=== PATIENT | male | born 1950 | race Caucasian/White ===

== ENCOUNTER → 2016-02-28 | Outpatient (CLI) | payer MEDICARE, MEDICAID ==
[~2016-02-28] MED LIST: /GLIM4TA PO; /PRAV20TA PO; ALBU17IN INH; AMBI10TA PO; AMOX500T2 PO; ANTI25TA PO; ASPI81TA85 PO; ATEN25TA PO; BACT800T5 PO; CLAR10CA3 PO; CLIN300C PO; CLOB0.0548 EX; CLOP75TA2 PO; CYCL10TA3 PO; DOXY-197 PO; ECOT81TA5 PO; EUCECRE3 TOP; FENT50PA TD; FLEXERIL PO; FLOM5CAP PO; FOLI1TAB2 PO; FOLI1TAB86 PO; FURO40TA2 PO; GABA300C3 PO; GABA800T PO; GLIM4TAB PO; HYDR12.55 PO; HYDR25TAB PO; HYDR50TA2 PO; KLOR20TA PO; LANS30CA PO; LANTINJ4 SC; LASI40TA PO; LISI-542 PO; LORA10TA2 PO; MAGN400T5 PO; MECL-68 PO; MECL25CH PO; MICR10CA PO; MUPI2OI TOP; NEUR300C PO; NIFE15CA PO; NORT25CA2 PO; OXYC-208 PO; OXYC10TA12 PO; OXYC1SOL PO; OXYC1TAB23 PO; OXYC20TA2 PO; PAME50CA PO; PANT40TA2 PO; PENT40TASA PO; PERC5TAB6 PO; POTA20TA PO; PRAV1TAB39 PO; PRAV40TA2 PO; PROT1TAB2 PO; SPIRIVA HANDIHALER INH; SUCR1TA PO; TEMA30CA PO; TIOT18INH INH; VENTAER IN; VIBR100C PO; VITA100072 PO; VITA500047 PO; [UNRECOGNIZED DRUG - CODE] TOP; serax PO
[2016-02-28 10:01] LABS: BASO % 0.5 % (0.0-1.0); EOS # 0.4 K/mm3 (0.0-0.50); EOS % 4.1 % (0.0-3.0); LARGE UNSTAINED CELL # 0.4 K/mm3 (0.0-0.4); LARGE UNSTAINED CELL % 4.1 % (0.0-4.0); LYMPH # 1.9 K/mm3 (1.5-4.5); LYMPH % 19.5 % (24.0-44.0); MEAN CORPUSCULAR HEMOGLOBIN 30.6 pg (27.0-33.0); MEAN CORPUSCULAR HGB CONC 32.8 g/dl (32.0-36.5); MEAN CORPUSCULAR VOLUME 93.2 fl (80.0-96.0); MONO # 0.7 K/mm3 (0.0-0.8); MONO % 7.7 % (0.0-5.0); NEUTROPHILS # 6.1 K/mm3 (1.8-7.7); NEUTROPHILS % 64.1 % (36.0-66.0); PLATELET COUNT, AUTOMATED 143 k/mm3 (150-450); RED CELL DISTRIBUTION WIDTH 16.7 % (11.5-14.5); WHITE BLOOD COUNT 9.5 K/mm3 (4.0-10.0)
[2016-02-28 10:22] LABS: ANION GAP 9 MEQ/L (8-16); BLOOD UREA NITROGEN 16 MG/DL (7-18); CALCIUM LEVEL 9.8 MG/DL (8.8-10.2); CARBON DIOXIDE LEVEL 29 MEQ/L (21-32); CHLORIDE LEVEL 104 MEQ/L (98-107); CREATININE FOR GFR 1.22 MG/DL (0.70-1.30); GLOMERULAR FILTRATION RATE > 60.0 (>49); GLUCOSE, FASTING 113 MG/DL (80-110); POTASSIUM SERUM 3.5 MEQ/L (3.5-5.1); SODIUM LEVEL 142 MEQ/L (136-145)
[2016-02-28 10:27] LABS: INR 0.97
== END ==
LOC: M LAB 09:24
PROVIDERS: ATTEND Surgery Vascular Surgery
DX: D69.8 Other specified hemorrhagic conditions (principal)
CPT/HCPCS: 36415; 80048; 85025; 85610; 85730; G0463

== ENCOUNTER → 2016-04-10 | Outpatient (REF) | payer MEDICARE, MEDICAID ==
[2016-04-10 12:51] LABS: BASO % 0.5 % (0.0-1.0); EOS # 0.3 K/mm3 (0.0-0.50); EOS % 3.2 % (0.0-3.0); LARGE UNSTAINED CELL # 0.3 K/mm3 (0.0-0.4); LARGE UNSTAINED CELL % 3.2 % (0.0-4.0); LYMPH # 2.1 K/mm3 (1.5-4.5); MEAN CORPUSCULAR HEMOGLOBIN 31.3 pg (27.0-33.0); MEAN CORPUSCULAR HGB CONC 33.3 g/dl (32.0-36.5); MONO # 0.7 K/mm3 (0.0-0.8); MONO % 6.7 % (0.0-5.0); NEUTROPHILS % 66.3 % (36.0-66.0); PLATELET COUNT, AUTOMATED 174 k/mm3 (150-450); RED CELL DISTRIBUTION WIDTH 14.2 % (11.5-14.5); WHITE BLOOD COUNT 10.6 K/mm3 (4.0-10.0)
[2016-04-10 13:13] LABS: ERYTHROCYTE SEDIMENTATION RATE 7 mm/hr (0-20)
== END ==
LOC: M SFHCPLAZ 12:06
PROVIDERS: ATTEND Physician Assistant Medical
DX: L03.116 Cellulitis of left lower limb (principal)

== ENCOUNTER → 2016-04-10 | Outpatient (CLI) | payer MEDICARE, MEDICAID ==
--- NOTE | 2016-04-10 12:21 | REP ---
UNILATERAL LEFT LOWER EXTREMITY DUPLEX VEINS: HISTORY: Thrombosis. There are no filling defects in the deep venous system. The deep venous system is patent. The greater saphenous vein is not seen. Edema is present in the calf. There are multiple lymph nodes in the left groin. IMPRESSION: There is deep venous thrombosis. Signed by Rodríguez Gupta MD 04/10/2016 12:24 P
== END ==
LOC: M RAD 10:32
PROVIDERS: ATTEND Physician Assistant Medical
DX: R60.0 Localized edema (principal); L03.116 Cellulitis of left lower limb

== ENCOUNTER → 2016-04-14 | Outpatient (CLI) | payer MEDICARE, MEDICAID | LOC: M PT 13:57 | PROVIDERS: ATTEND Physician Assistant Medical | DX: I73.9 Peripheral vascular disease, unspecified (principal) | CPT/HCPCS: 97162; G0463; G8978; G8979; G8980 ==

== ENCOUNTER → 2016-04-16 | Outpatient (REF) | payer MEDICARE, MEDICAID ==
[2016-04-16 10:30] LABS: BASO % 0.4 % (0.0-1.0); EOS # 0.4 K/mm3 (0.0-0.50); EOS % 3.4 % (0.0-3.0); LARGE UNSTAINED CELL # 0.3 K/mm3 (0.0-0.4); LARGE UNSTAINED CELL % 2.3 % (0.0-4.0); LYMPH # 2.1 K/mm3 (1.5-4.5); LYMPH % 16.2 % (24.0-44.0); MEAN CORPUSCULAR HEMOGLOBIN 31.3 pg (27.0-33.0); MEAN CORPUSCULAR HGB CONC 32.5 g/dl (32.0-36.5); MEAN CORPUSCULAR VOLUME 96.2 fl (80.0-96.0); MONO # 0.7 K/mm3 (0.0-0.8); MONO % 6.1 % (0.0-5.0); NEUTROPHILS # 8.1 K/mm3 (1.8-7.7); NEUTROPHILS % 71.7 % (36.0-66.0); PLATELET COUNT, AUTOMATED 158 k/mm3 (150-450); RED CELL DISTRIBUTION WIDTH 14.5 % (11.5-14.5); WHITE BLOOD COUNT 11.3 K/mm3 (4.0-10.0)
[2016-04-16 10:59] LABS: ERYTHROCYTE SEDIMENTATION RATE 28 mm/hr (0-20)
== END ==
LOC: M SFHCPLAZ 08:02
PROVIDERS: ATTEND Physician Assistant Medical
DX: L03.116 Cellulitis of left lower limb (principal)
CPT/HCPCS: 36415; 85025; 85652; 86140; G0463

== ENCOUNTER → 2016-04-23 | Outpatient (REF) | payer MEDICARE, MEDICAID ==
[2016-04-23 11:01] LABS: BASO # 0.1 K/mm3 (0.0-0.2); BASO % 0.6 % (0.0-1.0); EOS # 0.3 K/mm3 (0.0-0.50); LARGE UNSTAINED CELL # 0.3 K/mm3 (0.0-0.4); LARGE UNSTAINED CELL % 2.4 % (0.0-4.0); LYMPH # 1.9 K/mm3 (1.5-4.5); LYMPH % 16.5 % (24.0-44.0); MEAN CORPUSCULAR HEMOGLOBIN 31.6 pg (27.0-33.0); MEAN CORPUSCULAR HGB CONC 33.4 g/dl (32.0-36.5); MEAN CORPUSCULAR VOLUME 94.7 fl (80.0-96.0); MONO # 0.7 K/mm3 (0.0-0.8); MONO % 7.1 % (0.0-5.0); NEUTROPHILS # 7.2 K/mm3 (1.8-7.7); NEUTROPHILS % 70.4 % (36.0-66.0); PLATELET COUNT, AUTOMATED 159 k/mm3 (150-450); RED CELL DISTRIBUTION WIDTH 14.4 % (11.5-14.5); WHITE BLOOD COUNT 10.2 K/mm3 (4.0-10.0)
[2016-04-23 11:25] LABS: ERYTHROCYTE SEDIMENTATION RATE 24 mm/hr (0-20)
== END ==
LOC: M SFHCPLAZ 08:01
PROVIDERS: ATTEND Physician Assistant Medical
DX: L03.116 Cellulitis of left lower limb (principal)
CPT/HCPCS: 36415; 85025; 85652; 86140; G0463

== ENCOUNTER → 2016-05-02 | Outpatient (REF) | payer MEDICARE, MEDICAID ==
[2016-05-02 12:22] LABS: BASO % 0.3 % (0.0-1.0); EOS # 0.4 K/mm3 (0.0-0.50); EOS % 4.2 % (0.0-3.0); LARGE UNSTAINED CELL # 0.4 K/mm3 (0.0-0.4); LARGE UNSTAINED CELL % 3.3 % (0.0-4.0); LYMPH # 1.8 K/mm3 (1.5-4.5); MEAN CORPUSCULAR HGB CONC 32.8 g/dl (32.0-36.5); MEAN CORPUSCULAR VOLUME 94.5 fl (80.0-96.0); MONO # 0.5 K/mm3 (0.0-0.8); MONO % 4.4 % (0.0-5.0); NEUTROPHILS # 7.6 K/mm3 (1.8-7.7); NEUTROPHILS % 70.8 % (36.0-66.0); PLATELET COUNT, AUTOMATED 145 k/mm3 (150-450); WHITE BLOOD COUNT 10.8 K/mm3 (4.0-10.0)
== END ==
LOC: M SFHCPLAZ 08:46
PROVIDERS: ATTEND Physician Assistant Medical
DX: L03.116 Cellulitis of left lower limb (principal)
CPT/HCPCS: 36415; 85025; G0463

== ENCOUNTER → 2016-05-08 | Outpatient (CLI) | payer MEDICARE, MEDICAID ==
[~2016-05-08] MED LIST changes: +GABA-282 PO; -GABA300C3 PO; +TEMO0.0520 TOP; -[UNRECOGNIZED DRUG - CODE] TOP
--- NOTE | 2016-05-09 02:19 | REP ---
Clinical: Pain. Technique: Internal rotation, external rotation, and Y view of the right shoulder. Findings: Age-related changes include cortical irregularity and subtle spurring at the acromioclavicular joint as well as subtle heterogeneity at the level of the humeral neck. A small forming spur along the inferior margin of the humeral head/neck along with adjacent subtle heterogeneity and lipping of the inferior glenoid rim is also appreciated. No periarticular calcifications. Subacromial space is within normal limits. No acute fracture dislocation. Impression: Mild to moderate arthritic degenerative changes. Signed by Michele Bourgeois MD 05/09/2016 02:11 A
== END ==
LOC: M RAD 11:20
PROVIDERS: ATTEND Physician Assistant Medical
DX: M19.011 Primary osteoarthritis, right shoulder (principal)
CPT/HCPCS: 73030; G0463

== ENCOUNTER 2016-06-22 21:09 | Emergency (ER) | payer MEDICARE, MEDICAID ==
[2016-06-22] MEDS ORDERED: NORT75CA2 PO (21:32)
--- NOTE | 2016-06-22 22:30 | REPUSA ---
CT of the head Clinical history: Fall. Comparison: 11/13/2015. Protocol: Multiple axial CT images obtained with 5 mm slice thickness were obtained through the head without administration of contrast. Findings: The ventricles and sulci are symmetric but prominent in size bilaterally. There are periven tricular areas of low attenuation throughout the deep white matter. There is no evidence of acute hem orrhage or infarct. There is no midline shift, mass effect, or extra-axial fluid collection. The osse ous structures are unremarkable. The visualized paranasal sinuses and mastoid air cells are clear. Impression: No acute hemorrhage or infarct. 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
[2016-06-22 22:32] LABS: BASO % 0.2 % (0.0-1.0); EOS # 0.3 K/mm3 (0.0-0.50); EOS % 2.6 % (0.0-3.0); LARGE UNSTAINED CELL # 0.3 K/mm3 (0.0-0.4); LARGE UNSTAINED CELL % 2.5 % (0.0-4.0); LYMPH # 1.4 K/mm3 (1.5-4.5); LYMPH % 13.9 % (24.0-44.0); MEAN CORPUSCULAR HEMOGLOBIN 33.5 pg (27.0-33.0); MEAN CORPUSCULAR HGB CONC 34.9 g/dl (32.0-36.5); MONO # 0.6 K/mm3 (0.0-0.8); MONO % 6.3 % (0.0-5.0); NEUTROPHILS # 7.5 K/mm3 (1.8-7.7); NEUTROPHILS % 74.6 % (36.0-66.0); PLATELET COUNT, AUTOMATED 158 k/mm3 (150-450); RED CELL DISTRIBUTION WIDTH 14.4 % (11.5-14.5); WHITE BLOOD COUNT 10.1 K/mm3 (4.0-10.0)
[2016-06-22 23:04] LABS: CALCIUM LEVEL 8.9 MG/DL (8.8-10.2); CREATININE FOR GFR 1.32 MG/DL (0.70-1.30); GLOMERULAR FILTRATION RATE 57.6 (>49); POTASSIUM SERUM 3.6 MEQ/L (3.5-5.1)
[2016-06-23] MEDS ORDERED: fentaNYL 100 MCG/2 ML INJECTION (J3010) IV ONE (01:00)
[2016-06-23] MEDS ORDERED: PERC5TAB6 PO (02:34)
[2016-06-23] MEDS ORDERED: [UNRECOGNIZED DRUG - CODE] XX (02:45)
--- NOTE | 2016-06-23 03:22 | REP ---
Clinical: Pain. Fall. Comparison: Most recent chest x-ray dated 11/13/2015. Technique: Internal rotation, external rotation, and Y view. Findings: There appears to be a nondisplaced fracture involving the distal aspect of the clavicle with associated periosteal reaction and callus formation suggesting subacute fracture. Superimposed acute fracture cannot be excluded and correlation with history of trauma is recommended. Cortical irregularity and age-related degenerative changes involving the acromion process and glenohumeral joint noted. Impression: Fracture of the distal clavicle with periosteal reaction and callus formation suggests subacute fracture. Correlation with history of trauma is recommended. Signed by Michele Bourgeois MD 06/23/2016 03:13 A
[2016-06-23 03:38] VITALS: BP 134/84
== END 2016-06-23 03:44 | disposition home or self-care (01) ==
LOC: EDSEX 21:09 → EDBD 21:09 → M ED 22:45
DX: S42.002A Fracture of unspecified part of left clavicle, initial encounter for closed fracture (principal); X58.XXXA Exposure to other specified factors, initial encounter; Y92.89 Other specified places as the place of occurrence of the external cause; Y93.89 Activity, other specified; Y99.8 Other external cause status; M25.511 Pain in right shoulder; Z89.511 Acquired absence of right leg below knee; E11.9 Type 2 diabetes mellitus without complications; I10 Essential (primary) hypertension; J44.9 Chronic obstructive pulmonary disease, unspecified; K74.60 Unspecified cirrhosis of liver; N28.9 Disorder of kidney and ureter, unspecified; F17.210 Nicotine dependence, cigarettes, uncomplicated; F12.20 Cannabis dependence, uncomplicated

== ENCOUNTER 2016-07-02 13:42 | Inpatient (IN) | payer MEDICARE, MEDICAID ==
[~2016-07-02] VITALS: Ht 185.4 cm; Wt 93.2 kg
[~2016-07-02 13:42] MED LIST changes: +NORT75CA2 PO; +[UNRECOGNIZED DRUG - CODE] XX
[2016-07-02] MEDS ORDERED: TETANUS/DIPHTHERIA TOX ADSORB ADULT 0.5ML SYR/VIAL (90714) IM ONE (14:15)
[2016-07-02 14:30] LABS: BASO # 0.1 K/mm3 (0.0-0.2); BASO % 0.5 % (0.0-1.0); EOS # 0.2 K/mm3 (0.0-0.50); EOS % 1.4 % (0.0-3.0); LARGE UNSTAINED CELL # 0.3 K/mm3 (0.0-0.4); LARGE UNSTAINED CELL % 1.9 % (0.0-4.0); LYMPH # 2.4 K/mm3 (1.5-4.5); LYMPH % 14.2 % (24.0-44.0); MEAN CORPUSCULAR HGB CONC 33.5 g/dl (32.0-36.5); MEAN CORPUSCULAR VOLUME 95.5 fl (80.0-96.0); MONO # 0.6 K/mm3 (0.0-0.8); NEUTROPHILS # 11.5 K/mm3 (1.8-7.7); NEUTROPHILS % 77.9 % (36.0-66.0); PLATELET COUNT, AUTOMATED 182 k/mm3 (150-450); RED CELL DISTRIBUTION WIDTH 14.8 % (11.5-14.5); WHITE BLOOD COUNT 14.7 K/mm3 (4.0-10.0)
[2016-07-02 14:40] LABS: INR 1.05
[2016-07-02] MEDS: NS 1,000 ML IV SCH ×3 (14:40→14:50)
[2016-07-02 14:56] LABS: ALBUMIN 3.6 GM/DL (3.2-5.2); ALBUMIN/GLOBULIN RATIO 0.88 (1.00-1.93); BILIRUBIN,DIRECT 0.1 MG/DL (0.0-0.2); BILIRUBIN,TOTAL 0.4 MG/DL (0.2-1.0); CALCIUM LEVEL 9.7 MG/DL (8.8-10.2); CREATININE FOR GFR 1.45 MG/DL (0.70-1.30); GLOMERULAR FILTRATION RATE 51.7 (>49); POTASSIUM SERUM 3.6 MEQ/L (3.5-5.1); TOTAL PROTEIN 7.7 GM/DL (6.4-8.2)
[2016-07-02] MEDS ORDERED: ISOVUE-370 76% 100ML VIAL (Q9967) As Ordered ONE (14:58)
[2016-07-02] MEDS ORDERED: levETIRAcetam INJection 1,000 MG in D5W 100 ML IV ONE (16:15)
--- NOTE | 2016-07-02 16:42 | REP ---
CT BRAIN WITHOUT CONTRAST: 07/02/2016: Clinical history: Head trauma. Patient fell. Comparison: 06/22/2016. Findings: Noncontrast images of the brain were performed with soft tissue and bone windows reviewed for each slice level. Ventricles are midline, symmetric and mildly dilated in proportion to mild atrophy. There is a right frontal temporal scalp hematoma, new from the previous study. There is also a parenchymal contusion. The right parotid temporal region near the Sylvian fissure and lateral to the basal ganglia. There is no extra-axial hemorrhage. I see no contrecoup injury on the left. There is an old lacunar infarction in the anterior limb of the internal capsule of the left basal ganglia. Heterogeneous low attenuation white matter changes bilaterally suggesting small vessel white matter disease. No midline shift or mass effect. No extra-axial fluid collection, bleed or mass. Brainstem was intact. Cerebellum shows mild atrophy without hemorrhage or mass. Basal cisterns intact. Visualized sinuses are unremarkable. Some minor mucosal disease in the bilateral ethmoids and portion of right maxillary sinus seen. The right mastoids are less well aerated on the left. This appearance is stable. No fracture of the skull base or calvarium with no fracture subjacent to the scalp hematoma noted on the anterior right frontal temporal region. Impression: 1. There is parenchymal contusion in the right parietal temporal region near the Sylvian fissure and lateral to the basal ganglia. There is no extra-axial hemorrhage or other mass. 2. Mild atrophy and chronic small vessel white matter ischemic change of aging. 3. No fracture or focal lesion of the skull base or calvarium. The visualized ethmoids and portion right maxillary sinus mucosal thickening. Otherwise negative. 4. A phone call pending to the attending physician at the time of this dictation. Addendum at the time of signature: I spoke to the attending ED physician medially after dictation. Signed by Haroon Cook MD 07/02/2016 05:20 P
--- NOTE | 2016-07-02 16:46 | REP ---
CT study of the cervical spine without contrast: History: Trauma. Comparison study is from 11/14/2015. Technique: Helical scanning is acquired and overlapping 2 mm high resolution axial images were generated and reviewed at bone and soft tissue window settings. Coronal and sagittal multiplanar re-formations images are generated. CT findings: There is no evidence of cervical spine element fracture. No skull base fracture is seen. Cervical vertebral body heights are preserved. Alignment is normal. Facet joints are normally aligned bilaterally at each cervical level on multiplanar re-formations images. There are advanced degenerative spondylosis changes at multiple levels in the cervical spine. These are most pronounced at C4-5 and C6-7 and are unchanged from the comparison study. Advanced osteoarthritic facet changes are again noted as well particularly on the left side at C2-3, C4-5, and C5-6. This C3-4 facet is fused on the left. This is unchanged. There is reversal of the normal cervical lordosis. There is a dextroconvex curvature in the cervical spine unchanged. There is no evidence of intraspinal or paraspinal hematoma. No extra vertebral abnormality is seen. Impression: Advanced degenerative spondylosis changes, stable from 11/14/2015 prior study. Otherwise negative CT study of the cervical spine without contrast. No fracture seen. Signed by Ras Azul MD 07/03/2016 12:52 P
--- NOTE | 2016-07-02 16:53 | REP ---
CT CHEST WITH CONTRAST: 07/02/2016. Clinical history: Trauma. Comparison: Chest x-ray 11/13/2015. CONTRAST: A bolus of 100 mL Isovue 370 given scanning through the chest with coronal and sagittal reconstructions. Findings: The lung bases show dependent atelectatic change throughout without dense consolidation, pleural effusion, calcified pleural plaque or pleural-based mass. No pneumothorax, pneumomediastinum, infiltrate or nodule. There is some hazy opacities suggesting some patchy areas of atelectatic change. No dense consolidation or parenchymal contusion. No laceration. The heart is not enlarged and no pericardial thickening or effusion. The aorta is without aneurysm or dissection and has atherosclerotic calcifications and plaque at the arch and descending aorta. No pathologic sized mediastinal or hilar adenopathy. The main right and left pulmonary arteries and the mediastinum are without filling defects. Visualized lobar arteries intact. No axillary or supraclavicular mass. Bone windows show the sternum, manubrium, medial heads of the clavicles, the right AC joint, glenohumeral joints, humeral heads and scapula all without fracture, destructive lesion or minor degenerative changes. Visualized ribs show no displaced fracture, focal rib lesion. The spine shows no acute compression deformity or destructive lesion. Posterior elements intact. The upper abdomen that portion of liver and spleen included were unremarkable. Pancreas was intact. Impression: 1. No CT evidence of parenchymal lung laceration or contusion, effusion, pneumothorax or other acute finding. 2. No mediastinal or hilar mass, hematoma, aortic aneurysm or dissection or filling defects in the pulmonary arteries. 3. Spine, ribs and other bony structures in the chest are without acute finding. Negative examination. Signed by Haroon Cook MD 07/02/2016 05:20 P
--- NOTE | 2016-07-02 17:04 | REP ---
CT ABDOMEN PELVIS WITHOUT IV CONTRAST: 07/02/2016. Clinical history: Trauma. Findings: Helical scanning through the abdomen pelvis after bolus of 100 mL Isovue 370 with coronal and sagittal reconstructions. Comparison: 01/15/2015. Findings: CT abdomen: There is no hiatal hernia. Liver shows slightly lobulated contours are mildly prominent left hepatic lobe. No hepatomegaly. Spleen not grossly enlarged and neither the liver, spleen, shows subcapsular hematoma or laceration. No parenchymal masses. No biliary dilatation. The gallbladder shows one tiny calcified stone in its dependent portion. Pancreas shows a common duct in the head without dilatation. There is a small calcification in the pancreas adjacent to the common duct and pancreatic duct likely between them or in the diverticulum off one of these ducts. It is unchanged. The remainder of the pancreas grossly intact. Peripancreatic inflammatory change. Adrenal glands are normal on the right. The left shows a small nodule unchanged. Kidneys show some lobation and stranding in the perinephric fat. No solid mass noted. A few small cysts. There is some scarring upper pole on the left, unchanged. Peripheral scar in the interpolar region on the right. No hydronephrosis seen. Calcification in the renal artery branches noted on both sides. There is atherosclerotic calcification without aneurysm. No periaortic or other retroperitoneal pathologic sized lymphadenopathy. There is stool and gas in the abdominal portion of the colon without colitis or diverticulitis. Small bowel loops intact. No free air in the abdomen or pelvis on lung window review of all CT slice levels. Bone windows show the lumbar spine with vacuum phenomena at L4-5 and minor degenerative changes throughout less in the lower thoracic spine. The posterior elements show no spondylolysis or spondylolisthesis. Visualized ribs intact. CT pelvis: The iliac wings, SI joints, sacral ala, acetabuli and hips show no fracture, or destructive lesion. Minor degenerative changes right greater than left hip. Hypertrophic facet changes lower lumbar spine and SI joint. No ventral or inguinal hernia nor pathologic sized inguinal adenopathy. Surgical clips in the right inguinal as before. Bladder shows no wall thickening, mass or stone. Appearance of the wall is normal for a degree of distension. No debris sludge or extrinsic mass effect on the bladder. Impression: 1. No mass, hematoma or laceration of the solid organs, intra-abdominal or pelvic ascites, adenopathy or mass. No free air. Kidneys and collecting systems normal. No aortic aneurysm or dissection. 2. No spine or posterior element fracture. Posterior ribs intact from the lower thoracic region and the visualized sacrum, SI joints, spine and sacrum were all unremarkable. Signed by Haroon Cook MD 07/02/2016 05:20 P
--- NOTE | 2016-07-02 17:05 | REP ---
LEFT HAND SERIES: Four views of the left hand were performed. There is no acute fracture or dislocation. Moderate degenerative changes are seen at the joint between the trapezium and base of 1st metacarpal with spurring, subchondral sclerosis. IMPRESSION: No acute fracture or dislocation. Signed by Michael Dumont MD 07/03/2016 04:17 P
[2016-07-02] MEDS ORDERED: GABA-283 PO (17:29)
[2016-07-02] MEDS ORDERED: OXYC1TAB23 PO (17:34)
[2016-07-02] MEDS ORDERED: HYDR25TAB PO (17:34)
[2016-07-02] MEDS ORDERED: FERR325T16 PO (17:34)
[2016-07-02] MEDS ORDERED: OXYC-517 PO (17:34)
--- NOTE | 2016-07-02 20:24 | ECGEPIP ---
Stationary ECG Study [facility] - ED Test Date: 2016-07-02 Pat Name: PAGE BADILLO Department: Room: - Gender: M Pediatric Dental Hygienist: JMoncho : 1950 Requested By: SAMMIE Floyd Order Number: [id number] Reading MD: Stan Valdovinos Measurements Intervals [place] Rate: 82 P: 78 NE: 198 QRS: 1 QRSD: 162 T: 57 QT: 402 QTc: 471 Interpretive Statements SINUS RHYTHM RIGHT BUNDLE BRANCH BLOCK NONSPECIFIC ST T WAVE CHANGES 11/21/[address] T WAVE CHANGES Electronically Signed On 07-02-2016 20:23:39 EDT by Stan Valdovinos
[2016-07-02 21:00] VITALS: BP 131/76
[2016-07-02] MEDS ORDERED: LORazepam 2 MG/ML VIAL (J2060) IV PRN (21:30)
[2016-07-02] MEDS: levETIRAcetam 250MG TABLET (KEPPRA) PO SCH (22:42)
[2016-07-02] MEDS: KCL 20MEQ IN D5/NS 1000ML 1,000 ML IV SCH (22:42)
[2016-07-03] VITALS: BP 129/82
[2016-07-03] MEDS ORDERED: OXAZEPAM 15 MG CAP PO SCH
[2016-07-03] MEDS ORDERED: PERCOCET 5MG/325MG TAB PO PRN (02:00)
[2016-07-03] MEDS ORDERED: DEXTROSE 50% 50 ML SYRINGE IV PRN (02:00)
[2016-07-03] MEDS ORDERED: GLUCOSE 4 GM CHEW TABLET PO PRN (02:00)
[2016-07-03] MEDS ORDERED: ALBUTEROL 90 MCG/ACT 8GM HFA INHALER INH PRN (02:00)
[2016-07-03] MEDS ORDERED: GLUCAGON FOR INJ 1 MG VIAL (J1610) SC PRN (02:00)
[2016-07-03] MEDS: SUCRALFATE 1 GM TAB PO SCH ×3 (02:16→21:04)
[2016-07-03] MEDS: FERROUS GLUCONATE 324 MG TAB PO SCH ×3 (02:17→21:04)
[2016-07-03] MEDS: GABAPENTIN 400 MG CAP PO SCH ×4 (02:17→09:46)
[2016-07-03] MEDS: PRAVASTATIN 20 MG TAB PO SCH ×2 (02:18→21:03)
[2016-07-03] MEDS: PANTOPRAZOLE 40MG TAB (PROTONIX) PO SCH ×3 (02:18→21:03)
[2016-07-03] MEDS: NORTRIPTYLINE 25 MG CAP PO SCH ×2 (02:18→09:46)
[2016-07-03] MEDS: oxyCODONE 5MG TAB PO SCH ×2 (02:18→21:04)
--- NOTE | 2016-07-03 02:43 | CR.PDOC ---
[facility] Consultation Consultation HOSPITALIST CONSULT NOTE Date of consult: 07/03/2016 Referring Provider: Dr. Estrella PCP: Unknown Reason for Consult: Management of chronic medical issues HPI: 66-year-old male with COPD, history of TIA, diabetes mellitus type 2, hyperlipidemia, hypertension, PVD, CKD stage 2 to 3 who evidently presented to [facility] after falling out of his wheelchair. The patient has recently received Serax prior to my interview, and while he is arousable to sternal rub, he is not able to precipitate in the interview. The entirety of this history comes from prior records, as well as my conversation with his nurse and with Dr. Estrella. Evidently, the patient was drunk today, which is not unusual for him, and while he was rolling his wheelchair over a bump in the road, he fell out. He evidently hit his head, and suffered a closed head injury. Past medical history: COPD, history of TIA, diabetes mellitus type 2, hyperlipidemia, hypertension, PVD, alcoholism, CKD stage 2 to 3 Past surgical history: Stent in the right lower extremity, right renal stent, hernia repair, right BKA, tonsillectomy Family history: Unknown Social history: The patient evidently is a regular drinker. Prior documentation approximately 8 months ago also mentioned that he uses marijuana regularly, and had recently stopped smoking. Allergies: Godwin inhibitors, Bee venom, hydrocodone, varenicline Review of systems: Unable to obtain as the patient was sedated secondary to the recent administration of Serax Home meds: See below Physical exam: Vital signs: Vital Signs Date Time Temp Pulse Resp B/P (MAP) Pulse Ox O2 Delivery O2 Flow Rate FiO2 07/03/16 00:00 98.3 80 20 129/82 (98) 93 Room Air Gen.: Sleeping soundly, snoring, arouses to sternal rub, no acute distress Eyes: No drainage ENT: Moist mucous membranes Cardiovascular: RRR Lungs: clear to auscultation bilaterally, no rales, rhonchi, or wheeze Abdomen: Soft, NT/ND, normal BS Extremities: No peripheral edema, right BKA Neuro: Arouses to sternal rub, but is not able to answer any questions; the nurse reports that he just received a dose of Serax but was previously conversant Psych: Unable to assess Labs and radiology: See below Creatinine 1.45 Blood alcohol level is elevated Alkaline phosphatase [address] of the chest, CT of the abdomen and pelvis, plain films of the left hand are all unremarkable CT of the head shows concern for contusion Assessment and plan: 66-year-old male with COPD, history of TIA, diabetes mellitus type 2, hyperlipidemia, hypertension, PVD, CKD stage 2 to 3, and alcoholism who evidently presented to [facility] after falling out of his wheelchair. He has been admitted by neurosurgery for a closed head injury. We have been consulted for management of his chronic medical conditions. 1. Closed head injury: Management as per neurosurgery. 2. Alcoholism: I agree with scheduled Serax and as needed Ativan that was ordered by neurosurgery. May consider decreasing his Serax, as he seems to be quite sedated at the current dose. Daily thiamine, folate, multivitamin. 3. Diabetes mellitus type 2: Patient can continue his home Lantus, and we will use sliding scale insulin while in house. Holding home glimepiride. 4. COPD: The patient's lungs currently sound clear. We will continue home loratadine and as needed albuterol. 5. History of TIA: Continue blood pressure control and statin. We will currently hold his home aspirin and Plavix given the concern for brain contusion. He has a repeat CT scheduled for tomorrow morning, if this is unremarkable for any bleed, we may consider resuming these medications. 6. Hyperlipidemia: Continue home statin 7. Hypertension: Blood pressure is currently controlled. We'll continue home beta avery and HCTZ. We will hold home Lasix as his creatinine appears slightly above baseline at this time. 8. PVD: We will continue the patient's home statin. Given the concern for brain contusion, we will hold his home aspirin, Plavix, and Trental, until repeat CT of his head is completed in the morning. If there is no concern for bleed on those images, we could consider restarting these. 9. CKD stage 2 to 3: Baseline creatinine appears to be in the low ones. Creatinine upon admission is 1.45 which appears to be slightly above baseline. We will hold his home Lasix and repeat a creatinine in the morning. 10. Leukocytosis: White count is 14.7, but the patient has been afebrile. He has no obvious source of infection, and chest imaging is unremarkable. We will check a UA, but I suspect that this elevation may be a reactive process to his head injury. DVT prophylaxis: As per his primary team Thank you for this consult. We will continue to follow along with you, and Dr. Ortega will assume coverage at 7am. Vital Signs/I&O Vital Signs Date Time Temp Pulse Resp B/P (MAP) Pulse Ox O2 Delivery O2 Flow Rate FiO2 07/03/16 00:00 98.3 80 20 129/82 (98) 93 Room Air I&O- Last 24 Hours up to 6 AM 07/03/16 05:59 Intake Total 0 ml Output Total 750 ml Balance -750 ml Laboratory Data Labs 24H Laboratory Tests 2 07/02/16 14:22: White Blood Count 14.7H, Red Blood Count 4.83, Hemoglobin 15.5, Hematocrit 46.2 , Mean Corpuscular Volume 95.5, Mean Corpuscular Hemoglobin 32.0, Mean Corpuscular Hemoglobin Concent 33.5, Red Cell Distribution Width 14.8H, Platelet Count 182, Neutrophils (%) (Auto) 77.9H, Lymphocytes (%) (Auto) 14.2L, Monocytes (%) (Auto) 4.0, Eosinophils (%) (Auto) 1.4, Basophils (%) (Auto) 0.5, Neutrophils # (Auto) 11.5H, Lymphocytes # (Auto) 2.4, Monocytes # (Auto) 0.6, Eosinophils # (Auto) 0.2, Basophils # (Auto) 0.1, Large Unclassified Cells % 1.9 , Large Unclassified Cells # 0.3, Prothrombin Time 13.8, Prothromb Time International Ratio 1.05, Activated Partial Thromboplast Time 44.9H, Anion Gap 9 , Glomerular Filtration Rate 51.7, Calcium Level 9.7, Aspartate Amino Transf ( AST/SGOT) 37, Alanine Aminotransferase (ALT/SGPT) 45, Alkaline Phosphatase 157H , Total Bilirubin 0.4, Direct Bilirubin 0.1, Total Protein 7.7, Albumin 3.6, Albumin/Globulin Ratio 0.88L, Lipase 113, Ethyl Alcohol Level 0.049H CBC/BMP Laboratory Tests 07/02/16 14:22 Red Blood Count 4.83, Mean Corpuscular Volume 95.5, Mean Corpuscular Hemoglobin 32.0, Mean Corpuscular Hemoglobin Concent 33.5, Red Cell Distribution Width 14.8 H, Neutrophils (%) (Auto) 77.9 H, Lymphocytes (%) (Auto) 14.2 L, Monocytes (%) (Auto) 4.0, Eosinophils (%) (Auto) 1.4, Basophils (%) (Auto) 0.5, Neutrophils # (Auto) 11.5 H, Lymphocytes # (Auto) 2.4, Monocytes # (Auto) 0.6, Eosinophils # (Auto) 0.2, Basophils # (Auto) 0.1 Allergies Coded Allergies: GODWIN Inhibitors (Verified Allergy, Unknown, 06/22/16) Bee Venom (Verified Allergy, Unknown, 06/22/16) Hydrocodone (Verified Adverse Reaction, Mild, INTOLERANCE, 06/22/16) Varenicline (Verified Adverse Reaction, Mild, NIGHTMARES, 06/22/16) Home Medications Scheduled Aspirin (Ecotrin Low Strength) 81 Mg Tab, 81 MG PO DAILY, (Reported) Atenolol (Atenolol) 25 Mg Tab, 25 MG PO DAILY, (Reported) Clopidogrel Bisulfate (Clopidogrel) 75 Mg Tab, 75 MG PO DAILY, (Reported) TAKES AT NOON Ferrous Gluconate (Ferrous Gluconate) 324 Mg Tab, 324 MG PO BID, (Reported) Folic Acid (Folic Acid) 1 Mg Tab, 1 MG PO DAILY, (Reported) Furosemide (Lasix) 40 Mg Tab, 40 MG PO DAILY, (Reported) Gabapentin (Gabapentin) 800 Mg Tab, 800 MG PO TID, (Reported) 1200MG TOTAL TID Gabapentin (Gabapentin) 400 Mg Cap, 400 MG PO TID, (Reported) 1200MG TOTAL TID Glimepiride (Glimepiride) 4 Mg Tab, 4 MG PO BID, (Reported) Hydrochlorothiazide (Hydrochlorothiazide) 25 Mg Tab, 25 MG PO DAILY, (Reported) Insulin Glargine (Lantus Solostar) 100 Unit/Ml Inj, 55 UNITS SC DAILY, (Reported ) TAKES AT NOON Loratadine (Loratadine) 10 Mg Tab, 10 MG PO DAILY, (Reported) Nortriptyline HCl (Nortriptyline HCl) 75 Mg Cap, 75 MG PO TID, (Reported) Oxycodone HCl (Oxycodone HCl) 5 Mg Tab, 5 MG PO QHS, (Reported) Pantoprazole Sodium Sesquihydr (Protonix) 40 Mg Tab, 40 MG PO BID, (Reported) Pentoxifylline (Pentoxifylline ER) 400 Mg Tab, 400 MG PO TID, (Reported) Potassium Chloride (Klor-Con M20) 20 Meq Tabcr, 50 MEQ PO TID, (Reported) Pravastatin Sodium (Pravachol) 20 Mg Tab, 40 MG PO QHS, (Reported) Sucralfate (Carafate) 1 Gm Tab, 1 GM PO BID, (Reported) Scheduled PRN Albuterol Sulfate (Ventolin Hfa) 200 Puff/8 Gm Aers, 2 PUFF INH Q4H PRN for SHORTNESS OF BREATH, (Reported) Meclizine HCl (Meclizine HCl) 25 Mg Tab, 25 MG PO TIDP PRN for DIZZINESS, ( Reported) Oxycodone/Acetaminophen (Oxycodone/Acetaminophen 5-325 mg) 1 Tab Tab, 1 TAB PO Q8H PRN for PAIN, (Reported) [address] July 03, 2016 02:43
[2016-07-03] MEDS: NYSTATIN 100,000 UNITS/GM TOPICAL PWD 15 GM TOP SCH ×3 (03:36→21:04)
[2016-07-03 04:00] VITALS: BP 138/81
[2016-07-03 05:25] LABS: BASO % 0.2 % (0.0-1.0); EOS # 0.2 K/mm3 (0.0-0.50); EOS % 1.5 % (0.0-3.0); LARGE UNSTAINED CELL # 0.3 K/mm3 (0.0-0.4); LARGE UNSTAINED CELL % 1.5 % (0.0-4.0); LYMPH # 1.3 K/mm3 (1.5-4.5); LYMPH % 7.9 % (24.0-44.0); MEAN CORPUSCULAR HEMOGLOBIN 32.4 pg (27.0-33.0); MEAN CORPUSCULAR HGB CONC 32.7 g/dl (32.0-36.5); MEAN CORPUSCULAR VOLUME 99.2 fl (80.0-96.0); MONO # 0.8 K/mm3 (0.0-0.8); MONO % 4.6 % (0.0-5.0); NEUTROPHILS # 14.2 K/mm3 (1.8-7.7); NEUTROPHILS % 84.3 % (36.0-66.0); PLATELET COUNT, AUTOMATED 163 k/mm3 (150-450); RED CELL DISTRIBUTION WIDTH 14.6 % (11.5-14.5); WHITE BLOOD COUNT 16.8 K/mm3 (4.0-10.0)
[2016-07-03 05:45] LABS: ALBUMIN 3.1 GM/DL (3.2-5.2); ALBUMIN/GLOBULIN RATIO 0.82 (1.00-1.93); BILIRUBIN,TOTAL 0.5 MG/DL (0.2-1.0); CALCIUM LEVEL 8.8 MG/DL (8.8-10.2); CREATININE FOR GFR 1.29 MG/DL (0.70-1.30); GLOMERULAR FILTRATION RATE 59.1 (>49); MAGNESIUM LEVEL 1.8 MG/DL (1.8-2.4); POTASSIUM SERUM 3.7 MEQ/L (3.5-5.1); TOTAL PROTEIN 6.9 GM/DL (6.4-8.2)
[2016-07-03] MEDS: OXAZEPAM 10 MG CAP PO SCH ×3 (06:13→21:03)
[2016-07-03] MEDS: HumaLOG INSULIN (NovoLOG) PER UNIT SC SCH ×3 (07:30→16:40)
[2016-07-03 08:00] VITALS: BP 145/84
[2016-07-03] MEDS ORDERED: levETIRAcetam **XR** 500 MG TABLET PO SCH (09:00)
[2016-07-03] MEDS: MULTIVITAMINS/MINERALS THERAP 1 TAB PO SCH (09:00)
--- NOTE | 2016-07-03 09:33 | IPNPDOC ---
Date Seen The patient was seen on 07/03/16. Progress Note SUBJECTIVE: Patient is a 66 yo M with multiple co-morbidities frequent flyer to [facility] admitted day 1 for trauma from falling from his wheelchair under ETOH influence. On admission, small R-sided insular ICH <3cm Pt admitted for 24-hr obs seizure prophylaxis, ETOH W/D prophylaxis, CT control to R/O increase of ICH. OBJECTIVE PHYSICAL EXAMINATION: VITAL SIGNS: Please see below. AVSS, GENERAL: AxO x3. Normal speech. No seizure activity. No signs of ETOH W/D. Moving all limbs on commands. NO ESTEVES. IMAGING: Repeat CT brain shows no signs of increased ICH. ASSESSMENT AND PLAN: 1. ICH stable, no need for NSx involvement. Pt to be discharged with 7 days antiseizure meds for seizure prophylaxis. \ 2. Pt should be assessed by hospitalist for any impending non-NSx issues. If pt requires further stay in hospital d/t non-NSx issue, they should be transferred to hospitalist care. Dr Delores Wang, RPA-C VS, I&O, 24H, [facility] Vital Signs/I&O Vital Signs Date Time Temp Pulse Resp B/P (MAP) Pulse Ox O2 Delivery O2 Flow Rate FiO2 07/03/16 08:00 98.4 90 19 145/84 (104) 91 Room Air I&O- Last 24 Hours up to 6 AM 07/03/16 05:59 Intake Total 300 ml Output Total 850 ml Balance -550 ml Laboratory Data 24H LABS Laboratory Tests 2 07/02/16 14:22: White Blood Count 14.7H, Red Blood Count 4.83, Hemoglobin 15.5, Hematocrit 46.2 , Mean Corpuscular Volume 95.5, Mean Corpuscular Hemoglobin 32.0, Mean Corpuscular Hemoglobin Concent 33.5, Red Cell Distribution Width 14.8H, Platelet Count 182, Neutrophils (%) (Auto) 77.9H, Lymphocytes (%) (Auto) 14.2L, Monocytes (%) (Auto) 4.0, Eosinophils (%) (Auto) 1.4, Basophils (%) (Auto) 0.5, Neutrophils # (Auto) 11.5H, Lymphocytes # (Auto) 2.4, Monocytes # (Auto) 0.6, Eosinophils # (Auto) 0.2, Basophils # (Auto) 0.1, Large Unclassified Cells % 1.9 , Large Unclassified Cells # 0.3, Prothrombin Time 13.8, Prothromb Time International Ratio 1.05, Activated Partial Thromboplast Time 44.9H, Anion Gap 9 , Glomerular Filtration Rate 51.7, Calcium Level 9.7, Aspartate Amino Transf ( AST/SGOT) 37, Alanine Aminotransferase (ALT/SGPT) 45, Alkaline Phosphatase 157H , Total Bilirubin 0.4, Direct Bilirubin 0.1, Total Protein 7.7, Albumin 3.6, Albumin/Globulin Ratio 0.88L, Lipase 113, Ethyl Alcohol Level 0.049H 07/03/16 05:12: White Blood Count 16.8H, Red Blood Count 4.79, Hemoglobin 15.5, Hematocrit 47.5 , Mean Corpuscular Volume 99.2H, Mean Corpuscular Hemoglobin 32.4, Mean Corpuscular Hemoglobin Concent 32.7, Red Cell Distribution Width 14.6H, Platelet Count 163, Neutrophils (%) (Auto) 84.3H, Lymphocytes (%) (Auto) 7.9L, Monocytes (%) (Auto) 4.6, Eosinophils (%) (Auto) 1.5, Basophils (%) (Auto) 0.2, Neutrophils # (Auto) 14.2H, Lymphocytes # (Auto) 1.3L, Monocytes # (Auto) 0.8, Eosinophils # (Auto) 0.2, Basophils # (Auto) 0.0, Large Unclassified Cells % 1.5 , Large Unclassified Cells # 0.3, Anion Gap 6L, Glomerular Filtration Rate 59.1 , Calcium Level 8.8, Aspartate Amino Transf (AST/SGOT) 25, Alanine Aminotransferase (ALT/SGPT) 33, Alkaline Phosphatase 139H, Total Bilirubin 0.5, Total Protein 6.9, Albumin 3.1L, Albumin/Globulin Ratio 0.82L, Blood Urea Nitrogen 22H, Creatinine 1.29, Sodium Level 137, Potassium Level 3.7, Chloride Level 101, Carbon Dioxide Level 30, Magnesium Level 1.8 CBC/BMP Laboratory Tests 07/02/16 14:22 Red Blood Count 4.83, Mean Corpuscular Volume 95.5, Mean Corpuscular Hemoglobin 32.0, Mean Corpuscular Hemoglobin Concent 33.5, Red Cell Distribution Width 14.8 H, Neutrophils (%) (Auto) 77.9 H, Lymphocytes (%) (Auto) 14.2 L, Monocytes (%) (Auto) 4.0, Eosinophils (%) (Auto) 1.4, Basophils (%) (Auto) 0.5, Neutrophils # (Auto) 11.5 H, Lymphocytes # (Auto) 2.4, Monocytes # (Auto) 0.6, Eosinophils # (Auto) 0.2, Basophils # (Auto) 0.1 07/03/16 05:12 Red Blood Count 4.79, Mean Corpuscular Volume 99.2 H, Mean Corpuscular Hemoglobin 32.4, Mean Corpuscular Hemoglobin Concent 32.7, Red Cell Distribution Width 14.6 H, Neutrophils (%) (Auto) 84.3 H, Lymphocytes (%) (Auto ) 7.9 L, Monocytes (%) (Auto) 4.6, Eosinophils (%) (Auto) 1.5, Basophils (%) ( Auto) 0.2, Neutrophils # (Auto) 14.2 H, Lymphocytes # (Auto) 1.3 L, Monocytes # (Auto) 0.8, Eosinophils # (Auto) 0.2, Basophils # (Auto) 0.0, Calcium Level 8.8 , Aspartate Amino Transf (AST/SGOT) 25, Alanine Aminotransferase (ALT/SGPT) 33, Alkaline Phosphatase 139 H, Total Bilirubin 0.5, Total Protein 6.9, Albumin 3.1 L MARIEL WANG PA-C July 03, 2016 09:33
[2016-07-03] MEDS ORDERED: KEPP500T6 PO (09:36)
[2016-07-03] MEDS: LORATADINE 10 MG TAB PO SCH (09:45)
[2016-07-03] MEDS: FOLIC ACID 1 MG TAB PO SCH (09:45)
[2016-07-03] MEDS: hydroCHLOROthiazide 25 MG TAB PO SCH (09:45)
[2016-07-03] MEDS: KCL 20MEQ IN D5/NS 1000ML 1,000 ML IV SCH (09:45)
[2016-07-03] MEDS: levETIRAcetam 250MG TABLET (KEPPRA) PO SCH ×2 (09:46→21:03)
[2016-07-03] MEDS: ATENOLOL 25 MG TAB PO SCH (09:47)
[2016-07-03] MEDS: THIAMINE 100 MG TAB PO SCH (09:47)
[2016-07-03] MEDS ORDERED: ISOVUE-370 76% 100ML VIAL (Q9967) As Ordered ONE (11:19)
[2016-07-03 12:00] VITALS: BP 143/83
[2016-07-03] MEDS ORDERED: LEVEMIR (INSULIN DETEMIR) 1 UNITS/0.01ML SC SCH (12:00)
--- NOTE | 2016-07-03 12:25 | REP ---
CT STUDY OF THE BRAIN WITHOUT CONTRAST: HISTORY: Traumatic brain injury. Comparison study July 02, 2016. FINDINGS: Right frontotemporal scalp swelling persists although this is somewhat decreased. No skull fracture is seen. Vascular calcification is again noted. Hemorrhagic contusion again noted in the right parietotemporal kim-white matter junction region. This has not increased since the previous day's study. There is however a low density subdural collection developing bilaterally in this patient over the frontal lobes which is a change from yesterday's brain CT. These low density hygromas have a subacute appearance. There are old lacunar infarcts in the left basal ganglia as before. Diffuse atrophy is seen. IMPRESSION: 1. No change in the hemorrhagic contusion in the right temporal parietal region. 2. Developing bilateral frontal subacute subdural hygromas measuring up to 6 mm on each side. No midline shift. No other change. Signed by Ras Azul MD 07/03/2016 01:00 P
[2016-07-03] MEDS ORDERED: NYST10PW TOP (13:44)
[2016-07-03] MEDS ORDERED: ATEN25TA PO (13:56)
[2016-07-03] MEDS ORDERED: FOLI1TAB2 PO (13:56)
[2016-07-03] MEDS ORDERED: NORT25CA2 PO (13:56)
[2016-07-03] MEDS ORDERED: GABA-283 PO (13:56)
[2016-07-03] MEDS ORDERED: ALBU17IN INH (13:56)
[2016-07-03] MEDS ORDERED: INSUDET SC (13:56)
[2016-07-03] MEDS ORDERED: PRAV1TAB39 PO (13:56)
[2016-07-03] MEDS ORDERED: HYDR25TAB PO (13:56)
--- NOTE | 2016-07-03 14:01 | REP ---
CT ABDOMEN AND PELVIS WITH IV CONTRAST: WITHOUT ORAL CONTRAST. HISTORY: Abdominal pain after a fall. Bruising left abdomen. COMPARISON STUDY: January 15, 2015. There is also a CT study of the abdomen/pelvis done July 02, 2016. CT CONTRAST DOSE: 100 mL of Isovue-[address] FINDINGS: There is coarse linear bilateral lower lobe platelike atelectatic change. There is no evidence of pneumothorax or hydrothorax at the bases. The liver and the spleen are homogeneous in texture, normal in size, and intact. There is opaque material in the dependent portion of the gallbladder, consistent with vicarious excretion of contrast from the previous day's CT study. There is a lipoma of the right lateral flank again noted. This measures 5.4 x 2.5 x 6.1 cm in diameter. This is unchanged from December 2014 prior study. Today's study again demonstrates a calcification in the pancreatic head at the level of the distal common bile duct, consistent with choledocholithiasis. The distal common bile duct measures 12 mm in greatest diameter. No pancreatic mass lesion is seen. Vascular calcification is seen in the renal arteries, and there is a right renal artery stent. A left colonic anastomoses is seen. Small and large intestinal bowel loops are otherwise unremarkable. No new adrenal lesion is seen. There is a small stable nodule in the inferior and lateral limb of the left adrenal gland, unchanged from 2015. No renal mass or cyst is seen. Dystrophic calcifications are noted in the prostate. No bony destructive lesion is seen. There are nondisplaced acute fractures involving the anterolateral right 7th and 8th ribs, however. These are visible on yesterday's abdomen CT images and are unchanged. No acute left rib fracture is appreciated. No abdominal wall defect is observed. IMPRESSION: No traumatic intra-abdominal abnormality. Findings suggestive of choledocholithiasis. Discoid atelectasis in both lung bases. Recent fractures of the right anterolateral 7th and 8th ribs, unchanged from the previous day's CT study. Signed by Ras Azul MD 07/03/2016 02:25 P
--- NOTE | 2016-07-03 14:29 | IPNPDOC ---
Subjective Date Seen The patient was seen on 07/03/16. Subjective Chief Complaint/HPI The patient is a 66-year-old male admitted with a reason for visit of Rightsmall Brain Contusion D/T Closed Tbi. General: Reports: ROS Unobtainable Constitutional: Denies: Chills, Night Sweats ENT: Denies: Head Aches Pulmonary: Denies: Dyspnea, Cough Cardiovascular: Denies: Chest Pain Gastrointestinal: Reports: Abdominal Pain (abdominal wall pain) Genitourinary: Denies: Dysuria, Frequency Objective Physical Examination General Exam: Positive: Other (earlier alert, now sedated, slow to arouse unable to converse.) Eye Exam: Positive: PERRLA Chest Exam: Positive: Clear to auscultation, Normal air movement Heart Exam: Positive: Rate Normal, Regular Rhythm Telemetry: Positive: No significant arrhythmia Abdomen Exam: Positive: Normal bowel sounds, Other (abdominal wall tenderness, bruising right trunk) Extremity Exam: Negative: Cyanosis, Edema Skin Exam: Positive: Nl turgor and temperature Psych Exam: Positive: Other (sedated, slow to arouse, GCS: 12 (E 3, V4, M5). Earlier today he was alert, asking questions, mobile.) Assessment /Plan Problems (1) Contusion of brain Status: Acute Response to Treatment: Worse Problem Specific Plan: Consult Specialist (2) Chronic alcohol abuse Status: Chronic Response to Treatment: Uncontrolled (3) DM2 (diabetes mellitus, type 2) Status: Chronic Response to Treatment: Controlled Plan/VTE VTE Prophylaxis Ordered?: Yes VTE Exclusion Pharmacological: Hemorrhage Plan IVF: Continue Therapy: Home Safety Eval Medications: Other Med: (change current meds to remove sedating agents except for prn ativan. consider restart of routine oxazepam for DVT prophylaxis if he becomes more alert.) Disposition Can't go home due to somnolence. VS, I&O, 24H, Fishbone Vital Signs/I&O Vital Signs Date Time Temp Pulse Resp B/P (MAP) Pulse Ox O2 Delivery O2 Flow Rate FiO2 07/03/16 12:00 98.1 84 20 143/83 (103) 92 Room Air I&O- Last 24 Hours up to 6 AM 07/03/16 06:00 Intake Total 900 ml Output Total 850 ml Balance 50 ml Laboratory Data 24H LABS Laboratory Tests 2 07/02/16 14:22: White Blood Count 14.7H, Red Blood Count 4.83, Hemoglobin 15.5, Hematocrit 46.2 , Mean Corpuscular Volume 95.5, Mean Corpuscular Hemoglobin 32.0, Mean Corpuscular Hemoglobin Concent 33.5, Red Cell Distribution Width 14.8H, Platelet Count 182, Neutrophils (%) (Auto) 77.9H, Lymphocytes (%) (Auto) 14.2L, Monocytes (%) (Auto) 4.0, Eosinophils (%) (Auto) 1.4, Basophils (%) (Auto) 0.5, Neutrophils # (Auto) 11.5H, Lymphocytes # (Auto) 2.4, Monocytes # (Auto) 0.6, Eosinophils # (Auto) 0.2, Basophils # (Auto) 0.1, Large Unclassified Cells % 1.9 , Large Unclassified Cells # 0.3, Prothrombin Time 13.8, Prothromb Time International Ratio 1.05, Activated Partial Thromboplast Time 44.9H, Anion Gap 9 , Glomerular Filtration Rate 51.7, Calcium Level 9.7, Aspartate Amino Transf ( AST/SGOT) 37, Alanine Aminotransferase (ALT/SGPT) 45, Alkaline Phosphatase 157H , Total Bilirubin 0.4, Direct Bilirubin 0.1, Total Protein 7.7, Albumin 3.6, Albumin/Globulin Ratio 0.88L, Lipase 113, Ethyl Alcohol Level 0.049H 07/03/16 05:12: White Blood Count 16.8H, Red Blood Count 4.79, Hemoglobin 15.5, Hematocrit 47.5 , Mean Corpuscular Volume 99.2H, Mean Corpuscular Hemoglobin 32.4, Mean Corpuscular Hemoglobin Concent 32.7, Red Cell Distribution Width 14.6H, Platelet Count 163, Neutrophils (%) (Auto) 84.3H, Lymphocytes (%) (Auto) 7.9L, Monocytes (%) (Auto) 4.6, Eosinophils (%) (Auto) 1.5, Basophils (%) (Auto) 0.2, Neutrophils # (Auto) 14.2H, Lymphocytes # (Auto) 1.3L, Monocytes # (Auto) 0.8, Eosinophils # (Auto) 0.2, Basophils # (Auto) 0.0, Large Unclassified Cells % 1.5 , Large Unclassified Cells # 0.3, Anion Gap 6L, Glomerular Filtration Rate 59.1 , Calcium Level 8.8, Aspartate Amino Transf (AST/SGOT) 25, Alanine Aminotransferase (ALT/SGPT) 33, Alkaline Phosphatase 139H, Total Bilirubin 0.5, Total Protein 6.9, Albumin 3.1L, Albumin/Globulin Ratio 0.82L, Blood Urea Nitrogen 22H, Creatinine 1.29, Sodium Level 137, Potassium Level 3.7, Chloride Level 101, Carbon Dioxide Level 30, Magnesium Level 1.8 07/03/16 11:35: Bedside Glucose (Misc Panel) 131H 07/03/16 12:46: Lipase 82 CBC/BMP Laboratory Tests 07/02/16 14:22 Red Blood Count 4.83, Mean Corpuscular Volume 95.5, Mean Corpuscular Hemoglobin 32.0, Mean Corpuscular Hemoglobin Concent 33.5, Red Cell Distribution Width 14.8 H, Neutrophils (%) (Auto) 77.9 H, Lymphocytes (%) (Auto) 14.2 L, Monocytes (%) (Auto) 4.0, Eosinophils (%) (Auto) 1.4, Basophils (%) (Auto) 0.5, Neutrophils # (Auto) 11.5 H, Lymphocytes # (Auto) 2.4, Monocytes # (Auto) 0.6, Eosinophils # (Auto) 0.2, Basophils # (Auto) 0.1 07/03/16 05:12 Red Blood Count 4.79, Mean Corpuscular Volume 99.2 H, Mean Corpuscular Hemoglobin 32.4, Mean Corpuscular Hemoglobin Concent 32.7, Red Cell Distribution Width 14.6 H, Neutrophils (%) (Auto) 84.3 H, Lymphocytes (%) (Auto ) 7.9 L, Monocytes (%) (Auto) 4.6, Eosinophils (%) (Auto) 1.5, Basophils (%) ( Auto) 0.2, Neutrophils # (Auto) 14.2 H, Lymphocytes # (Auto) 1.3 L, Monocytes # (Auto) 0.8, Eosinophils # (Auto) 0.2, Basophils # (Auto) 0.0, Calcium Level 8.8 , Aspartate Amino Transf (AST/SGOT) 25, Alanine Aminotransferase (ALT/SGPT) 33, Alkaline Phosphatase 139 H, Total Bilirubin 0.5, Total Protein 6.9, Albumin 3.1 L John Beyer MD July 03, 2016 14:29
[2016-07-03 16:00] VITALS: BP 142/82
[2016-07-03 20:00] VITALS: BP 157/72
[2016-07-03] MEDS ORDERED: HumaLOG INSULIN (NovoLOG) PER UNIT SC SCH (21:00)
[2016-07-04] VITALS: BP 139/86
[2016-07-04] MEDS: OXAZEPAM 10 MG CAP PO SCH ×2 (00:27→05:37)
[2016-07-04 04:00] VITALS: BP 151/93
[2016-07-04 05:16] LABS: BASO % 0.1 % (0.0-1.0); EOS # 0.1 K/mm3 (0.0-0.50); EOS % 0.7 % (0.0-3.0); LARGE UNSTAINED CELL # 0.2 K/mm3 (0.0-0.4); LARGE UNSTAINED CELL % 1.6 % (0.0-4.0); LYMPH # 1.2 K/mm3 (1.5-4.5); MEAN CORPUSCULAR HGB CONC 33.1 g/dl (32.0-36.5); MEAN CORPUSCULAR VOLUME 96.6 fl (80.0-96.0); MONO # 0.8 K/mm3 (0.0-0.8); MONO % 5.2 % (0.0-5.0); NEUTROPHILS # 12.3 K/mm3 (1.8-7.7); NEUTROPHILS % 85.4 % (36.0-66.0); PLATELET COUNT, AUTOMATED 138 k/mm3 (150-450); RED CELL DISTRIBUTION WIDTH 14.7 % (11.5-14.5); WHITE BLOOD COUNT 14.4 K/mm3 (4.0-10.0)
[2016-07-04 05:31] LABS: ALBUMIN 3.1 GM/DL (3.2-5.2); ALBUMIN/GLOBULIN RATIO 0.84 (1.00-1.93); ALKALINE PHOSPHATASE 143 U/L (45-117); ALT/SGPT 31 U/L (12-78); ANION GAP 7 MEQ/L (8-16); AST/SGOT 16 U/L (15-37); BILIRUBIN,TOTAL 0.4 MG/DL (0.2-1.0); BLOOD UREA NITROGEN 18 MG/DL (7-18); CALCIUM LEVEL 8.6 MG/DL (8.8-10.2); CARBON DIOXIDE LEVEL 27 MEQ/L (21-32); CHLORIDE LEVEL 103 MEQ/L (98-107); CREATININE FOR GFR 1.19 MG/DL (0.70-1.30); GLOMERULAR FILTRATION RATE > 60.0 (>49); GLUCOSE, FASTING 138 MG/DL (80-110); MAGNESIUM LEVEL 1.9 MG/DL (1.8-2.4); POTASSIUM SERUM 3.9 MEQ/L (3.5-5.1); SODIUM LEVEL 137 MEQ/L (136-145); TOTAL PROTEIN 6.8 GM/DL (6.4-8.2)
[2016-07-04] MEDS: HumaLOG INSULIN (NovoLOG) PER UNIT SC SCH (07:51)
[2016-07-04 08:00] VITALS: BP_SYST 114; BP_SYST 146; BP_DIAS 77; BP_DIAS 82
[2016-07-04 09:41] VITALS: BP 146/82
[2016-07-04] MEDS: levETIRAcetam 250MG TABLET (KEPPRA) PO SCH (09:41)
[2016-07-04] MEDS: hydroCHLOROthiazide 25 MG TAB PO SCH (09:41)
[2016-07-04] MEDS: ATENOLOL 25 MG TAB PO SCH (09:41)
[2016-07-04] MEDS: LORATADINE 10 MG TAB PO SCH (09:41)
[2016-07-04] MEDS: FERROUS GLUCONATE 324 MG TAB PO SCH (09:42)
[2016-07-04] MEDS: PANTOPRAZOLE 40MG TAB (PROTONIX) PO SCH (09:42)
[2016-07-04] MEDS: MULTIVITAMINS/MINERALS THERAP 1 TAB PO SCH (09:42)
[2016-07-04] MEDS: FOLIC ACID 1 MG TAB PO SCH (09:42)
[2016-07-04] MEDS: THIAMINE 100 MG TAB PO SCH (09:42)
[2016-07-04] MEDS: SUCRALFATE 1 GM TAB PO SCH (09:42)
[2016-07-04] MEDS: NYSTATIN 100,000 UNITS/GM TOPICAL PWD 15 GM TOP SCH (09:43)
--- NOTE | 2016-07-05 10:30 | DSES ---
DATE OF ADMISSION: 07/02/2016 DATE OF DISCHARGE: 07/04/2016 REASON FOR ADMISSION: Mr. Shaw was admitted after suffering a head injury falling while intoxicated with alcohol. Of particular note is that this patient has been using gabapentin at max dose of 3600 mg a day and takes a tricyclic antidepressant nortriptyline at 75 mg three times daily. He fortunately was drinking and fell sustaining bruising to the left side of his body and injury to his head. He was seen in consultation with neurosurgery where it was found that indeed the head injury was a combination of a subdural and insular right-sided intercerebral hemorrhage less 3 cm. He had no seizure activities. He had no increasing intracranial pressure and therefore, neurosurgery advised discharge with 7 days of antiseizure med prophylaxis. Because of complaints of abdominal pain, a repeat CT was done which did not show any evidence of hepatic injury and splenic injury or a other intra-abdominal process. He was prepped for discharge but then was somnolent late afternoon possibly as a side effect of ongoing medication regimen and discharge was suspended. 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 Diabetes mellitus type 2. Hypertension. Chronic obstructive pulmonary disease (COPD). Status post right [id number] amputation. Problem alcohol use. DISCHARGE MEDICATIONS: - albuterol 2 puffs every 4 hours as needed - aspirin 81 mg daily is stopped - atenolol 25 mg daily - clopidogrel 75 mg is stopped - the antiplatelet agents may be restarted at followup visit with his primary care physician or neurosurgery - ferrous gluconate 324 mg by mouth twice daily - folic acid 1 mg by mouth daily - furosemide 40 mg by mouth daily - gabapentin 400 mg and one 800 mg tablet to constitute as 1200 mg total dose, that was what was being done in hospital, at home he would be more efficiently dosed with two 600 mg tablets twice daily to constitute the max daily dose of 3600 mg which was apparently his outpatient dose - glimepiride 4 mg by mouth twice daily - hydrochlorothiazide 25 mg daily - insulin Levemir 55 units subcutaneous daily - for 7 days he is to be on Keppra 500 mg by mouth twice daily - loratadine 10 mg by mouth daily as needed for allergic symptoms - meclizine 25 mg three times daily as needed dizziness - nortriptyline 75 mg three times daily - in hospital he had received oxycodone, this will not be continued at discharge - pantoprazole 40 mg by mouth twice daily - pentoxifylline 400 mg by mouth three times daily - potassium chloride 20 mEq tablets supposedly taking 50 mEq three times daily, I am not sure how reconstituted this dose perhaps taking 2-1/2 tablets - pravastatin 40 mg at bedtime - sucralfate 1 gram by mouth twice daily The patient's activity will be as tolerated. He is status post right below-knee amputation. He has been having trouble with this prosthesis lately because of high pressure zone in the subcutaneous tissue at the end of his tibia creating a pressure problem and he has found his prosthesis to be unwearable. His prosthesis marker is Mr. Gaspar in [place] and patient is encouraged to follow up with Mr. Gaspar to see if the prosthesis can be made to be workable. Otherwise he may require stump revision. He is cautioned most strongly to not drink alcohol at all, otherwise he will have to stop taking gabapentin and nortriptyline. He is reminded that the use of alcohol with these drugs is absolutely contraindicated and if there is any evidence of ongoing alcohol use at followup visits, then these agents need to be discontinued for the patient's safety. He will follow up with his primary care provider in 1-2 weeks and with neurosurgery per their specific recommendation.
== END 2016-07-04 12:45 | disposition home or self-care (01) | DRG 87 ==
LOC: EDBD 13:42 → M ED 14:17 → M ED INP 17:45 → M PCU 20:46
PROVIDERS: ADMIT Neurological Surgery; ATTEND Family Medicine
DX: S06.340A Traumatic hemorrhage of right cerebrum without loss of consciousness, initial encounter (principal); E11.9 Type 2 diabetes mellitus without complications; I12.9 Hypertensive chronic kidney disease with stage 1 through stage 4 chronic kidney disease, or unspecified chronic kidney disease; J44.9 Chronic obstructive pulmonary disease, unspecified; F10.10 Alcohol abuse, uncomplicated; E78.5 Hyperlipidemia, unspecified; N18.3 Chronic kidney disease, stage 3 (moderate); I73.9 Peripheral vascular disease, unspecified; Z96.0 Presence of urogenital implants; Z95.9 Presence of cardiac and vascular implant and graft, unspecified; Z87.891 Personal history of nicotine dependence; Z88.8 Allergy status to other drugs, medicaments and biological substances; Z88.5 Allergy status to narcotic agent; Z91.030 Bee allergy status; Z79.82 Long term (current) use of aspirin; Z79.899 Other long term (current) drug therapy; Z89.511 Acquired absence of right leg below knee; Z79.4 Long term (current) use of insulin; Z99.3 Dependence on wheelchair; Z86.73 Personal history of transient ischemic attack (TIA), and cerebral infarction without residual deficits; W05.0XXA Fall from non-moving wheelchair, initial encounter; Y92.019 Unspecified place in single-family (private) house as the place of occurrence of the external cause; Y93.89 Activity, other specified; Y99.9 Unspecified external cause status

== ENCOUNTER → 2016-07-17 | Outpatient (CLI) | payer MEDICARE, MEDICAID ==
[~2016-07-17] MED LIST changes: +FERR325T16 PO; +GABA-283 PO; +INSUDET SC; +KEPP500T6 PO; +NYST10PW TOP; +OXYC-517 PO
--- NOTE | 2016-07-17 14:47 | REP ---
Duplex extremity venous ultrasound: Left lower extremity: History: Edema of the left leg. Findings: The deep veins are anechoic and fully compressible from the groin to the popliteal fossa in the left lower extremity. Color flow imaging is homogeneous. Spectral Doppler interrogation demonstrates intact respiratory variation in flow and normal manual augmentation of flow. There is no evidence of deep vein thrombosis. The patient gives a history of having left lower extremity vascular surgery and little or no flow is observed in the common femoral artery. Arterial flow is seen in the region of the greater saphenous vein suggesting that the patient is status post bypass graft. Impression: Negative left lower extremity duplex venous ultrasound. No evidence of deep vein thrombosis. Evidence of an arterial bypass graft in the left lower extremity. Signed by Ras Azul MD 07/17/2016 02:38 P
== END ==
LOC: M RAD 13:40
PROVIDERS: ATTEND Family Medicine
DX: R60.9 Edema, unspecified (principal); Z95.5 Presence of coronary angioplasty implant and graft; I62.9 Nontraumatic intracranial hemorrhage, unspecified; Z79.899 Other long term (current) drug therapy; Z89.511 Acquired absence of right leg below knee; M47.816 Spondylosis without myelopathy or radiculopathy, lumbar region; E11.9 Type 2 diabetes mellitus without complications
CPT/HCPCS: 36415; 80053; 80061; 82728; 83036; 83550; 83735; 85025; 93971; G0463

== ENCOUNTER → 2016-07-17 | Outpatient (REF) | payer MEDICARE, MEDICAID ==
[2016-07-17 17:05] LABS: BASO % 0.4 % (0.0-1.0); EOS # 0.3 K/mm3 (0.0-0.50); EOS % 3.6 % (0.0-3.0); LARGE UNSTAINED CELL # 0.2 K/mm3 (0.0-0.4); LARGE UNSTAINED CELL % 1.8 % (0.0-4.0); LYMPH # 1.6 K/mm3 (1.5-4.5); LYMPH % 17.7 % (24.0-44.0); MEAN CORPUSCULAR HEMOGLOBIN 31.5 pg (27.0-33.0); MEAN CORPUSCULAR HGB CONC 32.9 g/dl (32.0-36.5); MEAN CORPUSCULAR VOLUME 95.5 fl (80.0-96.0); MONO # 0.6 K/mm3 (0.0-0.8); MONO % 6.8 % (0.0-5.0); NEUTROPHILS # 6.4 K/mm3 (1.8-7.7); NEUTROPHILS % 69.8 % (36.0-66.0); PLATELET COUNT, AUTOMATED 188 k/mm3 (150-450); RED CELL DISTRIBUTION WIDTH 14.2 % (11.5-14.5); WHITE BLOOD COUNT 9.2 K/mm3 (4.0-10.0)
[2016-07-17 17:13] LABS: ALBUMIN 3.2 GM/DL (3.2-5.2); ALBUMIN/GLOBULIN RATIO 0.86 (1.00-1.93); ALKALINE PHOSPHATASE 219 U/L (45-117); ALT/SGPT 33 U/L (12-78); ANION GAP 4 MEQ/L (8-16); AST/SGOT 19 U/L (15-37); BILIRUBIN,TOTAL 0.4 MG/DL (0.2-1.0); BLOOD UREA NITROGEN 18 MG/DL (7-18); CALCIUM LEVEL 9.1 MG/DL (8.8-10.2); CARBON DIOXIDE LEVEL 31 MEQ/L (21-32); CHLORIDE LEVEL 104 MEQ/L (98-107); CHOLESTEROL LEVEL 114 MG/DL (<200); CREATININE FOR GFR 1.13 MG/DL (0.70-1.30); FERRITIN 63 NG/ML (26-388); GLOMERULAR FILTRATION RATE > 60.0 (>49); GLUCOSE, FASTING 53 MG/DL (80-110); PERCENT SATURATION 14.9 % (19.7-37.4); POTASSIUM SERUM 4.4 MEQ/L (3.5-5.1); SODIUM LEVEL 139 MEQ/L (136-145); TOTAL IRON BINDING CAPACITY 348 UG/DL (250-450); TOTAL PROTEIN 6.9 GM/DL (6.4-8.2); TRIGLYCERIDES LEVEL 91 MG/DL (<150)
== END ==
LOC: M SFHCPLAZ 12:32
PROVIDERS: ATTEND Family Medicine
DX: I62.9 Nontraumatic intracranial hemorrhage, unspecified (principal); Z79.899 Other long term (current) drug therapy; Z89.511 Acquired absence of right leg below knee; M47.816 Spondylosis without myelopathy or radiculopathy, lumbar region; E11.9 Type 2 diabetes mellitus without complications

== ENCOUNTER 2016-08-22 11:15 | Inpatient (IN) | payer MEDICARE, MEDICAID ==
[~2016-08-22] VITALS: Ht 188 cm; Wt 90.8 kg
[2016-08-22] VITALS (7 sets, daily range): BP systolic 116–160; BP diastolic 67–93
[~2016-08-22 11:15] MED LIST changes: -FOLI1TAB2 PO; +FOLI1TAB4 PO; +KEPP1TAB PO; -KEPP500T6 PO; +MECL1CHW2 PO; -MECL25CH PO; -OXYC1SOL PO; +OXYC1SOL3 PO; +PERC5TAB12 PO; -PERC5TAB6 PO
[2016-08-22] MEDS ORDERED: INSULADS SQ (11:31)
[2016-08-22] MEDS ORDERED: CLOB0.0548 TOP (11:31)
[2016-08-22] MEDS: IPRATROPIUM 0.02% SOLN 0.5MG/2.5 ML NEB NEB SCH ×3 (12:00→19:50)
[2016-08-22] MEDS: ALBUTEROL SULFATE 2.5 MG/0.5 ML INH NEB SOLN NEB SCH ×3 (12:00→19:50)
[2016-08-22] MEDS: NS 1,000 ML IV SCH ×2 (12:08→23:15)
--- NOTE | 2016-08-22 12:13 | REP ---
CT of the brain without IV contrast: Comparisons are 07/03 16 and 07/02/2016. There is rebleeding in the right subdural hematoma. The subdural hematoma has increased in size and maximally measures 2.3 cm in depth. There is an 8 mm midline [id number] shift. The previous left subdural hygroma is no longer identified. The previous right temporal lobe hemorrhagic contusion identified on 07/02/2016 i is no longer present on the current study. Impressions: Recurrent bleeding into the right subdural hygroma resulting in an increase in size. There is an 8 mm right to left midline shift. The previous right temporal lobe hemorrhagic contusion is no longer identified. The previous right scalp contusion is no longer identified. Signed by Michael Zimmer MD 08/22/2016 12:05 P
[2016-08-22 12:25] LABS: BASO % 0.2 % (0.0-1.0); EOS # 0.2 K/mm3 (0.0-0.50); EOS % 1.8 % (0.0-3.0); LARGE UNSTAINED CELL # 0.3 K/mm3 (0.0-0.4); LARGE UNSTAINED CELL % 2.7 % (0.0-4.0); LYMPH # 1.6 K/mm3 (1.5-4.5); LYMPH % 13.9 % (24.0-44.0); MEAN CORPUSCULAR HEMOGLOBIN 31.3 pg (27.0-33.0); MEAN CORPUSCULAR HGB CONC 33.5 g/dl (32.0-36.5); MEAN CORPUSCULAR VOLUME 93.6 fl (80.0-96.0); MONO # 0.7 K/mm3 (0.0-0.8); MONO % 7.3 % (0.0-5.0); NEUTROPHILS # 6.9 K/mm3 (1.8-7.7); NEUTROPHILS % 74.1 % (36.0-66.0); PLATELET COUNT, AUTOMATED 146 k/mm3 (150-450); RED CELL DISTRIBUTION WIDTH 14.1 % (11.5-14.5); WHITE BLOOD COUNT 9.4 K/mm3 (4.0-10.0)
[2016-08-22 12:36] LABS: ALBUMIN 3.5 GM/DL (3.2-5.2); ALBUMIN/GLOBULIN RATIO 0.95 (1.00-1.93); ALKALINE PHOSPHATASE 152 U/L (45-117); ALT/SGPT 21 U/L (12-78); ANION GAP 8 MEQ/L (8-16); AST/SGOT 17 U/L (15-37); BILIRUBIN,DIRECT 0.2 MG/DL (0.0-0.2); BILIRUBIN,TOTAL 0.6 MG/DL (0.2-1.0); BLOOD UREA NITROGEN 19 MG/DL (7-18); CALCIUM LEVEL 9.4 MG/DL (8.8-10.2); CARBON DIOXIDE LEVEL 27 MEQ/L (21-32); CHLORIDE LEVEL 103 MEQ/L (98-107); CREATININE FOR GFR 1.26 MG/DL (0.70-1.30); GLOMERULAR FILTRATION RATE > 60.0 (>49); GLUCOSE, FASTING 85 MG/DL (80-110); POTASSIUM SERUM 4.1 MEQ/L (3.5-5.1); SODIUM LEVEL 138 MEQ/L (136-145); TOTAL PROTEIN 7.2 GM/DL (6.4-8.2)
[2016-08-22] MEDS ORDERED: LABETALOL HCL 100 MG/20 ML VIAL IV STA (12:50)
[2016-08-22 12:57] LABS: INR 1.14
[2016-08-22] MEDS ORDERED: LABETALOL HCL 200 MG in D5W 160 ML IV SCH ×2 (13:00→13:30)
[2016-08-22] MEDS ORDERED: LABETALOL HCL 200 MG in D5W 160 ML IV ONE (13:00)
[2016-08-22] MEDS ORDERED: NS IV ONE (13:00)
[2016-08-22] MEDS ORDERED: DESMOPRESSIN ACETATE IV ONE (13:00)
[2016-08-22] MEDS ORDERED: HYDR25TAB PO (13:45)
[2016-08-22] MEDS ORDERED: NYST10OI TOP (13:45)
[2016-08-22] MEDS ORDERED: GABA800T PO (13:45)
[2016-08-22] MEDS ORDERED: GABA-283 PO (13:45)
[2016-08-22] MEDS ORDERED: NYST10PW TOP (13:45)
[2016-08-22] MEDS ORDERED: PRAV40TA PO (13:45)
[2016-08-22] MEDS ORDERED: PAME75CA PO (13:45)
[2016-08-22] MEDS ORDERED: FOLI1TAB4 PO (13:45)
[2016-08-22] MEDS ORDERED: ATEN25TA PO (13:45)
[2016-08-22] MEDS ORDERED: MECL-86 PO (13:53)
[2016-08-22] MEDS ORDERED: ASPI1TAB PO (13:53)
[2016-08-22] MEDS ORDERED: CLAR10CA3 PO (13:53)
[2016-08-22] MEDS ORDERED: POTA1TAB14 PO (13:53)
[2016-08-22] MEDS ORDERED: FURO40TA2 PO (13:53)
[2016-08-22] MEDS ORDERED: CALC0.009 TOP (13:53)
[2016-08-22] MEDS ORDERED: GLUCOSE 4 GM CHEW TABLET PO PRN (14:00)
[2016-08-22] MEDS ORDERED: GLUCAGON FOR INJ 1 MG VIAL (J1610) SC PRN (14:00)
[2016-08-22] MEDS ORDERED: DEXTROSE 50% 50 ML SYRINGE IV PRN (14:00)
[2016-08-22] MEDS ORDERED: SUCR1TA PO (14:01)
[2016-08-22] MEDS ORDERED: CLOP75TA2 PO (14:01)
[2016-08-22] MEDS ORDERED: FERR325T16 PO (14:01)
[2016-08-22] MEDS ORDERED: PENT40TASA PO (14:01)
[2016-08-22] MEDS ORDERED: GLIM4TAB PO (14:01)
[2016-08-22] MEDS ORDERED: ALBU17IN INH (14:02)
[2016-08-22] MEDS: LABETALOL HCL 200 MG in D5W 160 ML IV SCH ×7 (14:08→23:30)
--- NOTE | 2016-08-22 14:15 | REP ---
Clinical: Cough . Comparison: 11/13/2015 . Findings: The mediastinum and cardiac silhouette are stable and within normal limits for portable technique. The lung carballo are clear without acute consolidation, effusion, or pneumothorax. Skeletal structures are intact. Impression: No acute cardiopulmonary process appreciated. Signed by Michele Bourgeois MD 08/22/2016 02:06 P
--- NOTE | 2016-08-22 14:40 | HPE ---
DATE OF ADMISSION: 08/22/2016 I was called to the emergency department to evaluate this 66-year-old male who presented with headache. He was found in the emergency department to have an acute intracranial hemorrhage with midline shift. The patient has multiple past medical problems and has been on aspirin, Plavix, and had been held but were then restarted. He was recently admitted with a traumatic subdural hematoma. His past medical history includes alcohol abuse, diabetes mellitus type 2, hypertension, chronic obstructive pulmonary disease, atherosclerotic vascular disease status post below-knee amputation (BKA) of the right lower extremity complicated by phantom pain. On review of systems, he is complaining of blurry vision and headaches. Cardiovascular: He denies anginal-type chest pain, orthopnea, or paroxysmal nocturnal dyspnea. Pulmonary: Prior smoker. He has exertional dyspnea. His activity is limited more by his leg and neuropathy. Gastrointestinal (GI): There is a history of constipation. Genitourinary (): No frequency, dysuria, or kidney stone history. Endocrine: He is a diabetic. No history of thyroid disease. Dermatologic: He has psoriasis. Hematologic: No easy bruising or bleeding is noted. Neurologic: No history of prior stroke that he is reporting. He has never had a seizure. Musculoskeletal: He has arthritis, severe phantom pain from below-knee (BK) amputation of his right leg. At bedside, his temperature is 97.7, pulse rate 105, respirations 20, blood pressure 164/87. He is awake, alert, and oriented, complaining of right temporal headache and some blurry vision. HEENT: His pupils are 3-4 mm and reactive bilaterally. Extraocular motion is intact. Funduscopic exam was limited. The neck is supple. No stridor over the trachea. No adenopathy in the neck. Heart sounds are regular without appreciable murmur. Breath sounds are diminished and coarse, clear. Abdomen is soft with intact bowel sounds. Extremities: He has psoriatic changes of the skin, is post BK amputation of the right lower extremity. DIAGNOSTIC STUDIES: CT scan of the head shows a recurrent bleeding into a right subdural hygroma with 8 mm midline shift that is new. His sodium is 138, potassium 4.1, chloride 103, CO2 27, BUN is 19, creatinine 1.2, glucose 85, magnesium is 2, bilirubin 0.6, AST 17, ALT 21, alkaline phosphatase 152. His CPK is 197, albumin 3.5. White cell count is 9.4, hemoglobin 15.6, hematocrit 46.6, platelet count 146,000. PT 14.8, INR 1.14. His toxicology was negative for salicylates, acetaminophen, and alcohol. The primary problem requiring critical attention is acute intracranial hemorrhage with midline shift. We will admit the patient to the intensive care unit. Plavix will be reversed with desmopressin and blood pressure lowered to a target of 140. Will repeat a CT scan of the head in 6 hours, and neurosurgery has been consulted. The patient's diabetes will be addressed with insulin and coverage. Will continue his current other home medications for the exception of diuretics and any anticoagulations. I will also consult his family physician for general medical followup. Deep venous thrombosis (DVT) prophylaxis will be addressed with sequential hose, ulcer prophylaxis with Protonix. The patient's condition is critical. Prognosis is guarded. 1 hour and 15 minutes was spent in the provision of bedside critical care and coordination. ALOK
[2016-08-22] MEDS ORDERED: ALBUTEROL SULFATE 2.5 MG/0.5 ML INH NEB SOLN NEB SCH (16:00)
[2016-08-22] MEDS: HumaLOG INSULIN (NovoLOG) PER UNIT SC SCH ×2 (17:02→21:00)
[2016-08-22] MEDS: NORTRIPTYLINE 25 MG CAP PO SCH ×2 (17:09→21:28)
[2016-08-22] MEDS ORDERED: EUCERIN 120GM CREAM TOP PRN (17:15)
[2016-08-22] MEDS ORDERED: GLIMEPIRIDE 2 MG TAB PO SCH (17:30)
[2016-08-22] MEDS: PANTOPRAZOLE 40MG INJ (PROTONIX) (C9113) IV SCH (17:54)
[2016-08-22] MEDS: LIDOCAINE 5% (LIDODERM) PATCH TD SCH (17:55)
[2016-08-22] MEDS: **NOTE PATIENT COMMENT** MISC XX SCH (21:00)
[2016-08-22] MEDS: GABAPENTIN 400 MG CAP PO SCH (21:28)
[2016-08-22] MEDS: PRAVASTATIN 20 MG TAB PO SCH (21:28)
[2016-08-23] VITALS (18 sets, daily range): BP systolic 113–158; BP diastolic 60–87
[2016-08-23] MEDS: LABETALOL HCL 200 MG in D5W 160 ML IV SCH ×6 (01:10→09:30)
[2016-08-23 04:24] LABS: BASO % 0.4 % (0.0-1.0); EOS # 0.2 K/mm3 (0.0-0.50); EOS % 2.9 % (0.0-3.0); LARGE UNSTAINED CELL # 0.3 K/mm3 (0.0-0.4); LARGE UNSTAINED CELL % 3.5 % (0.0-4.0); LYMPH # 1.4 K/mm3 (1.5-4.5); LYMPH % 17.2 % (24.0-44.0); MEAN CORPUSCULAR HEMOGLOBIN 30.9 pg (27.0-33.0); MEAN CORPUSCULAR VOLUME 93.8 fl (80.0-96.0); MONO # 0.7 K/mm3 (0.0-0.8); MONO % 7.7 % (0.0-5.0); NEUTROPHILS # 5.8 K/mm3 (1.8-7.7); NEUTROPHILS % 68.4 % (36.0-66.0); PLATELET COUNT, AUTOMATED 127 k/mm3 (150-450); RED CELL DISTRIBUTION WIDTH 13.8 % (11.5-14.5); WHITE BLOOD COUNT 8.4 K/mm3 (4.0-10.0)
[2016-08-23 04:47] LABS: ALBUMIN/GLOBULIN RATIO 0.91 (1.00-1.93); ALKALINE PHOSPHATASE 128 U/L (45-117); ALT/SGPT 16 U/L (12-78); ANION GAP 9 MEQ/L (8-16); AST/SGOT 15 U/L (15-37); BILIRUBIN,TOTAL 0.5 MG/DL (0.2-1.0); BLOOD UREA NITROGEN 18 MG/DL (7-18); CALCIUM LEVEL 8.3 MG/DL (8.8-10.2); CARBON DIOXIDE LEVEL 24 MEQ/L (21-32); CHLORIDE LEVEL 106 MEQ/L (98-107); CHOLESTEROL LEVEL 93 MG/DL (< 200); CREATININE FOR GFR 1.08 MG/DL (0.70-1.30); GLOMERULAR FILTRATION RATE > 60.0 (>49); GLUCOSE, FASTING 95 MG/DL (80-110); PHOSPHORUS LEVEL 2.5 MG/DL (2.5-4.9); POTASSIUM SERUM 3.5 MEQ/L (3.5-5.1); SODIUM LEVEL 139 MEQ/L (136-145); TOTAL PROTEIN 6.3 GM/DL (6.4-8.2); TRIGLYCERIDES LEVEL 108 MG/DL (<150)
--- NOTE | 2016-08-23 07:20 | ECGEPIP ---
Stationary ECG Study [facility] - ED Test Date: 2016-08-22 Pat Name: PAGE BADILLO Department: Room: [place] [address] Gender: M [employer]: rn : 1950 Requested By: Alexandra Canchola Order Number: [id number] Reading MD: Alexandra Canchola Measurements Intervals [place] Rate: 95 P: 58 AR: 177 QRS: -14 QRSD: 157 T: 48 QT: 388 QTc: 490 Interpretive Statements SINUS RHYTHM RIGHT BUNDLE BRANCH BLOCK INCREASED RATE 07/02/16 Electronically Signed On 08-23-2016 7:20:30 EDT by Alexandra Canchola
--- NOTE | 2016-08-23 07:20 | REP ---
Clinical: Follow up subdural and intracranial hemorrhage. Comparison: 08/22/2016 at 11:48 a.m. Findings: [id number] right subdural hematoma is again appreciated overlying the frontoparietal region with subtle extension to the right temporal lobe and currently measures approximately 24 mm in maximal width approaching the vertex. A small chronic left subdural hygroma is less pronounced than prior examinations due to the associated 8 mm of [id number]-[id number] midline shift which is essentially unchanged from earlier examination. The ventricles are relatively normal and without evidence for increasing hydrocephalous and the basilar cisterns demonstrate appropriate CSF space without evidence for herniation. The calvarium appears intact. The sinuses demonstrate mild mucoperiosteal changes related to sinusitis. No new extra-axial or intracranial hemorrhage or mass/mass effect is otherwise appreciated. Impression: Stable appearance to the right sided subdural hematoma and associated contralateral midline shift when compared to earlier examination. No significant change and no new acute intracranial or extra-axial findings are appreciated. Signed by Michele Bourgeois MD 08/23/2016 07:12 A
[2016-08-23] MEDS: HumaLOG INSULIN (NovoLOG) PER UNIT SC SCH ×4 (07:30→21:00)
[2016-08-23] MEDS: IPRATROPIUM 0.02% SOLN 0.5MG/2.5 ML NEB NEB SCH ×4 (07:55→20:28)
[2016-08-23] MEDS: ALBUTEROL SULFATE 2.5 MG/0.5 ML INH NEB SOLN NEB SCH ×4 (07:55→20:28)
[2016-08-23] MEDS ORDERED: LEVEMIR (INSULIN DETEMIR) 1 UNITS/0.01ML SC SCH (09:00)
[2016-08-23] MEDS: NS 1,000 ML IV SCH (09:35)
[2016-08-23] MEDS: PANTOPRAZOLE 40MG INJ (PROTONIX) (C9113) IV SCH (09:36)
[2016-08-23] MEDS: ATENOLOL 25 MG TAB PO SCH (09:36)
[2016-08-23] MEDS: GABAPENTIN 400 MG CAP PO SCH ×2 (09:36→21:05)
[2016-08-23] MEDS: NORTRIPTYLINE 25 MG CAP PO SCH ×3 (09:36→21:05)
[2016-08-23] MEDS: LIDOCAINE 5% (LIDODERM) PATCH TD SCH (09:37)
--- NOTE | 2016-08-23 10:26 | CCN ---
DATE: 08/23/2016 CRITICAL CARE NOTE The patient is seen in the intensive care unit, this is hospital day #2, ICU day #2. He had a relatively uneventful night with IV labetalol. His blood pressure has been controlled with parameters. He continues to complain of a headache, albeit less severe than yesterday and has no visual complaints today. Temperature is 97, T-max for the past 24 hours 99.4, pulse rate 84, respirations 18, blood pressure 135/73, I and O for the past 24 hours 980 in, 275 out since midnight 600 in, 0 out. At bedside he remains ill appearing but in no immediate distress. Oral mucosa is pink. Neck is supple. There is no meningismus. His pupils are 3-4 mm and reactive bilaterally. Extraocular motion is intact. Heart: Sounds are regular without appreciable murmur. Breath sounds diminished. Expiratory phase prolonged. There are no focal sounds. Chest is symmetric. Abdomen is soft. There are bowel sounds in the right lower quadrant. Extremities psoriatic changes are the same. Peripheral pulses are diminished but palpable. DIAGNOSTIC STUDIES: CT of the head was repeated and continues to show subdural hemorrhage with new bleeding into the area of hemorrhage and shift, there was no change on the subsequent image to suggest progression. Sodium is 139, potassium 3.5, chloride 106, CO2 24, BUN 18, creatinine 1.08, glucose 95, range was 77-158 white cell count is down to 8.4, hemoglobin 13.7, hematocrit 41.4, platelet count 127,000. On medications review he is receiving atenolol 25 mg a day, some IV fluid replacement, labetalol drip for a systolic blood pressure of 130 +/- 10. He is receiving DuoNebs and Protonix. The primary problem requiring critical attention is acute intracranial hemorrhage. The patient has been evaluated by neurosurgery and plans are progressing for surgical intervention to address the clot on his brain, thankfully there has been no progression on repeat CT imaging. Acute bleeding appears to have stopped. The anticoagulation was reversed (Plavix). Phantom limb pain. The patient reports that this is better controlled with topical Lidoderm. Glycemic control is within reasonably normal range at this point. We will continue close monitoring fingerstick blood sugars and coverage. Hypertension. The patient's blood pressure is controlled with beta blockade. We will continue to follow the parameter set pending additional comment from neurosurgery. Deep venous thrombosis (DVT) prophylaxis being addressed with sequential hose, anticoagulation is contraindicated in this circumstance. Ulcer prophylaxis is being accomplished with Protonix. I have updated the patient and family and we will await repeat evaluation by neurosurgery. 57 minutes was spent in provision of bedside critical care coordination exclusive of any procedure time.
[2016-08-23] MEDS ORDERED: ROCURONIUM BROMIDE 50 MG/5 ML VIAL/SYRINGE As Ordered ONE (10:53)
[2016-08-23] MEDS ORDERED: PROPOFOL 200 MG/20 ML VIAL As Ordered ONE (10:53)
[2016-08-23] MEDS ORDERED: LIDOCAINE 2% INJ 100 MG/5 ML SDV (FOR ANES.) As Ordered ONE (10:54)
[2016-08-23] MEDS ORDERED: ONDANSETRON 4MG/2ML VIAL (J2405) As Ordered ONE (10:54)
[2016-08-23] MEDS ORDERED: MIDAZOLAM INJ 2 MG/2 ML VIAL (J2250) As Ordered ONE (10:54)
[2016-08-23] MEDS ORDERED: fentaNYL 100 MCG/2 ML INJECTION (J3010) As Ordered ONE (10:54)
[2016-08-23] MEDS ORDERED: PROPOFOL 500 MG/50 ML VIAL As Ordered ONE (11:03)
--- NOTE | 2016-08-23 11:25 | IPNPDOC ---
Subjective Date Seen The patient was seen on 08/23/16. Subjective Chief Complaint/HPI The patient is a 66-year-old male admitted with a reason for visit of Subdural Bleeding. Events since last encounter Hematoma stabilized on CT. intracranial drain placed by neurosurgery today. Patient's mentation remained stable. Blood pressures relatively controlled, and critical care planning to titrate labetalol. Constitutional: Denies: Chills, Fever ENT: Reports: Head Aches Pulmonary: Denies: Dyspnea Cardiovascular: Denies: Chest Pain Gastrointestinal: Denies: Nausea, Vomiting Neurological: Denies: Weakness, Numbness, Change in speech, Confusion, Seizures Other systems 10 point review systems otherwise negative Objective Physical Examination General Exam: Positive: Alert, Cooperative, No Acute Distress Eye Exam: Positive: Conjunctiva & lids normal, EOMI ENT Exam: Positive: Mucous membr. moist/pink, Other ENT (intracranial drain in place) Chest Exam: Positive: Clear to auscultation, Diminished, Negative: Rales, Rhonchi, Wheezing Heart Exam: Positive: Rate Normal, Normal S1, Normal S2, Murmurs Abdomen Exam: Positive: Normal bowel sounds Extremity Exam: Positive: Cyanosis, Negative: Clubbing, Edema Skin Exam: Positive: Nl turgor and temperature Psych Exam: Positive: Mental status NL Assessment /Plan Problems (1) Subdural bleeding Status: Acute Response to Treatment: Stable Problem Text: [place] hole done by Dr. Estrella today. Patient's mentation remained stable. No focal deficits, no changes in speech, no changes in sensation. Bleeding stable on CT. GCS 15. - Management per neurosurgery - Critical care titrating labetalol to maintain blood pressures less than 140- 150 systolic (2) DM2 (diabetes mellitus, type 2) Status: Chronic Problem Text: Blood glucose stable on sliding scale insulin (3) Chronic alcohol abuse Status: Chronic Problem Text: No signs or symptoms of alcohol withdrawal. - Begin CIWA scoring if patient develops symptoms of withdrawal (4) CKD (chronic kidney disease), stage III Status: Chronic Problem Text: Creatinine stable. Avoid nephrotoxic agents. (5) Hypertension Status: Chronic Problem Text: Critical care titrating labetalol (6) GERD (gastroesophageal reflux disease) Status: Chronic (7) PVD (peripheral vascular disease) Status: Chronic Response to Treatment: Stable Problem Text: Status post BKA (8) Anemia Status: Chronic Response to Treatment: Stable Problem Text: Secondary to end-stage renal disease Plan/VTE VTE Prophylaxis Ordered?: No (patient on compression stockings only) VTE Exclusion Pharmacological: Hemorrhage Disposition Continued need for intensive care due to renard hole and intracranial catheter. VS, I&O, 24H, Fishbone Vital Signs/I&O Vital Signs Date Time Temp Pulse Resp B/P (MAP) Pulse Ox O2 Delivery O2 Flow Rate FiO2 08/23/16 09:36 86 143/105 08/23/16 04:02 97.9 18 94 Room Air 08/22/16 15:30 88.0 I&O- Last 24 Hours up to 6 AM 08/23/16 06:00 Intake Total 1580 ml Output Total 275 ml Balance 1305 ml Laboratory Data 24H LABS Laboratory Tests 2 08/22/16 11:59: White Blood Count 9.4, Red Blood Count 4.98, Hemoglobin 15.6, Hematocrit 46.6, Mean Corpuscular Volume 93.6, Mean Corpuscular Hemoglobin 31.3, Mean Corpuscular Hemoglobin Concent 33.5, Red Cell Distribution Width 14.1, Platelet Count 146L, Neutrophils (%) (Auto) 74.1H, Lymphocytes (%) (Auto) 13.9L, Monocytes (%) (Auto) 7.3H, Eosinophils (%) (Auto) 1.8, Basophils (%) (Auto) 0.2 , Neutrophils # (Auto) 6.9, Lymphocytes # (Auto) 1.6, Monocytes # (Auto) 0.7, Eosinophils # (Auto) 0.2, Basophils # (Auto) 0.0, Large Unclassified Cells % 2.7 , Large Unclassified Cells # 0.3, Prothrombin Time 14.8H, Prothromb Time International Ratio 1.14, Anion Gap 8, Glomerular Filtration Rate > 60.0, Calcium Level 9.4, Magnesium Level 2.0, Aspartate Amino Transf (AST/SGOT) 17, Alanine Aminotransferase (ALT/SGPT) 21, Alkaline Phosphatase 152H, Total Bilirubin 0.6, Direct Bilirubin 0.2, Ammonia 23, Total Creatine Kinase 197, Creatine Kinase MB 5.6H, Creatine Kinase MB Relative Index 2.84, Troponin I < 0.02, Total Protein 7.2, Albumin 3.5, Albumin/Globulin Ratio 0.95L, Thyroid Stimulating Hormone (TSH) 0.715, Salicylates Level 2.9L, Acetaminophen Level < 2.0L, Ethyl Alcohol Level < 0.003 08/22/16 12:31: Bedside Glucose (Misc Panel) 87 08/22/16 16:55: Bedside Glucose (Misc Panel) 158H 08/22/16 21:21: Bedside Glucose (Misc Panel) 77L 08/23/16 04:10: White Blood Count 8.4, Red Blood Count 4.42, Hemoglobin 13.7L, Hematocrit 41.4L , Mean Corpuscular Volume 93.8, Mean Corpuscular Hemoglobin 30.9, Mean Corpuscular Hemoglobin Concent 33.0, Red Cell Distribution Width 13.8, Platelet Count 127L, Neutrophils (%) (Auto) 68.4H, Lymphocytes (%) (Auto) 17.2L, Monocytes (%) (Auto) 7.7H, Eosinophils (%) (Auto) 2.9, Basophils (%) (Auto) 0.4 , Neutrophils # (Auto) 5.8, Lymphocytes # (Auto) 1.4L, Monocytes # (Auto) 0.7, Eosinophils # (Auto) 0.2, Basophils # (Auto) 0.0, Large Unclassified Cells % 3.5 , Large Unclassified Cells # 0.3, Anion Gap 9, Glomerular Filtration Rate > 60.0 , Blood Urea Nitrogen 18, Creatinine 1.08, Sodium Level 139, Potassium Level 3.5 , Chloride Level 106, Carbon Dioxide Level 24, Calcium Level 8.3L, Phosphorus Level 2.5, Aspartate Amino Transf (AST/SGOT) 15, Alanine Aminotransferase (ALT/ SGPT) 16, Lactate Dehydrogenase 92, Total Creatine Kinase 115, Alkaline Phosphatase 128H, Total Bilirubin 0.5, Triglycerides Level 108, Cholesterol Level 93, Total Protein 6.3L, Albumin 3.0L, Albumin/Globulin Ratio 0.91L CBC/BMP Laboratory Tests 08/22/16 11:59 Red Blood Count 4.98, Mean Corpuscular Volume 93.6, Mean Corpuscular Hemoglobin 31.3, Mean Corpuscular Hemoglobin Concent 33.5, Red Cell Distribution Width 14.1 , Neutrophils (%) (Auto) 74.1 H, Lymphocytes (%) (Auto) 13.9 L, Monocytes (%) ( Auto) 7.3 H, Eosinophils (%) (Auto) 1.8, Basophils (%) (Auto) 0.2, Neutrophils # (Auto) 6.9, Lymphocytes # (Auto) 1.6, Monocytes # (Auto) 0.7, Eosinophils # ( Auto) 0.2, Basophils # (Auto) 0.0 08/23/16 04:10 Red Blood Count 4.42, Mean Corpuscular Volume 93.8, Mean Corpuscular Hemoglobin 30.9, Mean Corpuscular Hemoglobin Concent 33.0, Red Cell Distribution Width 13.8 , Neutrophils (%) (Auto) 68.4 H, Lymphocytes (%) (Auto) 17.2 L, Monocytes (%) ( Auto) 7.7 H, Eosinophils (%) (Auto) 2.9, Basophils (%) (Auto) 0.4, Neutrophils # (Auto) 5.8, Lymphocytes # (Auto) 1.4 L, Monocytes # (Auto) 0.7, Eosinophils # (Auto) 0.2, Basophils # (Auto) 0.0, Calcium Level 8.3 L, Phosphorus Level 2.5, Aspartate Amino Transf (AST/SGOT) 15, Alanine Aminotransferase (ALT/SGPT) 16, Lactate Dehydrogenase 92, Total Creatine Kinase 115, Alkaline Phosphatase 128 H , Total Bilirubin 0.5, Triglycerides Level 108, Cholesterol Level 93, Total Protein 6.3 L, Albumin 3.0 L NALLELY WORRELL MD Aug 23, 2016 11:25
[2016-08-23] MEDS ORDERED: ceFAZolin 1GM INJ (J0690) As Ordered ONE (11:52)
[2016-08-23] MEDS ORDERED: BACITRACIN OINT 30GM As Ordered ONE (11:54)
[2016-08-23] MEDS ORDERED: PHENYLephrine HCL 500 MCG/5 ML (100MCG/ML) SYRINGE (J2370) As Ordered ONE (12:04)
[2016-08-23] MEDS ORDERED: ePHEDrine SULFATE 25 MG/5 ML(5MG/ML) SYRINGE As Ordered ONE (12:04)
[2016-08-23] MEDS ORDERED: fentaNYL 100 MCG/2 ML INJECTION (J3010) IV PRN (13:15)
[2016-08-23] MEDS ORDERED: ONDANSETRON 4MG/2ML VIAL (J2405) IV PRN (13:15)
[2016-08-23] MEDS ORDERED: LR 1,000 ML IV SCH (13:15)
--- NOTE | 2016-08-23 16:45 | ROOPDOC ---
[facility] Report Of Operation Report of Operation DATE OF SURGERY: 08/23/2016 SURGEON: Dr. Rafael Estrella VENEER CUTTER: PREOPERATIVE DIAGNOSIS: Right chronic subdural hematoma (cSDH) POSTOPERATIVE DIAGNOSIS: Same PROCEDURE PERFORMED: 1. Ney holes placement 2. Insertion of port for drainage of right chronic SDH. ANESTHESIA: GETA. ESTIMATED BLOOD LOSS: 5 cc. FINDINGS : Right chronic subdural hematoma. DRAINS: GP drains x 1 COMPLICATIONS: None. DISPOSITION: Stable to the PACU. INDICATIONS FOR THE PROCEDURE HISTORY: Mr. Shaw is a 66 y/o M who presents to the hospital after fall from wheelchair. Examination reveals the signs, symptoms and radiographic evidence of chronic subdural hematoma ( decreasing mental status, weakness, tendency to fall). DIAGNOSTIC STUDY: Head CT scan showed right fronto-parietal chronic subdural hematoma with septie. SURGICAL RISKS: The patient is disoriented, unable to provide consent. His was well apprised of all objectives, benefits, risks and potential complications of the procedure, including but not limited to: worsening of current status, the possible need for further procedures, the risk of infection, headaches, CSF leak , possible spinal nerve injury resulting in paralysis, infection, injury to major vessels causing hemorrhage, stroke, loss of language function, coma and even . No assurance was given whether symptoms would improve following the procedure. The surgery is technically difficult procedure and despite the significant discomfort for the patient and the best effort of the physician, the surgery may be unsuccessful or may need to be aborted. Informed consent was obtained and secured in the chart after the patient and family voiced understanding of these risks and decided to proceed with the operation. DESCRIPTION OF THE PROCEDURE The patient was transferred to the operating room. He was given preoperative prophylactic IV antibiotics. ANESTHESIA: The patient was sedated and intubated without difficulty by the anesthesia service. Eyes were taped shut after ointment was applied to prevent corneal abrasion. A Shayna Hugger was placed over the upper body to maintain control of core body temperature. POSITIONING: The patient was supine on OR table with his head on gelly donat. All pressure points were carefully padded. OPERATIVE TECHNIQUE: The patient was prepped and draped in the standard sterile fashion. Local anesthetic was infiltrated along the line of the planned skin incisions on both sides of head, which was opened sharply with a # 10 scalpel blade. Hemostasis was achieved utilizing monopolar and bipolar electrocautery. The scalp was reflected and held in place with self-retaining retractors. Utilizing the hand-held mechanical handyman drill and a 5 mm twist drill, a small hole craniotomy was performed and dura matter has been open. Old blood came out under high pressure. [employer] subdural drainage port has been screwed into the twist hole. The drain has been attached to the port and secured with silk sutures. Scalp has been closed by metal mario. Bacitracin ointment has been applied to the wound and sterile dressing has been placed over closed wound. Above procedure has been repeated on opposite side of the head. All sponge counts, needle counts and instrument counts were correct at the end of the case times two. The patient tolerated the procedure well, without any complications and was transferred in stable condition to the recovery room. RAFAEL ESTRELLA MD Aug 23, 2016 16:45
[2016-08-23] MEDS: ACETAMINOPHEN TAB 650MG DOSE (2X325MG) PO PRN (17:20)
[2016-08-23] MEDS: ceFAZolin SOD 1 GM in D5W MINI-BAG PLUS 50 ML IV SCH (20:15)
[2016-08-23] MEDS: **NOTE PATIENT COMMENT** MISC XX SCH (21:00)
[2016-08-23] MEDS: PRAVASTATIN 20 MG TAB PO SCH (21:05)
[2016-08-24] VITALS (13 sets, daily range): BP systolic 88–184; BP diastolic 74–89
[2016-08-24] MEDS: ceFAZolin SOD 1 GM in D5W MINI-BAG PLUS 50 ML IV SCH ×2 (04:10→11:57)
[2016-08-24 04:45] LABS: BASO % 0.3 % (0.0-1.0); EOS # 0.2 K/mm3 (0.0-0.50); EOS % 2.3 % (0.0-3.0); LARGE UNSTAINED CELL # 0.2 K/mm3 (0.0-0.4); LYMPH # 1.1 K/mm3 (1.5-4.5); MEAN CORPUSCULAR HEMOGLOBIN 31.5 pg (27.0-33.0); MEAN CORPUSCULAR HGB CONC 33.4 g/dl (32.0-36.5); MEAN CORPUSCULAR VOLUME 94.3 fl (80.0-96.0); MONO # 0.6 K/mm3 (0.0-0.8); MONO % 7.4 % (0.0-5.0); NEUTROPHILS # 6.4 K/mm3 (1.8-7.7); NEUTROPHILS % 77.1 % (36.0-66.0); PLATELET COUNT, AUTOMATED 142 k/mm3 (150-450); RED CELL DISTRIBUTION WIDTH 14.1 % (11.5-14.5); WHITE BLOOD COUNT 8.2 K/mm3 (4.0-10.0)
[2016-08-24 05:02] LABS: ALBUMIN 2.9 GM/DL (3.2-5.2); ALBUMIN/GLOBULIN RATIO 0.76 (1.00-1.93); ALKALINE PHOSPHATASE 149 U/L (45-117); ALT/SGPT 16 U/L (12-78); ANION GAP 6 MEQ/L (8-16); AST/SGOT 13 U/L (15-37); BILIRUBIN,TOTAL 0.4 MG/DL (0.2-1.0); BLOOD UREA NITROGEN 12 MG/DL (7-18); CALCIUM LEVEL 8.6 MG/DL (8.8-10.2); CARBON DIOXIDE LEVEL 25 MEQ/L (21-32); CHLORIDE LEVEL 106 MEQ/L (98-107); CHOLESTEROL LEVEL 91 MG/DL (< 200); GLOMERULAR FILTRATION RATE > 60.0 (>49); GLUCOSE, FASTING 95 MG/DL (80-110); PHOSPHORUS LEVEL 2.4 MG/DL (2.5-4.9); POTASSIUM SERUM 3.8 MEQ/L (3.5-5.1); SODIUM LEVEL 137 MEQ/L (136-145); TOTAL PROTEIN 6.7 GM/DL (6.4-8.2); TRIGLYCERIDES LEVEL 91 MG/DL (<150)
--- NOTE | 2016-08-24 06:20 | REPUSA ---
CLINICAL HISTORY: Post op. TECHNIQUE: Multiple axial CT images were obtained through the brain without IV contrast material. COMMENTS: Compared to 08/22/16 study. Right frontal renard craniotomy is noted. Otherwise no change. Note again is made of a large right subdural collection with hyperdense blood components measuring 2. 4 cm in thickness with 7.5 mm midline shift to the left. Mild compression of right lateral ventricle is noted. There is normal configuration of sella turcica. There are no intra-axial collections. No hydrocephalu s is present. No abnormal calcifications are present. There is diffuse age-appropriate cerebellar and cerebral atrophy. There are bilateral periventricular and subcortical white matter hypolucencies compatible with mild c hronic microvascular disease. IMPRESSION: Right frontal renard craniotomy is noted. Otherwise no change. Note again is made of a large right subdural collection with hyperdense blood components measuring 2. 4 cm in thickness with 7.5 mm midline shift to the left. Age-appropriate cerebellar and cerebral atrophy. Mild chronic microvascular disease. Thank you for your kind referral of this patient.
[2016-08-24] MEDS: HumaLOG INSULIN (NovoLOG) PER UNIT SC SCH ×4 (07:19→21:00)
[2016-08-24] MEDS: ALBUTEROL SULFATE 2.5 MG/0.5 ML INH NEB SOLN NEB SCH ×4 (07:42→20:18)
[2016-08-24] MEDS: IPRATROPIUM 0.02% SOLN 0.5MG/2.5 ML NEB NEB SCH ×4 (07:42→20:18)
[2016-08-24] MEDS ORDERED: MORPHINE 10 MG/ML 1ML VIAL As Ordered ONE (07:48)
[2016-08-24] MEDS ORDERED: MORPHINE 10 MG/ML 1ML VIAL IV ONE (08:00)
[2016-08-24] MEDS: GABAPENTIN 400 MG CAP PO SCH ×2 (08:32→21:09)
[2016-08-24] MEDS: ATENOLOL 25 MG TAB PO SCH (08:33)
[2016-08-24] MEDS: PANTOPRAZOLE 40MG INJ (PROTONIX) (C9113) IV SCH (08:34)
[2016-08-24] MEDS: NORTRIPTYLINE 25 MG CAP PO SCH ×3 (08:34→21:09)
[2016-08-24] MEDS: LIDOCAINE 5% (LIDODERM) PATCH TD SCH (08:34)
[2016-08-24] MEDS ORDERED: amLODIPine 10 MG TAB PO SCH (09:00)
[2016-08-24] MEDS ORDERED: HYDROCORTISONE 1% CREAM 30 GM TOP ONE (10:30)
--- NOTE | 2016-08-24 11:16 | CCN ---
DATE: 08/24/2016 CRITICAL CARE PROGRESS NOTE The patient is sitting awake in bed status post right frontal bur hole. He is verbal, joking appropriately. He does not complain of headache, shortness of breath, chest discomfort. He did have hypertension this morning with a systolic blood pressure into the 170s. The nurse advised me he was having quite a bit of pain at that point in time. His blood pressure is now 137 systolic on atenolol. He had a CT this morning, which showed that the large right subdural collection is still present, measuring about 2.4 cm with a 7.5 mm midline shift. No significant improvement with the bur hole, and there has been no significant drainage; therefore, the drain was removed. There are a tentative plans for surgery tomorrow for evacuation. The patient has had no seizure activity. There has been no fluctuation in his mental status. He denies unilateral weakness. He has good toll mechanic strength bilaterally. He does have a history of alcohol abuse. There are no signs of alcohol withdrawal at this point in time. PHYSICAL EXAMINATION: Temperature is 97.0, pulse is 85, respiratory rate is 20, blood pressure is 137/83. Oxygen saturation is 95% on room air. Intake and output: 2260 in, 580 out, net positive 1752. General: Patient awake, conversant, in no respiratory distress. HEENT: Sclerae clear. Pupils are 4 mm but reactive to light. Mucous membranes are slightly dry. Tongue is midline. No fasciculations. There is no unilateral facial weakness. Neck is supple. No tracheal deviation or mass. No elevated jugular venous pressure (JVP). Pulmonary: Clear to auscultation without rales, rhonchi or wheezes. No accessory muscle use. Abdomen: Soft, nontender, nondistended. No hepatosplenomegaly. No masses or hernia. Extremities: He has a right below-knee amputation (BKA), psoriatic changes of his left lower extremity with some increased vascular changes in the left foot. DIAGNOSTIC STUDIES: CT scan was mentioned above, was reviewed. White blood cell count is 8.2, hemoglobin is 14.0, platelet count is 142, sodium is 137, potassium is 3.8, chloride 106, bicarbonate of 25, BUN of 12, creatinine 1.0. His last INR is 1.14. IMPRESSION: 1. Hypertension, better controlled with pain control. Will continue to monitor for extremes in blood pressure. 2. Subdural bleed, status post right frontal bur craniotomy, thought to have membranous adhesions preventing adequate drainage. Tentative plan is for operating room (OR) tomorrow. 3. Psoriatic rash. I have added hydrocortisone to his regimen. 4. Diabetes. Blood sugar has been adequately controlled on sliding scale insulin. 5. Gastrointestinal (GI) prophylaxis, on Protonix. The patient remains critically ill due to the large subdural hematoma collection with midline shift. Will require close neurologic evaluation until this is decompressed. Will remain in the intensive care unit (ICU).
--- NOTE | 2016-08-24 14:50 | IPNPDOC ---
Subjective Date Seen The patient was seen on 08/24/16. Subjective Chief Complaint/HPI The patient is a 66-year-old male admitted with a reason for visit of Subdural Bleeding. Events since last encounter Patient had renard hole placed yesterday. Mentation remains stable, although neurosurgery planning craniotomy on Thursday. Patient reports mild left arm numbness and tingling. He also reports some numbness around his lips. He denies any leg weakness or headache, although endorses some right sided "head pressure. " Constitutional: Denies: Chills, Fever, Malaise Eyes: Denies: Pain, Vision change ENT: Reports: Other Symptoms (pressure on the right side of the head), Denies: Head Aches, Dysphagia Skin: Denies: Rash Pulmonary: Denies: Dyspnea, Cough Cardiovascular: Denies: Chest Pain, Palpitations Gastrointestinal: Denies: Nausea, Vomiting, Abdominal Pain, Diarrhea, Constipation Genitourinary: Denies: Dysuria Neurological: Reports: Weakness (mild left arm weakness), Other Symptoms ( tingling in the left hand; numb sensation of the lips) Psych: Reports: Mood Normal Objective Physical Examination General Exam: Positive: Alert, Cooperative, No Acute Distress Eye Exam: Positive: Conjunctiva & lids normal, EOMI ENT Exam: Positive: Mucous membr. moist/pink, Other ENT (intracranial drain in place) Chest Exam: Positive: Clear to auscultation, Diminished, Negative: Rales, Rhonchi, Wheezing Heart Exam: Positive: Rate Normal, Normal S1, Normal S2, Murmurs Abdomen Exam: Positive: Normal bowel sounds Extremity Exam: Positive: Cyanosis, Negative: Clubbing, Edema Skin Exam: Positive: Nl turgor and temperature Neuro Exam: Positive: Cranial Nerves 3-12 NL, Negative: Strength at 5/5 X4 ext (5 out of 5 water resources engineer strength in abduction of right arm; 4 out of 5 water resources engineer strength in abduction of left arm), Sensation Intact (altered sensation of the left arm) Psych Exam: Positive: Mental status NL Assessment /Plan Problems (1) Subdural bleeding Status: Acute Response to Treatment: Stable Problem Text: [place] hole done by Dr. Estrella 08/23/2016. Patient's mentation remained stable. No focal deficits, no changes in speech, no changes in sensation. Bleeding stable on CT. GCS 15. Neurosurgery planning craniotomy on Thursday. - Management per neurosurgery - Critical care titrating labetalol to maintain blood pressures less than 140- 150 systolic (2) DM2 (diabetes mellitus, type 2) Status: Chronic Problem Text: Blood glucose stable on sliding scale insulin (3) Chronic alcohol abuse Status: Chronic Problem Text: No signs or symptoms of alcohol withdrawal. - Begin CIWA scoring if patient develops symptoms of withdrawal (4) CKD (chronic kidney disease), stage III Status: Chronic Problem Text: Creatinine stable. Avoid nephrotoxic agents. (5) Hypertension Status: Chronic Problem Text: Critical care titrating labetalol (6) GERD (gastroesophageal reflux disease) Status: Chronic (7) PVD (peripheral vascular disease) Status: Chronic Response to Treatment: Stable Problem Text: Status post BKA (8) Anemia Status: Chronic Response to Treatment: Stable Problem Text: Secondary to end-stage renal disease Plan/VTE VTE Prophylaxis Ordered?: No (patient on compression stockings only) VTE Exclusion Pharmacological: Hemorrhage Disposition Patient remains in critical condition with stable neurologic status and pending craniotomy VS, I&O, 24H, [facility] Vital Signs/I&O Vital Signs Date Time Temp Pulse Resp B/P (MAP) Pulse Ox O2 Delivery O2 Flow Rate FiO2 08/24/16 12:00 97.6 70 18 97 Room Air 08/24/16 11:52 142/76 (98) 08/23/16 15:00 2.0 I&O- Last 24 Hours up to 6 AM 08/24/16 06:00 Intake Total 1710 ml Output Total 959 ml Balance 751 ml Laboratory Data 24H LABS Laboratory Tests 2 08/23/16 16:31: Bedside Glucose (Misc Panel) 85 08/23/16 21:03: Bedside Glucose (Misc Panel) 148H 08/24/16 04:14: White Blood Count 8.2, Red Blood Count 4.45, Hemoglobin 14.0, Hematocrit 42.0, Mean Corpuscular Volume 94.3, Mean Corpuscular Hemoglobin 31.5, Mean Corpuscular Hemoglobin Concent 33.4, Red Cell Distribution Width 14.1, Platelet Count 142L, Neutrophils (%) (Auto) 77.1H, Lymphocytes (%) (Auto) 11.0L, Monocytes (%) (Auto) 7.4H, Eosinophils (%) (Auto) 2.3, Basophils (%) (Auto) 0.3 , Neutrophils # (Auto) 6.4, Lymphocytes # (Auto) 1.1L, Monocytes # (Auto) 0.6, Eosinophils # (Auto) 0.2, Basophils # (Auto) 0.0, Large Unclassified Cells % 2.0 , Large Unclassified Cells # 0.2, Anion Gap 6L, Glomerular Filtration Rate > 60.0, Blood Urea Nitrogen 12, Creatinine 1.00, Sodium Level 137, Potassium Level 3.8, Chloride Level 106, Carbon Dioxide Level 25, Calcium Level 8.6L, Phosphorus Level 2.4L, Aspartate Amino Transf (AST/SGOT) 13L, Alanine Aminotransferase (ALT/SGPT) 16, Lactate Dehydrogenase 106, Total Creatine Kinase 78, Alkaline Phosphatase 149H, Total Bilirubin 0.4, Triglycerides Level 91, Cholesterol Level 91, Total Protein 6.7, Albumin 2.9L, Albumin/Globulin Ratio 0.76L 08/24/16 12:00: Bedside Glucose (Misc Panel) 147H CBC/BMP Laboratory Tests 08/24/16 04:14 Red Blood Count 4.45, Mean Corpuscular Volume 94.3, Mean Corpuscular Hemoglobin 31.5, Mean Corpuscular Hemoglobin Concent 33.4, Red Cell Distribution Width 14.1 , Neutrophils (%) (Auto) 77.1 H, Lymphocytes (%) (Auto) 11.0 L, Monocytes (%) ( Auto) 7.4 H, Eosinophils (%) (Auto) 2.3, Basophils (%) (Auto) 0.3, Neutrophils # (Auto) 6.4, Lymphocytes # (Auto) 1.1 L, Monocytes # (Auto) 0.6, Eosinophils # (Auto) 0.2, Basophils # (Auto) 0.0, Calcium Level 8.6 L, Phosphorus Level 2.4 L , Aspartate Amino Transf (AST/SGOT) 13 L, Alanine Aminotransferase (ALT/SGPT) 16 , Lactate Dehydrogenase 106, Total Creatine Kinase 78, Alkaline Phosphatase 149 H, Total Bilirubin 0.4, Triglycerides Level 91, Cholesterol Level 91, Total Protein 6.7, Albumin 2.9 L NALLELY WORRELL MD Aug 24, 2016 14:50
[2016-08-24] MEDS: ACETAMINOPHEN TAB 650MG DOSE (2X325MG) PO PRN (18:47)
[2016-08-24] MEDS: MORPHINE 2 MG/ML 1ML SYRINGE IV PRN (18:48)
[2016-08-24] MEDS: **NOTE PATIENT COMMENT** MISC XX SCH (21:00)
[2016-08-24] MEDS: PRAVASTATIN 20 MG TAB PO SCH (21:09)
[2016-08-25 06:00] VITALS: BP 135/86
[2016-08-25 07:14] LABS: BASO # 0.1 K/mm3 (0.0-0.2); BASO % 0.8 % (0.0-1.0); EOS # 0.3 K/mm3 (0.0-0.50); LARGE UNSTAINED CELL # 0.2 K/mm3 (0.0-0.4); LARGE UNSTAINED CELL % 2.3 % (0.0-4.0); LYMPH # 1.1 K/mm3 (1.5-4.5); LYMPH % 12.8 % (24.0-44.0); MEAN CORPUSCULAR HEMOGLOBIN 31.2 pg (27.0-33.0); MEAN CORPUSCULAR HGB CONC 33.5 g/dl (32.0-36.5); MONO # 0.8 K/mm3 (0.0-0.8); MONO % 8.8 % (0.0-5.0); NEUTROPHILS # 6.3 K/mm3 (1.8-7.7); NEUTROPHILS % 72.3 % (36.0-66.0); PLATELET COUNT, AUTOMATED 147 k/mm3 (150-450); RED CELL DISTRIBUTION WIDTH 13.5 % (11.5-14.5); WHITE BLOOD COUNT 8.7 K/mm3 (4.0-10.0)
[2016-08-25] MEDS: ALBUTEROL SULFATE 2.5 MG/0.5 ML INH NEB SOLN NEB SCH ×4 (07:19→20:55)
[2016-08-25] MEDS: IPRATROPIUM 0.02% SOLN 0.5MG/2.5 ML NEB NEB SCH ×4 (07:19→20:55)
[2016-08-25 07:33] LABS: ALBUMIN/GLOBULIN RATIO 0.71 (1.00-1.93); ALKALINE PHOSPHATASE 154 U/L (45-117); ALT/SGPT 18 U/L (12-78); ANION GAP 6 MEQ/L (8-16); AST/SGOT 13 U/L (15-37); BILIRUBIN,TOTAL 0.4 MG/DL (0.2-1.0); BLOOD UREA NITROGEN 12 MG/DL (7-18); CALCIUM LEVEL 9.3 MG/DL (8.8-10.2); CARBON DIOXIDE LEVEL 27 MEQ/L (21-32); CHLORIDE LEVEL 105 MEQ/L (98-107); CHOLESTEROL LEVEL 100 MG/DL (< 200); GLOMERULAR FILTRATION RATE > 60.0 (>49); GLUCOSE, FASTING 107 MG/DL (80-110); PHOSPHORUS LEVEL 2.3 MG/DL (2.5-4.9); POTASSIUM SERUM 3.9 MEQ/L (3.5-5.1); SODIUM LEVEL 138 MEQ/L (136-145); TOTAL PROTEIN 7.2 GM/DL (6.4-8.2); TRIGLYCERIDES LEVEL 122 MG/DL (<150)
[2016-08-25] MEDS: HumaLOG INSULIN (NovoLOG) PER UNIT SC SCH ×4 (08:13→20:45)
[2016-08-25] MEDS: LIDOCAINE 5% (LIDODERM) PATCH TD SCH (08:13)
[2016-08-25] MEDS: NORTRIPTYLINE 25 MG CAP PO SCH ×3 (08:14→20:45)
[2016-08-25] MEDS: GABAPENTIN 400 MG CAP PO SCH ×2 (08:14→20:45)
[2016-08-25] MEDS: PANTOPRAZOLE 40MG INJ (PROTONIX) (C9113) IV SCH (08:14)
[2016-08-25] MEDS: ACETAMINOPHEN TAB 650MG DOSE (2X325MG) PO PRN (08:14)
[2016-08-25] MEDS: ATENOLOL 25 MG TAB PO SCH (08:14)
--- NOTE | 2016-08-25 10:35 | IPNPDOC ---
Subjective Date Seen The patient was seen on 08/25/16. Subjective Chief Complaint/HPI The patient is a 66-year-old male admitted with a reason for visit of Subdural Bleeding. Events since last encounter Pt denies any new issues. Denies CP, SOB, Abd pain. Constitutional: Denies: Chills, Fever Pulmonary: Denies: Dyspnea Cardiovascular: Denies: Chest Pain Gastrointestinal: Denies: Abdominal Pain Objective Physical Examination General Exam: Positive: Alert, Cooperative, No Acute Distress Eye Exam: Positive: Conjunctiva & lids normal, EOMI ENT Exam: Positive: Mucous membr. moist/pink, Other ENT (intracranial drain in place) Chest Exam: Positive: Clear to auscultation, Diminished, Negative: Rales, Rhonchi, Wheezing Heart Exam: Positive: Rate Normal, Normal S1, Normal S2, Murmurs Abdomen Exam: Positive: Normal bowel sounds Extremity Exam: Positive: Cyanosis, Other (right BKA), Negative: Clubbing, Edema Skin Exam: Positive: Nl turgor and temperature Neuro Exam: Positive: Cranial Nerves 3-12 NL, Negative: Strength at 5/5 X4 ext (5 out of 5 scrap burner strength in abduction of right arm; 4 out of 5 scrap burner strength in abduction of left arm), Sensation Intact (altered sensation of the left arm) Psych Exam: Positive: Mental status NL Assessment /Plan Assessment Family Medicine Attending Note: I saw and examined Mr. Shaw, discussed with QIANA Llanes. Agree with their note as documented. Mr. Shaw is symptomatically stable. He and his were concerned about when he is having his next surgery. They anticipate it will be tomorrow, but I was given today to August 27 for his craniotomy. I will try to clarify this with nursing and the surgical staff. His right leg/stump is causing him some discomfort. I tried to address this with nursing as noted below. (neurosurgery physician) Problems (1) Brain compression Status: Acute Response to Treatment: Stable Problem Specific Plan: Consult Specialist, Monitor Clinically Problem Text: This is the danger with his recent bleeding and why he had the renard hole and will be returning for further craniotomy. We must avoid significant brain compression with the resultant ischemia or herniation of tissue this could cause. (2) Subdural bleeding Status: Acute Response to Treatment: Stable Problem Text: [place] hole done by Dr. Estrella 08/23/2016. Patient's mentation remained stable. No focal deficits, no changes in speech, no changes in sensation. Bleeding stable on CT. GCS 15. Neurosurgery planning craniotomy on Thursday. - Management per neurosurgery - Critical care following (3) Phantom limb syndrome with pain Status: Chronic Response to Treatment: Uncontrolled Discussed With: Nurse, Patient, Family with Pt Consent Problem Specific Plan: Monitor Clinically Problem Text: He has 2 Lidoderm patches over the areas where the pain seems to be coming from on his right lower leg stump just below the BKA. However he keeps moving this stump an effort to get more comfortable and believe the pain. Unfortunately this continually rubs the Lidoderm patches off. I've asked nursing to try to find a way to keep them on better for him ([place] or wrapping of some sort). (4) DM2 (diabetes mellitus, type 2) Status: Chronic Problem Text: Blood glucose stable on sliding scale insulin (5) Chronic alcohol abuse Status: Chronic Problem Text: No signs or symptoms of alcohol withdrawal. - Begin CIWA scoring if patient develops symptoms of withdrawal (6) CKD (chronic kidney disease), stage III Status: Chronic Problem Text: Creatinine stable. Avoid nephrotoxic agents. (7) Hypertension Status: Chronic Problem Text: 08/25 - On Atenolol. Critical care following. (8) GERD (gastroesophageal reflux disease) Status: Chronic (9) PVD (peripheral vascular disease) Status: Chronic Response to Treatment: Stable Problem Text: Status post right BKA (10) Anemia Status: Chronic Response to Treatment: Stable Problem Text: Secondary to end-stage renal disease Plan/VTE VTE Prophylaxis Ordered?: No (patient on compression stockings only) VTE Exclusion Pharmacological: Hemorrhage VS, I&O, 24H, [facility] Vital Signs/I&O Vital Signs Date Time Temp Pulse Resp B/P (MAP) Pulse Ox O2 Delivery O2 Flow Rate FiO2 08/25/16 08:14 79 135/86 08/25/16 06:00 97.4 18 94 Room Air 08/23/16 15:00 2.0 I&O- Last 24 Hours up to 6 AM 08/25/16 06:00 Intake Total 900 ml Output Total 975 ml Balance -75 ml Laboratory Data 24H LABS Laboratory Tests 2 08/24/16 12:00: Bedside Glucose (Misc Panel) 147H 08/25/16 06:58: White Blood Count 8.7, Red Blood Count 4.79, Hemoglobin 14.9, Hematocrit 44.6, Mean Corpuscular Volume 93.0, Mean Corpuscular Hemoglobin 31.2, Mean Corpuscular Hemoglobin Concent 33.5, Red Cell Distribution Width 13.5, Platelet Count 147L, Neutrophils (%) (Auto) 72.3H, Lymphocytes (%) (Auto) 12.8L, Monocytes (%) (Auto) 8.8H, Eosinophils (%) (Auto) 3.0, Basophils (%) (Auto) 0.8 , Neutrophils # (Auto) 6.3, Lymphocytes # (Auto) 1.1L, Monocytes # (Auto) 0.8, Eosinophils # (Auto) 0.3, Basophils # (Auto) 0.1, Large Unclassified Cells % 2.3 , Large Unclassified Cells # 0.2, Anion Gap 6L, Glomerular Filtration Rate > 60.0, Blood Urea Nitrogen 12, Creatinine 1.00, Sodium Level 138, Potassium Level 3.9, Chloride Level 105, Carbon Dioxide Level 27, Calcium Level 9.3, Phosphorus Level 2.3L, Aspartate Amino Transf (AST/SGOT) 13L, Alanine Aminotransferase (ALT/SGPT) 18, Lactate Dehydrogenase 103, Total Creatine Kinase 62, Alkaline Phosphatase 154H, Total Bilirubin 0.4, Triglycerides Level 122, Cholesterol Level 100, Total Protein 7.2, Albumin 3.0L, Albumin/Globulin Ratio 0.71L CBC/BMP Laboratory Tests 08/25/16 06:58 Red Blood Count 4.79, Mean Corpuscular Volume 93.0, Mean Corpuscular Hemoglobin 31.2, Mean Corpuscular Hemoglobin Concent 33.5, Red Cell Distribution Width 13.5 , Neutrophils (%) (Auto) 72.3 H, Lymphocytes (%) (Auto) 12.8 L, Monocytes (%) ( Auto) 8.8 H, Eosinophils (%) (Auto) 3.0, Basophils (%) (Auto) 0.8, Neutrophils # (Auto) 6.3, Lymphocytes # (Auto) 1.1 L, Monocytes # (Auto) 0.8, Eosinophils # (Auto) 0.3, Basophils # (Auto) 0.1, Calcium Level 9.3, Phosphorus Level 2.3 L, Aspartate Amino Transf (AST/SGOT) 13 L, Alanine Aminotransferase (ALT/SGPT) 18, Lactate Dehydrogenase 103, Total Creatine Kinase 62, Alkaline Phosphatase 154 H , Total Bilirubin 0.4, Triglycerides Level 122, Cholesterol Level 100, Total Protein 7.2, Albumin 3.0 L Robert William Aug 25, 2016 10:35 Willie Goldman MD Aug 25, 2016 20:33
[2016-08-25] MEDS: MORPHINE 2 MG/ML 1ML SYRINGE IV PRN (13:42)
[2016-08-25] MEDS: PRAVASTATIN 20 MG TAB PO SCH (20:44)
[2016-08-25] MEDS: **NOTE PATIENT COMMENT** MISC XX SCH (20:45)
[2016-08-25 22:00] VITALS: BP 140/65
[2016-08-26 06:00] VITALS: BP 135/63
[2016-08-26 06:51] LABS: BASO # 0.1 K/mm3 (0.0-0.2); BASO % 0.6 % (0.0-1.0); EOS # 0.2 K/mm3 (0.0-0.50); LARGE UNSTAINED CELL # 0.3 K/mm3 (0.0-0.4); LARGE UNSTAINED CELL % 1.8 % (0.0-4.0); LYMPH # 1.5 K/mm3 (1.5-4.5); LYMPH % 9.9 % (24.0-44.0); MEAN CORPUSCULAR HEMOGLOBIN 31.6 pg (27.0-33.0); MEAN CORPUSCULAR HGB CONC 33.1 g/dl (32.0-36.5); MEAN CORPUSCULAR VOLUME 95.6 fl (80.0-96.0); MONO # 0.8 K/mm3 (0.0-0.8); MONO % 5.4 % (0.0-5.0); NEUTROPHILS # 12.3 K/mm3 (1.8-7.7); NEUTROPHILS % 81.2 % (36.0-66.0); PLATELET COUNT, AUTOMATED 183 k/mm3 (150-450); RED CELL DISTRIBUTION WIDTH 13.6 % (11.5-14.5); WHITE BLOOD COUNT 15.1 K/mm3 (4.0-10.0)
[2016-08-26 07:16] LABS: ALBUMIN 3.3 GM/DL (3.2-5.2); ALBUMIN/GLOBULIN RATIO 0.72 (1.00-1.93); ALKALINE PHOSPHATASE 200 U/L (45-117); ALT/SGPT 21 U/L (12-78); ANION GAP 8 MEQ/L (8-16); AST/SGOT 15 U/L (15-37); BILIRUBIN,TOTAL 0.4 MG/DL (0.2-1.0); BLOOD UREA NITROGEN 17 MG/DL (7-18); CALCIUM LEVEL 9.5 MG/DL (8.8-10.2); CARBON DIOXIDE LEVEL 23 MEQ/L (21-32); CHLORIDE LEVEL 105 MEQ/L (98-107); CHOLESTEROL LEVEL 107 MG/DL (< 200); CREATININE FOR GFR 1.19 MG/DL (0.70-1.30); GLOMERULAR FILTRATION RATE > 60.0 (>49); GLUCOSE, FASTING 131 MG/DL (80-110); PHOSPHORUS LEVEL 2.9 MG/DL (2.5-4.9); POTASSIUM SERUM 4.3 MEQ/L (3.5-5.1); SODIUM LEVEL 136 MEQ/L (136-145); TOTAL PROTEIN 7.9 GM/DL (6.4-8.2); TRIGLYCERIDES LEVEL 124 MG/DL (<150)
[2016-08-26] MEDS: IPRATROPIUM 0.02% SOLN 0.5MG/2.5 ML NEB NEB SCH ×4 (07:19→19:46)
[2016-08-26] MEDS: ALBUTEROL SULFATE 2.5 MG/0.5 ML INH NEB SOLN NEB SCH ×4 (07:19→19:46)
[2016-08-26] MEDS: HumaLOG INSULIN (NovoLOG) PER UNIT SC SCH ×4 (07:30→21:00)
--- NOTE | 2016-08-26 08:29 | IPNPDOC ---
Subjective Date Seen The patient was seen on 08/26/16. Subjective Chief Complaint/HPI The patient is a 66-year-old male admitted with a reason for visit of Subdural Bleeding. Events since last encounter Pt this morning c/o pain in his stump. Attending note: Nursing indicates that patient has been having increased abdominal distention, abdominal pain, nausea, and vomited "brown chunks" last night. He has not been taking intake this morning due to nausea. General: Denies: Fatigue Eyes: Denies: Vision change ENT: Denies: Head Aches Pulmonary: Denies: Dyspnea, Cough Cardiovascular: Denies: Chest Pain, Palpitations Gastrointestinal: Denies: Nausea, Vomiting, Diarrhea Neurological: Reports: Weakness Objective Physical Examination General Exam: Positive: Alert, Cooperative, No Acute Distress ENT Exam: Positive: Mucous membr. moist/pink Chest Exam: Positive: Clear to auscultation, Diminished, Negative: Rales, Rhonchi, Wheezing Heart Exam: Positive: Rate Normal, Normal S1, Normal S2, Murmurs Abdomen Exam: Positive: Normal bowel sounds, Soft, Negative: Tenderness Extremity Exam: Positive: Cyanosis, Other (right BKA), Negative: Clubbing, Edema Skin Exam: Positive: Nl turgor and temperature Neuro Exam: Positive: Cranial Nerves 3-12 NL, Negative: Strength at 5/5 X4 ext (5 out of 5 automotive light mechanic strength in abduction of right arm; 4 out of 5 automotive light mechanic strength in abduction of left arm), Sensation Intact (altered sensation of the left arm) Psych Exam: Negative: Mental status NL (oriented to person, not to place or time. ) Assessment /Plan Problems (1) Subdural bleeding Status: Acute Response to Treatment: Stable Problem Text: 08/26 - Plan for craniotomy 08/27 with NS. Appears as tho pts MS has declined. He also had had a bump in his WBC from 8.7 to 15.1, will obtain UA, UC & S, Blood cultures, CXR today. Address with attending, given MS should also repeat CT head. 08/25 [place] hole done by Dr. Estrella 08/23/2016. Patient's mentation remained stable. No focal deficits, no changes in speech, no changes in sensation. Bleeding stable on CT. GCS 15. Neurosurgery planning craniotomy on Thursday. - Management per neurosurgery - Critical care following (2) DM2 (diabetes mellitus, type 2) Status: Chronic Problem Text: Blood glucose stable on sliding scale insulin (3) Chronic alcohol abuse Status: Chronic Problem Text: No signs or symptoms of alcohol withdrawal. - Begin CIWA scoring if patient develops symptoms of withdrawal (4) CKD (chronic kidney disease), stage III Status: Chronic Problem Text: Creatinine stable. Avoid nephrotoxic agents. (5) Hypertension Status: Chronic Problem Text: 08/26 - Pressures stable last 24 h, consistently 135 - 140 08/25 - On Atenolol. Critical care following. (6) GERD (gastroesophageal reflux disease) Status: Chronic (7) PVD (peripheral vascular disease) Status: Chronic Response to Treatment: Stable Problem Text: Status post right BKA (8) Anemia Status: Chronic Response to Treatment: Stable Problem Text: Secondary to end-stage renal disease Plan/VTE VTE Prophylaxis Ordered?: No (patient on compression stockings only) VTE Exclusion Pharmacological: Hemorrhage Plan Attending note: Evaluated the patient, and agree with plan of care as discussed and documented above, with the following exceptions: Concern for new volvulus or small bowel obstruction. Stat KUB ordered to evaluate for obstructive pattern. May follow with CT abdomen and pelvis. Repeat CT head ordered for change in mentation, which showed no bleeding or appreciable changes. Patient does not have any notable focal weakness, facial asymmetry, or change in sensation, however mentation continues to be abnormal, could consider MRI. Rey Griffin MD VS, I&O, 24H, [facility] Vital Signs/I&O Vital Signs Date Time Temp Pulse Resp B/P (MAP) Pulse Ox O2 Delivery O2 Flow Rate FiO2 08/26/16 07:19 70 08/26/16 06:00 98.1 15 135/63 (87) 96 Room Air 08/23/16 15:00 2.0 I&O- Last 24 Hours up to 6 AM 08/26/16 06:00 Intake Total 120 ml Output Total 400 ml Balance -280 ml Laboratory Data 24H LABS Laboratory Tests 2 08/25/16 20:45: Bedside Glucose (Misc Panel) 98 08/26/16 06:31: White Blood Count 15.1H, Red Blood Count 5.45, Hemoglobin 17.2#, Hematocrit 52.1H, Mean Corpuscular Volume 95.6, Mean Corpuscular Hemoglobin 31.6, Mean Corpuscular Hemoglobin Concent 33.1, Red Cell Distribution Width 13.6, Platelet Count 183, Neutrophils (%) (Auto) 81.2H, Lymphocytes (%) (Auto) 9.9L, Monocytes (%) (Auto) 5.4H, Eosinophils (%) (Auto) 1.0, Basophils (%) (Auto) 0.6, Neutrophils # (Auto) 12.3H, Lymphocytes # (Auto) 1.5, Monocytes # (Auto) 0.8, Eosinophils # (Auto) 0.2, Basophils # (Auto) 0.1, Large Unclassified Cells % 1.8 , Large Unclassified Cells # 0.3, Anion Gap 8, Glomerular Filtration Rate > 60.0 , Blood Urea Nitrogen 17, Creatinine 1.19, Sodium Level 136, Potassium Level 4.3 , Chloride Level 105, Carbon Dioxide Level 23, Calcium Level 9.5, Phosphorus Level 2.9#, Aspartate Amino Transf (AST/SGOT) 15, Alanine Aminotransferase (ALT/ SGPT) 21, Lactate Dehydrogenase 168, Total Creatine Kinase 57, Alkaline Phosphatase 200H, Total Bilirubin 0.4, Triglycerides Level 124, Cholesterol Level 107, Total Protein 7.9, Albumin 3.3, Albumin/Globulin Ratio 0.72L CBC/BMP Laboratory Tests 08/26/16 06:31 Red Blood Count 5.45, Mean Corpuscular Volume 95.6, Mean Corpuscular Hemoglobin 31.6, Mean Corpuscular Hemoglobin Concent 33.1, Red Cell Distribution Width 13.6 , Neutrophils (%) (Auto) 81.2 H, Lymphocytes (%) (Auto) 9.9 L, Monocytes (%) ( Auto) 5.4 H, Eosinophils (%) (Auto) 1.0, Basophils (%) (Auto) 0.6, Neutrophils # (Auto) 12.3 H, Lymphocytes # (Auto) 1.5, Monocytes # (Auto) 0.8, Eosinophils # (Auto) 0.2, Basophils # (Auto) 0.1, Calcium Level 9.5, Phosphorus Level 2.9 # , Aspartate Amino Transf (AST/SGOT) 15, Alanine Aminotransferase (ALT/SGPT) 21, Lactate Dehydrogenase 168, Total Creatine Kinase 57, Alkaline Phosphatase 200 H , Total Bilirubin 0.4, Triglycerides Level 124, Cholesterol Level 107, Total Protein 7.9, Albumin 3.3 MARY JANE YOUNG PA-C Aug 26, 2016 08:29 REY GRIFFIN MD Aug 26, 2016 13:15
--- NOTE | 2016-08-26 09:27 | REP ---
Clinical: Follow up subdural hemorrhage. Comparison: 70 17. Findings: The patient is again noted to be status post right frontal renard hole. The mixed density subdural hemorrhage overlying the right hemisphere is unchanged in appearance and size. Mild contralateral midline shift of approximately 7 mm is appreciated. Stable age related atrophy and microvascular ischemic changes are again identified. Dumont-white differentiation is relatively well maintained and stable. No new acute intracranial or extra-axial hemorrhage, collection, or mass/mass effect appreciated. Impression: No significant change from prior examination. Signed by Michele Bourgeois MD 08/26/2016 09:18 A
--- NOTE | 2016-08-26 09:44 | REP ---
Clinical: Leukocytosis. Technique: AP and lateral views. Comparison: 08/22/2016. Findings: Visualized mediastinum and cardiac silhouette are relatively stable within normal limits for portable technique. No obvious consolidation, effusion, or pneumothorax. However subtle right basilar atelectasis cannot be excluded. Skeletal structures intact. Impression: Limited examination due to technique. Cannot exclude trace right basilar atelectasis. Signed by Michele Bourgeois MD 08/26/2016 09:36 A
[2016-08-26] MEDS: PANTOPRAZOLE 40MG INJ (PROTONIX) (C9113) IV SCH (10:01)
[2016-08-26] MEDS: NORTRIPTYLINE 25 MG CAP PO SCH ×3 (10:01→21:54)
[2016-08-26] MEDS: ATENOLOL 25 MG TAB PO SCH (10:01)
[2016-08-26] MEDS: GABAPENTIN 400 MG CAP PO SCH ×2 (10:01→21:54)
[2016-08-26] MEDS: LIDOCAINE 5% (LIDODERM) PATCH TD SCH (10:02)
[2016-08-26] MEDS: MORPHINE 2 MG/ML 1ML SYRINGE IV PRN (10:10)
[2016-08-26 14:00] VITALS: BP 125/70
--- NOTE | 2016-08-26 14:09 | REP ---
Clinical: Vomiting and abdominal distension. Technique: Multiple supine views of the abdomen and pelvis. Findings: Distended air-filled loops of small and large bowel noted throughout the abdomen and pelvis suggesting ileus. Correlation is recommended. Skeletal structures demonstrate age-related degenerative changes. Evidence for atherosclerotic disease and right external iliac graft. Surgical clips in the bilateral groin compatible with further vascular surgical repair. Impression: Bowel gas pattern suggests ileus. Signed by Michele Bourgeois MD 08/26/2016 02:00 P
[2016-08-26] MEDS ORDERED: SENOKOT S TAB PO PRN (14:45)
[2016-08-26] MEDS: BISACODYL 10 MG SUPP PR SCH (15:14)
[2016-08-26 17:59] VITALS: BP 125/71
--- NOTE | 2016-08-26 21:50 | REPUSA ---
MRI of the brain Clinical history: subdural hematoma. Technique: Multiecho multiplanar MRI images of the brain were obtained without administration of cont rast. Diffusion weighted images with ADC mapping was also obtained. Comparison: CT, 08/24/2016. Findings: The ventricles are symmetric bilaterally. There is a large right lateral subdural fluid collection co rresponding to a subdural hematoma which was seen on the prior CT examination. This measures approxim ate 2.3 cm in diameter. This is unchanged since the prior study. There is mild leftward midline shift measuring 6 mm. The brain parenchyma demonstrates several small T2 hyperintense foci in the basal ga nglia bilaterally consistent with chronic lacunar infarcts. The midline intracranial structures do no t demonstrate any gross abnormalities. The cervical cranial junction is intact. The orbits are unrema rkable. The visualized paranasal sinuses and mastoid air cells are clear. The osseous structures and superficial soft tissues are unremarkable. The vascular structures demonstrate appropriate flow voids . Impression: 1. No clinically significant change in the size or appearance of the right lateral subdural subacute hematoma. Mass effect and leftward midline shift is grossly unchanged since the prior CT examination. 2. No evidence of acute infarct. 3. Mild chronic small vessel ischemic disease and age-related atrophy.
[2016-08-26] MEDS: PRAVASTATIN 20 MG TAB PO SCH (21:54)
[2016-08-26] MEDS: LIDOCAINE 5% OINT 30 GM TOP SCH (21:54)
[2016-08-26] MEDS: DOCUSATE SODIUM 100 MG CAP PO SCH (21:55)
[2016-08-26 22:00] VITALS: BP 123/75
[2016-08-27 06:00] VITALS: BP 127/74
--- NOTE | 2016-08-27 06:14 | ECGEPIP ---
Stationary ECG Study [facility] Test Date: 2016-08-26 Pat Name: PAGE BADILLO Department: Room: [place] [address] Gender: M [employer]: : 1950 Requested By: NALLELY Sexton Order Number: [id number] Reading MD: Nora Contreras Measurements Intervals [place] Rate: 83 P: 62 FL: 186 QRS: -14 QRSD: 161 T: 52 QT: 407 QTc: 480 Interpretive Statements SINUS RHYTHM RIGHT BUNDLE BRANCH BLOCK 2nd T ABN OR OTHER NOW APPARENT OUT TO V4 LOSS OF VOLT V3 NEW QUESTION LEAD PLACEMENT EKG C/W 08/22/16 Electronically Signed On 08-27-2016 6:14:21 EDT by Nora Contreras
[2016-08-27] MEDS: ALBUTEROL SULFATE 2.5 MG/0.5 ML INH NEB SOLN NEB SCH ×4 (07:10→19:50)
[2016-08-27] MEDS: IPRATROPIUM 0.02% SOLN 0.5MG/2.5 ML NEB NEB SCH ×4 (07:10→19:50)
[2016-08-27 07:53] LABS: BASO % 0.1 % (0.0-1.0); EOS # 0.1 K/mm3 (0.0-0.50); EOS % 0.9 % (0.0-3.0); LARGE UNSTAINED CELL # 0.2 K/mm3 (0.0-0.4); LARGE UNSTAINED CELL % 1.6 % (0.0-4.0); LYMPH # 1.1 K/mm3 (1.5-4.5); LYMPH % 6.9 % (24.0-44.0); MEAN CORPUSCULAR HEMOGLOBIN 30.8 pg (27.0-33.0); MEAN CORPUSCULAR HGB CONC 32.5 g/dl (32.0-36.5); MEAN CORPUSCULAR VOLUME 94.8 fl (80.0-96.0); MONO # 0.7 K/mm3 (0.0-0.8); MONO % 5.3 % (0.0-5.0); NEUTROPHILS # 11.4 K/mm3 (1.8-7.7); NEUTROPHILS % 85.2 % (36.0-66.0); PLATELET COUNT, AUTOMATED 159 k/mm3 (150-450); RED CELL DISTRIBUTION WIDTH 13.9 % (11.5-14.5); WHITE BLOOD COUNT 13.4 K/mm3 (4.0-10.0)
--- NOTE | 2016-08-27 08:14 | IPNPDOC ---
Subjective Date Seen The patient was seen on 08/27/16. Subjective Chief Complaint/HPI The patient is a 66-year-old male admitted with a reason for visit of Subdural Bleeding. Events since last encounter Pt denies any current pain. Denies CP, Abd pain, SOB. Nursing has noted some confusion. Pt states he knows he is in "[place]". Stated year was "71". Constitutional: Denies: Chills, Fever Pulmonary: Denies: Dyspnea Cardiovascular: Denies: Chest Pain Gastrointestinal: Denies: Abdominal Pain Objective Physical Examination General Exam: Positive: Alert, Cooperative, No Acute Distress Eye Exam: Positive: Conjunctiva & lids normal, EOMI ENT Exam: Positive: Mucous membr. moist/pink Chest Exam: Positive: Clear to auscultation, Diminished, Negative: Rales, Rhonchi, Wheezing Heart Exam: Positive: Rate Normal, Normal S1, Normal S2, Murmurs Abdomen Exam: Positive: Normal bowel sounds, Soft, Negative: Tenderness Extremity Exam: Positive: Cyanosis, Other (right BKA), Negative: Clubbing, Edema Skin Exam: Positive: Nl turgor and temperature Neuro Exam: Positive: Cranial Nerves 3-12 NL, Negative: Strength at 5/5 X4 ext (5 out of 5 office communication professor strength in abduction of right arm; 4 out of 5 office communication professor strength in abduction of left arm), Sensation Intact (altered sensation of the left arm) Psych Exam: Negative: Mental status NL (oriented to person. Pt states he knows he is in "[place]". Stated year was "71".) Assessment /Plan Problems (1) Subdural bleeding Status: Acute Response to Treatment: Stable Problem Text: 08/27 - MRI brain: "No clinically significant change in the size or appearance of the right lateral subdural subacute hematoma. Mass effect and leftward midline shift is grossly unchanged since the prior CT examination. No evidence of acute infarct. Mild chronic small vessel ischemic disease and age- related atrophy." Nursing notes that plan is for craniotomy possibly on Thursday. Pt with some mental status changes noted. Urine cx and blood cx pending. Today's labs including WBC pending currently. 08/25 - [place] hole done by Dr. Estrella 08/23/2016. Patient's mentation remained stable. No focal deficits, no changes in speech, no changes in sensation. Bleeding stable on CT. GCS 15. Neurosurgery planning craniotomy on Thursday. - Management per neurosurgery - Critical care following (2) Brain compression Status: Acute Response to Treatment: Stable Problem Specific Plan: Consult Specialist, Monitor Clinically Problem Text: 08/27 - MRI brain: "No clinically significant change in the size or appearance of the right lateral subdural subacute hematoma. Mass effect and leftward midline shift is grossly unchanged since the prior CT examination. No evidence of acute infarct. Mild chronic small vessel ischemic disease and age- related atrophy." This is the danger with his recent bleeding and why he had the renard hole and will be returning for further craniotomy. We must avoid significant brain compression with the resultant ischemia or herniation of tissue this could cause. (3) Ileus Status: Acute Problem Text: 08/27 - Abd xray from 08/26: "Bowel gas pattern suggests ileus." (4) Phantom limb syndrome with pain Status: Chronic Response to Treatment: Uncontrolled Discussed With: Nurse, Patient, Family with Pt Consent Problem Specific Plan: Monitor Clinically Problem Text: He has 2 Lidoderm patches over the areas where the pain seems to be coming from on his right lower leg stump just below the BKA. However he keeps moving this stump an effort to get more comfortable and believe the pain. Unfortunately this continually rubs the Lidoderm patches off. I've asked nursing to try to find a way to keep them on better for him ([place] or wrapping of some sort). (5) DM2 (diabetes mellitus, type 2) Status: Chronic Problem Text: Blood glucose stable on sliding scale insulin (6) Chronic alcohol abuse Status: Chronic Problem Text: No signs or symptoms of alcohol withdrawal. - Begin CIWA scoring if patient develops symptoms of withdrawal (7) CKD (chronic kidney disease), stage III Status: Chronic Problem Text: Creatinine stable. Avoid nephrotoxic agents. (8) Hypertension Status: Chronic Problem Text: 08/25 - On Atenolol. Critical care following. (9) GERD (gastroesophageal reflux disease) Status: Chronic (10) PVD (peripheral vascular disease) Status: Chronic Response to Treatment: Stable Problem Text: Status post right BKA (11) Anemia Status: Chronic Response to Treatment: Stable Problem Text: Secondary to end-stage renal disease Plan/VTE VTE Prophylaxis Ordered?: No (patient on compression stockings only) VTE Exclusion Pharmacological: Hemorrhage Plan Family Medicine Attending Note: I saw and examined Mr. Shaw, discussed with QIANA Llanes. Agree with their note as documented. His surgery was delayed today for concerns regarding abdominal distention and diarrhea. We are evaluating and will monitor these symptoms to see if they were further treatment prior to his undergoing his craniotomy. 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) VS, I&O, 24H, Fishbone Vital Signs/I&O Vital Signs Date Time Temp Pulse Resp B/P (MAP) Pulse Ox O2 Delivery O2 Flow Rate FiO2 08/27/16 06:00 97.1 80 20 127/74 (91) 93 Room Air 08/23/16 15:00 2.0 I&O- Last 24 Hours up to 6 AM 08/27/16 06:00 Intake Total 360 ml Balance 360 ml Laboratory Data 24H LABS Laboratory Tests 2 08/26/16 11:13: Bedside Glucose (Misc Panel) 152H 08/26/16 16:41: Bedside Glucose (Misc Panel) 119H 08/26/16 19:15: Urine Appearance HAZY, Urine Color YELLOW, Urine pH 5.0, Urine Specific [place] 1.023, Urine Protein 1+H, Urine Glucose (UA) NEGATIVE, Urine Ketones TRACEH, Urine Urobilinogen 0.2, Urine Bilirubin NEGATIVE, Urine Leukocyte Esterase TRACEH, Urine Blood NEGATIVE, Urine Nitrite NEGATIVE, Urine WBC (Auto) 11H, Urine RBC (Auto) 3, Urine Hyaline Casts (Auto) 0, Urine Bacteria (Auto) 1+H, Urine Squamous Epithelial Cells 4, Urine Mucus (Auto) SMALL, Urine Sperm (Auto) 08/26/16 19:39: Troponin I < 0.02 08/26/16 21:42: Bedside Glucose (Misc Panel) 118H 08/27/16 01:10: Troponin I < 0.02 08/27/16 07:28: White Blood Count 13.4H, Red Blood Count 5.00, Hemoglobin 15.4, Hematocrit 47.4 , Mean Corpuscular Volume 94.8, Mean Corpuscular Hemoglobin 30.8, Mean Corpuscular Hemoglobin Concent 32.5, Red Cell Distribution Width 13.9, Platelet Count 159, Neutrophils (%) (Auto) 85.2H, Lymphocytes (%) (Auto) 6.9L, Monocytes (%) (Auto) 5.3H, Eosinophils (%) (Auto) 0.9, Basophils (%) (Auto) 0.1, Neutrophils # (Auto) 11.4H, Lymphocytes # (Auto) 1.1L, Monocytes # (Auto) 0.7, Eosinophils # (Auto) 0.1, Basophils # (Auto) 0.0, Large Unclassified Cells % 1.6 , Large Unclassified Cells # 0.2 CBC/BMP Laboratory Tests 08/27/16 07:28 Red Blood Count 5.00, Mean Corpuscular Volume 94.8, Mean Corpuscular Hemoglobin 30.8, Mean Corpuscular Hemoglobin Concent 32.5, Red Cell Distribution Width 13.9 , Neutrophils (%) (Auto) 85.2 H, Lymphocytes (%) (Auto) 6.9 L, Monocytes (%) ( Auto) 5.3 H, Eosinophils (%) (Auto) 0.9, Basophils (%) (Auto) 0.1, Neutrophils # (Auto) 11.4 H, Lymphocytes # (Auto) 1.1 L, Monocytes # (Auto) 0.7, Eosinophils # (Auto) 0.1, Basophils # (Auto) 0.0 Microbiology Microbiology 08/26/16 Blood Culture, Received Pending 08/26/16 Blood Culture, Received Pending 08/26/16 Clostridium difficile (PCR) - Final, Complete 08/26/16 Urine Culture, Received Pending oRbert William Aug 27, 2016 08:14 Willie Goldman MD Aug 28, 2016 22:17
[2016-08-27 08:20] LABS: ALBUMIN/GLOBULIN RATIO 0.83 (1.00-1.93); ALKALINE PHOSPHATASE 185 U/L (45-117); ALT/SGPT 19 U/L (12-78); ANION GAP 9 MEQ/L (8-16); AST/SGOT 15 U/L (15-37); BILIRUBIN,TOTAL 0.6 MG/DL (0.2-1.0); BLOOD UREA NITROGEN 23 MG/DL (7-18); CALCIUM LEVEL 9.1 MG/DL (8.8-10.2); CARBON DIOXIDE LEVEL 24 MEQ/L (21-32); CHLORIDE LEVEL 106 MEQ/L (98-107); CHOLESTEROL LEVEL 93 MG/DL (< 200); GLOMERULAR FILTRATION RATE > 60.0 (>49); GLUCOSE, FASTING 113 MG/DL (80-110); PHOSPHORUS LEVEL 2.8 MG/DL (2.5-4.9); POTASSIUM SERUM 4.4 MEQ/L (3.5-5.1); SODIUM LEVEL 139 MEQ/L (136-145); TOTAL PROTEIN 6.6 GM/DL (6.4-8.2); TRIGLYCERIDES LEVEL 116 MG/DL (<150)
[2016-08-27] MEDS: PANTOPRAZOLE 40MG INJ (PROTONIX) (C9113) IV SCH (08:34)
[2016-08-27] MEDS: GABAPENTIN 400 MG CAP PO SCH ×2 (08:35→21:23)
[2016-08-27] MEDS: HumaLOG INSULIN (NovoLOG) PER UNIT SC SCH ×4 (08:35→21:37)
[2016-08-27] MEDS: NORTRIPTYLINE 25 MG CAP PO SCH ×3 (08:35→21:22)
[2016-08-27] MEDS: DOCUSATE SODIUM 100 MG CAP PO SCH ×2 (08:36→21:23)
[2016-08-27] MEDS: BISACODYL 10 MG SUPP PR SCH (08:36)
[2016-08-27] MEDS: ATENOLOL 25 MG TAB PO SCH (08:36)
[2016-08-27] MEDS: LIDOCAINE 5% OINT 30 GM TOP SCH ×2 (08:37→21:24)
--- NOTE | 2016-08-27 12:23 | IPN ---
DATE: 08/27/2016 SUBJECTIVE Mr. Shaw was admitted on 08/22 for a subdural hematoma. He was seen today with Dr. Estrella. Unfortunately, I am unable to find any other neurosurgical notes in the EMR. However, the patient has no new complaints. The patient is with his daughter. The tentative plan is for surgery on Thursday if medically cleared by medical service. The patient apparently had some diarrhea yesterday. Cultures were sent and was negative for Clostridium (C.) difficile. The patient denies any complaints at this time. PHYSICAL EXAMINATION: On examination, the patient is conscious, alert, oriented times three. He does have at times some difficulty with speech and some slurred speech, some mild expressive aphasia. Smile symmetrical. Tongue is midline. He has difficulty elevating his left shoulder and arm secondary to a shoulder injury from a fall prior to his admission. Hearing is grossly intact to finger rub bilaterally. Patient is moving all extremities without problems or complications, he has right lower leg amputation at knee. 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 Nursing has no concerns. NEUROSURGICAL ASSESSMENT: Subdural hematoma. PLAN: The patient is going to undergo craniotomy on Thursday. The patient will need to be cleared by medical service. ALOK
[2016-08-27 14:00] VITALS: BP 150/85
[2016-08-27] MEDS: ACETAMINOPHEN TAB 650MG DOSE (2X325MG) PO PRN (18:46)
[2016-08-27] MEDS: PRAVASTATIN 20 MG TAB PO SCH (21:22)
[2016-08-27 22:00] VITALS: BP 130/74
[2016-08-28 06:00] VITALS: BP 135/75
[2016-08-28] MEDS: ALBUTEROL SULFATE 2.5 MG/0.5 ML INH NEB SOLN NEB SCH ×4 (07:22→19:23)
[2016-08-28] MEDS: IPRATROPIUM 0.02% SOLN 0.5MG/2.5 ML NEB NEB SCH ×4 (07:22→19:25)
[2016-08-28 07:48] LABS: BASO % 0.2 % (0.0-1.0); EOS # 0.1 K/mm3 (0.0-0.50); EOS % 1.4 % (0.0-3.0); LARGE UNSTAINED CELL # 0.2 K/mm3 (0.0-0.4); LARGE UNSTAINED CELL % 1.6 % (0.0-4.0); LYMPH # 1.1 K/mm3 (1.5-4.5); LYMPH % 9.1 % (24.0-44.0); MEAN CORPUSCULAR HEMOGLOBIN 30.9 pg (27.0-33.0); MEAN CORPUSCULAR HGB CONC 33.1 g/dl (32.0-36.5); MEAN CORPUSCULAR VOLUME 93.1 fl (80.0-96.0); MONO # 0.5 K/mm3 (0.0-0.8); MONO % 4.6 % (0.0-5.0); NEUTROPHILS # 8.5 K/mm3 (1.8-7.7); PLATELET COUNT, AUTOMATED 147 k/mm3 (150-450); RED CELL DISTRIBUTION WIDTH 13.7 % (11.5-14.5); WHITE BLOOD COUNT 10.3 K/mm3 (4.0-10.0)
--- NOTE | 2016-08-28 07:58 | IPNPDOC ---
Subjective Date Seen The patient was seen on 08/28/16. Subjective Chief Complaint/HPI The patient is a 66-year-old male admitted with a reason for visit of Subdural Bleeding. Events since last encounter Pt denies any new issues. Denies CP, Abd pain, SOB. Nursing notes mental status is better today. Pt knows he is in the hospital after some thinking about it. Correct year "" but thought the month was September. Constitutional: Denies: Chills, Fever Pulmonary: Denies: Dyspnea Cardiovascular: Denies: Chest Pain Gastrointestinal: Denies: Nausea, Vomiting, Abdominal Pain Objective Physical Examination General Exam: Positive: Alert, Cooperative, No Acute Distress Eye Exam: Positive: Conjunctiva & lids normal, EOMI ENT Exam: Positive: Mucous membr. moist/pink Chest Exam: Positive: Clear to auscultation, Diminished, Negative: Rales, Rhonchi, Wheezing Heart Exam: Positive: Rate Normal, Normal S1, Normal S2, Murmurs Abdomen Exam: Positive: Normal bowel sounds, Soft, Negative: Tenderness Extremity Exam: Positive: Cyanosis, Other (right BKA), Negative: Clubbing, Edema Skin Exam: Positive: Nl turgor and temperature Neuro Exam: Positive: Cranial Nerves 3-12 NL, Negative: Strength at 5/5 X4 ext (5 out of 5 pipe fitter maintenance strength in abduction of right arm; 4 out of 5 pipe fitter maintenance strength in abduction of left arm), Sensation Intact (altered sensation of the left arm) Psych Exam: Positive: Mental status NL (oriented to person. Pt states he knows he is in the hospital. Stated year was "", but the month was "September".) Assessment /Plan Problems (1) Subdural bleeding Status: Acute Response to Treatment: Stable Problem Text: 08/28 - Plan is for craniotomy tomorrow. Nursing feels that mental status is better today. Urine cx neg, blood cx no growth after 24 hrs. 08/27 - MRI brain: "No clinically significant change in the size or appearance of the right lateral subdural subacute hematoma. Mass effect and leftward midline shift is grossly unchanged since the prior CT examination. No evidence of acute infarct. Mild chronic small vessel ischemic disease and age-related atrophy." Nursing notes that plan is for craniotomy possibly on Thursday. Pt with some mental status changes noted. Urine cx and blood cx pending. Today's labs including WBC pending currently. 08/25 - [place] hole done by Dr. Estrella 08/23/2016. Patient's mentation remained stable. No focal deficits, no changes in speech, no changes in sensation. Bleeding stable on CT. GCS 15. Neurosurgery planning craniotomy on Thursday. - Management per neurosurgery - Critical care following (2) Brain compression Status: Acute Response to Treatment: Stable Problem Specific Plan: Consult Specialist, Monitor Clinically Problem Text: 08/28 - Plan is for craniotomy tomorrow. Nursing feels that mental status is better today. Urine cx neg, blood cx no growth after 24 hrs. 08/27 - MRI brain: "No clinically significant change in the size or appearance of the right lateral subdural subacute hematoma. Mass effect and leftward midline shift is grossly unchanged since the prior CT examination. No evidence of acute infarct. Mild chronic small vessel ischemic disease and age-related atrophy." This is the danger with his recent bleeding and why he had the renard hole and will be returning for further craniotomy. We must avoid significant brain compression with the resultant ischemia or herniation of tissue this could cause. (3) Ileus Status: Acute Problem Text: 08/28 - Will repeat abd xray today. 08/27 - Abd xray from 08/26: "Bowel gas pattern suggests ileus. (4) Phantom limb syndrome with pain Status: Chronic Response to Treatment: Uncontrolled Discussed With: Nurse, Patient, Family with Pt Consent Problem Specific Plan: Monitor Clinically Problem Text: He continues to move his leg almost constantly, but seems to be either distracted from or and less pain. We will continue to monitor. (5) DM2 (diabetes mellitus, type 2) Status: Chronic Problem Text: Blood glucose stable on sliding scale insulin (6) Chronic alcohol abuse Status: Chronic Problem Text: No signs or symptoms of alcohol withdrawal. - Begin CIWA scoring if patient develops symptoms of withdrawal (7) CKD (chronic kidney disease), stage III Status: Chronic Problem Text: 08/28 - Today's labs pending Creatinine stable. Avoid nephrotoxic agents. (8) Hypertension Status: Chronic Problem Text: 08/28 - On Atenolol. 08/25 - On Atenolol. Critical care following. (9) GERD (gastroesophageal reflux disease) Status: Chronic (10) PVD (peripheral vascular disease) Status: Chronic Response to Treatment: Stable Problem Text: Status post right BKA (11) Anemia Status: Chronic Response to Treatment: Stable Problem Text: Secondary to end-stage renal disease Plan/VTE VTE Prophylaxis Ordered?: No (patient on compression stockings only) VTE Exclusion Pharmacological: Hemorrhage Plan Family Medicine Attending Note: I saw and examined Mr. Shaw, discussed with QIANA Llanes. Agree with their note as documented. As noted above Mr. Shaw seems generally improved today. He reports to me and nursing confirms that he's had a large bowel movement. He does still have some abdominal distention noted but I do not believe that this is an issue that should keep her from surgery. I evaluated the patient for preoperative optimization today. I believe that this is a necessary procedure and therefore my goals are to assess any acute changes that can be undertaken and make those improvements today. I discussed the risks versus benefits of the surgery in generic terms with the patient. I do believe that he is at moderately increased risk of complication during surgery because of his underlying comorbidities. However I don't think this is going to improve in the short-term, and I believe that his chronic medical conditions are reasonably controlled. I started gentle IV hydration as there is some evidence of prerenal azotemia on his labs for the last couple days. I also confirmed that he had moved his bowels, so he will not be going in to surgery with a complete ileus or potential small bowel obstruction. In my opinion he will be medically optimized for surgery by tomorrow morning. 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 All specim... 08/26/16 Blood Culture - Preliminary, Resulted No growth after 24 hours . All specim... 08/26/16 Clostridium difficile (PCR) - Final, Complete 08/26/16 Urine Culture - Final, Complete Robert William Aug 28, 2016 07:58 Willie Goldman MD Aug 28, 2016 22:25
[2016-08-28 08:23] LABS: ALBUMIN 2.8 GM/DL (3.2-5.2); ALBUMIN/GLOBULIN RATIO 0.62 (1.00-1.93); ALKALINE PHOSPHATASE 216 U/L (45-117); ALT/SGPT 39 U/L (12-78); ANION GAP 7 MEQ/L (8-16); AST/SGOT 30 U/L (15-37); BILIRUBIN,TOTAL 0.4 MG/DL (0.2-1.0); BLOOD UREA NITROGEN 21 MG/DL (7-18); CALCIUM LEVEL 9.5 MG/DL (8.8-10.2); CARBON DIOXIDE LEVEL 27 MEQ/L (21-32); CHLORIDE LEVEL 105 MEQ/L (98-107); CREATININE FOR GFR 1.09 MG/DL (0.70-1.30); GLOMERULAR FILTRATION RATE > 60.0 (>49); GLUCOSE, FASTING 116 MG/DL (80-110); SODIUM LEVEL 139 MEQ/L (136-145); TOTAL PROTEIN 7.3 GM/DL (6.4-8.2)
[2016-08-28] MEDS: HumaLOG INSULIN (NovoLOG) PER UNIT SC SCH ×4 (08:57→20:28)
[2016-08-28] MEDS: NORTRIPTYLINE 25 MG CAP PO SCH ×3 (09:07→20:28)
[2016-08-28] MEDS: GABAPENTIN 400 MG CAP PO SCH ×2 (09:07→20:28)
[2016-08-28] MEDS: PANTOPRAZOLE 40MG INJ (PROTONIX) (C9113) IV SCH (09:07)
[2016-08-28] MEDS: LIDOCAINE 5% OINT 30 GM TOP SCH ×2 (09:10→20:30)
[2016-08-28] MEDS: ATENOLOL 25 MG TAB PO SCH (09:10)
--- NOTE | 2016-08-28 09:54 | REP ---
Clinical: Ileus. Technique: Two supine views of the abdomen and pelvis. Findings: Bowel gas pattern is nonspecific and ileus cannot be excluded. No organomegaly. Skeletal structures demonstrate age-related changes. Right iliac graft noted along with abdominopelvic surgery. Impression: Nonspecific bowel gas pattern. Signed by Michele Bourgeois MD 08/28/2016 09:45 A
[2016-08-28] MEDS: BISACODYL 10 MG SUPP PR SCH (10:34)
[2016-08-28] MEDS: DOCUSATE SODIUM 100 MG CAP PO SCH ×2 (10:34→20:28)
--- NOTE | 2016-08-28 13:30 | IPN ---
DATE: 08/28/2016 SUBJECTIVE: Mr. Shaw was seen with Dr. Estrella today. The patient has no new complaints. Apparently, the patient fell out of bed while getting to the side. He denies any injuries from that fall. We are awaiting medical clearance for him to undergo a craniotomy, possibly tomorrow. SIDDHARTHA Llanes from medicine was discussing with Dr. Estrella possibly the patient being cleared for surgery tomorrow. We are awaiting that clearance. Nursing has no new concerns or issues. PHYSICAL EXAMINATION: No acute distress. Well-developed, well-nourished. Blood pressure 135/75, heart rate of 84, respiratory rate of 18. He tends to lean to the left while sitting in bed. He is moving all extremities without problems. He has a right lower leg amputee at the knee and he has multiple psoriatic rashes on both legs. He has pain in his left shoulder from a previous fall and has difficulty with range of motion. His speech is clear and fluent. His smile is symmetrical, although he, at times, has some mild dysarthria with his speech. He is alert and oriented times three. Judgment, insight are good. Mood and affect are appropriate to setting. NEUROSURGICAL ASSESSMENT: Subdural hematoma. PLAN: If this patient is cleared from medicine, the plan is to undergo craniotomy tomorrow. Awaiting medical clearance.
[2016-08-28 16:00] VITALS: BP 137/90
[2016-08-28] MEDS: NS 1,000 ML IV SCH (16:36)
[2016-08-28] MEDS: ACETAMINOPHEN TAB 650MG DOSE (2X325MG) PO PRN (18:32)
[2016-08-28] MEDS: PRAVASTATIN 20 MG TAB PO SCH (20:28)
[2016-08-28 22:00] VITALS: BP 148/60
[2016-08-29] VITALS (7 sets, daily range): BP systolic 105–198; BP diastolic 67–88
[2016-08-29] MEDS: NS 1,000 ML IV SCH (06:17)
[2016-08-29] MEDS: ALBUTEROL SULFATE 2.5 MG/0.5 ML INH NEB SOLN NEB SCH ×2 (07:05→12:00)
[2016-08-29] MEDS: IPRATROPIUM 0.02% SOLN 0.5MG/2.5 ML NEB NEB SCH ×2 (07:06→12:00)
[2016-08-29 08:26] LABS: BASO % 0.1 % (0.0-1.0); EOS # 0.2 K/mm3 (0.0-0.50); EOS % 1.9 % (0.0-3.0); LARGE UNSTAINED CELL # 0.2 K/mm3 (0.0-0.4); LARGE UNSTAINED CELL % 2.1 % (0.0-4.0); LYMPH # 1.1 K/mm3 (1.5-4.5); LYMPH % 11.1 % (24.0-44.0); MEAN CORPUSCULAR HEMOGLOBIN 31.3 pg (27.0-33.0); MEAN CORPUSCULAR HGB CONC 33.5 g/dl (32.0-36.5); MEAN CORPUSCULAR VOLUME 93.3 fl (80.0-96.0); MONO # 0.5 K/mm3 (0.0-0.8); MONO % 5.5 % (0.0-5.0); NEUTROPHILS # 6.8 K/mm3 (1.8-7.7); NEUTROPHILS % 79.2 % (36.0-66.0); PLATELET COUNT, AUTOMATED 157 k/mm3 (150-450); RED CELL DISTRIBUTION WIDTH 13.6 % (11.5-14.5); WHITE BLOOD COUNT 8.5 K/mm3 (4.0-10.0)
[2016-08-29 08:41] LABS: ALBUMIN 2.8 GM/DL (3.2-5.2); ALBUMIN/GLOBULIN RATIO 0.72 (1.00-1.93); ALKALINE PHOSPHATASE 231 U/L (45-117); ALT/SGPT 56 U/L (12-78); ANION GAP 7 MEQ/L (8-16); AST/SGOT 44 U/L (15-37); BILIRUBIN,TOTAL 0.5 MG/DL (0.2-1.0); BLOOD UREA NITROGEN 18 MG/DL (7-18); CARBON DIOXIDE LEVEL 27 MEQ/L (21-32); CHLORIDE LEVEL 104 MEQ/L (98-107); CREATININE FOR GFR 0.97 MG/DL (0.70-1.30); GLOMERULAR FILTRATION RATE > 60.0 (>49); GLUCOSE, FASTING 118 MG/DL (80-110); SODIUM LEVEL 138 MEQ/L (136-145); TOTAL PROTEIN 6.7 GM/DL (6.4-8.2)
[2016-08-29] MEDS: DOCUSATE SODIUM 100 MG CAP PO SCH (09:04)
[2016-08-29] MEDS: BISACODYL 10 MG SUPP PR SCH (09:04)
[2016-08-29] MEDS: HumaLOG INSULIN (NovoLOG) PER UNIT SC SCH (09:04)
[2016-08-29] MEDS: PANTOPRAZOLE 40MG INJ (PROTONIX) (C9113) IV SCH (09:21)
[2016-08-29] MEDS: ATENOLOL 25 MG TAB PO SCH (09:24)
[2016-08-29] MEDS: GABAPENTIN 400 MG CAP PO SCH (09:52)
[2016-08-29] MEDS: NORTRIPTYLINE 25 MG CAP PO SCH (09:52)
[2016-08-29] MEDS: LIDOCAINE 5% OINT 30 GM TOP SCH (09:53)
[2016-08-29] MEDS ORDERED: ROCURONIUM BROMIDE 50 MG/5 ML VIAL/SYRINGE As Ordered ONE ×2 (09:59→11:42)
[2016-08-29] MEDS ORDERED: MIDAZOLAM INJ 2 MG/2 ML VIAL (J2250) As Ordered ONE (09:59)
[2016-08-29] MEDS ORDERED: PROPOFOL 200 MG/20 ML VIAL As Ordered ONE (09:59)
[2016-08-29] MEDS ORDERED: fentaNYL 250 MCG/5 ML INJECTION (J3010) As Ordered ONE (09:59)
[2016-08-29] MEDS ORDERED: LIDOCAINE 2% INJ 100 MG/5 ML SDV (FOR ANES.) As Ordered ONE (10:03)
[2016-08-29] MEDS ORDERED: LIDOCAINE 2% MDV 20 ML VIAL As Ordered ONE (10:28)
[2016-08-29] MEDS ORDERED: THROMBIN SOLN 20,000 UNITS KIT As Ordered ONE (10:28)
[2016-08-29] MEDS ORDERED: BACITRACIN PWD 50,000 UNITS VIAL As Ordered ONE (10:28)
[2016-08-29] MEDS ORDERED: ceFAZolin 1GM INJ (J0690) As Ordered ONE (11:30)
[2016-08-29] MEDS ORDERED: ePHEDrine SULFATE 25 MG/5 ML(5MG/ML) SYRINGE As Ordered ONE (11:42)
[2016-08-29] MEDS ORDERED: PHENYLephrine HCL 500 MCG/5 ML (100MCG/ML) SYRINGE (J2370) As Ordered ONE (11:42)
[2016-08-29] MEDS ORDERED: PHENYLEPHRINE INJ 10MG/ML VIAL (J2370) As Ordered ONE (12:33)
[2016-08-29] MEDS ORDERED: ONDANSETRON 4MG/2ML VIAL (J2405) As Ordered ONE (12:34)
[2016-08-29] MEDS ORDERED: GLYCOPYRROLATE INJ 0.2 MG/ML 2 ML VIAL As Ordered ONE (12:34)
[2016-08-29] MEDS ORDERED: NEOSTIGMINE 1MG/ML 5 ML SYRINGE (J2710) As Ordered ONE (12:34)
[2016-08-29] MEDS ORDERED: BACITRACIN OINT 30GM As Ordered ONE (12:45)
[2016-08-29] MEDS ORDERED: ONDANSETRON 4MG/2ML VIAL (J2405) IV PRN ×2 (13:45)
[2016-08-29] MEDS ORDERED: fentaNYL 100 MCG/2 ML INJECTION (J3010) IV PRN (13:45)
[2016-08-29] MEDS ORDERED: METOCLOPRAMIDE INJ 10MG/2ML VIAL (J2765) IV PRN (13:45)
[2016-08-29] MEDS ORDERED: LR 1,000 ML IV SCH (13:45)
[2016-08-29] MEDS ORDERED: PERCOCET 5MG/325MG TAB PO PRN (13:45)
[2016-08-29] MEDS ORDERED: MEPERIDINE INJ 25 MG/ML VIAL (J2175) IV PRN (13:45)
[2016-08-29] MEDS: KCL 20MEQ in NS 1000ML 1,000 ML IV SCH ×2 (15:00→23:18)
[2016-08-29] MEDS: ACETAMINOPHEN TAB 650MG DOSE (2X325MG) PO SCH ×2 (16:30→23:19)
--- NOTE | 2016-08-29 17:42 | IPNPDOC ---
Subjective Date Seen The patient was seen on 08/29/16. Subjective Chief Complaint/HPI The patient is a 66-year-old male admitted with a reason for visit of Subdural Bleeding. Events since last encounter I saw Mr. Shaw today after he returned from his procedure. At the time I saw him he was a little bit groggy and frankly quite grumpy. I suspect this is anesthesia effect. Medically he seemed to be stable and well. Pulmonary: Denies: Cough Cardiovascular: Denies: Chest Pain Gastrointestinal: Denies: Nausea, Vomiting Neurological: Reports: Other Symptoms (headache) Psych: Reports: Anger Objective Physical Examination General Exam: Positive: Alert, No Acute Distress Eye Exam: Positive: Conjunctiva & lids normal, EOMI, Other Eye Symptoms (it looks like he may be developing some raccoon eyes) ENT Exam: Positive: Mucous membr. moist/pink Chest Exam: Positive: Clear to auscultation, Diminished, Negative: Rales, Wheezing Heart Exam: Positive: Rate Normal, Normal S1, Normal S2, Murmurs Telemetry: Positive: No significant arrhythmia (observed at bedside) Abdomen Exam: Positive: Normal bowel sounds, Soft, Negative: Tenderness Extremity Exam: Positive: Other (right BKA), Negative: Edema Skin Exam: Positive: Nl turgor and temperature Psych Exam: Positive: Other (he seemed a little disoriented and in a sour mood , however I believe this is anesthesia effect) Assessment /Plan Problems (1) Subdural bleeding Status: Acute Response to Treatment: Stable Problem Text: 08/29 - Craniotomy was done today. He is now back in the ICU. Neurosurgical team is primarily responsible for management of this condition. 08/28 - Plan is for craniotomy tomorrow. Nursing feels that mental status is better today. Urine cx neg, blood cx no growth after 24 hrs. 08/27 - MRI brain: "No clinically significant change in the size or appearance of the right lateral subdural subacute hematoma. Mass effect and leftward midline shift is grossly unchanged since the prior CT examination. No evidence of acute infarct. Mild chronic small vessel ischemic disease and age-related atrophy." Nursing notes that plan is for craniotomy possibly on Thursday. Pt with some mental status changes noted. Urine cx and blood cx pending. Today's labs including WBC pending currently. 08/25 - [place] hole done by Dr. Estrella 08/23/2016. Patient's mentation remained stable. No focal deficits, no changes in speech, no changes in sensation. Bleeding stable on CT. GCS 15. Neurosurgery planning craniotomy on Thursday. - Management per neurosurgery - Critical care following (2) Brain compression Status: Acute Response to Treatment: Stable Problem Specific Plan: Consult Specialist, Monitor Clinically Problem Text: 08/29 - Craniotomy was done today. He is now back in the ICU. Neurosurgical team is primarily responsible for management of this condition. 08/28 - Plan is for craniotomy tomorrow. Nursing feels that mental status is better today. Urine cx neg, blood cx no growth after 24 hrs. 08/27 - MRI brain: "No clinically significant change in the size or appearance of the right lateral subdural subacute hematoma. Mass effect and leftward midline shift is grossly unchanged since the prior CT examination. No evidence of acute infarct. Mild chronic small vessel ischemic disease and age-related atrophy." This is the danger with his recent bleeding and why he had the renard hole and will be returning for further craniotomy. We must avoid significant brain compression with the resultant ischemia or herniation of tissue this could cause. (3) Ileus Status: Acute Problem Text: 08/29 - seems a little worse today, but he just got done with surgery again. Monitor carefully. 08/28 - Will repeat abd xray today. 08/27 - Abd xray from 08/26: "Bowel gas pattern suggests ileus. (4) Phantom limb syndrome with pain Status: Chronic Response to Treatment: Improving, Uncontrolled Discussed With: Nurse, Patient, Family with Pt Consent Problem Specific Plan: Monitor Clinically Problem Text: He is not constantly moving his stump for the first time this week. I wonder whether this is more of an anxious tick for him. (5) DM2 (diabetes mellitus, type 2) Status: Chronic Problem Text: Blood glucose stable on sliding scale insulin (6) Chronic alcohol abuse Status: Chronic Problem Text: No signs or symptoms of alcohol withdrawal. - Begin CIWA scoring if patient develops symptoms of withdrawal (7) CKD (chronic kidney disease), stage III Status: Chronic Problem Text: 08/29 - labs improved as anticipated with gentle hydration today. 08/28 - Today's labs pending Creatinine stable. Avoid nephrotoxic agents. (8) Hypertension Status: Chronic Problem Text: On Atenolol. Continue current regimen, monitor. (9) GERD (gastroesophageal reflux disease) Status: Chronic (10) PVD (peripheral vascular disease) Status: Chronic Response to Treatment: Stable Problem Text: Status post right BKA (11) Anemia Status: Chronic Response to Treatment: Stable Problem Text: Secondary to end-stage renal disease Plan/VTE VTE Prophylaxis Ordered?: No (patient on compression stockings only) VTE Exclusion Pharmacological: Hemorrhage VS, I&O, 24H, Fishbone Vital Signs/I&O Vital Signs Date Time Temp Pulse Resp B/P (MAP) Pulse Ox O2 Delivery O2 Flow Rate FiO2 08/29/16 15:00 98.3 76 20 147/69 (95) 95 Room Air 169/78 (108) 08/29/16 14:10 10 I&O- Last 24 Hours up to 6 AM 08/29/16 06:00 Intake Total 2565 ml Output Total 325 ml Balance 2240 ml Laboratory Data 24H LABS Laboratory Tests 2 08/28/16 20:11: Bedside Glucose (Misc Panel) 137H 08/29/16 07:48: White Blood Count 8.5, Red Blood Count 4.60, Hemoglobin 14.4, Hematocrit 42.9, Mean Corpuscular Volume 93.3, Mean Corpuscular Hemoglobin 31.3, Mean Corpuscular Hemoglobin Concent 33.5, Red Cell Distribution Width 13.6, Platelet Count 157, Neutrophils (%) (Auto) 79.2H, Lymphocytes (%) (Auto) 11.1L, Monocytes (%) (Auto) 5.5H, Eosinophils (%) (Auto) 1.9, Basophils (%) (Auto) 0.1 , Neutrophils # (Auto) 6.8, Lymphocytes # (Auto) 1.1L, Monocytes # (Auto) 0.5, Eosinophils # (Auto) 0.2, Basophils # (Auto) 0.0, Large Unclassified Cells % 2.1 , Large Unclassified Cells # 0.2, Anion Gap 7L, Glomerular Filtration Rate > 60.0, Blood Urea Nitrogen 18, Creatinine 0.97, Sodium Level 138, Potassium Level 4.0, Chloride Level 104, Carbon Dioxide Level 27, Calcium Level 9.0, Aspartate Amino Transf (AST/SGOT) 44H, Alanine Aminotransferase (ALT/SGPT) 56, Alkaline Phosphatase 231H, Total Bilirubin 0.5, Total Protein 6.7, Albumin 2.8L , Albumin/Globulin Ratio 0.72L 08/29/16 08:30: Bedside Glucose (Misc Panel) 106 08/29/16 13:15: Bedside Glucose (Misc Panel) 99 CBC/BMP Laboratory Tests 08/29/16 07:48 Red Blood Count 4.60, Mean Corpuscular Volume 93.3, Mean Corpuscular Hemoglobin 31.3, Mean Corpuscular Hemoglobin Concent 33.5, Red Cell Distribution Width 13.6 , Neutrophils (%) (Auto) 79.2 H, Lymphocytes (%) (Auto) 11.1 L, Monocytes (%) ( Auto) 5.5 H, Eosinophils (%) (Auto) 1.9, Basophils (%) (Auto) 0.1, Neutrophils # (Auto) 6.8, Lymphocytes # (Auto) 1.1 L, Monocytes # (Auto) 0.5, Eosinophils # (Auto) 0.2, Basophils # (Auto) 0.0, Calcium Level 9.0, Aspartate Amino Transf ( AST/SGOT) 44 H, Alanine Aminotransferase (ALT/SGPT) 56, Alkaline Phosphatase 231 H, Total Bilirubin 0.5, Total Protein 6.7, Albumin 2.8 L Microbiology Microbiology 08/26/16 Blood Culture - Preliminary, Resulted No Growth after 72 hours. All specime... 08/26/16 Blood Culture - Preliminary, Resulted No Growth after 72 hours. All specime... 08/26/16 Clostridium difficile (PCR) - Final, Complete 08/26/16 Urine Culture - Final, Complete Willie Goldman MD Aug 29, 2016 17:42
[2016-08-29] MEDS: ceFAZolin SOD 1 GM in D5W MINI-BAG PLUS 50 ML IV SCH (20:12)
[2016-08-29] MEDS: MORPHINE 2 MG/ML 1ML SYRINGE IV PRN ×2 (21:21→23:19)
[2016-08-30] VITALS: BP_SYST 179; BP_SYST 206; BP_DIAS 78; BP_DIAS 83
[2016-08-30] MEDS: MORPHINE 2 MG/ML 1ML SYRINGE IV PRN ×4 (01:27→14:54)
[2016-08-30 04:00] VITALS: BP_SYST 153; BP_SYST 172; BP_DIAS 76; BP_DIAS 91
[2016-08-30] MEDS: ceFAZolin SOD 1 GM in D5W MINI-BAG PLUS 50 ML IV SCH ×2 (04:30→11:41)
[2016-08-30] MEDS: ACETAMINOPHEN TAB 650MG DOSE (2X325MG) PO SCH ×3 (05:25→17:34)
[2016-08-30 06:22] LABS: MEAN CORPUSCULAR HEMOGLOBIN 30.9 pg (27.0-33.0); MEAN CORPUSCULAR HGB CONC 33.5 g/dl (32.0-36.5); MEAN CORPUSCULAR VOLUME 92.4 fl (80.0-96.0); RED CELL DISTRIBUTION WIDTH 13.6 % (11.5-14.5); WHITE BLOOD COUNT 8.6 K/mm3 (4.0-10.0)
[2016-08-30 07:09] LABS: ANION GAP 6 MEQ/L (8-16); BLOOD UREA NITROGEN 11 MG/DL (7-18); CARBON DIOXIDE LEVEL 26 MEQ/L (21-32); CHLORIDE LEVEL 101 MEQ/L (98-107); CREATININE FOR GFR 0.87 MG/DL (0.70-1.30); GLOMERULAR FILTRATION RATE > 60.0 (>49); GLUCOSE, FASTING 112 MG/DL (80-110); POTASSIUM SERUM 4.3 MEQ/L (3.5-5.1); SODIUM LEVEL 133 MEQ/L (136-145)
[2016-08-30] MEDS ORDERED: DEXTROSE 50% 50 ML SYRINGE IV PRN (07:30)
[2016-08-30] MEDS ORDERED: GLUCOSE 4 GM CHEW TABLET PO PRN (07:30)
[2016-08-30] MEDS ORDERED: SENOKOT S TAB PO PRN (07:30)
[2016-08-30] MEDS ORDERED: GLUCAGON FOR INJ 1 MG VIAL (J1610) SC PRN (07:30)
--- NOTE | 2016-08-30 07:54 | IPNPDOC ---
Subjective Date Seen The patient was seen on 08/30/16. Subjective Chief Complaint/HPI The patient is a 66-year-old male admitted with a reason for visit of Subdural Bleeding. General: Denies: ROS Unobtainable, Chills, Night Sweats, Fatigue, Malaise, Normal Appetite, Other Symptoms Constitutional: Denies: Chills, Fever, Night Sweats Eyes: Denies: Vision change ENT: Denies: Ear Pain Pulmonary: Reports: Dyspnea, Cough (minimal cough, no dyspnea), Pleuritic Chest Pain, Other Symptoms Cardiovascular: Denies: Chest Pain, Palpitations, Paroxysmal Noc. Dyspnea Gastrointestinal: Reports: Abdominal Pain (slightl LLQ twinge (had 3 bm's yesterday)), Diarrhea, Constipation, Melena, Hematochezia, Other Symptoms, Denies: Nausea, Vomiting Hematologic: Denies: Bruising Objective Physical Examination General Exam: Positive: Alert, No Acute Distress Eye Exam: Positive: Conjunctiva & lids normal, EOMI, Other Eye Symptoms (it looks like he may be developing some raccoon eyes) ENT Exam: Positive: Mucous membr. moist/pink Neck Exam: Negative: thyromegaly, Lymphadenopathy Chest Exam: Positive: Clear to auscultation, Diminished, Negative: Rales, Wheezing Heart Exam: Positive: Rate Normal, Normal S1, Normal S2, Murmurs Telemetry: Positive: No significant arrhythmia (observed at bedside) Abdomen Exam: Positive: Normal bowel sounds, Soft, Tenderness (minimal LLQ discomfort with palpation, no guarding or rebound, no mass) Extremity Exam: Positive: Other (right BKA), Negative: Edema Skin Exam: Positive: Nl turgor and temperature, Rash (widespread plaques of psoriasis.) Neuro Exam: Positive: Other (speech slightly slurred but easily understood) Psych Exam: Positive: Mental status NL, Other (he seemed a little disoriented and in a sour mood, however I believe this is anesthesia effect) Assessment /Plan Problems (1) Subdural bleeding Status: Acute Response to Treatment: Stable Problem Text: 08/30/16 post op day 1, management per neurosurgery. seems to be doing well. 08/29 - Craniotomy was done today. He is now back in the ICU. Neurosurgical team is primarily responsible for management of this condition. 08/28 - Plan is for craniotomy tomorrow. Nursing feels that mental status is better today. Urine cx neg, blood cx no growth after 24 hrs. 08/27 - MRI brain: "No clinically significant change in the size or appearance of the right lateral subdural subacute hematoma. Mass effect and leftward midline shift is grossly unchanged since the prior CT examination. No evidence of acute infarct. Mild chronic small vessel ischemic disease and age-related atrophy." Nursing notes that plan is for craniotomy possibly on Thursday. Pt with some mental status changes noted. Urine cx and blood cx pending. Today's labs including WBC pending currently. 08/25 - Renard hole done by Dr. Estrella 08/23/2016. Patient's mentation remained stable. No focal deficits, no changes in speech, no changes in sensation. Bleeding stable on CT. GCS 15. Neurosurgery planning craniotomy on Thursday. - Management per neurosurgery - Critical care following (2) Brain compression Status: Acute Response to Treatment: Stable Problem Specific Plan: Consult Specialist, Monitor Clinically Problem Text: 08/30/16 Alert, denies ESTEVES. CT done this am. Await report 08/29 - Craniotomy was done today. He is now back in the ICU. Neurosurgical team is primarily responsible for management of this condition. 08/28 - Plan is for craniotomy tomorrow. Nursing feels that mental status is better today. Urine cx neg, blood cx no growth after 24 hrs. 08/27 - MRI brain: "No clinically significant change in the size or appearance of the right lateral subdural subacute hematoma. Mass effect and leftward midline shift is grossly unchanged since the prior CT examination. No evidence of acute infarct. Mild chronic small vessel ischemic disease and age-related atrophy." This is the danger with his recent bleeding and why he had the renard hole and will be returning for further craniotomy. We must avoid significant brain compression with the resultant ischemia or herniation of tissue this could cause. (3) Ileus Status: Acute Problem Text: 08/30/16 3 BM's yesterday, minimal LLQ discomfort today. 08/29 - seems a little worse today, but he just got done with surgery again. Monitor carefully. 08/28 - Will repeat abd xray today. 08/27 - Abd xray from 08/26: "Bowel gas pattern suggests ileus. (4) Phantom limb syndrome with pain Status: Chronic Response to Treatment: Improving, Uncontrolled Discussed With: Nurse, Patient, Family with Pt Consent Problem Specific Plan: Monitor Clinically Problem Text: 08/30/16 now that he is post-op, will resume lidocaine and oral meds for pain control 08/29/16: He is not constantly moving his stump for the first time this week. I wonder whether this is more of an anxious tick for him. (5) DM2 (diabetes mellitus, type 2) Status: Chronic Problem Text: 08/30/16 Resume sliding scale insulin now that he is post op and starting clear liquids. Blood glucose stable on sliding scale insulin (6) Chronic alcohol abuse Status: Chronic Problem Text: No signs or symptoms of alcohol withdrawal. - Begin CIWA scoring if patient develops symptoms of withdrawal (7) CKD (chronic kidney disease), stage III Status: Chronic Problem Text: 08/30/16: normal Creatinine but sodium is down to 133, will follow , may need fluid restriction. 08/29 - labs improved as anticipated with gentle hydration today. 08/28 - Today's labs pending Creatinine stable. Avoid nephrotoxic agents. (8) Hypertension Status: Chronic Discussed With: Pt and Family Services Problem Text: 08/30/16: no parameters from Neurosurg. He is on atenolol but pressures remain elevated. Before admission he was on furosemide and HCTZ along with atenolol. Diuretics may not be appropriate due to low sodium noted today and post op state. Mostly pressures in 170's systolic with normal diastolics. If still high (>160) by later in day start amlodipine 2.5 On Atenolol. Continue current regimen, monitor. (9) GERD (gastroesophageal reflux disease) Status: Chronic (10) PVD (peripheral vascular disease) Status: Chronic Response to Treatment: Stable Problem Text: Status post right BKA (11) Anemia Status: Chronic Response to Treatment: Stable Problem Text: Secondary to end-stage renal disease Plan/VTE VTE Prophylaxis Ordered?: No (patient on compression stockings only) VTE Exclusion Pharmacological: Hemorrhage Plan Diet: Advance Diagnostics: Check Labs, Repeat Labs in AM VS, I&O, 24H, Fishbone Vital Signs/I&O Vital Signs Date Time Temp Pulse Resp B/P (MAP) Pulse Ox O2 Delivery O2 Flow Rate FiO2 08/30/16 06:16 91 20 171/85 Room Air 08/30/16 04:00 97.5 94 08/29/16 14:10 10 I&O- Last 24 Hours up to 6 AM 08/30/16 06:00 Intake Total 4035 ml Output Total 2575 ml Balance 1460 ml Laboratory Data 24H LABS Laboratory Tests 2 08/29/16 07:48: White Blood Count 8.5, Red Blood Count 4.60, Hemoglobin 14.4, Hematocrit 42.9, Mean Corpuscular Volume 93.3, Mean Corpuscular Hemoglobin 31.3, Mean Corpuscular Hemoglobin Concent 33.5, Red Cell Distribution Width 13.6, Platelet Count 157, Neutrophils (%) (Auto) 79.2H, Lymphocytes (%) (Auto) 11.1L, Monocytes (%) (Auto) 5.5H, Eosinophils (%) (Auto) 1.9, Basophils (%) (Auto) 0.1 , Neutrophils # (Auto) 6.8, Lymphocytes # (Auto) 1.1L, Monocytes # (Auto) 0.5, Eosinophils # (Auto) 0.2, Basophils # (Auto) 0.0, Large Unclassified Cells % 2.1 , Large Unclassified Cells # 0.2, Anion Gap 7L, Glomerular Filtration Rate > 60.0, Blood Urea Nitrogen 18, Creatinine 0.97, Sodium Level 138, Potassium Level 4.0, Chloride Level 104, Carbon Dioxide Level 27, Calcium Level 9.0, Aspartate Amino Transf (AST/SGOT) 44H, Alanine Aminotransferase (ALT/SGPT) 56, Alkaline Phosphatase 231H, Total Bilirubin 0.5, Total Protein 6.7, Albumin 2.8L , Albumin/Globulin Ratio 0.72L 08/29/16 08:30: Bedside Glucose (Misc Panel) 106 08/29/16 13:15: Bedside Glucose (Misc Panel) 99 08/29/16 21:14: Bedside Glucose (Misc Panel) 135H 08/30/16 06:47: Anion Gap 6L, Glomerular Filtration Rate > 60.0, Blood Urea Nitrogen 11, Creatinine 0.87, Sodium Level 133L, Potassium Level 4.3, Chloride Level 101, Carbon Dioxide Level 26, Calcium Level 9.0 CBC/BMP Laboratory Tests 08/29/16 07:48 Red Blood Count 4.60, Mean Corpuscular Volume 93.3, Mean Corpuscular Hemoglobin 31.3, Mean Corpuscular Hemoglobin Concent 33.5, Red Cell Distribution Width 13.6 , Neutrophils (%) (Auto) 79.2 H, Lymphocytes (%) (Auto) 11.1 L, Monocytes (%) ( Auto) 5.5 H, Eosinophils (%) (Auto) 1.9, Basophils (%) (Auto) 0.1, Neutrophils # (Auto) 6.8, Lymphocytes # (Auto) 1.1 L, Monocytes # (Auto) 0.5, Eosinophils # (Auto) 0.2, Basophils # (Auto) 0.0, Calcium Level 9.0, Aspartate Amino Transf ( AST/SGOT) 44 H, Alanine Aminotransferase (ALT/SGPT) 56, Alkaline Phosphatase 231 H, Total Bilirubin 0.5, Total Protein 6.7, Albumin 2.8 L 08/30/16 05:59 Red Blood Count 4.32, Mean Corpuscular Volume 92.4, Mean Corpuscular Hemoglobin 30.9, Mean Corpuscular Hemoglobin Concent 33.5, Red Cell Distribution Width 13.6 08/30/16 06:47 Calcium Level 9.0 Microbiology Microbiology 08/26/16 Blood Culture - Preliminary, Resulted No Growth after 72 hours. All specime... 08/26/16 Blood Culture - Preliminary, Resulted No Growth after 72 hours. All specime... 08/26/16 Clostridium difficile (PCR) - Final, Complete 08/26/16 Urine Culture - Final, Complete John Beyer MD Aug 30, 2016 07:54
[2016-08-30 08:00] VITALS: BP 159/83
[2016-08-30] MEDS: KCL 20MEQ in NS 1000ML 1,000 ML IV SCH ×3 (08:00→22:33)
[2016-08-30] MEDS: HumaLOG INSULIN (NovoLOG) PER UNIT SC SCH ×4 (08:00→21:00)
[2016-08-30] MEDS: PANTOPRAZOLE 40MG TAB (PROTONIX) PO SCH (08:01)
[2016-08-30] MEDS: ATENOLOL 25 MG TAB PO SCH (08:01)
--- NOTE | 2016-08-30 08:08 | REP ---
Clinical: Postoperative assessment subdural hemorrhage. Comparison: 08/26/2016. Findings: The patient appears to be status post subsequent right frontal craniotomy. The moderate to large right subdural hemorrhage is subjectively minimally decreased in volume but contains increased amounts of acute hemorrhage and pneumocephalus likely related to most recent procedure. Current examination demonstrates approximately 6 mm of contralateral midline shift. There is no evidence for hydrocephalus and basilar cisterns appear normal and without suggestion for herniation. No new cerebral or cerebellar parenchymal hemorrhage, low density changes or mass appreciated. Impression: 1. Status post subsequent right frontal craniotomy with subjectively decreased volume to the right subdural collection now containing increased amount of acute hemorrhage and pneumocephalus consistent with postoperative change. 2. No new acute intracranial. Signed by Michele Bourgeois MD 08/30/2016 08:00 A
[2016-08-30] MEDS: IPRATROPIUM 0.5MG/ALBUTEROL 2.5MG INH SOL UD 3ML (DUONEB)(J7620) NEB SCH ×4 (08:13→20:00)
--- NOTE | 2016-08-30 09:57 | ROOPDOC ---
[facility] Report Of Operation Report of Operation DATE OF SURGERY: 08/29/2016 SURGEON: Dr. Rafael Estrella BUTTONHOLE MAKER: None PREOPERATIVE DIAGNOSIS: R chronic subdural hematoma (cSDH) POSTOPERATIVE DIAGNOSIS: Same PROCEDURE PERFORMED: 1. Craniotomy for evacuation of Right chronic SDH. ANESTHESIA: GETA. ESTIMATED BLOOD LOSS: 200cc. FINDINGS : R acute subdural hematomas. DRAINS: None COMPLICATIONS: None. DISPOSITION: Stable to the PACU. INDICATIONS FOR THE PROCEDURE HISTORY: Mr. Shaw is a 66 y/o M who presents to the hospital after fall from wheelchair. Examination reveals the signs, symptoms and radiographic evidence of chronic subdural hematoma ( decreasing mental status, weakness, tendency to fall). After initial attempt to drain cSDH with Port [employer] system via twist drill, neuroimaging showed to change in volume and appearance of cSDH. The decision was made to proceed with craniotomy for evacuation of cSDH. DIAGNOSTIC STUDY: Head CT scan showed right fronto-parietal chronic subdural hematoma with septie. SURGICAL RISKS: The patient is disoriented, unable to provide consent. Her and family was well apprised of all objectives, benefits, risks and potential complications of the procedure, including but not limited to: worsening of current status, the possible need for further procedures, the risk of infection , headaches, CSF leak, possible spinal nerve injury resulting in paralysis, infection, injury to major vessels causing hemorrhage, stroke, loss of language function, coma and even . No assurance was given whether symptoms would improve following the procedure. The surgery is technically difficult procedure and despite the significant discomfort for the patient and the best effort of the physician, the surgery may be unsuccessful or may need to be aborted. Informed consent was obtained and secured in the chart after the family voiced understanding of these risks and decided to proceed with the operation. DESCRIPTION OF THE PROCEDURE The patient was transferred to the operating room. He was given preoperative prophylactic IV antibiotics. ANESTHESIA: The patient was sedated and intubated without difficulty by the anesthesia service. Eyes were taped shut after ointment was applied to prevent corneal abrasion. A Shayna Hugger was placed over the upper body to maintain control of core body temperature. A Jules catheter was inserted. POSITIONING: The patient was placed in the supine position, rotated to the Left with help of jelly bolster along R side of body and all pressure points were well padded. The hair was clipped in the area where the incision was planned and marked. Pre-prepping was done with alcohol. OPERATIVE TECHNIQUE: The patient was prepped and draped in the standard sterile fashion. Local anesthesic was infiltrated along the line of the planned skin incision A Right curved incision was performed with a # 15 scalpel blade to the level of the periosteum. The scalp flap and the periosteum were elevated, reflected sidewise and held in place with cerebellar retractor. Using a high speed pneumatic drill, renard holes were placed with a marble mason bit in the frontal regions. With the B1 bit and footplate a small craniotomy carried out. Hemostasis was achieved utilizing a combination of bipolar electrocautery, monopolar electrocautery and absorbable gelatin compressed sponge Gelfoam and Surgicel. The wound was irrigated until clear. The dura was tense and protruding with a dark blue discoloration. It was coagulated with the bipolar electrocautery and opened in a C-shaped fashion, revealing solid hematoma covered with membrane strongly attached to the surface of cortex. It was removed with pituitary forceps and [place] dissector #1 in piecemeal fashion. Specimen was sent to pathology. The exposed brain was depressed but still pulsating. Circumferential revision of the field was carried out. No residual oozing blood was visualized and it was copiously irrigated until clear. Hemostasis was obtained utilizing a combination of bipolar electrocautery and absorbable gelatin compressed sponge Gelfoam. The dura was reapproximated utilizing interrupted 2-0 non-absorbable braided polyamide suture Nurolon and the cavity irrigated full. The bone flap was replaced and secured utilizing plates and screws. The wound was again irrigated with antibiotic solution until clear. The galea was closed with inverted interrupted stitches utilizing 0O polyglactin synthetic absorbable suture Vicryl. Scalp has been closed by metal mario. Bacitracin ointment has been applied to the wound and sterile dressing has been placed over closed wound. All sponge counts, needle counts and instrument counts were correct at the end of the case times two. The patient tolerated the procedure well, without any complications and was transferred in stable condition to the recovery room. RAFAEL ESTRELLA MD Aug 30, 2016 09:56
[2016-08-30] MEDS: LIDOCAINE 5% (LIDODERM) PATCH TD SCH (10:22)
[2016-08-30] MEDS: GABAPENTIN 400 MG CAP PO SCH ×2 (10:30→21:00)
[2016-08-30] MEDS: SODIUM CHLORIDE 1 GM TAB PO SCH ×2 (10:30→21:00)
[2016-08-30] MEDS: NORTRIPTYLINE 25 MG CAP PO SCH ×3 (10:31→21:00)
[2016-08-30 12:00] VITALS: BP 176/96
[2016-08-30 14:02] LABS: ANION GAP 7 MEQ/L (8-16); BLOOD UREA NITROGEN 11 MG/DL (7-18); CALCIUM LEVEL 8.7 MG/DL (8.8-10.2); CARBON DIOXIDE LEVEL 25 MEQ/L (21-32); CHLORIDE LEVEL 103 MEQ/L (98-107); CREATININE FOR GFR 0.93 MG/DL (0.70-1.30); GLOMERULAR FILTRATION RATE > 60.0 (>49); GLUCOSE, FASTING 133 MG/DL (80-110); MAGNESIUM LEVEL 1.7 MG/DL (1.8-2.4); POTASSIUM SERUM 4.3 MEQ/L (3.5-5.1); SODIUM LEVEL 135 MEQ/L (136-145)
[2016-08-30] MEDS ORDERED: MAG SULF 1GM/100ML (MAG RUN) 1 GM in APPROPRIATE DILUENT 1 EA IV ONE (14:45)
[2016-08-30 15:30] VITALS: BP 140/70
[2016-08-30] MEDS ORDERED: **NOTE PATIENT COMMENT** MISC XX SCH (21:00)
[2016-08-30] MEDS: PRAVASTATIN 20 MG TAB PO SCH (21:00)
[2016-08-30 22:00] VITALS: BP 146/76
[2016-08-31] MEDS: SODIUM CHLORIDE 1 GM TAB PO SCH ×3 (01:16→21:21)
[2016-08-31] MEDS: ACETAMINOPHEN TAB 650MG DOSE (2X325MG) PO SCH ×3 (01:16→12:21)
[2016-08-31] MEDS: KCL 20MEQ in NS 1000ML 1,000 ML IV SCH ×3 (05:25→15:45)
[2016-08-31 06:00] VITALS: BP 165/83
[2016-08-31 06:50] LABS: MEAN CORPUSCULAR HEMOGLOBIN 30.9 pg (27.0-33.0); MEAN CORPUSCULAR HGB CONC 33.4 g/dl (32.0-36.5); MEAN CORPUSCULAR VOLUME 92.5 fl (80.0-96.0); RED CELL DISTRIBUTION WIDTH 13.6 % (11.5-14.5); WHITE BLOOD COUNT 8.6 K/mm3 (4.0-10.0)
[2016-08-31 07:02] LABS: ANION GAP 6 MEQ/L (8-16); BLOOD UREA NITROGEN 9 MG/DL (7-18); CALCIUM LEVEL 8.6 MG/DL (8.8-10.2); CARBON DIOXIDE LEVEL 25 MEQ/L (21-32); CHLORIDE LEVEL 103 MEQ/L (98-107); GLOMERULAR FILTRATION RATE > 60.0 (>49); GLUCOSE, FASTING 107 MG/DL (80-110); POTASSIUM SERUM 4.2 MEQ/L (3.5-5.1); SODIUM LEVEL 134 MEQ/L (136-145)
[2016-08-31] MEDS: IPRATROPIUM 0.5MG/ALBUTEROL 2.5MG INH SOL UD 3ML (DUONEB)(J7620) NEB SCH ×4 (07:55→20:40)
[2016-08-31] MEDS: NORTRIPTYLINE 25 MG CAP PO SCH ×3 (08:12→21:21)
[2016-08-31] MEDS: HumaLOG INSULIN (NovoLOG) PER UNIT SC SCH ×4 (08:12→21:00)
[2016-08-31] MEDS: ATENOLOL 25 MG TAB PO SCH (08:13)
[2016-08-31] MEDS: PANTOPRAZOLE 40MG TAB (PROTONIX) PO SCH (08:13)
[2016-08-31] MEDS: GABAPENTIN 400 MG CAP PO SCH ×2 (08:13→21:21)
[2016-08-31] MEDS: LIDOCAINE 5% (LIDODERM) PATCH TD SCH (08:14)
--- NOTE | 2016-08-31 15:07 | IPNPDOC ---
Subjective Date Seen The patient was seen on 08/31/16. Subjective Chief Complaint/HPI The patient is a 66-year-old male admitted with a reason for visit of Subdural Bleeding. Constitutional: Denies: Chills, Night Sweats Pulmonary: Denies: Dyspnea, Cough Cardiovascular: Denies: Chest Pain, Palpitations Gastrointestinal: Denies: Nausea, Vomiting, Abdominal Pain Genitourinary: Denies: Dysuria Psych: Reports: Mood Normal Objective Physical Examination General Exam: Positive: Alert, No Acute Distress Eye Exam: Positive: Conjunctiva & lids normal, EOMI, Other Eye Symptoms (it looks like he may be developing some raccoon eyes) ENT Exam: Positive: Mucous membr. moist/pink Neck Exam: Negative: thyromegaly, Lymphadenopathy Chest Exam: Positive: Clear to auscultation, Diminished, Negative: Rales, Wheezing Heart Exam: Positive: Rate Normal, Normal S1, Normal S2, Murmurs Telemetry: Positive: No significant arrhythmia (observed at bedside) Abdomen Exam: Positive: Normal bowel sounds, Soft, Tenderness (minimal LLQ discomfort with palpation, no guarding or rebound, no mass) Extremity Exam: Positive: Other (right BKA), Negative: Edema Skin Exam: Positive: Nl turgor and temperature, Rash (widespread plaques of psoriasis.) Neuro Exam: Positive: Other (mildly dysarthric. some left sided neglect observed but appointment specialist, extension of fingers, arm flex/ext strength all seem to be WNL.) Psych Exam: Positive: Mental status NL, Other (he seemed a little disoriented and in a sour mood, however I believe this is anesthesia effect) Assessment /Plan Problems (1) Subdural bleeding Status: Acute Response to Treatment: Stable Problem Text: 08/30/16 post op day 1, management per neurosurgery. seems to be doing well. 08/29 - Craniotomy was done today. He is now back in the ICU. Neurosurgical team is primarily responsible for management of this condition. 08/28 - Plan is for craniotomy tomorrow. Nursing feels that mental status is better today. Urine cx neg, blood cx no growth after 24 hrs. 08/27 - MRI brain: "No clinically significant change in the size or appearance of the right lateral subdural subacute hematoma. Mass effect and leftward midline shift is grossly unchanged since the prior CT examination. No evidence of acute infarct. Mild chronic small vessel ischemic disease and age-related atrophy." Nursing notes that plan is for craniotomy possibly on Thursday. Pt with some mental status changes noted. Urine cx and blood cx pending. Today's labs including WBC pending currently. 08/25 - [place] hole done by Dr. Estrella 08/23/2016. Patient's mentation remained stable. No focal deficits, no changes in speech, no changes in sensation. Bleeding stable on CT. GCS 15. Neurosurgery planning craniotomy on Thursday. - Management per neurosurgery - Critical care following (2) Brain compression Status: Acute Response to Treatment: Stable Problem Specific Plan: Consult Specialist, Monitor Clinically Problem Text: 08/30/16 Alert, denies ESTEVES. CT done this am. Await report 08/29 - Craniotomy was done today. He is now back in the ICU. Neurosurgical team is primarily responsible for management of this condition. 08/28 - Plan is for craniotomy tomorrow. Nursing feels that mental status is better today. Urine cx neg, blood cx no growth after 24 hrs. 08/27 - MRI brain: "No clinically significant change in the size or appearance of the right lateral subdural subacute hematoma. Mass effect and leftward midline shift is grossly unchanged since the prior CT examination. No evidence of acute infarct. Mild chronic small vessel ischemic disease and age-related atrophy." This is the danger with his recent bleeding and why he had the renard hole and will be returning for further craniotomy. We must avoid significant brain compression with the resultant ischemia or herniation of tissue this could cause. (3) Ileus Status: Acute Response to Treatment: Improving Problem Text: 08/31/16 reports that he ate well today with lunch 08/30/16 3 BM's yesterday, minimal LLQ discomfort today. 08/29 - seems a little worse today, but he just got done with surgery again. Monitor carefully. 08/28 - Will repeat abd xray today. 08/27 - Abd xray from 08/26: "Bowel gas pattern suggests ileus. (4) Phantom limb syndrome with pain Status: Chronic Response to Treatment: Improving, Uncontrolled Discussed With: Nurse, Patient, Family with Pt Consent Problem Specific Plan: Monitor Clinically Problem Text: 08/30/16 now that he is post-op, will resume lidocaine and oral meds for pain control 08/29/16: He is not constantly moving his stump for the first time this week. I wonder whether this is more of an anxious tick for him. (5) DM2 (diabetes mellitus, type 2) Status: Chronic Problem Text: 08/30/16 Resume sliding scale insulin now that he is post op and starting clear liquids. Blood glucose stable on sliding scale insulin (6) Chronic alcohol abuse Status: Chronic Problem Text: No signs or symptoms of alcohol withdrawal. - Begin CIWA scoring if patient develops symptoms of withdrawal (7) CKD (chronic kidney disease), stage III Status: Chronic Problem Text: 08/30/16: normal Creatinine but sodium is down to 133, will follow , may need fluid restriction. 08/29 - labs improved as anticipated with gentle hydration today. 08/28 - Today's labs pending Creatinine stable. Avoid nephrotoxic agents. (8) Hypertension Status: Chronic Discussed With: Pt and Family Services Problem Text: 08/31/16 received parameters from neurosurgery, recommending to try to keep SBP 160 or less. improved with amlodipine added yesterday but will increase atenolol to 50, consider adding furosemide 08/30/16: no parameters from Neurosurg. He is on atenolol but pressures remain elevated. Before admission he was on furosemide and HCTZ along with atenolol. Diuretics may not be appropriate due to low sodium noted today and post op state. Mostly pressures in 170's systolic with normal diastolics. If still high (>160) by later in day start amlodipine 2.5 On Atenolol. Continue current regimen, monitor. (9) GERD (gastroesophageal reflux disease) Status: Chronic (10) PVD (peripheral vascular disease) Status: Chronic Response to Treatment: Stable Problem Text: Status post right BKA (11) Anemia Status: Chronic Response to Treatment: Stable Problem Text: Secondary to end-stage renal disease (12) Hyponatremia Status: Acute Response to Treatment: Stable Problem Text: seems to be associated with hint of excess fluid. salt tablets given at rec of neurosurgeon, po fluids restricted. will also restrict IV fluids some. consider use of loop diuretic at low dose. since admission based on I/O balance, he is +4656 ml Plan/VTE VTE Prophylaxis Ordered?: No (patient on compression stockings only) VTE Exclusion Pharmacological: Hemorrhage Plan Diet: Advance Diagnostics: Check Labs, Repeat Labs in AM VS, I&O, 24H, Fishbone Vital Signs/I&O Vital Signs Date Time Temp Pulse Resp B/P (MAP) Pulse Ox O2 Delivery O2 Flow Rate FiO2 08/31/16 08:13 79 165/83 08/31/16 06:00 97.6 20 95 Room Air 08/29/16 14:10 10 I&O- Last 24 Hours up to 6 AM 08/31/16 06:00 Intake Total 1700 ml Output Total 3035 ml Balance -1335 ml Laboratory Data 24H LABS Laboratory Tests 2 08/30/16 16:54: Bedside Glucose (Misc Panel) 141H 08/30/16 21:16: Bedside Glucose (Misc Panel) 97 08/31/16 06:27: Anion Gap 6L, Glomerular Filtration Rate > 60.0, Blood Urea Nitrogen 9, Creatinine 0.80, Sodium Level 134L, Potassium Level 4.2, Chloride Level 103, Carbon Dioxide Level 25, Calcium Level 8.6L CBC/BMP Laboratory Tests 08/31/16 06:27 Red Blood Count 4.12 L, Mean Corpuscular Volume 92.5, Mean Corpuscular Hemoglobin 30.9, Mean Corpuscular Hemoglobin Concent 33.4, Red Cell Distribution Width 13.6, Calcium Level 8.6 L Microbiology Microbiology 08/26/16 Blood Culture - Final, Complete NO GROWTH AFTER 5 DAYS 08/26/16 Blood Culture - Final, Complete NO GROWTH AFTER 5 DAYS 08/26/16 Clostridium difficile (PCR) - Final, Complete 08/26/16 Urine Culture - Final, Complete John Beyer MD Aug 31, 2016 15:07
[2016-08-31] MEDS ORDERED: FUROSEMIDE 20 MG TAB PO ONE (16:00)
[2016-08-31] MEDS: MORPHINE 2 MG/ML 1ML SYRINGE IV PRN (16:42)
[2016-08-31] MEDS: LIDOCAINE 5% OINT 30 GM TOP SCH (21:21)
[2016-08-31] MEDS: CLOBETASOL PROPIONATE EMOLLIENT 0.05% CR 60 GM TOP SCH (21:21)
[2016-08-31] MEDS: PRAVASTATIN 20 MG TAB PO SCH (21:22)
[2016-08-31 22:00] VITALS: BP 160/78
[2016-09-01] MEDS: MORPHINE 2 MG/ML 1ML SYRINGE IV PRN ×2 (02:24→11:54)
[2016-09-01] MEDS: KCL 20MEQ in NS 1000ML 1,000 ML IV SCH ×2 (03:15→11:54)
[2016-09-01 06:00] VITALS: BP 142/81
[2016-09-01 06:29] LABS: MEAN CORPUSCULAR HEMOGLOBIN 30.5 pg (27.0-33.0); MEAN CORPUSCULAR HGB CONC 32.7 g/dl (32.0-36.5); MEAN CORPUSCULAR VOLUME 93.4 fl (80.0-96.0); RED CELL DISTRIBUTION WIDTH 13.8 % (11.5-14.5); WHITE BLOOD COUNT 9.4 K/mm3 (4.0-10.0)
[2016-09-01 06:41] LABS: ANION GAP 9 MEQ/L (8-16); BLOOD UREA NITROGEN 11 MG/DL (7-18); CALCIUM LEVEL 9.1 MG/DL (8.8-10.2); CARBON DIOXIDE LEVEL 26 MEQ/L (21-32); CHLORIDE LEVEL 101 MEQ/L (98-107); CREATININE FOR GFR 0.85 MG/DL (0.70-1.30); GLOMERULAR FILTRATION RATE > 60.0 (>49); GLUCOSE, FASTING 122 MG/DL (80-110); MAGNESIUM LEVEL 1.6 MG/DL (1.8-2.4); POTASSIUM SERUM 3.9 MEQ/L (3.5-5.1); SODIUM LEVEL 136 MEQ/L (136-145)
[2016-09-01] MEDS: IPRATROPIUM 0.5MG/ALBUTEROL 2.5MG INH SOL UD 3ML (DUONEB)(J7620) NEB SCH ×4 (07:05→20:00)
[2016-09-01] MEDS: HumaLOG INSULIN (NovoLOG) PER UNIT SC SCH ×5 (07:30→20:40)
--- NOTE | 2016-09-01 08:43 | IPNPDOC ---
Subjective Date Seen The patient was seen on 09/01/16. Subjective Chief Complaint/HPI The patient is a 66-year-old male admitted with a reason for visit of Subdural Bleeding. Events since last encounter Pt with sitter at bedside who reports pt had been sleeping since her arrival this morning. He was awoken easily. C/o L sided headache. General: Denies: Fatigue Constitutional: Denies: Chills, Fever Eyes: Denies: Vision change ENT: Reports: Head Aches (L sided) Pulmonary: Denies: Dyspnea, Cough Cardiovascular: Denies: Chest Pain, Palpitations Gastrointestinal: Denies: Nausea, Vomiting, Diarrhea Neurological: Reports: Weakness Psych: Reports: Mood Normal, Memory Issues Objective Physical Examination General Exam: Positive: Cooperative, No Acute Distress ENT Exam: Positive: Mucous membr. moist/pink Neck Exam: Negative: thyromegaly, Lymphadenopathy Chest Exam: Positive: Clear to auscultation, Diminished, Negative: Rales, Wheezing Heart Exam: Positive: Rate Normal, Normal S1, Normal S2, Murmurs Abdomen Exam: Positive: Normal bowel sounds, Soft, Negative: Tenderness Extremity Exam: Positive: Other (right BKA), Negative: Edema Skin Exam: Positive: Nl turgor and temperature, Rash (widespread plaques of psoriasis.) Neuro Exam: Positive: Other (mildly dysarthric. some left sided neglect observed but stage settings painter, extension of fingers, arm flex/ext strength all seem to be WNL.) Psych Exam: Negative: Memory Intact Assessment /Plan Problems (1) Subdural bleeding Status: Acute Response to Treatment: Stable Problem Text: 09/01 - POD3 s/p craniotomy on 08/29/2016, mgmt per NS. Appears stable. 08/30/16 CT brain consistent with post op changes 08/27 - MRI brain: "No clinically significant change in the size or appearance of the right lateral subdural subacute hematoma. Mass effect and leftward midline shift is grossly unchanged since the prior CT examination. No evidence of acute infarct. Mild chronic small vessel ischemic disease and age-related atrophy." [place] hole done by Dr. Estrella 08/23/2016. (2) Brain compression Status: Acute Response to Treatment: Stable Problem Specific Plan: Consult Specialist, Monitor Clinically Problem Text: 09/01 - C/o L sided headache, mostly soreness from surgery per pt (3) Ileus Status: Resolved Response to Treatment: Improving Problem Text: 09/01 - Resolved, eating well, 3 BMs on 08/29, will review bowel care. Abd xray from 08/26: "Bowel gas pattern suggests ileus. (4) Phantom limb syndrome with pain Status: Chronic Response to Treatment: Improving, Uncontrolled Discussed With: Nurse, Patient, Family with Pt Consent Problem Specific Plan: Monitor Clinically Problem Text: Lidocaine and oral meds for pain control resumed post- operatively on 08/30/16 (5) DM2 (diabetes mellitus, type 2) Status: Chronic Problem Text: Continue carb consistent diet and ISS. (6) Chronic alcohol abuse Status: Chronic Problem Text: No signs or symptoms of alcohol withdrawal. - Begin CIWA scoring if patient develops symptoms of withdrawal (7) CKD (chronic kidney disease), stage III Status: Chronic Problem Text: Creatinine stable. Avoid nephrotoxic agents. (8) Hypertension Status: Chronic Discussed With: Pt and Family Services Problem Text: Attending d/w Neurosurgery on 08/31/16; Neurosurg recommends goal SBP </= 160. He has been at goal since atenolol was increased and amlodipine was added. He was previously on furosemide and HCTZ, but these are being held due to hyponatremia. (9) GERD (gastroesophageal reflux disease) Status: Chronic (10) PVD (peripheral vascular disease) Status: Chronic Response to Treatment: Stable Problem Text: Status post right BKA (11) Anemia Status: Chronic Response to Treatment: Stable Problem Text: Secondary to end-stage renal disease (12) Hyponatremia Status: Acute Response to Treatment: Stable Problem Text: 09/01 - NA 136 this morning, cont to monitor. 08/31 seems to be associated with hint of excess fluid. salt tablets given at rec of neurosurgeon, po fluids restricted. will also restrict IV fluids some. consider use of loop diuretic at low dose. since admission based on I/O balance , he is +4656 ml (13) Hypomagnesemia Status: Acute Response to Treatment: Stable Problem Specific Plan: Monitor Clinically, Repeat Labs Problem Text: 09/01 Started on Mag oxide 400 mg BID today, monitor. Repeat lab ordered fro 09/03. Plan/VTE VTE Prophylaxis Ordered?: No (patient on compression stockings only) VTE Exclusion Pharmacological: Hemorrhage Plan Diet: Advance Diagnostics: Check Labs, Repeat Labs in AM Family Medicine Attending Note: I saw and examined Mr. Shaw this afternoon ; he was sleeping comfortably. I discussed with QIANA Gudino and I agree with her note above. Magnesium repleted today; otherwise Na is now WNL and management is primarily per Neurosurgery. VS, I&O, 24H, Fishbone Vital Signs/I&O Vital Signs Date Time Temp Pulse Resp B/P (MAP) Pulse Ox O2 Delivery O2 Flow Rate FiO2 09/01/16 06:00 97.5 85 20 142/81 (101) 95 Room Air 08/29/16 14:10 10 I&O- Last 24 Hours up to 6 AM 09/01/16 06:00 Intake Total 1780 ml Output Total 4600 ml Balance -2820 ml Laboratory Data 24H LABS Laboratory Tests 2 08/31/16 12:10: Bedside Glucose (Misc Panel) 123H 08/31/16 17:33: Bedside Glucose (Misc Panel) 165H 08/31/16 21:24: Bedside Glucose (Misc Panel) 101 09/01/16 06:09: Anion Gap 9, Glomerular Filtration Rate > 60.0, Blood Urea Nitrogen 11, Creatinine 0.85, Sodium Level 136, Potassium Level 3.9, Chloride Level 101, Carbon Dioxide Level 26, Calcium Level 9.1, Magnesium Level 1.6L CBC/BMP Laboratory Tests 09/01/16 06:09 Red Blood Count 4.35, Mean Corpuscular Volume 93.4, Mean Corpuscular Hemoglobin 30.5, Mean Corpuscular Hemoglobin Concent 32.7, Red Cell Distribution Width 13.8 , Calcium Level 9.1 Microbiology Microbiology 08/26/16 Blood Culture - Final, Complete NO GROWTH AFTER 5 DAYS 08/26/16 Blood Culture - Final, Complete NO GROWTH AFTER 5 DAYS 08/26/16 Clostridium difficile (PCR) - Final, Complete 08/26/16 Urine Culture - Final, Complete MARY JANE YOUNG PA-C Sep 01, 2016 08:43 ALLIE ROMERO MD Sep 01, 2016 16:01
[2016-09-01] MEDS ORDERED: MOM 30ML SUSPENSION UDC PO PRN (09:00)
[2016-09-01] MEDS: GABAPENTIN 400 MG CAP PO SCH ×2 (09:13→20:39)
[2016-09-01] MEDS: DOCUSATE SODIUM 100 MG CAP PO SCH ×2 (09:13→20:38)
[2016-09-01] MEDS: NORTRIPTYLINE 25 MG CAP PO SCH ×3 (09:13→20:39)
[2016-09-01] MEDS: MAGNESIUM OXIDE 400 MG TAB (MAG-OX) PO SCH ×2 (09:14→20:39)
[2016-09-01] MEDS: PANTOPRAZOLE 40MG TAB (PROTONIX) PO SCH (09:14)
[2016-09-01] MEDS: ATENOLOL 50 MG TAB PO SCH (09:14)
[2016-09-01] MEDS: CLOBETASOL PROPIONATE EMOLLIENT 0.05% CR 60 GM TOP SCH ×2 (09:23→20:41)
[2016-09-01] MEDS: LIDOCAINE 5% OINT 30 GM TOP SCH ×2 (09:23→20:41)
[2016-09-01] MEDS: SODIUM CHLORIDE 1 GM TAB PO SCH ×2 (12:08→20:39)
[2016-09-01 14:00] VITALS: BP 124/70
--- NOTE | 2016-09-01 18:45 | REP ---
CT HEAD WITHOUT CONTRAST: HISTORY: Subdural hematoma. COMPARISON: 08/30/2016 The patient is status post right frontal craniotomy. A mixed density subdural hematoma is present overlying the right cerebral hemisphere. The subdural hematoma measures 2.8 cm in width and is increased in size compared to the previous study. A small amount of pneumocephalus is present that is decreased compared to the previous study. There is mass effect with partial effacement of the body of the right lateral and third ventricles with midline shift to the left that is unchanged compared to the previous study. Areas of decreased attenuation are present in the thalami , right basal ganglia and left internal capsule. These represent old lacunar infarctions. There is no hydrocephalus. The cortical sulci are dilated consistent with mild volume loss. The visualized sinuses are clear. IMPRESSION: There has been an increase in size of the subdural hematoma present overlying the right cerebral hemisphere. There is midline shift to the left that is unchanged compared to the previous study. 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 Mild volume loss. Signed by Rodríguez Gupta MD 09/01/2016 06:53 P
[2016-09-01 20:00] VITALS: BP 134/74
[2016-09-01] MEDS ORDERED: REMIFENTANIL 1MG 3ML VIAL As Ordered ONE (20:18)
[2016-09-01 20:19] LABS: INR 1.07
[2016-09-01] MEDS ORDERED: PHENYLEPHRINE INJ 10MG/ML VIAL (J2370) As Ordered ONE (20:20)
[2016-09-01] MEDS ORDERED: ROCURONIUM BROMIDE 50 MG/5 ML VIAL/SYRINGE As Ordered ONE (20:20)
[2016-09-01] MEDS ORDERED: PROPOFOL 200 MG/20 ML VIAL As Ordered ONE (20:20)
[2016-09-01] MEDS ORDERED: fentaNYL 100 MCG/2 ML INJECTION (J3010) As Ordered ONE (20:20)
[2016-09-01] MEDS ORDERED: LIDOCAINE 2% INJ 100 MG/5 ML SDV (FOR ANES.) As Ordered ONE (20:20)
[2016-09-01] MEDS ORDERED: ONDANSETRON 4MG/2ML VIAL (J2405) As Ordered ONE (20:20)
[2016-09-01] MEDS ORDERED: MIDAZOLAM INJ 2 MG/2 ML VIAL (J2250) As Ordered ONE (20:21)
[2016-09-01] MEDS: PRAVASTATIN 20 MG TAB PO SCH (20:39)
[2016-09-01] MEDS ORDERED: LIDOCAINE 1% SDV INJ 30 ML VIAL As Ordered ONE (21:01)
[2016-09-01] MEDS ORDERED: THROMBIN SOLN 20,000 UNITS KIT As Ordered ONE (21:20)
[2016-09-01] MEDS ORDERED: LIDOCAINE W/EPINEPHRINE 1% 20ML VIAL As Ordered ONE (21:21)
[2016-09-01] MEDS ORDERED: ONDANSETRON 4MG/2ML VIAL (J2405) IV PRN (23:45)
[2016-09-01] MEDS ORDERED: PERCOCET 5MG/325MG TAB PO PRN (23:45)
[2016-09-01] MEDS ORDERED: METOCLOPRAMIDE INJ 10MG/2ML VIAL (J2765) IV PRN (23:45)
[2016-09-01] MEDS ORDERED: LR 1,000 ML IV SCH (23:45)
[2016-09-01] MEDS ORDERED: fentaNYL 100 MCG/2 ML INJECTION (J3010) IV PRN (23:45)
[2016-09-02] VITALS (13 sets, daily range): BP systolic 129–150; BP diastolic 63–99; O2SAT 93
[2016-09-02] MEDS: KCL 20MEQ in NS 1000ML 1,000 ML IV SCH (01:12)
[2016-09-02 05:09] LABS: MEAN CORPUSCULAR HEMOGLOBIN 31.2 pg (27.0-33.0); MEAN CORPUSCULAR VOLUME 94.6 fl (80.0-96.0); RED CELL DISTRIBUTION WIDTH 13.8 % (11.5-14.5); WHITE BLOOD COUNT 10.9 K/mm3 (4.0-10.0)
[2016-09-02 05:33] LABS: ANION GAP 7 MEQ/L (8-16); BLOOD UREA NITROGEN 14 MG/DL (7-18); CALCIUM LEVEL 9.3 MG/DL (8.8-10.2); CARBON DIOXIDE LEVEL 27 MEQ/L (21-32); CHLORIDE LEVEL 102 MEQ/L (98-107); CREATININE FOR GFR 1.03 MG/DL (0.70-1.30); GLOMERULAR FILTRATION RATE > 60.0 (>49); GLUCOSE, FASTING 113 MG/DL (80-110); POTASSIUM SERUM 4.2 MEQ/L (3.5-5.1); SODIUM LEVEL 136 MEQ/L (136-145)
[2016-09-02] MEDS: HumaLOG INSULIN (NovoLOG) PER UNIT SC SCH ×4 (08:24→21:00)
[2016-09-02] MEDS: CLOBETASOL PROPIONATE EMOLLIENT 0.05% CR 60 GM TOP SCH ×2 (08:24→21:00)
[2016-09-02] MEDS: GABAPENTIN 400 MG CAP PO SCH ×2 (08:25→20:04)
[2016-09-02] MEDS: ATENOLOL 50 MG TAB PO SCH (08:25)
[2016-09-02] MEDS: LIDOCAINE 5% OINT 30 GM TOP SCH ×2 (08:25→19:05)
[2016-09-02] MEDS: DOCUSATE SODIUM 100 MG CAP PO SCH ×2 (08:26→20:04)
[2016-09-02] MEDS: MAGNESIUM OXIDE 400 MG TAB (MAG-OX) PO SCH ×2 (08:26→20:04)
[2016-09-02] MEDS: PANTOPRAZOLE 40MG TAB (PROTONIX) PO SCH (08:26)
[2016-09-02] MEDS: SODIUM CHLORIDE 1 GM TAB PO SCH ×2 (08:26→20:06)
[2016-09-02] MEDS: NORTRIPTYLINE 25 MG CAP PO SCH ×3 (08:26→20:04)
[2016-09-02] MEDS: IPRATROPIUM 0.5MG/ALBUTEROL 2.5MG INH SOL UD 3ML (DUONEB)(J7620) NEB SCH ×4 (09:23→20:26)
--- NOTE | 2016-09-02 09:50 | IPN ---
DATE: 09/01/2016 I am seeing Mr. Shaw for Dr. Estrella as I am biofuels production technician for the neurosurgery service. The floor nurse on [place] called me earlier today stating that Mr. Shaw has been now unresponsive with increasing weakness of his left upper extremity, though gradually he started opening his eyes by the time I saw him in the preoperative area. The patient apparently had two previous cranial surgeries recently for drainage of subdural hematoma by Dr. Estrella. Postoperative CT scan done today showed slight enlargement of the subdural fluid collection, though no obvious molly fresh bleeding was seen. There continues to be a shift of midline structures which could be somewhat worse when compared to the last scan. The patient was seen in the perioperative area. History was obtained from the electronic medical record, discussions with Dr. Estrella and from the family. 66-year-old gentleman with a past medical history for diabetes, high blood pressure, peripheral vascular disease, ischemic heart disease, sleep apnea, chronic obstructive pulmonary disease (COPD), amongst others. On examination, he is drowsy, arouses to verbal stimuli, cannot follow one step command with any accuracy. It appears he has both upper and lower motor neuron weakness of the left upper extremity. There is hyperreflexia in the left upper extremity. The right pupil is slightly larger, both react. Extraocular motors appear to be full, though the lateral ductions seem to be at 4/5. The patient is report diplopia in all ductions. He has periods where he is more awake and conversant, where he also demonstrates bilateral hemisensory inattention. He has a right below knee amputation and has had several procedures done for revascularization of his lower extremities. The temperature is adequate in the left foot, though the pedal pulses are very palpable. He has diffuse psoriatic rash and occasional nonhealing ulcers. Also demonstrates Josh-Dinero respirations and has shallow breathing with audible wheezing. PLAN/RECOMMENDATIONS: Various options of management were discussed with the patient's family including continued close observation or surgery. They understand surgery would not be curative and he would have, at best, a 25% chance of getting any benefit and there is no guarantee that he will not continue to reaccumulate subdural fluid/blood collection. This will be his third procedure in the last several days. They understand if they elect for surgery, I would recommend it to be done under local anesthesia with sedation as I am concerned about his respiratory status and according to the anesthesiologist he also feels comfortable if the surgery is done under local anesthesia with conscious sedation. He feels it would be difficult to extubate him if he has general anesthesia at this point. The patient's family understands the risk of surgery. They understand the scope, expected outcome, sequelae and all complications. They understand the risk of surgery includes but is not limited to , quadriplegia, persistence or worsening of his symptoms and/or deficits, seizure disorder or status epilepticus, loss of any or all vital bodily functions, pulmonary embolus (PE), myocardial infarction ([place]), deep vein thrombosis (DVT), infection, bleeding poor healing of the wound and/or any catastrophic sequelae. They understand the surgery comes with no guarantee and the risk of surgery also includes failure of surgery to relieve the subdural hematoma and he may continue to require multiple surgery and that are also without any guarantees. The patient and his family members have decided to proceed with surgery. The patient's last labs were reviewed. PLAN: To operating room for right frontal craniotomy for evacuation of subdural hematoma.
--- NOTE | 2016-09-02 10:59 | IPNPDOC ---
Subjective Date Seen The patient was seen on 09/02/16. Subjective Chief Complaint/HPI The patient is a 66-year-old male admitted with a reason for visit of Subdural Bleeding. Events since last encounter Pt this morning with his gf at bedside. He is feeling great. He states that he can move his arms, and hands with good strength and control. He has some head tenderness at the site of surgery but he denies ESTEVES. General: Denies: Fatigue Constitutional: Denies: Chills, Fever ENT: Denies: Head Aches Pulmonary: Denies: Dyspnea, Cough Cardiovascular: Denies: Chest Pain, Palpitations Gastrointestinal: Denies: Nausea, Vomiting, Diarrhea Musculoskeletal: Denies: Neck Pain, Back Pain Neurological: Reports: Weakness (generalized) Psych: Reports: Mood Normal Objective Physical Examination General Exam: Positive: Alert, Cooperative, No Acute Distress ENT Exam: Positive: Mucous membr. moist/pink Neck Exam: Negative: thyromegaly, Lymphadenopathy Chest Exam: Positive: Clear to auscultation, Diminished, Negative: Rales, Wheezing Heart Exam: Positive: Rate Normal, Normal S1, Normal S2, Murmurs Abdomen Exam: Positive: Normal bowel sounds, Soft, Negative: Tenderness Extremity Exam: Positive: Other (right BKA), Negative: Edema Skin Exam: Positive: Nl turgor and temperature, Rash (widespread plaques of psoriasis.) Neuro Exam: Positive: Other (mildly dysarthric. 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 09/01 - POD3 s/p craniotomy on 08/29/2016, mgmt per NS. Appears stable. 08/30/16 CT brain consistent with post op changes 08/27 - MRI brain: "No clinically significant change in the size or appearance of the right lateral subdural subacute hematoma. Mass effect and leftward midline shift is grossly unchanged since the prior CT examination. No evidence of acute infarct. Mild chronic small vessel ischemic disease and age-related atrophy." [place] hole done by Dr. Estrella 08/23/2016. (2) Brain compression Status: Acute Response to Treatment: Stable Problem Specific Plan: Consult Specialist, Monitor Clinically Problem Text: 09/01 - C/o L sided headache, mostly soreness from surgery per pt (3) Ileus Status: Resolved Response to Treatment: Improving Problem Text: 09/01 - Resolved, eating well, 3 BMs on 08/29, will review bowel care. Abd xray from 08/26: "Bowel gas pattern suggests ileus. (4) Phantom limb syndrome with pain Status: Chronic Response to Treatment: Improving, Uncontrolled Discussed With: Nurse, Patient, Family with Pt Consent Problem Specific Plan: Monitor Clinically Problem Text: Lidocaine and oral meds for pain control resumed post- operatively on 08/30/16 (5) DM2 (diabetes mellitus, type 2) Status: Chronic Problem Text: Continue carb consistent diet and ISS. (6) Chronic alcohol abuse Status: Chronic Problem Text: No signs or symptoms of alcohol withdrawal. - Begin CIWA scoring if patient develops symptoms of withdrawal (7) CKD (chronic kidney disease), stage III Status: Chronic Problem Text: Creatinine stable. Avoid nephrotoxic agents. (8) Hypertension Status: Chronic Discussed With: Pt and Family Services Problem Text: Attending d/w Neurosurgery on 08/31/16; Neurosurg recommends goal SBP </= 160. He has been at goal since atenolol was increased and amlodipine was added. He was previously on furosemide and HCTZ, but these are being held due to hyponatremia. (9) GERD (gastroesophageal reflux disease) Status: Chronic (10) PVD (peripheral vascular disease) Status: Chronic Response to Treatment: Stable Problem Text: Status post right BKA (11) Anemia Status: Chronic Response to Treatment: Stable Problem Text: Secondary to end-stage renal disease (12) Hyponatremia Status: Acute Response to Treatment: Stable Problem Text: 09/01 - NA 136 this morning, cont to monitor. 08/31 seems to be associated with hint of excess fluid. salt tablets given at rec of neurosurgeon, po fluids restricted. will also restrict IV fluids some. consider use of loop diuretic at low dose. since admission based on I/O balance , he is +4656 ml (13) Hypomagnesemia Status: Acute Response to Treatment: Stable Problem Specific Plan: Monitor Clinically, Repeat Labs Problem Text: 09/01 Started on Mag oxide 400 mg BID today, monitor. Repeat lab ordered fro 09/03. Plan/VTE VTE Prophylaxis Ordered?: No (patient on compression stockings only) VTE Exclusion Pharmacological: Hemorrhage Plan Diet: Advance Diagnostics: Check Labs, Repeat Labs in AM VS, I&O, 24H, Fishbone Vital Signs/I&O Vital Signs Date Time Temp Pulse Resp B/P (MAP) Pulse Ox O2 Delivery O2 Flow Rate FiO2 09/02/16 09:24 93 Nasal Cannula 3.0 09/02/16 08:25 79 138/70 09/02/16 08:00 98.5 16 09/02/16 04:00 92 I&O- Last 24 Hours up to 6 AM 09/02/16 06:00 Intake Total 1835 ml Output Total 1750 ml Balance 85 ml Laboratory Data 24H LABS Laboratory Tests 2 09/01/16 11:46: Bedside Glucose (Misc Panel) 203H 09/01/16 16:47: Bedside Glucose (Misc Panel) 95 09/01/16 20:01: Bedside Glucose (Misc Panel) 85 09/01/16 20:02: Prothrombin Time 14.0, Prothromb Time International Ratio 1.07, Activated Partial Thromboplast Time 45.6H 09/02/16 04:58: Anion Gap 7L, Glomerular Filtration Rate > 60.0, Blood Urea Nitrogen 14, Creatinine 1.03, Sodium Level 136, Potassium Level 4.2, Chloride Level 102, Carbon Dioxide Level 27, Calcium Level 9.3 09/02/16 05:07: Bedside Glucose (Misc Panel) 141H CBC/BMP Laboratory Tests 09/01/16 20:02 09/02/16 04:58 Red Blood Count 4.51, Mean Corpuscular Volume 94.6, Mean Corpuscular Hemoglobin 31.2, Mean Corpuscular Hemoglobin Concent 33.0, Red Cell Distribution Width 13.8 , Calcium Level 9.3 Microbiology Microbiology 08/26/16 Blood Culture - Final, Complete NO GROWTH AFTER 5 DAYS 08/26/16 Blood Culture - Final, Complete NO GROWTH AFTER 5 DAYS 08/26/16 Clostridium difficile (PCR) - Final, Complete 08/26/16 Urine Culture - Final, Complete 09/01/16 Gram Stain - Final, Resulted 09/01/16 Wound Culture, Resulted Pending 09/01/16 Anaerobic Culture, Resulted Pending MARY JANE YOUNG PA-C Sep 02, 2016 10:59
[2016-09-02] MEDS ORDERED: levETIRAcetam INJection 500 MG in D5W MINI-BAG PLUS 100 ML IV ONE (16:00)
--- NOTE | 2016-09-02 16:51 | REP ---
CT HEAD WITHOUT CONTRAST: HISTORY: Altered mental status. COMPARISON: 09/01/2016 The patient is status-post right frontal craniotomy. A new subdural drain is present over the right cerebral hemisphere. A mixed density subdural hematoma is present over the right cerebral hemisphere. The subdural hematoma measures 2.2 cm in width and is decreased in size compared to the previous study. There is mass effect with partial effacement of the body of the right lateral and third ventricles with midline shift to the left that is slightly decreased compared to the previous study. A small amount of pneumocephalus is present that is decreased compared to the previous study. Areas of decreased attentuation are present in the thalami , right basal ganglia and left internal capsule. These represent old lacunar infarctions. There is no hydrocephalus. The cortical sulci are dilated consistent with mild volume loss. The visualized sinuses are clear. IMPRESSION: 1. There has been a decrease in size of the subdural hematoma present over the right cerebral hemisphere. There is midline shift to the left that is decreased compared to previous study. 2. 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 3. Mild volume loss. Signed by Rodríguez Gupta MD 09/02/2016 04:58 P
[2016-09-02] MEDS: PRAVASTATIN 20 MG TAB PO SCH (20:04)
[2016-09-02] MEDS ORDERED: PERCOCET 5MG/325MG TAB PO PRN (21:45)
[2016-09-03] VITALS (7 sets, daily range): BP systolic 127–179; BP diastolic 60–113
[2016-09-03] MEDS: IPRATROPIUM 0.5MG/ALBUTEROL 2.5MG INH SOL UD 3ML (DUONEB)(J7620) NEB SCH ×4 (08:00→20:05)
[2016-09-03] MEDS: HumaLOG INSULIN (NovoLOG) PER UNIT SC SCH ×4 (08:21→20:13)
[2016-09-03] MEDS: PANTOPRAZOLE 40MG TAB (PROTONIX) PO SCH (08:54)
[2016-09-03] MEDS: SODIUM CHLORIDE 1 GM TAB PO SCH ×2 (08:54→20:35)
[2016-09-03] MEDS: MAGNESIUM OXIDE 400 MG TAB (MAG-OX) PO SCH ×2 (08:54→20:36)
[2016-09-03] MEDS: DOCUSATE SODIUM 100 MG CAP PO SCH ×2 (08:54→20:35)
[2016-09-03] MEDS: NORTRIPTYLINE 25 MG CAP PO SCH ×3 (08:54→20:35)
[2016-09-03] MEDS: ATENOLOL 50 MG TAB PO SCH (08:55)
[2016-09-03] MEDS: LIDOCAINE 5% OINT 30 GM TOP SCH ×2 (08:57→20:36)
[2016-09-03] MEDS: CLOBETASOL PROPIONATE EMOLLIENT 0.05% CR 60 GM TOP SCH ×2 (08:59→20:36)
[2016-09-03 09:33] LABS: MEAN CORPUSCULAR HEMOGLOBIN 30.7 pg (27.0-33.0); MEAN CORPUSCULAR HGB CONC 32.7 g/dl (32.0-36.5); MEAN CORPUSCULAR VOLUME 93.9 fl (80.0-96.0); RED CELL DISTRIBUTION WIDTH 13.5 % (11.5-14.5); WHITE BLOOD COUNT 9.2 K/mm3 (4.0-10.0)
[2016-09-03 09:41] LABS: ANION GAP 10 MEQ/L (8-16); BLOOD UREA NITROGEN 15 MG/DL (7-18); CALCIUM LEVEL 9.7 MG/DL (8.8-10.2); CARBON DIOXIDE LEVEL 23 MEQ/L (21-32); CHLORIDE LEVEL 102 MEQ/L (98-107); CREATININE FOR GFR 0.93 MG/DL (0.70-1.30); GLOMERULAR FILTRATION RATE > 60.0 (>49); GLUCOSE, FASTING 127 MG/DL (80-110); POTASSIUM SERUM 4.1 MEQ/L (3.5-5.1); SODIUM LEVEL 135 MEQ/L (136-145)
[2016-09-03] MEDS: GABAPENTIN 400 MG CAP PO SCH ×2 (10:28→20:35)
--- NOTE | 2016-09-03 10:59 | IPNPDOC ---
Date Seen The patient was seen on 09/03/16. Progress Note NEUROSURGERY Admission day #: 12 (08/22/16) Post-op Day #: 11, 5 Pain control: Satisfactory at incision. Tylenol 1,000 mg PO q6hrs PRN for pain/ fever. Percocet 5 mg/ 325 mg 1 tab PO q6 hrs PRN for moderate pain. Percocet 5 mg/ 325 mg 2 tab PO q6 hrs PRN for severe pain. Surgical procedure: --08/23/16. [place] hole placement. Craniotomy for evacuation of Right chronic SDH. By Dr. Estrella. --08/29/16. Right fontal craniotomy, drainage of recurrent acute and sub acute recurrent subdural hematoma, cranioplasty. Over 24 hrs: Per nursing- he had been doing well and then yesterday afternoon he developed a left-sided facial droop. He was given Keppra and his CT of the head was ordered. The CT of the head was noted to be unremarkable. His lethargy was progressively worsening throughout the night. He was difficult to arouse but once alert he did not appear to be lethargic. This morning he is noted to be doing significantly better and eating without difficulty. He has been complaining of pain at BKA site. Evaluated by speech therapy- swallowing eval was appropriate. He has been cleared to eat. Evaluated by PT- SUBJECTIVE Accompanied by: practical nursing instructor Mr. Shaw is a pleasant 66-year-old male with a history of alcoholism, CKD3 , DM 2, PVD with BKA, hypertension, and anemia who was admitted for subdural hematoma. He states he is feeling well today and offers no new concerns. OBJECTIVE Clinical status: AVSS Neurological status: Alert and orientated x2; unable to recall year. He is able to correctly state month and day. EVD= drained 5 mL overnight. Has drained 20 mL total since placed. Wound/incision: Dressing covering incision. Incision appears to be healing well. No increased drainage, erythema, or increased pain at the site. Motor: Able to move his upper extremities well. Gait= not assessed. LABS: WBC= 9.2 HGB= 14.6 Na+= 135 K+= 4.1 IMAGIN09/02/16, CT head. 1.) There has been a decrease in size of the subdural hematoma present over the right cerebral hemisphere. There is midline shift to the left that is decreased compared to previous study. 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 3. ) Mild volume loss. ASSESSMENT Stable PLAN per Dr. Estrella 1. Subdural hematoma with brain compression. Condition is stable. Plan to remove the drain tomorrow, 09/04/16. 2. Wound care: Afebrile, WBC is WNL. No signs of infection. Antibiotic is finished. 3. Pain control: Satisfactory at incision. See above. Consult for pain management to assess pain at BKA site. Dr. Estrella will speak with pain management. 4. DVT prophylaxis: TEDs and SCD. 5. Seizure prophylaxis: Was given 1 dose of Keppra yesterday, 09/02/16. 6. Constipation prophylaxis: Colace 100 mg PO BID, MOM 30 mL PO daily PRN. Senna 1 tab PO BID PRN. 7. Nausea prophylaxis: Zofran 4 mg IV q8hrs PRN for N/V. 7. Diet: Cleared by speech therapy to eat. As tolerated. 8. Activity: per PT. 9. D/C plan: Plan to send to subacute rehabilitation. Dhara has been D/C. Thank you for all consulting providers for your much appreciated help regarding care of Mr. Shaw. Dr. Delores Wang, RPA-C VS, I&O, 24H, [place] Vital Signs/I&O Vital Signs Date Time Temp Pulse Resp B/P (MAP) Pulse Ox O2 Delivery O2 Flow Rate FiO2 09/03/16 08:55 84 179/113 09/03/16 04:00 98.0 18 94 Room Air 09/02/16 12:00 2.0 09/02/16 04:00 92 I&O- Last 24 Hours up to 6 AM 09/03/16 05:59 Intake Total 2600 ml Output Total 2260 ml Balance 340 ml Laboratory Data 24H LABS Laboratory Tests 2 09/02/16 11:49: Bedside Glucose (Misc Panel) 132H 09/02/16 16:29: Bedside Glucose (Misc Panel) 165H 09/02/16 20:22: Bedside Glucose (Misc Panel) 110 09/03/16 04:27: Bedside Glucose (Misc Panel) 157H 09/03/16 04:36: Anion Gap 10, Glomerular Filtration Rate > 60.0, Blood Urea Nitrogen 15, Creatinine 0.93, Sodium Level 135L, Potassium Level 4.1, Chloride Level 102, Carbon Dioxide Level 23, Calcium Level 9.7, Magnesium Level 2.0 09/03/16 08:14: Bedside Glucose (Misc Panel) 136H CBC/BMP Laboratory Tests 09/03/16 04:36 Calcium Level 9.7 09/03/16 09:20 Red Blood Count 4.74, Mean Corpuscular Volume 93.9, Mean Corpuscular Hemoglobin 30.7, Mean Corpuscular Hemoglobin Concent 32.7, Red Cell Distribution Width 13.5 Microbiology Microbiology 08/26/16 Blood Culture - Final, Complete NO GROWTH AFTER 5 DAYS 08/26/16 Blood Culture - Final, Complete NO GROWTH AFTER 5 DAYS 08/26/16 Clostridium difficile (PCR) - Final, Complete 08/26/16 Urine Culture - Final, Complete 09/01/16 Gram Stain - Final, Resulted 09/01/16 Wound Culture, Resulted Pending 09/01/16 Anaerobic Culture, Resulted Pending MARIEL WANG PA-C Sep 03, 2016 10:59
--- NOTE | 2016-09-03 15:09 | IPNPDOC ---
Subjective Date Seen The patient was seen on 09/03/16. Subjective Chief Complaint/HPI The patient is a 66-year-old male admitted with a reason for visit of Subdural Bleeding. Events since last encounter Denies complaints today. Constitutional: Denies: Chills, Fever Skin: Reports: Rash (psoriasis - chronic) Pulmonary: Denies: Dyspnea, Cough Cardiovascular: Denies: Chest Pain, Palpitations Gastrointestinal: Denies: Nausea, Vomiting, Abdominal Pain Neurological: Denies: Weakness, Change in speech Objective Physical Examination General Exam: Positive: Alert, Cooperative, No Acute Distress ENT Exam: Positive: Mucous membr. moist/pink Neck Exam: Negative: thyromegaly, Lymphadenopathy Chest Exam: Positive: Clear to auscultation, Diminished, Negative: Rales, Wheezing Heart Exam: Positive: Rate Normal, Normal S1, Normal S2, Murmurs Abdomen Exam: Positive: Normal bowel sounds, Soft, Negative: Tenderness Extremity Exam: Positive: Other (right BKA), Negative: Edema Skin Exam: Positive: Nl turgor and temperature, Rash (widespread plaques of psoriasis.) Neuro Exam: Positive: Other (Speech normal; raises arms above head) Assessment /Plan Problems (1) Subdural bleeding Status: Acute Response to Treatment: Stable Problem Text: 09/03 - Neuro exam stable; will likely be stable for PMR in the next 1-2 days. 09/02 - repeat craniotomy done 09/01 due to recurrence of hematoma, NS following, anticipates clearance tomorrow to PMR. 09/01 - POD3 s/p craniotomy on 08/29/2016, mgmt per NS. Appears stable. 08/30/16 CT brain consistent with post op changes 08/27 - MRI brain: "No clinically significant change in the size or appearance of the right lateral subdural subacute hematoma. Mass effect and leftward midline shift is grossly unchanged since the prior CT examination. No evidence of acute infarct. Mild chronic small vessel ischemic disease and age-related atrophy." [place] hole done by Dr. Estrella 08/23/2016. (2) Ileus Status: Resolved Response to Treatment: Improving Problem Text: 09/01 - Resolved, eating well, 3 BMs on 08/29, will review bowel care. Abd xray from 08/26: "Bowel gas pattern suggests ileus. (3) Phantom limb syndrome with pain Status: Chronic Response to Treatment: Improving, Uncontrolled Discussed With: Nurse, Patient, Family with Pt Consent Problem Specific Plan: Monitor Clinically Problem Text: Lidocaine and oral meds for pain control resumed post- operatively on 08/30/16 (4) DM2 (diabetes mellitus, type 2) Status: Chronic Problem Text: Continue carb consistent diet and ISS. (5) Chronic alcohol abuse Status: Chronic Problem Text: No signs or symptoms of alcohol withdrawal. - Begin CIWA scoring if patient develops symptoms of withdrawal (6) CKD (chronic kidney disease), stage III Status: Chronic Problem Text: Creatinine stable. Avoid nephrotoxic agents. (7) Hypertension Status: Chronic Discussed With: Pt and Family Services Problem Text: 09/03 - BP was a bit elevated this morning but has been at goal this afternoon. Attending d/w Neurosurgery on 08/31/16; Neurosurg recommends goal SBP </= 160. He has been at goal since atenolol was increased and amlodipine was added. He was previously on furosemide and HCTZ, but these are being held due to hyponatremia. (8) GERD (gastroesophageal reflux disease) Status: Chronic (9) PVD (peripheral vascular disease) Status: Chronic Response to Treatment: Stable Problem Text: Status post right BKA (10) Anemia Status: Chronic Response to Treatment: Stable Problem Text: Secondary to end-stage renal disease (11) Hyponatremia Status: Acute Response to Treatment: Stable Problem Text: 09/03 - Na a bit low this morning at 135 - will recheck tomorrow. 09/01 - NA 136 this morning, cont to monitor. 08/31 seems to be associated with hint of excess fluid. salt tablets given at rec of neurosurgeon, po fluids restricted. will also restrict IV fluids some. consider use of loop diuretic at low dose. since admission based on I/O balance , he is +4656 ml (12) Hypomagnesemia Status: Acute Response to Treatment: Stable Problem Specific Plan: Monitor Clinically, Repeat Labs Problem Text: 09/03 - Mag level now normal; continue oral supplement 09/01 Started on Mag oxide 400 mg BID today, monitor. Repeat lab ordered fro . Plan/VTE VTE Prophylaxis Ordered?: No (patient on compression stockings only) VTE Exclusion Pharmacological: Hemorrhage Plan Diet: Advance Diagnostics: Check Labs, Repeat Labs in AM VS, I&O, 24H, Fishbone Vital Signs/I&O Vital Signs Date Time Temp Pulse Resp B/P (MAP) Pulse Ox O2 Delivery O2 Flow Rate FiO2 09/03/16 12:00 99.1 61 18 127/60 (82) 98 Room Air 09/02/16 12:00 2.0 09/02/16 04:00 92 I&O- Last 24 Hours up to 6 AM 09/03/16 06:00 Intake Total 2435 ml Output Total 2305 ml Balance 130 ml Laboratory Data 24H LABS Laboratory Tests 2 09/02/16 16:29: Bedside Glucose (Misc Panel) 165H 09/02/16 20:22: Bedside Glucose (Misc Panel) 110 09/03/16 04:27: Bedside Glucose (Misc Panel) 157H 09/03/16 04:36: Anion Gap 10, Glomerular Filtration Rate > 60.0, Blood Urea Nitrogen 15, Creatinine 0.93, Sodium Level 135L, Potassium Level 4.1, Chloride Level 102, Carbon Dioxide Level 23, Calcium Level 9.7, Magnesium Level 2.0 09/03/16 08:14: Bedside Glucose (Misc Panel) 136H 09/03/16 11:19: Bedside Glucose (Misc Panel) 154H CBC/BMP Laboratory Tests 09/03/16 04:36 Calcium Level 9.7 09/03/16 09:20 Red Blood Count 4.74, Mean Corpuscular Volume 93.9, Mean Corpuscular Hemoglobin 30.7, Mean Corpuscular Hemoglobin Concent 32.7, Red Cell Distribution Width 13.5 Microbiology Microbiology 08/26/16 Blood Culture - Final, Complete NO GROWTH AFTER 5 DAYS 08/26/16 Blood Culture - Final, Complete NO GROWTH AFTER 5 DAYS 08/26/16 Clostridium difficile (PCR) - Final, Complete 08/26/16 Urine Culture - Final, Complete 09/01/16 Gram Stain - Final, Resulted 09/01/16 Wound Culture, Resulted Pending 09/01/16 Anaerobic Culture, Resulted Pending ALLIE ROMERO MD Sep 03, 2016 15:09
[2016-09-03] MEDS: ACETAMINOPHEN 500 MG TAB PO PRN (16:01)
[2016-09-03] MEDS: PRAVASTATIN 20 MG TAB PO SCH (20:35)
--- NOTE | 2016-09-03 21:08 | CR ---
DATE OF CONSULTATION: 09/03/2016 REFERRING PHYSICIAN: Amy Wang PA-C HISTORY OF PRESENT ILLNESS: Jamar is a 66-year-old gentleman who was admitted on August 22 for traumatic intracranial hemorrhage with midline shift. History of multiple comorbidities. states he was taken off of his pain medications, I assume narcotic pain medications, 3 months ago from primary care with the reason being poor liver function. He was placed on gabapentin 1200 mg three times a day. The patient is complaining of severe stump pain, not only here but at home. Rating his pain level as a 10 over 10. Currently, they are using lidocaine jelly, which the patient states helps for about 10 minutes and then wears off. Due to his multiple comorbidities and frequent and recent evacuation of recurring subdural hematoma, he and his are aware that opioid pain medications would be of extremely high risk. There was mention of a dorsal column stimulation trial by neurosurgery. Unfortunately, patient's insurance, which is [facility] plan/Medicaid, would not cover a dorsal column stimulator trial or dorsal column stimulator placement for his pain. PAST MEDICAL HISTORY: 1. Diabetes mellitus type 2. 2. Hypertension. 3. Chronic obstructive pulmonary disease (COPD). 4. Alcohol abuse. 5. Atherosclerotic vascular disease status post below-knee amputation of the right lower extremity. 6. Phantom pain. PHYSICAL EXAMINATION: Awake, alert, pleasant. and family at bedside. Rating pain level as a 10+, rubbing his right stump. CARDIAC: S1, S2. Normal rate and rhythm. RESPIRATORY: Lung sounds clear. Respirations nonlabored. ASSESSMENT: Chronic right stump phantom pain. PLAN: May consider trial of Cymbalta. Unfortunately, suggestions are limited due to his chronic medical condition and insurance constraints. Also, a primary care could entertain trial of Lyrica, of course a prior authorization would have to be done stating treatment failure on gabapentin.
[2016-09-04] VITALS: BP 138/74
[2016-09-04] MEDS: ACETAMINOPHEN 500 MG TAB PO PRN ×2 (02:19→11:59)
[2016-09-04 04:00] VITALS: BP 142/82
[2016-09-04 07:14] LABS: OSMOLALITY SERUM 290 MOSM/KG (280-301)
[2016-09-04 07:19] LABS: ANION GAP 7 MEQ/L (8-16); BLOOD UREA NITROGEN 16 MG/DL (7-18); CALCIUM LEVEL 9.5 MG/DL (8.8-10.2); CARBON DIOXIDE LEVEL 27 MEQ/L (21-32); CHLORIDE LEVEL 104 MEQ/L (98-107); CREATININE FOR GFR 0.99 MG/DL (0.70-1.30); GLOMERULAR FILTRATION RATE > 60.0 (>49); GLUCOSE, FASTING 131 MG/DL (80-110); POTASSIUM SERUM 4.2 MEQ/L (3.5-5.1); SODIUM LEVEL 138 MEQ/L (136-145)
[2016-09-04] MEDS: HumaLOG INSULIN (NovoLOG) PER UNIT SC SCH ×4 (07:48→21:19)
[2016-09-04 08:00] VITALS: BP 157/88
[2016-09-04] MEDS: PANTOPRAZOLE 40MG TAB (PROTONIX) PO SCH (08:45)
[2016-09-04] MEDS: MAGNESIUM OXIDE 400 MG TAB (MAG-OX) PO SCH ×2 (08:45→20:39)
[2016-09-04] MEDS: SODIUM CHLORIDE 1 GM TAB PO SCH ×2 (08:45→20:39)
[2016-09-04] MEDS: DOCUSATE SODIUM 100 MG CAP PO SCH ×2 (08:45→20:39)
[2016-09-04] MEDS: GABAPENTIN 400 MG CAP PO SCH ×2 (08:46→20:38)
[2016-09-04] MEDS: NORTRIPTYLINE 25 MG CAP PO SCH ×3 (08:47→20:39)
[2016-09-04] MEDS: LIDOCAINE 5% OINT 30 GM TOP SCH ×2 (08:48→20:40)
[2016-09-04] MEDS: CLOBETASOL PROPIONATE EMOLLIENT 0.05% CR 60 GM TOP SCH ×2 (08:48→20:41)
[2016-09-04] MEDS: ATENOLOL 50 MG TAB PO SCH (08:51)
--- NOTE | 2016-09-04 09:18 | IPNPDOC ---
Subjective Date Seen The patient was seen on 09/04/16. Subjective Chief Complaint/HPI The patient is a 66-year-old male admitted with a reason for visit of Subdural Bleeding. Events since last encounter Pt upset this morning bc the nurse woke him last night using a sternal rub as he wasn't waking with other stimuli. He is upset bc it hurt. He is feeling well. His is at bedside and she is quite pleased with his progress. General: Denies: Fatigue Constitutional: Denies: Chills, Fever ENT: Denies: Head Aches Pulmonary: Denies: Dyspnea, Cough Cardiovascular: Denies: Chest Pain, Palpitations Gastrointestinal: Denies: Nausea, Vomiting, Diarrhea Neurological: Denies: Weakness Psych: Reports: Mood Normal Objective Physical Examination General Exam: Positive: Alert, Cooperative, No Acute Distress ENT Exam: Positive: Mucous membr. moist/pink Neck Exam: Negative: thyromegaly, Lymphadenopathy Chest Exam: Positive: Clear to auscultation, Diminished, Negative: Rales, Wheezing Heart Exam: Positive: Rate Normal, Normal S1, Normal S2, Murmurs Abdomen Exam: Positive: Normal bowel sounds, Soft, Negative: Tenderness Extremity Exam: Positive: Other (right BKA), Negative: Edema Skin Exam: Positive: Nl turgor and temperature, Rash (widespread plaques of psoriasis.) Neuro Exam: Positive: Other (Speech normal; raises arms above head) Assessment /Plan Problems (1) Subdural bleeding Status: Acute Response to Treatment: Stable Problem Text: 09/04 - exam remains stable, anticipate d/c for rehab soon, per NS. 09/03 - Neuro exam stable; will likely be stable for PMR in the next 1-2 days. 09/02 - repeat craniotomy done 09/01 due to recurrence of hematoma, NS following, anticipates clearance tomorrow to PMR. 09/01 - POD3 s/p craniotomy on 08/29/2016, mgmt per NS. Appears stable. 08/30/16 CT brain consistent with post op changes 08/27 - MRI brain: "No clinically significant change in the size or appearance of the right lateral subdural subacute hematoma. Mass effect and leftward midline shift is grossly unchanged since the prior CT examination. No evidence of acute infarct. Mild chronic small vessel ischemic disease and age-related atrophy." [place] hole done by Dr. Estrella 08/23/2016. (2) Ileus Status: Resolved Response to Treatment: Improving Problem Text: 09/01 - Resolved, eating well, 3 BMs on 08/29, will review bowel care. Abd xray from 08/26: "Bowel gas pattern suggests ileus. (3) Phantom limb syndrome with pain Status: Chronic Response to Treatment: Improving, Uncontrolled Discussed With: Nurse, Patient, Family with Pt Consent Problem Specific Plan: Monitor Clinically Problem Text: Lidocaine and oral meds for pain control resumed post- operatively on 08/30/16 (4) DM2 (diabetes mellitus, type 2) Status: Chronic Problem Text: Continue carb consistent diet and ISS. (5) Chronic alcohol abuse Status: Chronic Problem Text: No signs or symptoms of alcohol withdrawal. - Begin CIWA scoring if patient develops symptoms of withdrawal (6) CKD (chronic kidney disease), stage III Status: Chronic Problem Text: Creatinine stable. Avoid nephrotoxic agents. (7) Hypertension Status: Chronic Discussed With: Pt and Family Services Problem Text: 09/03 - BP was a bit elevated this morning but has been at goal this afternoon. Attending d/w Neurosurgery on 08/31/16; Neurosurg recommends goal SBP </= 160. He has been at goal since atenolol was increased and amlodipine was added. He was previously on furosemide and HCTZ, but these are being held due to hyponatremia. (8) GERD (gastroesophageal reflux disease) Status: Chronic (9) PVD (peripheral vascular disease) Status: Chronic Response to Treatment: Stable Problem Text: Status post right BKA (10) Anemia Status: Chronic Response to Treatment: Stable Problem Text: Secondary to end-stage renal disease (11) Hyponatremia Status: Acute Response to Treatment: Stable Problem Text: 09/03 - Na a bit low this morning at 135 - will recheck tomorrow. 09/01 - NA 136 this morning, cont to monitor. 08/31 seems to be associated with hint of excess fluid. salt tablets given at rec of neurosurgeon, po fluids restricted. will also restrict IV fluids some. consider use of loop diuretic at low dose. since admission based on I/O balance , he is +4656 ml (12) Hypomagnesemia Status: Acute Response to Treatment: Stable Problem Specific Plan: Monitor Clinically, Repeat Labs Problem Text: 09/03 - Mag level now normal; continue oral supplement 09/01 Started on Mag oxide 400 mg BID today, monitor. Repeat lab ordered fro . Plan/VTE VTE Prophylaxis Ordered?: No (patient on compression stockings only) VTE Exclusion Pharmacological: Hemorrhage Plan/Urinary Catheter Reason for insertion/continuin: Acute obstruct/retention Plan Diet: Advance Diagnostics: Check Labs, Repeat Labs in AM Family Medicine Attending Note: I saw and examined Mr. Shaw this afternoon ; I d/w QIANA Theodore and I agree with her note above. Mr. Shaw is doing well and will likely transfer to PMR soon. He had no complaints - he was alert and interactive this afternoon and sitting in a chair. (KES) VS, I&O, 24H, Fishbone Vital Signs/I&O Vital Signs Date Time Temp Pulse Resp B/P (MAP) Pulse Ox O2 Delivery O2 Flow Rate FiO2 09/04/16 08:51 69 157/78 09/04/16 08:00 Room Air 09/04/16 08:00 97.8 21 92 09/02/16 12:00 2.0 09/02/16 04:00 92 I&O- Last 24 Hours up to 6 AM 09/04/16 05:59 Intake Total 1340 ml Output Total 2058 ml Balance -718 ml Laboratory Data 24H LABS Laboratory Tests 2 09/03/16 11:19: Bedside Glucose (Misc Panel) 154H 09/03/16 17:04: Bedside Glucose (Misc Panel) 130H 09/03/16 20:11: Bedside Glucose (Misc Panel) 179H 09/04/16 06:28: Urine Random Osmolality 562 09/04/16 06:46: Anion Gap 7L, Glomerular Filtration Rate > 60.0, Osmolality 290, Blood Urea Nitrogen 16, Creatinine 0.99, Sodium Level 138, Potassium Level 4.2, Chloride Level 104, Carbon Dioxide Level 27, Calcium Level 9.5 CBC/BMP Laboratory Tests 09/03/16 09:20 Red Blood Count 4.74, Mean Corpuscular Volume 93.9, Mean Corpuscular Hemoglobin 30.7, Mean Corpuscular Hemoglobin Concent 32.7, Red Cell Distribution Width 13.5 09/04/16 06:46 Calcium Level 9.5 Microbiology Microbiology 08/26/16 Blood Culture - Final, Complete NO GROWTH AFTER 5 DAYS 08/26/16 Blood Culture - Final, Complete NO GROWTH AFTER 5 DAYS 08/26/16 Clostridium difficile (PCR) - Final, Complete 08/26/16 Urine Culture - Final, Complete 09/01/16 Gram Stain - Final, Resulted 09/01/16 Wound Culture, Resulted Pending 09/01/16 Anaerobic Culture - Final, Resulted MARY JANE YOUNG PA-C Sep 04, 2016 09:17 ALLIE ROMERO MD Sep 04, 2016 14:31
--- NOTE | 2016-09-04 09:49 | EEG ---
DATE OF STUDY: 09/03/2016 REFERRING PHYSICIAN: Dr. Harlan Estrella DIAGNOSIS: Subdural hemorrhage, status post craniotomy. ELECTROENCEPHALOGRAM (EEG) #[id number]. HISTORY: The patient is a 66-year-old man with history of alcoholism. who was admitted at [facility] due to traumatic subdural hematoma. He had right-sided temporal craniotomy. This EEG was done to rule out epileptic potential. His current list of medicine was not provided. TECHNICAL DESCRIPTION: This digital EEG was recorded by 21 scalp, ear, and two electrocardiogram (EKG) electrodes and was reviewed in bipolar and referential montages following reformatting in 10-20 international electrode placement system. INTERPRETATION: The patient was noted to be in awake and drowsy states during this EEG. Resting awake background rhythm consisted of 5-6 Hz theta activity measuring 15-40 microvolts in amplitude. No sleep was achieved. Right central parietal and temporal 3-4 Hz delta slowing was noted intermittently. Bilateral temporal infrequent spikes and sharp waves were noted. Hyperventilation could not be performed. Photic stimulation remained unremarkable. EKG revealed normal sinus rhythm. No clinical or electrographic seizures were recorded. CONCLUSION: This EEG in awake and drowsy state is abnormal due to presence of right parietal and posterior temporal slowing with epileptiform discharges. Less frequent epileptiform discharges were also noted in left posterior temporal head region. This is consistent with focal cortical structural or functional abnormality with epileptic potential. Mild generalized slowing is consistent with mild diffuse cerebral dysfunction such as seen in encephalopathy. Clinical correlation is recommended.
[2016-09-04] MEDS: IPRATROPIUM 0.5MG/ALBUTEROL 2.5MG INH SOL UD 3ML (DUONEB)(J7620) NEB SCH ×4 (11:21→19:50)
[2016-09-04 12:00] VITALS: BP 134/83
--- NOTE | 2016-09-04 16:29 | RO ---
DATE OF PROCEDURE: 09/01/2016 and 09/02/2016 PREOPERATIVE DIAGNOSES: Stupor with recurrent acute and subacute right subdural hematomas with mass effect and midline shift. POSTOPERATIVE DIAGNOSES: PROCEDURE: Right frontal craniotomy with evacuation of acute and subacute subdural hematomas and placement of subdural drain and cranioplasty. SURGEON: Dr. Trey Goddard CROP DUSTER HELPER: None. ANESTHESIA: Local with monitored anesthesia care (MAC). DESCRIPTION OF PROCEDURE: Patient's nurse called earlier today reporting fluctuating level and content of his consciousness, ranging from being awake and sleepy to unarousable. Patient was seen in the preoperative area. A detailed family conference was held. Recent events and available medical data in the electronic health record (EHR) were reviewed, and pertinent radiographic studies were also reviewed. Images and patient's history were also reviewed by Dr. Estrella. Patient's family understood I am covering for Dr. Estrella and, thus, I am involved in his care. On initial evaluation in the room, he was found to be drowsy, though arousable to verbal stimuli, and continued fluctuating content of consciousness from being oriented times two, rarely three with some help. The right pupil was larger, both pupils reacting. Extraocular motor was full, though when he was awake enough reported diplopia He also had bilateral hemisensory inattention and left hemiparesis, more pronounced in the upper extremity. The weakness appeared to be both upper and motor neuron type. He was having shallow respirations as well as had Josh-Dinero breathing pattern with significant prolonged apnea periods The CT scan done after the reported change in his neurological status showed increase in the size of the subdural hematoma and also had a midline shift of around [address] or more[address] The [address] scan also showed microvascular , lacunar changes and atrophy. Grave outlook was discussed with the patient's family. They understood no guarantees of any kind could be given. After all options of management were discussed, patient's family wished to proceed with salvage surgery. They understood the scope, expected outcome, sequelae, and all possible complications of the proposed salvage surgery. They understood the risk of surgery includes , paralysis, worsening of paralysis, seizures, status epilepticus, subdural empyema, bleeding, infection, loss of any or all vital bodily functions, persistent vegetative state, dependency on life support measures, and/or any catastrophic sequelae. The case was discussed with the anesthesiologist, who felt that he was unstable for endotracheal general anesthesia and, thus, an option of doing the surgery under local anesthesia with conscious sedation was discussed and it was mutually agreed with the patient's family and the anesthesiologist. He was taken to the operating room after informed consent and after discussing all matters pertaining to the surgery, anesthesia, natural course of illness, and postoperative course. Once in the operating room, the area of surgery was prepped and draped in the usual sterile fashion. The scalp was quite red, and any slight pressure on his scalp, he would scream in pain. There was early wound dehiscence. After adequate prep and drape, the staple was removed. The incision was infiltrated with 1:100,000 epinephrine and lidocaine solution, and the scalp was opened and it was held apart with the help of self-retaining retractors. The skull defect was identified. The cranioplasty plates were disconnected from the skull vault, and the bone flap was removed. There was a considerable amount of brain swelling. The hematoma as well as brain expressed out of the cranial defect. Brain was quite edematous and swollen. Using Silastic brain retractor, the subdural space was gently reached and 100 mL of mostly acute and subacute blood clot was removed. There was also 50 mL or more of subacute to chronic blood. At this time, a 7 mm Fahad-Capone (YULIA) drain was placed in the subdural space and expressed out through a separate stab incision. The bone flap was replaced and anchored to the skull vault posteriorly and inferiorly. It was held secure with a small cranioplasty plate and was not tightened to leave enough room for the drain to come out. The wound was closed in anatomic layers. The blood loss was negligible from surgery. About 150 mL of blood clot was removed from subdural space. After the removal of the blood clot, the brain was relaxed with good brain pulsation. At the time of dictation in the record room, patient was getting awake, following commands, and weakness of the left upper extremity was nearly dense before the surgery but appears to have improved with good container filler. Operative findings were discussed with the patient's family in the waiting room. ALOK
--- NOTE | 2016-09-04 19:47 | IPNPDOC ---
Date Seen The patient was seen on 09/04/16. Progress Note NEUROSURGERY Admission day #: 13 (08/22/16) Post-op Day #: 12, 6 Pain control: Satisfactory at incision. Tylenol 1,000 mg PO q6hrs PRN for pain/ fever. Percocet 5 mg/ 325 mg 1 tab PO q6 hrs PRN for moderate pain. Percocet 5 mg/ 325 mg 2 tab PO q6 hrs PRN for severe pain. Surgical procedure: --08/23/16. [place] hole placement. Craniotomy for evacuation of Right chronic SDH. By Dr. Estrella. --08/29/16. Right fontal craniotomy, drainage of recurrent acute and sub acute recurrent subdural hematoma, cranioplasty. Over 24 hrs: Per nursing- He did not sleep well last night. He is difficult to wake. He has been eating and drinking without difficulty. Jules has been placed. About 600cc was collected from straight cath. Evaluated by PM- Options are limited d/t co-morbidities. May consider trial of Cymbalta, or PCP may consider trial of Lyrica (will likely need PA). SUBJECTIVE Accompanied by: clinical nursing professor Mr. Shaw is a pleasant 66-year-old male with a history of alcoholism, CKD3 , DM 2, PVD with BKA, hypertension, and anemia who was admitted for subdural hematoma. He states he is feeling well today and offers no new concerns. OBJECTIVE Clinical status: AVSS Skin: There are 3 small nontender black macules over his posterior neck. Multiple AK's over posterior back. Neurological status: Alert and orientated x2; unable to recall day. Able to recall year, which was incorrectly stated yesterday. EVD= drain was removed today. Wound/incision: Bacitracin ointment applied over incisions. Incision appears to be healing well. No increased drainage, erythema, or increased pain at the site. Motor: Able to move his upper extremities well. Gait= not assessed. LABS: WBC= HGB= Na+= 138 K+= 4.2 IMAGIN09/02/16, CT head. 1.) There has been a decrease in size of the subdural hematoma present over the right cerebral hemisphere. There is midline shift to the left that is decreased compared to previous study. 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 3. ) Mild volume loss. ASSESSMENT Stable PLAN per Dr. Estrella 1. Subdural hematoma with brain compression. Condition is stable. 2. Skin lesion: Recommend referral to derm for eval and possible bx. 3. Wound care: Afebrile, WBC is WNL. No signs of infection. Drain removed today per Dr Estrella. He tolerated it well. Small amount of bloody drainage immediately after the drain was removed but this has stopped. 4. Pain control: Satisfactory at incision. See above. PM had seen him yesterday. Stated options for phantom pain are limited d/t co-morbidities. May consider trial of Cymbalta, or PCP may consider trial of Lyrica (will likely need PA). 5. DVT prophylaxis: TEDs and SCD. 6. Seizure prophylaxis: No seizure activity. 7. Constipation prophylaxis: Colace 100 mg PO BID, MOM 30 mL PO daily PRN. Senna 1 tab PO BID PRN. 8. Nausea prophylaxis: Zofran 4 mg IV q8hrs PRN for N/V. 9. Diet: Cleared by speech therapy to eat. As tolerated. 10. Activity: per PT. 11. D/C plan: Plan to send to subacute rehabilitation. Thank you for all consulting providers for your much appreciated help regarding care of Mr. Shaw. Dr. Delores Wang, RPA-C VS, I&O, 24H, [facility] Vital Signs/I&O Vital Signs Date Time Temp Pulse Resp B/P (MAP) Pulse Ox O2 Delivery O2 Flow Rate FiO2 09/04/16 12:00 97.6 63 20 134/83 (100) 95 Room Air 09/02/16 12:00 2.0 09/02/16 04:00 92 I&O- Last 24 Hours up to 6 AM 09/04/16 06:00 Intake Total 1320 ml Output Total 1754 ml Balance -434 ml Laboratory Data 24H LABS Laboratory Tests 2 09/03/16 20:11: Bedside Glucose (Misc Panel) 179H 09/04/16 06:28: Urine Random Osmolality 562 09/04/16 06:46: Anion Gap 7L, Glomerular Filtration Rate > 60.0, Osmolality 290, Blood Urea Nitrogen 16, Creatinine 0.99, Sodium Level 138, Potassium Level 4.2, Chloride Level 104, Carbon Dioxide Level 27, Calcium Level 9.5 09/04/16 11:34: Bedside Glucose (Misc Panel) 189H 09/04/16 17:13: Bedside Glucose (Misc Panel) 152H CBC/BMP Laboratory Tests 09/04/16 06:46 Calcium Level 9.5 Microbiology Microbiology 08/26/16 Blood Culture - Final, Complete NO GROWTH AFTER 5 DAYS 08/26/16 Blood Culture - Final, Complete NO GROWTH AFTER 5 DAYS 08/26/16 Clostridium difficile (PCR) - Final, Complete 08/26/16 Urine Culture - Final, Complete 09/01/16 Gram Stain - Final, Resulted 09/01/16 Wound Culture, Resulted Pending 09/01/16 Anaerobic Culture - Final, Resulted MARIEL WANG PA-C Sep 04, 2016 18:52
[2016-09-04 20:00] VITALS: BP 132/66
[2016-09-04] MEDS: PRAVASTATIN 20 MG TAB PO SCH (20:39)
[2016-09-04] MEDS: LIDOCAINE 2% JELLY 30 ML TOP PRN (21:20)
[2016-09-05] VITALS: BP 155/88
[2016-09-05 04:00] VITALS: BP 157/81
[2016-09-05 05:22] LABS: MEAN CORPUSCULAR HEMOGLOBIN 30.2 pg (27.0-33.0); MEAN CORPUSCULAR HGB CONC 32.3 g/dl (32.0-36.5); MEAN CORPUSCULAR VOLUME 93.3 fl (80.0-96.0); RED CELL DISTRIBUTION WIDTH 13.6 % (11.5-14.5); WHITE BLOOD COUNT 8.1 K/mm3 (4.0-10.0)
[2016-09-05 05:35] LABS: INR 1.1
[2016-09-05 05:38] LABS: ANION GAP 6 MEQ/L (8-16); BLOOD UREA NITROGEN 17 MG/DL (7-18); CALCIUM LEVEL 9.1 MG/DL (8.8-10.2); CARBON DIOXIDE LEVEL 27 MEQ/L (21-32); CHLORIDE LEVEL 103 MEQ/L (98-107); CREATININE FOR GFR 1.03 MG/DL (0.70-1.30); GLOMERULAR FILTRATION RATE > 60.0 (>49); GLUCOSE, FASTING 120 MG/DL (80-110); POTASSIUM SERUM 4.3 MEQ/L (3.5-5.1); SODIUM LEVEL 136 MEQ/L (136-145)
[2016-09-05 08:00] VITALS: BP 136/87
--- NOTE | 2016-09-05 08:02 | IPNPDOC ---
Subjective Date Seen The patient was seen on 09/05/16. Subjective Chief Complaint/HPI The patient is a 66-year-old male admitted with a reason for visit of Subdural Bleeding. Events since last encounter Had significant urinary retention yesterday requiring straight cath and ultimately curtis was replaced. Has TITA - does not wear CPAP. Per nurse sats drop into 80s periodically overnight, but spontaneously improve without need for oxygen Constitutional: Denies: Chills, Fever Pulmonary: Reports: Other Symptoms (nocturnal hypoxemia secondary to untreated TITA), Denies: Dyspnea, Cough Cardiovascular: Denies: Chest Pain, Palpitations, Orthopnea Gastrointestinal: Denies: Nausea, Vomiting, Abdominal Pain, Diarrhea, Constipation Genitourinary: Reports: Retention (Curtis replaced) Objective Physical Examination General Exam: Positive: Alert, Cooperative, No Acute Distress Neck Exam: Negative: thyromegaly, Lymphadenopathy Chest Exam: Positive: Clear to auscultation, Diminished, Negative: Rales, Wheezing Heart Exam: Positive: Rate Normal, Normal S1, Normal S2, Murmurs Abdomen Exam: Positive: Normal bowel sounds, Soft, Negative: Tenderness Extremity Exam: Positive: Other (right BKA), Negative: Edema Skin Exam: Positive: Nl turgor and temperature, Rash (widespread plaques of psoriasis.) Neuro Exam: Positive: Other (Speech normal; raises arms above head) Assessment /Plan Problems (1) Subdural bleeding Status: Acute Response to Treatment: Stable Problem Text: 09/05 - Neuro status stable. 09/04 - exam remains stable, anticipate d/c for rehab soon, per NS. 09/03 - Neuro exam stable; will likely be stable for PMR in the next 1-2 days. 09/02 - repeat craniotomy done 09/01 due to recurrence of hematoma, NS following, anticipates clearance tomorrow to PMR. 09/01 - POD3 s/p craniotomy on 08/29/2016, mgmt per NS. Appears stable. 08/30/16 CT brain consistent with post op changes 08/27 - MRI brain: "No clinically significant change in the size or appearance of the right lateral subdural subacute hematoma. Mass effect and leftward midline shift is grossly unchanged since the prior CT examination. No evidence of acute infarct. Mild chronic small vessel ischemic disease and age-related atrophy." [place] hole done by Dr. Estrella 08/23/2016. (2) Urinary retention Status: Acute Problem Text: Required replacement of curtis last pm. Start Flomax (3) TITA (obstructive sleep apnea) Status: Chronic Problem Text: untreated TITA - Noncompliant with CPAP at home. Has transient hypoxemia with O2 sats that drop into 80s but spontaneously improve without Oxygen. (4) Phantom limb syndrome with pain Status: Chronic Response to Treatment: Improving, Uncontrolled Discussed With: Nurse, Patient, Family with Pt Consent Problem Specific Plan: Monitor Clinically Problem Text: Lidocaine and Percocet prn (1st dose of Percocet given last pm) (5) DM2 (diabetes mellitus, type 2) Status: Chronic Problem Text: Continue carb consistent diet and ISS. Blood sugar was high this am. Monitor trend. he is normally on Lantus 45 daily - may need to restart some of this. (6) Hypertension Status: Chronic Discussed With: Pt and Family Services Problem Text: 09/05 - BP remains less than 160 on Atenolol 50 qd and Amlodipine 2.5 mg daily. Continue to monitor trend. 09/03 - BP was a bit elevated this morning but has been at goal this afternoon. Attending d/w Neurosurgery on 08/31/16; Neurosurg recommends goal SBP </= 160. He has been at goal since atenolol was increased and amlodipine was added. He was previously on furosemide and HCTZ, but these are being held due to hyponatremia. (7) Ileus Status: Resolved Response to Treatment: Improving Problem Text: 09/01 - Resolved, eating well, 3 BMs on 08/29, will review bowel care. Abd xray from 08/26: "Bowel gas pattern suggests ileus. (8) Chronic alcohol abuse Status: Chronic Problem Text: No signs or symptoms of alcohol withdrawal. - Begin CIWA scoring if patient develops symptoms of withdrawal (9) CKD (chronic kidney disease), stage III Status: Chronic Problem Text: Creatinine stable. Avoid nephrotoxic agents. (10) GERD (gastroesophageal reflux disease) Status: Chronic (11) PVD (peripheral vascular disease) Status: Chronic Response to Treatment: Stable Problem Text: Status post right BKA (12) Anemia Status: Chronic Response to Treatment: Stable Problem Text: Secondary to end-stage renal disease (13) Hypomagnesemia Status: Acute Response to Treatment: Stable Problem Specific Plan: Monitor Clinically, Repeat Labs Problem Text: 09/03 - Mag level now normal; continue oral supplement 09/01 Started on Mag oxide 400 mg BID today, monitor. Repeat lab ordered fro . Plan/VTE VTE Prophylaxis Ordered?: No (patient on compression stockings only) VTE Exclusion Pharmacological: Hemorrhage Plan/Urinary Catheter Reason for insertion/continuin: Acute obstruct/retention Plan Diet: Advance Diagnostics: Check Labs, Repeat Labs in AM Family Medicine Attending Note: I evaluated Mr. Shaw early this morning; I agree with Elaine Jiménez's note above. I agree with starting flomax for urinary retention, with goal of eventually discontinuing his curtis catheter. Up until this point, his blood glucose had been well controlled with minimal ISS coverage of 2-4 units with each check; fasting glucose was elevated this morning. I will restart levemir this evening at 10 units daily (home dose is 45 Units daily) and we will titrate as tolerated and continue ISS. (KES) Disposition Probably could move to floor. Continue Pt/OT. PMR evaluating patient as well. VS, I&O, [facility], [facility] Vital Signs/I&O Vital Signs Date Time Temp Pulse Resp B/P (MAP) Pulse Ox O2 Delivery O2 Flow Rate FiO2 09/05/16 04:00 98.5 70 18 157/81 (106) 92 Room Air 09/02/16 12:00 2.0 09/02/16 04:00 92 I&O- Last 24 Hours up to 6 AM 09/05/16 06:00 Intake Total 1300 ml Output Total 1965 ml Balance -665 ml Laboratory Data 24H LABS Laboratory Tests 2 09/04/16 11:34: Bedside Glucose (Misc Panel) 189H 09/04/16 17:13: Bedside Glucose (Misc Panel) 152H 09/04/16 20:50: Bedside Glucose (Misc Panel) 476H 09/05/16 05:00: Prothrombin Time 14.4, Prothromb Time International Ratio 1.10, Activated Partial Thromboplast Time 50.3H, Anion Gap 6L, Glomerular Filtration Rate > 60.0 , Blood Urea Nitrogen 17, Creatinine 1.03, Sodium Level 136, Potassium Level 4.3 , Chloride Level 103, Carbon Dioxide Level 27, Calcium Level 9.1 CBC/BMP Laboratory Tests 09/05/16 05:00 Red Blood Count 4.58, Mean Corpuscular Volume 93.3, Mean Corpuscular Hemoglobin 30.2, Mean Corpuscular Hemoglobin Concent 32.3, Red Cell Distribution Width 13.6 , Calcium Level 9.1 Microbiology Microbiology 08/26/16 Blood Culture - Final, Complete NO GROWTH AFTER 5 DAYS 08/26/16 Blood Culture - Final, Complete NO GROWTH AFTER 5 DAYS 08/26/16 Clostridium difficile (PCR) - Final, Complete 08/26/16 Urine Culture - Final, Complete 09/01/16 Gram Stain - Final, Resulted 09/01/16 Wound Culture, Resulted Pending 09/01/16 Anaerobic Culture - Final, Resulted ELAINE JIMÉNEZ PA-C Sep 05, 2016 08:02 ALLIE ROMERO MD Sep 05, 2016 10:22
[2016-09-05] MEDS: IPRATROPIUM 0.5MG/ALBUTEROL 2.5MG INH SOL UD 3ML (DUONEB)(J7620) NEB SCH ×4 (08:23→19:59)
[2016-09-05] MEDS: HumaLOG INSULIN (NovoLOG) PER UNIT SC SCH ×4 (08:36→21:00)
[2016-09-05] MEDS: GABAPENTIN 400 MG CAP PO SCH ×2 (08:37→21:20)
[2016-09-05] MEDS: NORTRIPTYLINE 25 MG CAP PO SCH ×3 (08:37→21:20)
[2016-09-05] MEDS: MAGNESIUM OXIDE 400 MG TAB (MAG-OX) PO SCH ×2 (08:38→21:19)
[2016-09-05] MEDS: PANTOPRAZOLE 40MG TAB (PROTONIX) PO SCH (08:38)
[2016-09-05] MEDS: DOCUSATE SODIUM 100 MG CAP PO SCH ×2 (08:38→21:19)
[2016-09-05] MEDS: ATENOLOL 50 MG TAB PO SCH (08:39)
[2016-09-05] MEDS: LIDOCAINE 5% OINT 30 GM TOP SCH ×2 (08:39→21:22)
[2016-09-05] MEDS: CLOBETASOL PROPIONATE EMOLLIENT 0.05% CR 60 GM TOP SCH ×2 (08:40→21:23)
[2016-09-05] MEDS: TAMSULOSIN 0.4 MG CAP PO SCH (09:35)
[2016-09-05] MEDS: SODIUM CHLORIDE 1 GM TAB PO SCH ×2 (09:35→21:19)
[2016-09-05] MEDS: PERCOCET 5MG/325MG TAB PO PRN (09:38)
--- NOTE | 2016-09-05 12:41 | IPNPDOC ---
Date Seen The patient was seen on 09/05/16. Progress Note NEUROSURGERY Admission day #: 14 (08/22/16) Post-op Day #: 13, 7 Pain control: Satisfactory at incision. Tylenol 1,000 mg PO q6hrs PRN for pain/ fever. Percocet 5 mg/ 325 mg 1 tab PO q6 hrs PRN for moderate pain. Percocet 5 mg/ 325 mg 2 tab PO q6 hrs PRN for severe pain. Surgical procedure: --08/23/16. [place] hole placement. Craniotomy for evacuation of Right chronic SDH. By Dr. Estrella. --08/29/16. Right fontal craniotomy, drainage of recurrent acute and sub acute recurrent subdural hematoma, cranioplasty. Over 24 hrs: Per nursing- Notices a significant improvement since yesterday. Eating and drinking well. Evaluated by PM- Options are limited d/t co-morbidities. May consider trial of Cymbalta, or PCP may consider trial of Lyrica (will likely need PA). SUBJECTIVE Mr. Shaw is a pleasant 66-year-old male with a history of alcoholism, CKD3 , DM 2, PVD with BKA, hypertension, and anemia who was admitted for subdural hematoma. He states he is feeling well today and offers no new concerns. OBJECTIVE Clinical status: AVSS Skin: There are 3 small nontender black macules over his posterior neck. Multiple AK's over posterior back. Neurological status: Alert and orientated to person, place, day, year. Wound/incision: Bacitracin ointment is present over incisions. Incision appears to be healing well. No increased drainage, erythema, or increased pain at the site. Motor: Able to move his upper extremities well. Still with some weakness on left upper extremity. Gait= not assessed. LABS: WBC= 8.1 HGB= 13.8 Na+= 136 K+= 4.3 MICRO 09/01/16. Wound cx positive for MRSA. IMAGIN09/02/16, CT head. 1.) There has been a decrease in size of the subdural hematoma present over the right cerebral hemisphere. There is midline shift to the left that is decreased compared to previous study. 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 3. ) Mild volume loss. ASSESSMENT Stable PLAN per Dr. Estrella 1. Subdural hematoma with brain compression. Condition is stable. 2. Skin lesion: Recommend referral to derm for eval and possible bx. 3. Wound care: Afebrile, WBC is WNL. No signs of infection. Appears to be healing well. Della intact. 4. Positive culture MRSA: Cx results from 09/01/16 are positive for MRSA. Will consult ID questioning whether he needs tx. 5. Pain control: Satisfactory at incision. See above. PM stated options for phantom pain are limited d/t co-morbidities. May consider trial of Cymbalta, or PCP may consider trial of Lyrica (will likely need PA). 6. DVT prophylaxis: TEDs and SCD. 7. Seizure prophylaxis: No seizure activity. 8. Constipation prophylaxis: Colace 100 mg PO BID, MOM 30 mL PO daily PRN. Senna 1 tab PO BID PRN. 9. Nausea prophylaxis: Zofran 4 mg IV q8hrs PRN for N/V. 10. Diet: Cleared by speech therapy to eat. As tolerated. 11. Activity: per PT. 12. D/C plan: Plan to send to subacute rehabilitation. Thank you for all consulting providers for your much appreciated help regarding care of Mr. Shaw. Terri Wang, RPA-C Dr. Estrella VS, I&O, 24H, [facility] Vital Signs/I&O Vital Signs Date Time Temp Pulse Resp B/P (MAP) Pulse Ox O2 Delivery O2 Flow Rate FiO2 09/05/16 10:08 72 09/05/16 09:38 80 141/103 Room Air 09/05/16 08:00 98.0 94 09/02/16 12:00 2.0 09/02/16 04:00 92 I&O- Last 24 Hours up to 6 AM 09/05/16 06:00 Intake Total 1300 ml Output Total 1965 ml Balance -665 ml Laboratory Data 24H LABS Laboratory Tests 2 09/04/16 17:13: Bedside Glucose (Misc Panel) 152H 09/04/16 20:50: Bedside Glucose (Misc Panel) 476H 09/05/16 05:00: Prothrombin Time 14.4, Prothromb Time International Ratio 1.10, Activated Partial Thromboplast Time 50.3H, Anion Gap 6L, Glomerular Filtration Rate > 60.0 , Blood Urea Nitrogen 17, Creatinine 1.03, Sodium Level 136, Potassium Level 4.3 , Chloride Level 103, Carbon Dioxide Level 27, Calcium Level 9.1 CBC/BMP Laboratory Tests 09/05/16 05:00 Red Blood Count 4.58, Mean Corpuscular Volume 93.3, Mean Corpuscular Hemoglobin 30.2, Mean Corpuscular Hemoglobin Concent 32.3, Red Cell Distribution Width 13.6 , Calcium Level 9.1 Microbiology Microbiology 08/26/16 Blood Culture - Final, Complete NO GROWTH AFTER 5 DAYS 08/26/16 Blood Culture - Final, Complete NO GROWTH AFTER 5 DAYS 08/26/16 Clostridium difficile (PCR) - Final, Complete 08/26/16 Urine Culture - Final, Complete 09/01/16 Gram Stain - Final, Complete 09/01/16 Wound Culture - Final, Complete Staph.aureus Methicillin Resis 09/01/16 Anaerobic Culture - Final, Complete MARIEL WANG PA-C Sep 05, 2016 12:41
[2016-09-05 13:00] VITALS: BP 124/87
[2016-09-05] MEDS ORDERED: SLF 3 ML SYR IV PRN (15:30)
[2016-09-05 16:31] VITALS: BP 113/69
--- NOTE | 2016-09-05 17:40 | PHACANCOPD ---
PHARMACY VANCOMYCIN DOSING Pt Demographics Demographics Patient Age:66 , Weight:89.200 , Gender: male Adjusted Body Weight Date: 09/05/16, Adjusted Body Weight: Kg Events Past 24 Hours Events Past 24 Hours: NO: Dialysis, Diuretic Therapy, Change in CrCl, Fever, Elevation in WBC, Pending Diagnostics, Pending Procedures, Other Vancomycin Vancomycin indication: MRSA post op wound infection Vancomycin Target Ranges: 15-20 mcg/ml Vancomycin Load Y/N: No Load Dose Date Time Vancomycin Load Dose: Date: Time: Vancomycin Dose Date: 09/05/16. Current Vancomycin Dose: [1g IV q12h @18] Intermittent Dosing?: No Labs Labs Item Value Date Time White Blood Count 10.9 K/mm3 H 09/02/16 0458 White Blood Count 9.2 K/mm3 09/03/16 0920 White Blood Count 8.1 K/mm3 09/05/16 0500 Creatinine 0.93 MG/DL 09/03/16 0436 Creatinine 0.99 MG/DL 09/04/16 0646 Creatinine 1.03 MG/DL 09/05/16 0500 Micro Microbiology 08/26/16 Blood Culture - Final, Complete NO GROWTH AFTER 5 DAYS 08/26/16 Blood Culture - Final, Complete NO GROWTH AFTER 5 DAYS 08/26/16 Clostridium difficile (PCR) - Final, Complete 08/26/16 Urine Culture - Final, Complete 09/01/16 Gram Stain - Final, Complete 09/01/16 Wound Culture - Final, Complete Staph.aureus Methicillin Resis 09/01/16 Anaerobic Culture - Final, Complete Creatinine Clearance Date:09/05/16. Creatinine Clearance: [80 ml/min]. Assessment and Plan Maintaining Current Dose?: Yes Reason for dose change: No Dose Change Pharmacist Note Pharmacist Note Date: 09/05/16. Pharmacist note: pt was admitted for a subdural hematoma with neurosurgery involvement. Incision site cultured on 09/01 grew MRSA (few - PRESLEY = 1). Of note, pt had a positive nasal MRSA screen in 2014, and a MRSA+ leg wound. He was last on vancomycin in 2014, I have resumed similar dosing of 1g IV q12h. His SCr is at baseline. I will continue to monitor and order a trough as necessary. Saleem Esqueda Pharm.D. Sep 05, 2016 17:40
[2016-09-05] MEDS: VANCOMYCIN HCL 1,000 MG, VIAL MATE ADAPTER 1 EACH in D5W 250 ML IV SCH (18:28)
[2016-09-05 20:00] VITALS: BP 142/83
[2016-09-05] MEDS: PRAVASTATIN 20 MG TAB PO SCH (21:20)
[2016-09-05] MEDS: LEVEMIR (INSULIN DETEMIR) 1 UNITS/0.01ML SC SCH (21:21)
[2016-09-05] MEDS: SLF 3 ML SYR IV SCH (21:25)
[2016-09-06] VITALS: BP 148/69
[2016-09-06 04:00] VITALS: BP 159/77
[2016-09-06] MEDS: SLF 3 ML SYR IV SCH (05:58)
[2016-09-06] MEDS: VANCOMYCIN HCL 1,000 MG, VIAL MATE ADAPTER 1 EACH in D5W 250 ML IV SCH ×2 (05:59→17:50)
--- NOTE | 2016-09-06 07:13 | CR ---
DATE OF CONSULTATION: 09/05/2016 REASON FOR CONSULTATION: Asked to consult by neurosurgery for evaluation of wound culture with methicillin-resistant Staphylococcus aureus (MRSA). HISTORY OF PRESENT ILLNESS Mr. Shaw is a 66-year-old gentleman who was admitted on August 22 with severe headache and was noted to have a subdural hematoma. The patient has a history of alcoholism. He was taken to the operating room by Dr. Jenkins on 08/23 for drainage of a right chronic subdural hematoma. He had a bur hole placed, a craniotomy for evacuation of the right chronic subdural by Dr. Jenkins on 08/29. Right frontal craniotomy was done, drainage of recurrent acute and subacute recurrent hematomas was again done. On 09/01, he had again another drainage procedure because the patient was found to be unresponsive with increasing weakness in his upper extremities. The patient per Dr. Goddard had erythema and wound dehiscence. When he took him back to the operating room (OR) on 09/01, he had noticed some purulent drainage and there was erythema around the wound incision and, therefore, culture was sent which had few MRSA. The patient has done well postoperatively. He was up in his chair this afternoon. He has not had any fever. He has not been on any antibiotics during his hospitalization except for perioperative cefazolin for 24 hours which had been on three different occasions. He has not had any fever or chills. No other symptoms. The patient has severe psoriasis and multiple psoriatic plaques all over his body he scratches. PAST MEDICAL HISTORY: 1. Diabetes type 2. 2. Chronic alcohol abuse. 3. Chronic kidney disease stage III. 4. Hypertension. 5. Esophageal reflux disease. 6. Peripheral vascular disease. 7. Anemia of chronic disease. 8. Subdural hematoma. PAST SURGICAL HISTORY: 1. Stent in right lower extremity. 2. Right renal stent. 3. Hernia repair. 4. Right below-knee amputation (BKA). 5. Tonsillectomy. FAMILY HISTORY: Unknown. SOCIAL HISTORY: The patient is a drinker. History of marijuana use. Recently stopped smoking. ALLERGIES: 1. ANGIOTENSION-CONVERTING ENZYME (CASI) INHIBITORS. 2. BEE VENOM. 3. HYDROCODONE. 4. VARNICLINE. REVIEW OF SYSTEMS: Cannot be obtained. The patient is moaning and groaning. PHYSICAL EXAMINATION: VITAL SIGNS: Temperature is 98, pulse 68, respirations 20, blood pressure 136/87, O2 saturation 94% on room air. HEART: Normal S1, S2. No murmurs. LUNGS: Anteriorly clear. ABDOMEN: Soft, nontender. EXTREMITIES: Right BKA well healed. Both legs multiple psoriatic plaques, large, scaly, measuring anywhere from 2-10 cm. NECK: No jugular venous distention (JVD), no bruits. HEENT: Oropharynx is clear. Scalp has an incision of craniotomy with multiple mario in place. Minimal erythema around the wound. There is no purulent discharge. LABORATORY DATA: White count is 8.1, hemoglobin 13.8, hematocrit 42.7, platelets 215. Sodium 136, potassium 4.3, chloride 103, bicarb 27, BUN 17, creatinine 1, glucose 120, calcium 9.1. MICROBIOLOGY: The wound culture from 09/01 had few MRSA, no cells. No organisms seen. Urine culture is negative. Blood cultures two sets are negative. The patient is known colonized with MRSA on 01/31. 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 Goddard noted that there was some purulent discharge around the wound and some erythema and therefore culture was sent which had few MRSA, although it has no cells and no organisms seen on Gram stain. The patient has been afebrile with a normal white count. I am not sure whether this is infection or colonization as the wound looks pretty good currently. The fact that he has been to the operating room three different times and per Dr. Goddard there was wound dehiscence, I would err on the safer side to treat him with intravenous (IV) vancomycin for 48 hours just to make sure he does not develop an infection as he is at high risk with three different surgeries and the proximity to the brain. PLAN: Start IV vancomycin 1 gram every 12 hours. Follow with pharmacy peak and trough levels and keep trough level between 15 and 20. Switch to oral Bactrim if kidney function is acceptable or linezolid if not for another seven days as to err on the safe side and prevent any further complications. Currently my suspicion is that this was colonization as the patient has severe psoriasis. No colonization since 2014, and constantly digging at his psoriatic plaques. The psoriasis needs to be treated as he will remain colonized as long as he does not have treatment for his psoriasis and may cause persistent of MRSA and recurrent wound infection. Will treat with clobetasol and Eucerin cream.
[2016-09-06] MEDS: HumaLOG INSULIN (NovoLOG) PER UNIT SC SCH ×4 (07:30→20:22)
[2016-09-06 08:00] VITALS: BP 166/80
[2016-09-06] MEDS ORDERED: POTASSIUM CHLORIDE 10 MEQ SR TABLET PO SCH (08:00)
[2016-09-06] MEDS: IPRATROPIUM 0.5MG/ALBUTEROL 2.5MG INH SOL UD 3ML (DUONEB)(J7620) NEB SCH ×4 (08:13→19:55)
[2016-09-06] MEDS ORDERED: SUCRALFATE 1 GM TAB PO SCH (09:00)
[2016-09-06] MEDS: LIDOCAINE 5% OINT 30 GM TOP SCH ×2 (09:00→21:00)
[2016-09-06] MEDS ORDERED: FERROUS GLUCONATE 324 MG TAB PO SCH (09:00)
[2016-09-06] MEDS ORDERED: MECLIZINE 25 MG TABLET PO SCH (09:00)
[2016-09-06] MEDS ORDERED: GLIMEPIRIDE 2 MG TAB PO SCH (09:00)
[2016-09-06] MEDS: CLOBETASOL PROPIONATE EMOLLIENT 0.05% CR 60 GM TOP SCH ×2 (09:00→21:00)
[2016-09-06] MEDS ORDERED: NYSTATIN OINTMENT 15 GM TOP SCH (09:00)
[2016-09-06] MEDS ORDERED: CALCIPOTRIENE CREAM 0.005% 60GM TOP SCH (09:00)
[2016-09-06] MEDS ORDERED: CLOBETASOL PROPIONATE EMOLLIENT 0.05% CR 60 GM TOP SCH (09:00)
[2016-09-06] MEDS ORDERED: NYSTATIN 100,000 UNITS/GM TOPICAL PWD 15 GM TOP SCH (09:00)
[2016-09-06] MEDS ORDERED: hydroCHLOROthiazide 25 MG TAB PO SCH (09:00)
[2016-09-06] MEDS ORDERED: LORATADINE 10 MG TAB PO SCH (09:00)
[2016-09-06] MEDS ORDERED: FUROSEMIDE 40 MG TAB PO SCH (09:00)
[2016-09-06] MEDS ORDERED: ASPIRIN 81 MG ENTERIC TAB PO SCH (09:00)
[2016-09-06] MEDS ORDERED: CLOPIDOGREL 75 MG TAB PO SCH (09:00)
[2016-09-06] MEDS ORDERED: NORTRIPTYLINE 25 MG CAP PO SCH (09:00)
[2016-09-06] MEDS ORDERED: GABAPENTIN 400 MG CAP PO SCH ×2 (09:00)
[2016-09-06] MEDS ORDERED: FOLIC ACID 1 MG TAB PO SCH (09:00)
[2016-09-06] MEDS ORDERED: ALBUTEROL 90 MCG/ACT 8GM HFA INHALER INH PRN (09:00)
[2016-09-06] MEDS ORDERED: ATENOLOL 25 MG TAB PO SCH (09:00)
[2016-09-06] MEDS ORDERED: PENTOXIFYLLINE 400 MG TAB PO SCH (09:00)
[2016-09-06] MEDS: TAMSULOSIN 0.4 MG CAP PO SCH (09:09)
[2016-09-06] MEDS: PANTOPRAZOLE 40MG TAB (PROTONIX) PO SCH (09:10)
[2016-09-06] MEDS: GABAPENTIN 400 MG CAP PO SCH ×2 (09:10→20:54)
[2016-09-06] MEDS: NORTRIPTYLINE 25 MG CAP PO SCH ×3 (09:11→20:54)
[2016-09-06] MEDS: ATENOLOL 50 MG TAB PO SCH (09:11)
[2016-09-06] MEDS: DOCUSATE SODIUM 100 MG CAP PO SCH ×2 (09:11→20:55)
[2016-09-06] MEDS: MAGNESIUM OXIDE 400 MG TAB (MAG-OX) PO SCH ×2 (09:11→20:56)
[2016-09-06] MEDS: LIDOCAINE 2% JELLY 30 ML TOP PRN (09:12)
[2016-09-06] MEDS: SODIUM CHLORIDE 1 GM TAB PO SCH ×2 (09:12→20:59)
[2016-09-06 10:28] VITALS: BP 140/73
[2016-09-06] MEDS: PERCOCET 5MG/325MG TAB PO PRN ×2 (10:54→20:55)
[2016-09-06 14:00] VITALS: BP 119/58
--- NOTE | 2016-09-06 16:45 | IPNPDOC ---
Subjective Date Seen The patient was seen on 09/06/16. Subjective Chief Complaint/HPI The patient is a 66-year-old male admitted with a reason for visit of Subdural Bleeding. Objective Physical Examination General Exam: Positive: Alert, Cooperative, No Acute Distress Neck Exam: Negative: thyromegaly, Lymphadenopathy Chest Exam: Positive: Clear to auscultation, Diminished, Negative: Rales, Wheezing Heart Exam: Positive: Rate Normal, Normal S1, Normal S2, Murmurs Abdomen Exam: Positive: Normal bowel sounds, Soft, Negative: Tenderness Extremity Exam: Positive: Other (right BKA), Negative: Edema Skin Exam: Positive: Nl turgor and temperature, Rash (widespread plaques of psoriasis.) Neuro Exam: Positive: Other (Speech normal; raises arms above head) Assessment /Plan Problems (1) Wound swab culture positive Problem Text: No signs/symptoms of wound infection 09/05 ID ordered vanco 1 BID x 2D given to OR x 3 times but s signs of cellulitis , normal WBC and afebrile 09/01/16 WCX few MRSA h/o MRSA colonization (2) Subdural bleeding Status: Acute Response to Treatment: Stable Problem Text: 09/06-case d/w Dr. Estrella-stable from NS perspective for PMR (drain removed ) 09/01/16 s/p Right frontal craniotomy with evacuation of acute and subacute subdural hematomas and placement of subdural drain and cranioplasty-Rupesh ( previosly done by Dr. Estrella 08/29/2016 and [place] holes 08/23/16) 7 (3) Urinary retention Status: Acute Problem Text: Required replacement of curtis last pm. Start Flomax (4) TITA (obstructive sleep apnea) Status: Chronic Problem Text: untreated TITA - Noncompliant with CPAP at home. Has transient hypoxemia with O2 sats that drop into 80s but spontaneously improve without Oxygen. (5) Phantom limb syndrome with pain Status: Chronic Response to Treatment: Improving, Uncontrolled Discussed With: Nurse, Patient, Family with Pt Consent Problem Specific Plan: Monitor Clinically Problem Text: Lidocaine and Percocet prn (1st dose of Percocet given last pm) (6) DM2 (diabetes mellitus, type 2) Status: Chronic Problem Text: Levemir 10 qhs c SSNI 09/06 BG low-mid 100s s hypos HD lantus 45 qhs, glimeperide 4 BID (7) Hypertension Status: Chronic Discussed With: Pt and Family Services Problem Text: Remains euvolemic off HCTZ/fur Atenolol 50 qd, Amlodipine 2.5 mg daily 09/06 fair control on current regimen HD: atenolol 25, HCTZ 25, furosemide 40 11/09/15 TTE-Antecol 1. Mild concentric left ventricular hypertrophy. Normal LV wall motion and wall thickening. Normal LV systolic function. LVEF 65-70% by visual estimate. 2. Grade 1 LV diastolic dysfunction (repaired relaxation filling pattern). 3. Mild elevation of pulmonary artery systolic pressure. 4. Moderately technically difficult echocardiogram. (8) Chronic alcohol abuse Status: Chronic Problem Text: No signs or symptoms of alcohol withdrawal. - Begin CIWA scoring if patient develops symptoms of withdrawal (9) CKD (chronic kidney disease), stage III Status: Chronic Problem Text: Creatinine stable. Avoid nephrotoxic agents. (10) PVD (peripheral vascular disease) Status: Chronic Response to Treatment: Stable Problem Text: Status post right BKA Plan/VTE VTE Prophylaxis Ordered?: No (patient on compression stockings only) VTE Exclusion Pharmacological: Hemorrhage Plan/Urinary Catheter Reason for insertion/continuin: Acute obstruct/retention Plan Diet: Advance Diagnostics: Check Labs, Repeat Labs in AM Disposition 09/06/16 Medicine assumed attending from // 09/05/16 PT favored tx to rehab when stable 09/02/16 PMR referral placed-no documentation it has been done (09/06/16 placed again) VS, I&O, 24H, [facility] Vital Signs/I&O Vital Signs Date Time Temp Pulse Resp B/P (MAP) Pulse Ox O2 Delivery O2 Flow Rate FiO2 09/06/16 14:00 97.4 71 24 119/58 (78) 96 Room Air 09/02/16 12:00 2.0 09/02/16 04:00 92 I&O- Last 24 Hours up to 6 AM 09/06/16 06:00 Intake Total 1710 ml Output Total 1875 ml Balance -165 ml Laboratory Data 24H LABS Laboratory Tests 2 09/05/16 17:03: Bedside Glucose (Misc Panel) 78L 09/05/16 17:07: Bedside Glucose (Misc Panel) 93 09/05/16 19:40: Bedside Glucose (Misc Panel) 242H 09/06/16 11:25: Bedside Glucose (Misc Panel) 380H 09/06/16 16:26: Bedside Glucose (Misc Panel) 133H Microbiology Microbiology 09/01/16 Gram Stain - Final, Complete 09/01/16 Wound Culture - Final, Complete Staph.aureus Methicillin Resis 09/01/16 Anaerobic Culture - Final, Complete Efrain Red M.D. Sep 06, 2016 16:45
[2016-09-06] MEDS: PRAVASTATIN 20 MG TAB PO SCH (20:56)
[2016-09-06] MEDS: LEVEMIR (INSULIN DETEMIR) 1 UNITS/0.01ML SC SCH (20:57)
[2016-09-06] MEDS ORDERED: PRAVASTATIN 20 MG TAB PO SCH (21:00)
[2016-09-06 22:00] VITALS: BP 138/84
[2016-09-07] MEDS: VANCOMYCIN HCL 1,000 MG, VIAL MATE ADAPTER 1 EACH in D5W 250 ML IV SCH ×2 (05:50→17:47)
[2016-09-07 06:00] VITALS: BP 123/78
[2016-09-07 06:09] LABS: BASO % 0.4 % (0.0-1.0); EOS # 0.3 K/mm3 (0.0-0.50); EOS % 3.3 % (0.0-3.0); LARGE UNSTAINED CELL # 0.2 K/mm3 (0.0-0.4); LARGE UNSTAINED CELL % 1.7 % (0.0-4.0); LYMPH # 1.3 K/mm3 (1.5-4.5); LYMPH % 11.6 % (24.0-44.0); MEAN CORPUSCULAR HGB CONC 31.8 g/dl (32.0-36.5); MEAN CORPUSCULAR VOLUME 94.2 fl (80.0-96.0); MONO # 0.6 K/mm3 (0.0-0.8); MONO % 5.9 % (0.0-5.0); NEUTROPHILS # 7.6 K/mm3 (1.8-7.7); PLATELET COUNT, AUTOMATED 218 k/mm3 (150-450); RED CELL DISTRIBUTION WIDTH 13.7 % (11.5-14.5); WHITE BLOOD COUNT 9.8 K/mm3 (4.0-10.0)
[2016-09-07 06:24] LABS: ALBUMIN 2.9 GM/DL (3.2-5.2); ALBUMIN/GLOBULIN RATIO 0.67 (1.00-1.93); ALKALINE PHOSPHATASE 262 U/L (45-117); ALT/SGPT 35 U/L (12-78); ANION GAP 5 MEQ/L (8-16); AST/SGOT 17 U/L (15-37); BILIRUBIN,TOTAL 0.3 MG/DL (0.2-1.0); BLOOD UREA NITROGEN 17 MG/DL (7-18); CALCIUM LEVEL 9.5 MG/DL (8.8-10.2); CARBON DIOXIDE LEVEL 31 MEQ/L (21-32); CHLORIDE LEVEL 103 MEQ/L (98-107); GLOMERULAR FILTRATION RATE > 60.0 (>49); GLUCOSE, FASTING 93 MG/DL (80-110); MAGNESIUM LEVEL 2.1 MG/DL (1.8-2.4); POTASSIUM SERUM 4.1 MEQ/L (3.5-5.1); SODIUM LEVEL 139 MEQ/L (136-145); TOTAL PROTEIN 7.2 GM/DL (6.4-8.2)
[2016-09-07] MEDS: IPRATROPIUM 0.5MG/ALBUTEROL 2.5MG INH SOL UD 3ML (DUONEB)(J7620) NEB SCH ×4 (07:14→19:38)
[2016-09-07] MEDS: HumaLOG INSULIN (NovoLOG) PER UNIT SC SCH ×4 (07:37→20:51)
[2016-09-07] MEDS: SODIUM CHLORIDE 1 GM TAB PO SCH ×2 (09:00→20:59)
[2016-09-07] MEDS: NORTRIPTYLINE 25 MG CAP PO SCH ×3 (09:00→20:59)
[2016-09-07] MEDS: GABAPENTIN 400 MG CAP PO SCH ×2 (09:00→21:00)
[2016-09-07] MEDS: PANTOPRAZOLE 40MG TAB (PROTONIX) PO SCH (09:01)
[2016-09-07] MEDS: TAMSULOSIN 0.4 MG CAP PO SCH (09:01)
[2016-09-07] MEDS: DOCUSATE SODIUM 100 MG CAP PO SCH ×2 (09:02→21:00)
[2016-09-07] MEDS: PERCOCET 5MG/325MG TAB PO PRN ×3 (09:02→23:40)
[2016-09-07] MEDS: ATENOLOL 50 MG TAB PO SCH (09:02)
[2016-09-07] MEDS: CLOBETASOL PROPIONATE EMOLLIENT 0.05% CR 60 GM TOP SCH ×2 (09:03→21:01)
[2016-09-07] MEDS: MAGNESIUM OXIDE 400 MG TAB (MAG-OX) PO SCH ×2 (09:03→21:00)
[2016-09-07] MEDS: LIDOCAINE 5% OINT 30 GM TOP SCH ×2 (09:03→21:01)
[2016-09-07 14:00] VITALS: BP 130/70
--- NOTE | 2016-09-07 18:04 | IPNPDOC ---
Subjective Date Seen The patient was seen on 09/07/16. Subjective Chief Complaint/HPI The patient is a 66-year-old male admitted with a reason for visit of Subdural Bleeding. General: Denies: Chills Constitutional: Denies: Chills, Fever Cardiovascular: Denies: Chest Pain, Palpitations Gastrointestinal: Denies: Nausea Genitourinary: Denies: Dysuria Objective Physical Examination General Exam: Positive: Alert, Cooperative, No Acute Distress Neck Exam: Negative: thyromegaly, Lymphadenopathy Chest Exam: Positive: Clear to auscultation, Diminished, Negative: Rales, Wheezing Heart Exam: Positive: Rate Normal, Normal S1, Normal S2, Murmurs Abdomen Exam: Positive: Normal bowel sounds, Soft, Negative: Tenderness Extremity Exam: Positive: Other (right BKA), Negative: Edema Skin Exam: Positive: Nl turgor and temperature, Rash (widespread plaques of psoriasis.) Neuro Exam: Positive: Normal Speech, Sensation Intact Assessment /Plan Problems (1) Ataxia Status: Chronic Response to Treatment: Improving Problem Text: 2 BKA/peripheral neuropathy/deconditioning PFS consult placed 09/07 favor PMR-consult placed 09/02 and 09/06 (2) Subdural bleeding Status: Acute Response to Treatment: Stable Problem Text: 09/06-case d/w Dr. Estrella-stable from NS perspective for PMR (drain removed ) 09/01/16 s/p Right frontal craniotomy with evacuation of acute and subacute subdural hematomas and placement of subdural drain and cranioplasty-Rupesh ( previosly done by Dr. Estrella 08/29/2016 and renard holes 08/23/16) 7 (3) Wound swab culture positive Problem Text: No signs/symptoms of wound infection 09/05 ID ordered vanco 1 BID x 2D given to OR x 3 times but s signs of cellulitis , normal WBC and afebrile 09/01/16 WCX few MRSA h/o MRSA colonization (4) Urinary retention Status: Acute Problem Text: no previous h/o retention, ? immobility/antic-cholin effect 2 TCA plan trial of void 09/12/1609/07 + finasteride 5 09/07 cathed UCX P 09/05 + Flomax 0.4 qhs 09/04/16 curtis placed 2 retention (5) TITA (obstructive sleep apnea) Status: Chronic Problem Text: untreated TITA - Noncompliant with CPAP at home. Has transient hypoxemia with O2 sats that drop into 80s but spontaneously improve without Oxygen. (6) Phantom limb syndrome with pain Status: Chronic Response to Treatment: Improving, Uncontrolled Discussed With: Nurse, Patient, Family with Pt Consent Problem Specific Plan: Monitor Clinically Problem Text: Stable on HD albert 1200 BID and nortrip 75 TID (7) DM2 (diabetes mellitus, type 2) Status: Chronic Problem Text: Levemir 10 qhs c SSNI 09/06 BG low-mid 100s s hypos HD lantus 45 qhs, glimeperide 4 BID (8) Hypertension Status: Chronic Discussed With: Pt and Family Services Problem Text: Remains euvolemic off HCTZ/fur Atenolol 50 qd, Amlodipine 2.5 mg daily 09/06 fair control on current regimen HD: atenolol 25, HCTZ 25, furosemide 40 11/09/15 TTE-Antecol 1. Mild concentric left ventricular hypertrophy. Normal LV wall motion and wall thickening. Normal LV systolic function. LVEF 65-70% by visual estimate. 2. Grade 1 LV diastolic dysfunction (repaired relaxation filling pattern). 3. Mild elevation of pulmonary artery systolic pressure. 4. Moderately technically difficult echocardiogram. (9) Chronic alcohol abuse Status: Chronic Problem Text: No signs or symptoms of alcohol withdrawal. - Begin CIWA scoring if patient develops symptoms of withdrawal (10) CKD (chronic kidney disease), stage III Status: Chronic Problem Text: stable cr at baseline ~1.0 (11) PVD (peripheral vascular disease) Status: Chronic Response to Treatment: Stable Problem Text: Status post right BKA Plan/VTE VTE Prophylaxis Ordered?: No (patient on compression stockings only) VTE Exclusion Pharmacological: Hemorrhage Plan/Urinary Catheter Reason for insertion/continuin: Acute obstruct/retention Plan Diet: Advance Diagnostics: Check Labs, Repeat Labs in AM VS, I&O, 24H, Fishbone Vital Signs/I&O Vital Signs Date Time Temp Pulse Resp B/P (MAP) Pulse Ox O2 Delivery O2 Flow Rate FiO2 09/07/16 16:34 18 09/07/16 14:00 97.6 56 130/70 (90) 93 09/07/16 07:45 Room Air 09/02/16 12:00 2.0 09/02/16 04:00 92 I&O- Last 24 Hours up to 6 AM 09/07/16 06:00 Intake Total 1320 ml Output Total 2400 ml Balance -1080 ml Laboratory Data 24H LABS Laboratory Tests 2 09/06/16 20:19: Bedside Glucose (Misc Panel) 133H 09/07/16 05:37: White Blood Count 9.8, Red Blood Count 4.49, Hemoglobin 13.5L, Hematocrit 42.3, Mean Corpuscular Volume 94.2, Mean Corpuscular Hemoglobin 30.0, Mean Corpuscular Hemoglobin Concent 31.8L, Red Cell Distribution Width 13.7, Platelet Count 218, Neutrophils (%) (Auto) 77.0H, Lymphocytes (%) (Auto) 11.6L, Monocytes (%) (Auto) 5.9H, Eosinophils (%) (Auto) 3.3H, Basophils (%) (Auto) 0.4 , Neutrophils # (Auto) 7.6, Lymphocytes # (Auto) 1.3L, Monocytes # (Auto) 0.6, Eosinophils # (Auto) 0.3, Basophils # (Auto) 0.0, Large Unclassified Cells % 1.7 , Large Unclassified Cells # 0.2, Anion Gap 5L, Glomerular Filtration Rate > 60.0, Blood Urea Nitrogen 17, Creatinine 1.10, Sodium Level 139, Potassium Level 4.1, Chloride Level 103, Carbon Dioxide Level 31, Calcium Level 9.5, Aspartate Amino Transf (AST/SGOT) 17, Alanine Aminotransferase (ALT/SGPT) 35, Alkaline Phosphatase 262H, Total Bilirubin 0.3, Total Protein 7.2, Albumin 2.9L , Magnesium Level 2.1, Albumin/Globulin Ratio 0.67L 09/07/16 11:45: Bedside Glucose (Misc Panel) 139H 09/07/16 16:59: Bedside Glucose (Misc Panel) 183H CBC/BMP Laboratory Tests 09/07/16 05:37 Red Blood Count 4.49, Mean Corpuscular Volume 94.2, Mean Corpuscular Hemoglobin 30.0, Mean Corpuscular Hemoglobin Concent 31.8 L, Red Cell Distribution Width 13.7, Neutrophils (%) (Auto) 77.0 H, Lymphocytes (%) (Auto) 11.6 L, Monocytes (% ) (Auto) 5.9 H, Eosinophils (%) (Auto) 3.3 H, Basophils (%) (Auto) 0.4, Neutrophils # (Auto) 7.6, Lymphocytes # (Auto) 1.3 L, Monocytes # (Auto) 0.6, Eosinophils # (Auto) 0.3, Basophils # (Auto) 0.0, Calcium Level 9.5, Aspartate Amino Transf (AST/SGOT) 17, Alanine Aminotransferase (ALT/SGPT) 35, Alkaline Phosphatase 262 H, Total Bilirubin 0.3, Total Protein 7.2, Albumin 2.9 L Microbiology Microbiology 09/01/16 Gram Stain - Final, Complete 09/01/16 Wound Culture - Final, Complete Staph.aureus Methicillin Resis 09/01/16 Anaerobic Culture - Final, Complete Efrain Red M.D. Sep 07, 2016 18:04
[2016-09-07] MEDS: LEVEMIR (INSULIN DETEMIR) 1 UNITS/0.01ML SC SCH (21:00)
[2016-09-07] MEDS: PRAVASTATIN 20 MG TAB PO SCH (21:01)
[2016-09-07] MEDS: FINASTERIDE 5 MG TAB PO SCH (21:02)
[2016-09-07 22:00] VITALS: BP 154/74
[2016-09-08 05:35] LABS: BASO % 0.3 % (0.0-1.0); EOS # 0.4 K/mm3 (0.0-0.50); EOS % 4.1 % (0.0-3.0); LARGE UNSTAINED CELL # 0.2 K/mm3 (0.0-0.4); LYMPH # 0.9 K/mm3 (1.5-4.5); LYMPH % 10.3 % (24.0-44.0); MEAN CORPUSCULAR VOLUME 94.1 fl (80.0-96.0); MONO # 1.1 K/mm3 (0.0-0.8); MONO % 12.3 % (0.0-5.0); NEUTROPHILS # 6.5 K/mm3 (1.8-7.7); NEUTROPHILS % 70.9 % (36.0-66.0); PLATELET COUNT, AUTOMATED 206 k/mm3 (150-450); RED CELL DISTRIBUTION WIDTH 13.4 % (11.5-14.5); WHITE BLOOD COUNT 9.1 K/mm3 (4.0-10.0)
[2016-09-08] MEDS: VANCOMYCIN HCL 1,000 MG, VIAL MATE ADAPTER 1 EACH in D5W 250 ML IV SCH (05:39)
[2016-09-08 05:49] LABS: ALBUMIN 2.9 GM/DL (3.2-5.2); ALBUMIN/GLOBULIN RATIO 0.69 (1.00-1.93); ALKALINE PHOSPHATASE 253 U/L (45-117); ALT/SGPT 33 U/L (12-78); ANION GAP 6 MEQ/L (8-16); AST/SGOT 19 U/L (15-37); BILIRUBIN,TOTAL 0.2 MG/DL (0.2-1.0); BLOOD UREA NITROGEN 17 MG/DL (7-18); CALCIUM LEVEL 9.5 MG/DL (8.8-10.2); CARBON DIOXIDE LEVEL 29 MEQ/L (21-32); CHLORIDE LEVEL 103 MEQ/L (98-107); CREATININE FOR GFR 1.16 MG/DL (0.70-1.30); GLOMERULAR FILTRATION RATE > 60.0 (>49); GLUCOSE, FASTING 117 MG/DL (80-110); POTASSIUM SERUM 4.3 MEQ/L (3.5-5.1); SODIUM LEVEL 138 MEQ/L (136-145); TOTAL PROTEIN 7.1 GM/DL (6.4-8.2)
[2016-09-08 06:00] VITALS: BP 137/75
[2016-09-08] MEDS: IPRATROPIUM 0.5MG/ALBUTEROL 2.5MG INH SOL UD 3ML (DUONEB)(J7620) NEB SCH ×5 (07:36→19:51)
[2016-09-08] MEDS: GABAPENTIN 400 MG CAP PO SCH ×2 (08:15→20:14)
[2016-09-08] MEDS: DOCUSATE SODIUM 100 MG CAP PO SCH ×2 (08:15→20:11)
[2016-09-08] MEDS: SODIUM CHLORIDE 1 GM TAB PO SCH ×2 (08:15→20:11)
[2016-09-08] MEDS: NORTRIPTYLINE 25 MG CAP PO SCH ×3 (08:15→20:12)
[2016-09-08] MEDS: HumaLOG INSULIN (NovoLOG) PER UNIT SC SCH ×4 (08:15→21:00)
[2016-09-08] MEDS: ATENOLOL 50 MG TAB PO SCH (08:16)
[2016-09-08] MEDS: TAMSULOSIN 0.4 MG CAP PO SCH (08:16)
[2016-09-08] MEDS: MAGNESIUM OXIDE 400 MG TAB (MAG-OX) PO SCH ×2 (08:16→20:13)
[2016-09-08] MEDS: PANTOPRAZOLE 40MG TAB (PROTONIX) PO SCH (08:16)
[2016-09-08] MEDS: LIDOCAINE 5% OINT 30 GM TOP SCH ×2 (08:17→20:27)
[2016-09-08] MEDS: CLOBETASOL PROPIONATE EMOLLIENT 0.05% CR 60 GM TOP SCH ×2 (08:17→20:22)
--- NOTE | 2016-09-08 10:15 | DSES ---
DATE OF ADMISSION: 08/22/2016 DATE OF DISCHARGE: ATTENDING PHYSICIAN: Dr. Tasha Eaton. PRIMARY CARE PROVIDER: Dr. Efrain Red. HISTORY OF PRESENT ILLNESS: This is a 66-year-old male with a previous history of traumatic subdural hematoma who presented to the [facility] in [facility] on 08/22/2016 and noted to have an acute intracranial hemorrhage with a midline shift. The patient was subsequently admitted to the critical care team. His Plavix was stopped and reversed with desmopressin. Neurosurgery evaluated the patient. The patient is status post bur hole placement with insertion of port for drainage of right chronic subdural hematoma. The patient is status post right frontal craniotomy on 08/29/2016 with drainage for current acute and subacute subdural hematoma and cranioplasty. The patient is continued to slowly improved throughout his hospitalization. He is noted to have some ataxia secondary to his below knee amputation (BKA) and peripheral neuropathy with deconditioning. The patient states he has some issues with fit of his prosthesis and requesting evaluation by prosthetic specialist. The patient was noted to have a positive wound culture swab and infectious disease was consulted and the patient was placed on vancomycin 1 gram twice a day for 2 days. The patient developed sudden urinary retention on 09/04/2016. A Jules catheter was placed. He was placed on Flomax 0.4 mg nightly and finasteride 5 mg daily with a plan on trial void for 09/12/2016. Regarding patient's diabetes, his blood sugars have been well controlled with his Levemir daily and regular insulin sliding scale. The patient does have a previous home dose of Lantus 45 units nightly and glimepiride 4 mg twice a day, which has been held. Regarding the patient's history of chronic alcohol use, the patient showed no signs or symptoms of alcohol withdrawal. PHYSICAL EXAMINATION: Vital signs are stable. The patient is afebrile. HEENT: Neck is supple without lymphadenopathy or jugular venous distention. CARDIOVASCULAR: Heart rate and rhythm are regular. PULMONARY: Lungs are clear. ABDOMEN: Soft and nontender. EXTREMITIES: The patient's BKA appears clean, dry and intact. There are no signs of infection. Most recent labs are stable. ASSESSMENT: 1. Subdural hematoma status post multiple surgical interventions during this hospitalization. 2. Urinary retention. 3. Diabetes. 4. Positive wound culture with methicillin resistant Staphylococcus aureus (MRSA). 5. Obstructive sleep apnea. 6. Phantom limb syndrome with pain. 7. Hypertension. 8. Chronic alcohol abuse. 9. Chronic kidney disease, stage III. 10. History of peripheral vascular disease. PLAN: The patient is transferred to [facility] facility ([facility]) status as of 09/08/2016. Will consider subacute rehabilitation for patient. Further discharge orders will be dictation by discharging provider when patient's disposition is formalized.
[2016-09-08 14:00] VITALS: BP 160/75
--- NOTE | 2016-09-08 17:37 | IPN ---
DATE: 09/08/2016 Mr. Shaw seems to be doing well. He was transferred to long term facility (SNF) as of 09/08/2016. He will be considered for subacute rehabilitation. He has no nausea, vomiting or diarrhea. No abdominal pain. No fever or chills. He has minimal serosanguineous drainage on the scalp wound. He does complain of itching because of the psoriatic plaques. He has a history of urinary retention. On 09/04/2016, a Jules catheter was placed. He was placed on Flomax and finasteride and a plan of trial void 09/12/2016 will be done. He has no other complaints. LABORATORY DATA: White count 9.1, hemoglobin 14, hematocrit 42.4, platelets 206. Sodium 138, potassium 4.3, chloride 103, bicarbonate 29, BUN 17, creatinine 1.1, CRP 4.07. Wound culture, methicillin-resistant Staphylococcus aureus (MRSA), urine culture was sent on 09/07/2016 and is pending. Urinalysis had 12 white cells. IMPRESSION: 1. Methicillin-resistant Staphylococcus aureus (MRSA) postoperative wound infection of the right scalp, on IV vancomycin. Has received a total of 4 days. Will switch him to oral Zyvox for 1 week. 2. Severe psoriasis involving the entire body. The patient is on clobetasol twice a day and was encouraged to use Vaseline. His is present and understands the importance of keeping it moisturized and using creams twice a day. PLAN: Discontinue IV vancomycin, switch to Zyvox 600 mg by mouth twice a day for 1 week. Cover the dressing with Optifoam dressing as the patient has a tendency to touch the mario and probably infected his wound from colonization with MRSA.
[2016-09-08] MEDS: PERCOCET 5MG/325MG TAB PO PRN (18:33)
[2016-09-08] MEDS: FINASTERIDE 5 MG TAB PO SCH (20:12)
[2016-09-08] MEDS: PRAVASTATIN 20 MG TAB PO SCH (20:13)
[2016-09-08] MEDS: LINEZOLID 600MG TABLET (ZYVOX) PO SCH (20:13)
[2016-09-08] MEDS: LEVEMIR (INSULIN DETEMIR) 1 UNITS/0.01ML SC SCH (20:15)
[2016-09-08 22:00] VITALS: BP 159/81
[2016-09-09] MEDS: PERCOCET 5MG/325MG TAB PO PRN ×3 (00:50→17:24)
[2016-09-09 06:00] VITALS: BP 152/73
[2016-09-09] MEDS: HumaLOG INSULIN (NovoLOG) PER UNIT SC SCH ×4 (07:30→20:45)
[2016-09-09 07:45] VITALS: O2SAT 89
[2016-09-09] MEDS: IPRATROPIUM 0.5MG/ALBUTEROL 2.5MG INH SOL UD 3ML (DUONEB)(J7620) NEB SCH ×4 (07:45→19:53)
[2016-09-09] MEDS: LIDOCAINE 5% OINT 30 GM TOP SCH ×2 (09:00→20:51)
[2016-09-09] MEDS: CLOBETASOL PROPIONATE EMOLLIENT 0.05% CR 60 GM TOP SCH ×2 (09:00→20:52)
[2016-09-09] MEDS: LINEZOLID 600MG TABLET (ZYVOX) PO SCH ×2 (09:39→20:45)
[2016-09-09] MEDS: TAMSULOSIN 0.4 MG CAP PO SCH (09:39)
[2016-09-09] MEDS: PANTOPRAZOLE 40MG TAB (PROTONIX) PO SCH (09:39)
[2016-09-09] MEDS: SODIUM CHLORIDE 1 GM TAB PO SCH ×2 (09:39→20:43)
[2016-09-09] MEDS: ATENOLOL 50 MG TAB PO SCH (09:39)
[2016-09-09] MEDS: GABAPENTIN 400 MG CAP PO SCH ×2 (09:39→20:43)
[2016-09-09] MEDS: DOCUSATE SODIUM 100 MG CAP PO SCH ×2 (09:40→20:43)
[2016-09-09] MEDS: MAGNESIUM OXIDE 400 MG TAB (MAG-OX) PO SCH ×2 (09:40→20:44)
[2016-09-09] MEDS: NORTRIPTYLINE 25 MG CAP PO SCH ×3 (09:40→20:43)
[2016-09-09 14:00] VITALS: BP 115/74
[2016-09-09] MEDS ORDERED: oxyCODONE 5MG TAB PO PRN (20:00)
[2016-09-09] MEDS ORDERED: oxyCODONE 5MG TAB PO ONE (20:00)
[2016-09-09] MEDS: PRAVASTATIN 20 MG TAB PO SCH (20:44)
[2016-09-09] MEDS: FINASTERIDE 5 MG TAB PO SCH (20:45)
[2016-09-09] MEDS: LEVEMIR (INSULIN DETEMIR) 1 UNITS/0.01ML SC SCH (21:00)
[2016-09-09 22:00] VITALS: BP 120/62
[2016-09-10 06:00] VITALS: BP 152/74
[2016-09-10] MEDS: HumaLOG INSULIN (NovoLOG) PER UNIT SC SCH ×4 (08:04→21:00)
[2016-09-10] MEDS: IPRATROPIUM 0.5MG/ALBUTEROL 2.5MG INH SOL UD 3ML (DUONEB)(J7620) NEB SCH ×4 (08:47→19:27)
[2016-09-10] MEDS: GABAPENTIN 400 MG CAP PO SCH ×2 (10:13→21:44)
[2016-09-10] MEDS: TAMSULOSIN 0.4 MG CAP PO SCH (10:13)
[2016-09-10] MEDS: SODIUM CHLORIDE 1 GM TAB PO SCH ×2 (10:13→21:44)
[2016-09-10] MEDS: MAGNESIUM OXIDE 400 MG TAB (MAG-OX) PO SCH ×2 (10:13→21:44)
[2016-09-10] MEDS: PANTOPRAZOLE 40MG TAB (PROTONIX) PO SCH (10:13)
[2016-09-10] MEDS: LINEZOLID 600MG TABLET (ZYVOX) PO SCH ×2 (10:14→21:44)
[2016-09-10] MEDS: DOCUSATE SODIUM 100 MG CAP PO SCH ×2 (10:14→21:45)
[2016-09-10] MEDS: NORTRIPTYLINE 25 MG CAP PO SCH ×3 (10:14→21:44)
[2016-09-10] MEDS: ATENOLOL 50 MG TAB PO SCH (10:15)
[2016-09-10] MEDS: oxyCODONE 5MG TAB PO PRN ×2 (10:16→18:18)
[2016-09-10] MEDS: CLOBETASOL PROPIONATE EMOLLIENT 0.05% CR 60 GM TOP SCH ×2 (10:16→21:46)
[2016-09-10] MEDS: LIDOCAINE 5% OINT 30 GM TOP SCH ×2 (10:17→21:43)
[2016-09-10 14:00] VITALS: BP 139/70
[2016-09-10] MEDS: LEVEMIR (INSULIN DETEMIR) 1 UNITS/0.01ML SC SCH (21:43)
[2016-09-10] MEDS: FINASTERIDE 5 MG TAB PO SCH (21:44)
[2016-09-10] MEDS: PRAVASTATIN 20 MG TAB PO SCH (21:45)
[2016-09-10 22:00] VITALS: BP 137/77
[2016-09-11 06:00] VITALS: BP 156/88
[2016-09-11] MEDS: IPRATROPIUM 0.5MG/ALBUTEROL 2.5MG INH SOL UD 3ML (DUONEB)(J7620) NEB SCH ×4 (07:33→19:55)
[2016-09-11] MEDS: HumaLOG INSULIN (NovoLOG) PER UNIT SC SCH ×4 (08:47→20:34)
[2016-09-11] MEDS: MAGNESIUM OXIDE 400 MG TAB (MAG-OX) PO SCH ×2 (10:31→20:44)
[2016-09-11] MEDS: PANTOPRAZOLE 40MG TAB (PROTONIX) PO SCH (10:31)
[2016-09-11] MEDS: LINEZOLID 600MG TABLET (ZYVOX) PO SCH ×2 (10:31→20:44)
[2016-09-11] MEDS: SODIUM CHLORIDE 1 GM TAB PO SCH ×2 (10:31→20:44)
[2016-09-11] MEDS: TAMSULOSIN 0.4 MG CAP PO SCH (10:31)
[2016-09-11] MEDS: NORTRIPTYLINE 25 MG CAP PO SCH ×3 (10:31→20:44)
[2016-09-11] MEDS: ATENOLOL 50 MG TAB PO SCH (10:32)
[2016-09-11] MEDS: DOCUSATE SODIUM 100 MG CAP PO SCH ×2 (10:32→20:44)
[2016-09-11] MEDS: GABAPENTIN 400 MG CAP PO SCH ×2 (10:32→20:44)
[2016-09-11] MEDS: LIDOCAINE 5% OINT 30 GM TOP SCH ×2 (10:33→20:46)
[2016-09-11] MEDS: CLOBETASOL PROPIONATE EMOLLIENT 0.05% CR 60 GM TOP SCH ×2 (10:34→20:46)
[2016-09-11] MEDS: oxyCODONE 5MG TAB PO PRN ×2 (13:01→20:47)
[2016-09-11 14:00] VITALS: BP 133/67
[2016-09-11] MEDS: FINASTERIDE 5 MG TAB PO SCH (20:44)
[2016-09-11] MEDS: PRAVASTATIN 20 MG TAB PO SCH (20:44)
[2016-09-11] MEDS: LEVEMIR (INSULIN DETEMIR) 1 UNITS/0.01ML SC SCH (20:45)
[2016-09-11 22:00] VITALS: BP 126/75
[2016-09-12 06:00] VITALS: BP 134/77
[2016-09-12 06:09] LABS: MEAN CORPUSCULAR HEMOGLOBIN 30.7 pg (27.0-33.0); MEAN CORPUSCULAR HGB CONC 32.7 g/dl (32.0-36.5); MEAN CORPUSCULAR VOLUME 93.7 fl (80.0-96.0); RED CELL DISTRIBUTION WIDTH 13.3 % (11.5-14.5); WHITE BLOOD COUNT 12.2 K/mm3 (4.0-10.0)
[2016-09-12] MEDS: IPRATROPIUM 0.5MG/ALBUTEROL 2.5MG INH SOL UD 3ML (DUONEB)(J7620) NEB SCH ×4 (07:28→19:37)
[2016-09-12] MEDS: GABAPENTIN 400 MG CAP PO SCH ×2 (09:09→20:37)
[2016-09-12] MEDS: DOCUSATE SODIUM 100 MG CAP PO SCH ×2 (09:09→20:38)
[2016-09-12] MEDS: SODIUM CHLORIDE 1 GM TAB PO SCH ×2 (09:09→20:38)
[2016-09-12] MEDS: HumaLOG INSULIN (NovoLOG) PER UNIT SC SCH ×4 (09:09→20:26)
[2016-09-12] MEDS: NORTRIPTYLINE 25 MG CAP PO SCH ×3 (09:09→20:38)
[2016-09-12] MEDS: CLOBETASOL PROPIONATE EMOLLIENT 0.05% CR 60 GM TOP SCH ×2 (09:10→20:40)
[2016-09-12] MEDS: LIDOCAINE 5% OINT 30 GM TOP SCH ×2 (09:10→20:39)
[2016-09-12] MEDS: LINEZOLID 600MG TABLET (ZYVOX) PO SCH ×2 (09:10→20:38)
[2016-09-12] MEDS: PANTOPRAZOLE 40MG TAB (PROTONIX) PO SCH (09:10)
[2016-09-12] MEDS: MAGNESIUM OXIDE 400 MG TAB (MAG-OX) PO SCH ×2 (09:10→20:38)
[2016-09-12] MEDS: TAMSULOSIN 0.4 MG CAP PO SCH (09:10)
[2016-09-12] MEDS: ATENOLOL 50 MG TAB PO SCH (09:11)
[2016-09-12 14:00] VITALS: BP 136/79
[2016-09-12] MEDS: PRAVASTATIN 20 MG TAB PO SCH (20:38)
[2016-09-12] MEDS: FINASTERIDE 5 MG TAB PO SCH (20:38)
[2016-09-12] MEDS: LEVEMIR (INSULIN DETEMIR) 1 UNITS/0.01ML SC SCH (20:39)
[2016-09-12] MEDS: oxyCODONE 5MG TAB PO PRN (20:44)
--- NOTE | 2016-09-13 00:26 | IPN ---
DATE OF SERVICE: 09/11/2016 Mr. Shaw seems to be doing very well. He denies any complaints. No nausea, vomiting or diarrhea. No abdominal pain. No fever or chills. His wound of the scalp has markedly improved. There is no drainage. No redness. He has been treated for his psoriasis as well with steroid cream and Eucerin with marked improvement in his lesions. He has received a total of 3 days of intravenous (IV) vancomycin and 4 days of oral linezolid, a total of 7 days of methicillin-resistant Staphylococcus aureus (MRSA) coverage. LABORATORY DATA: White count is 9.1, hemoglobin 14, hematocrit 42.4, platelets 206, 70% neutrophils, 10% lymphocytes, 12% monocytes. Sodium 138, potassium 4.3, chloride 103, bicarbonate 29, BUN 17, creatinine 1.16 , glucose 117. IMPRESSION: Methicillin-resistant Staphylococcus aureus (MRSA) superficial wound infection of the scalp, doing much better after 7 days of antibiotic. PLAN Repeat complete blood count (CBC), C-reactive protein (CRP) tomorrow. If within normal, could discontinue oral linezolid. MTDD
[2016-09-13 06:00] VITALS: BP 140/78
[2016-09-13] MEDS: IPRATROPIUM 0.5MG/ALBUTEROL 2.5MG INH SOL UD 3ML (DUONEB)(J7620) NEB SCH ×4 (08:17→19:26)
[2016-09-13] MEDS: MAGNESIUM OXIDE 400 MG TAB (MAG-OX) PO SCH ×2 (09:27→20:28)
[2016-09-13] MEDS: SODIUM CHLORIDE 1 GM TAB PO SCH ×2 (09:27→20:27)
[2016-09-13] MEDS: NORTRIPTYLINE 25 MG CAP PO SCH ×3 (09:27→20:29)
[2016-09-13] MEDS: ATENOLOL 50 MG TAB PO SCH (09:28)
[2016-09-13] MEDS: GABAPENTIN 400 MG CAP PO SCH ×2 (09:28→20:29)
[2016-09-13] MEDS: TAMSULOSIN 0.4 MG CAP PO SCH (09:28)
[2016-09-13] MEDS: LINEZOLID 600MG TABLET (ZYVOX) PO SCH ×2 (09:28→20:29)
[2016-09-13] MEDS: DOCUSATE SODIUM 100 MG CAP PO SCH ×2 (09:28→20:28)
[2016-09-13] MEDS: PANTOPRAZOLE 40MG TAB (PROTONIX) PO SCH (09:28)
[2016-09-13] MEDS: HumaLOG INSULIN (NovoLOG) PER UNIT SC SCH ×5 (09:29→19:51)
[2016-09-13] MEDS: LIDOCAINE 5% OINT 30 GM TOP SCH ×2 (09:39→20:29)
[2016-09-13] MEDS: CLOBETASOL PROPIONATE EMOLLIENT 0.05% CR 60 GM TOP SCH ×2 (09:39→20:29)
[2016-09-13] MEDS: FINASTERIDE 5 MG TAB PO SCH (20:27)
[2016-09-13] MEDS: oxyCODONE 5MG TAB PO PRN (20:28)
[2016-09-13] MEDS: PRAVASTATIN 20 MG TAB PO SCH (20:28)
[2016-09-13] MEDS: LEVEMIR (INSULIN DETEMIR) 1 UNITS/0.01ML SC SCH (20:30)
[2016-09-14 06:00] VITALS: BP 159/88
[2016-09-14] MEDS: IPRATROPIUM 0.5MG/ALBUTEROL 2.5MG INH SOL UD 3ML (DUONEB)(J7620) NEB SCH ×4 (07:13→19:27)
[2016-09-14] MEDS: HumaLOG INSULIN (NovoLOG) PER UNIT SC SCH ×4 (07:30→21:00)
[2016-09-14] MEDS: NORTRIPTYLINE 25 MG CAP PO SCH ×3 (08:32→23:40)
[2016-09-14] MEDS: TAMSULOSIN 0.4 MG CAP PO SCH (08:32)
[2016-09-14] MEDS: PANTOPRAZOLE 40MG TAB (PROTONIX) PO SCH (08:32)
[2016-09-14] MEDS: MAGNESIUM OXIDE 400 MG TAB (MAG-OX) PO SCH ×2 (08:33→23:40)
[2016-09-14] MEDS: GABAPENTIN 400 MG CAP PO SCH ×2 (08:33→23:40)
[2016-09-14] MEDS: SODIUM CHLORIDE 1 GM TAB PO SCH ×2 (08:33→23:41)
[2016-09-14] MEDS: LINEZOLID 600MG TABLET (ZYVOX) PO SCH ×2 (08:33→23:41)
[2016-09-14] MEDS: DOCUSATE SODIUM 100 MG CAP PO SCH ×2 (08:33→23:40)
[2016-09-14] MEDS: ATENOLOL 50 MG TAB PO SCH (08:33)
[2016-09-14] MEDS: LIDOCAINE 5% OINT 30 GM TOP SCH ×2 (08:34→23:41)
[2016-09-14] MEDS: CLOBETASOL PROPIONATE EMOLLIENT 0.05% CR 60 GM TOP SCH ×2 (08:35→21:00)
[2016-09-14] MEDS: oxyCODONE 5MG TAB PO PRN (08:50)
[2016-09-14 22:00] VITALS: BP 123/83
--- NOTE | 2016-09-14 23:40 | REPUSA ---
CT of the head Clinical history: decreased level of consciousness. Technique: Multiple axial CT images were obtained through the head without administration of contrast . Comparison: 08/24/2016. Findings: The right frontal craniotomy appear grossly stable. The Ventricles and sulci are symmetric bilaterally. There is no significant change in the right sided subdural fluid collection. There is a mixture of hyperdense and hyperdense material, although the hyperdense blood has decreased since the prior study. The pneumocephalus has slightly decreased. There is no midline shift, mass effect, or ex tra-axial fluid collection. The osseous structures are unremarkable. The visualized paranasal sinuses and mastoid air cells are clear. Impression: 1. No significant change in the size of the right-sided subdural fluid collection. The blood seen wit hin this collection has slightly decreased since the prior study. 2. No new evidence of hemorrhage since the prior study. 3. The other CT findings are stable.
[2016-09-14] MEDS: LEVEMIR (INSULIN DETEMIR) 1 UNITS/0.01ML SC SCH (23:41)
[2016-09-14] MEDS: FINASTERIDE 5 MG TAB PO SCH (23:41)
[2016-09-14] MEDS: PRAVASTATIN 20 MG TAB PO SCH (23:41)
[2016-09-15] MEDS: oxyCODONE 5MG TAB PO PRN (01:26)
[2016-09-15 06:00] VITALS: BP 149/84
[2016-09-15] MEDS: IPRATROPIUM 0.5MG/ALBUTEROL 2.5MG INH SOL UD 3ML (DUONEB)(J7620) NEB SCH ×4 (07:18→19:48)
[2016-09-15 07:38] LABS: MEAN CORPUSCULAR HEMOGLOBIN 30.6 pg (27.0-33.0); MEAN CORPUSCULAR VOLUME 92.8 fl (80.0-96.0); RED CELL DISTRIBUTION WIDTH 13.8 % (11.5-14.5); WHITE BLOOD COUNT 8.5 K/mm3 (4.0-10.0)
[2016-09-15 08:05] LABS: ANION GAP 7 MEQ/L (8-16); BLOOD UREA NITROGEN 17 MG/DL (7-18); CALCIUM LEVEL 9.4 MG/DL (8.8-10.2); CARBON DIOXIDE LEVEL 28 MEQ/L (21-32); CHLORIDE LEVEL 102 MEQ/L (98-107); CREATININE FOR GFR 1.08 MG/DL (0.70-1.30); GLOMERULAR FILTRATION RATE > 60.0 (>49); GLUCOSE, FASTING 109 MG/DL (80-110); POTASSIUM SERUM 4.1 MEQ/L (3.5-5.1); SODIUM LEVEL 137 MEQ/L (136-145)
[2016-09-15] MEDS: PANTOPRAZOLE 40MG TAB (PROTONIX) PO SCH (09:01)
[2016-09-15] MEDS: LINEZOLID 600MG TABLET (ZYVOX) PO SCH ×2 (09:02→20:34)
[2016-09-15] MEDS: TAMSULOSIN 0.4 MG CAP PO SCH (09:02)
[2016-09-15] MEDS: SODIUM CHLORIDE 1 GM TAB PO SCH ×2 (09:02→20:34)
[2016-09-15] MEDS: NORTRIPTYLINE 25 MG CAP PO SCH ×3 (09:02→20:34)
[2016-09-15] MEDS: DOCUSATE SODIUM 100 MG CAP PO SCH ×2 (09:02→20:34)
[2016-09-15] MEDS: GABAPENTIN 400 MG CAP PO SCH ×2 (09:02→20:34)
[2016-09-15] MEDS: MAGNESIUM OXIDE 400 MG TAB (MAG-OX) PO SCH ×2 (09:02→20:34)
[2016-09-15] MEDS: LIDOCAINE 5% OINT 30 GM TOP SCH ×2 (09:09→20:33)
[2016-09-15] MEDS: ATENOLOL 50 MG TAB PO SCH (09:09)
[2016-09-15] MEDS: CLOBETASOL PROPIONATE EMOLLIENT 0.05% CR 60 GM TOP SCH ×2 (09:10→20:34)
[2016-09-15] MEDS: HumaLOG INSULIN (NovoLOG) PER UNIT SC SCH ×4 (09:11→20:35)
--- NOTE | 2016-09-15 09:35 | IPNPDOC ---
Subjective Date Seen The patient was seen on 09/15/16. Subjective Chief Complaint/HPI The patient is a 66-year-old male admitted with a reason for visit of Subdural Bleeding. Events since last encounter Pt sitting up on side of bed. Nurse at bedside and states pt is at his baseline. Pt denies any pain, CP, SOB, Abd pain, headache. Pt knows he is in [facility]. Does not know the year. Constitutional: Denies: Chills, Fever ENT: Denies: Head Aches Pulmonary: Denies: Dyspnea Cardiovascular: Denies: Chest Pain Gastrointestinal: Denies: Nausea, Vomiting, Abdominal Pain Objective Physical Examination General Exam: Positive: Alert, Cooperative, No Acute Distress Neck Exam: Negative: thyromegaly, Lymphadenopathy Chest Exam: Positive: Clear to auscultation, Diminished, Negative: Rales, Wheezing Heart Exam: Positive: Rate Normal, Normal S1, Normal S2, Murmurs Abdomen Exam: Positive: Normal bowel sounds, Soft, Negative: Tenderness Extremity Exam: Positive: Other (right BKA), Negative: Edema Skin Exam: Positive: Nl turgor and temperature, Rash (widespread plaques of psoriasis.) Neuro Exam: Positive: Normal Speech, Sensation Intact Psych Exam: Positive: Other (Knows he is in [facility]. Does not know the year. ) Assessment /Plan Problems (1) Altered mental status Status: Acute Problem Specific Plan: Monitor Clinically Problem Text: 09/15 - Currently at baseline per nursing. AM labs unremarkable. Head CT 09/14/16: 1. No significant change in the size of the right-sided subdural fluid collection. The blood seen within this collection has slightly decreased since the prior study. 2. No new evidence of hemorrhage since the prior study. 3. The other CT findings are stable. (2) Ataxia Status: Chronic Response to Treatment: Improving Problem Text: 2 BKA/peripheral neuropathy/deconditioning PFS consult placed 09/07 favor PMR-consult placed 09/02 and 09/06 (3) Subdural bleeding Status: Acute Response to Treatment: Stable Problem Text: 09/06-case d/w Dr. Estrella-stable from NS perspective for PMR (drain removed ) 09/01/16 s/p Right frontal craniotomy with evacuation of acute and subacute subdural hematomas and placement of subdural drain and cranioplasty-Rupesh ( previosly done by Dr. Estrella 08/29/2016 and renard holes 08/23/16) 7 (4) Wound swab culture positive Problem Text: No signs/symptoms of wound infection 09/05 ID ordered vanco 1 BID x 2D given to OR x 3 times but s signs of cellulitis , normal WBC and afebrile 09/01/16 WCX few MRSA h/o MRSA colonization (5) Urinary retention Status: Acute Problem Text: no previous h/o retention, ? immobility/antic-cholin effect 2 TCA plan trial of void 09/12/1609/07 + finasteride 5 09/07 cathed UCX P 09/05 + Flomax 0.4 qhs 09/04/16 curtis placed 2 retention (6) TITA (obstructive sleep apnea) Status: Chronic Problem Text: untreated TITA - Noncompliant with CPAP at home. Has transient hypoxemia with O2 sats that drop into 80s but spontaneously improve without Oxygen. (7) Phantom limb syndrome with pain Status: Chronic Response to Treatment: Improving, Uncontrolled Discussed With: Nurse, Patient, Family with Pt Consent Problem Specific Plan: Monitor Clinically Problem Text: Stable on HD albert 1200 BID and nortrip 75 TID (8) DM2 (diabetes mellitus, type 2) Status: Chronic Problem Text: Levemir 10 qhs c SSNI 09/06 BG low-mid 100s s hypos HD lantus 45 qhs, glimeperide 4 BID (9) Hypertension Status: Chronic Discussed With: Pt and Family Services Problem Text: Remains euvolemic off HCTZ/fur Atenolol 50 qd, Amlodipine 2.5 mg daily 09/06 fair control on current regimen HD: atenolol 25, HCTZ 25, furosemide 40 11/09/15 TTE-Antecol 1. Mild concentric left ventricular hypertrophy. Normal LV wall motion and wall thickening. Normal LV systolic function. LVEF 65-70% by visual estimate. 2. Grade 1 LV diastolic dysfunction (repaired relaxation filling pattern). 3. Mild elevation of pulmonary artery systolic pressure. 4. Moderately technically difficult echocardiogram. (10) Chronic alcohol abuse Status: Chronic Problem Text: No signs or symptoms of alcohol withdrawal. - Begin CIWA scoring if patient develops symptoms of withdrawal (11) CKD (chronic kidney disease), stage III Status: Chronic Problem Text: stable cr at baseline ~1.0 (12) PVD (peripheral vascular disease) Status: Chronic Response to Treatment: Stable Problem Text: Status post right BKA Plan/VTE VTE Prophylaxis Ordered?: No (patient on compression stockings only) VTE Exclusion Pharmacological: Hemorrhage Plan/Urinary Catheter Reason for insertion/continuin: Acute obstruct/retention Plan Diet: Advance Diagnostics: Check Labs, Repeat Labs in AM VS, I&O, 24H, Fishbone Vital Signs/I&O Vital Signs Date Time Temp Pulse Resp B/P (MAP) Pulse Ox O2 Delivery O2 Flow Rate FiO2 09/15/16 09:09 74 149/84 09/15/16 06:00 97.8 21 94 Room Air I&O- Last 24 Hours up to 6 AM 09/15/16 06:00 Intake Total 1560 ml Output Total 1600 ml Balance -40 ml Laboratory Data 24H LABS Laboratory Tests 2 09/14/16 11:48: Bedside Glucose (Misc Panel) 156H 09/14/16 16:32: Bedside Glucose (Misc Panel) 158H 09/14/16 22:29: Bedside Glucose (Misc Panel) 159H 09/15/16 06:33: Bedside Glucose (Misc Panel) 111 09/15/16 07:27: Anion Gap 7L, Glomerular Filtration Rate > 60.0, Blood Urea Nitrogen 17, Creatinine 1.08, Sodium Level 137, Potassium Level 4.1, Chloride Level 102, Carbon Dioxide Level 28, Calcium Level 9.4 CBC/BMP Laboratory Tests 09/15/16 07:27 Red Blood Count 4.61, Mean Corpuscular Volume 92.8, Mean Corpuscular Hemoglobin 30.6, Mean Corpuscular Hemoglobin Concent 33.0, Red Cell Distribution Width 13.8 , Calcium Level 9.4 Microbiology Microbiology 09/07/16 Urine Culture - Final, Complete Robert William RPA-Angel Sep 15, 2016 09:35
[2016-09-15] MEDS ORDERED: LINE60TAB PO (10:26)
[2016-09-15] MEDS: FINASTERIDE 5 MG TAB PO SCH (20:34)
[2016-09-15] MEDS: PRAVASTATIN 20 MG TAB PO SCH (20:34)
[2016-09-15] MEDS: LEVEMIR (INSULIN DETEMIR) 1 UNITS/0.01ML SC SCH (20:35)
[2016-09-16 06:00] VITALS: BP 158/96
[2016-09-16] MEDS: IPRATROPIUM 0.5MG/ALBUTEROL 2.5MG INH SOL UD 3ML (DUONEB)(J7620) NEB SCH ×4 (07:03→19:21)
[2016-09-16] MEDS: HumaLOG INSULIN (NovoLOG) PER UNIT SC SCH ×4 (07:30→21:00)
[2016-09-16] MEDS: LINEZOLID 600MG TABLET (ZYVOX) PO SCH ×2 (09:05→20:19)
[2016-09-16] MEDS: NORTRIPTYLINE 25 MG CAP PO SCH ×3 (09:05→20:16)
[2016-09-16] MEDS: SODIUM CHLORIDE 1 GM TAB PO SCH ×2 (09:05→20:16)
[2016-09-16] MEDS: DOCUSATE SODIUM 100 MG CAP PO SCH ×2 (09:05→20:16)
[2016-09-16] MEDS: GABAPENTIN 400 MG CAP PO SCH ×2 (09:06→20:16)
[2016-09-16] MEDS: PANTOPRAZOLE 40MG TAB (PROTONIX) PO SCH (09:06)
[2016-09-16] MEDS: TAMSULOSIN 0.4 MG CAP PO SCH (09:06)
[2016-09-16] MEDS: ATENOLOL 50 MG TAB PO SCH (09:06)
[2016-09-16] MEDS: MAGNESIUM OXIDE 400 MG TAB (MAG-OX) PO SCH ×2 (09:06→20:17)
[2016-09-16] MEDS: CLOBETASOL PROPIONATE EMOLLIENT 0.05% CR 60 GM TOP SCH ×2 (09:07→20:18)
[2016-09-16] MEDS: LIDOCAINE 5% OINT 30 GM TOP SCH ×2 (09:07→20:18)
[2016-09-16] MEDS: oxyCODONE 5MG TAB PO PRN ×2 (15:41→20:18)
[2016-09-16] MEDS ORDERED: FLOM5CAP PO (16:16)
[2016-09-16] MEDS ORDERED: IPRASOL4 NEB (16:16)
[2016-09-16] MEDS ORDERED: COLA100C5 PO (16:16)
[2016-09-16] MEDS ORDERED: MAG400TA PO (16:16)
[2016-09-16] MEDS ORDERED: INSUDET SC (16:16)
[2016-09-16] MEDS ORDERED: AMLO25TA PO (16:16)
[2016-09-16] MEDS ORDERED: ATEN50TA2 PO (16:16)
[2016-09-16] MEDS: FINASTERIDE 5 MG TAB PO SCH (20:16)
[2016-09-16] MEDS: PRAVASTATIN 20 MG TAB PO SCH (20:17)
[2016-09-16] MEDS: LEVEMIR (INSULIN DETEMIR) 1 UNITS/0.01ML SC SCH (20:18)
[2016-09-17] MEDS: oxyCODONE 5MG TAB PO PRN (00:18)
[2016-09-17 06:00] VITALS: BP 160/90
[2016-09-17] MEDS: IPRATROPIUM 0.5MG/ALBUTEROL 2.5MG INH SOL UD 3ML (DUONEB)(J7620) NEB SCH (07:09)
[2016-09-17] MEDS: HumaLOG INSULIN (NovoLOG) PER UNIT SC SCH (07:30)
[2016-09-17] MEDS: SODIUM CHLORIDE 1 GM TAB PO SCH (08:43)
[2016-09-17] MEDS: PANTOPRAZOLE 40MG TAB (PROTONIX) PO SCH (08:43)
[2016-09-17] MEDS: NORTRIPTYLINE 25 MG CAP PO SCH (08:43)
[2016-09-17] MEDS: GABAPENTIN 400 MG CAP PO SCH (08:43)
[2016-09-17] MEDS: TAMSULOSIN 0.4 MG CAP PO SCH (08:44)
[2016-09-17] MEDS: MAGNESIUM OXIDE 400 MG TAB (MAG-OX) PO SCH (08:44)
[2016-09-17 08:45] VITALS: BP 160/90
[2016-09-17] MEDS: LIDOCAINE 5% OINT 30 GM TOP SCH (08:45)
[2016-09-17] MEDS: ATENOLOL 50 MG TAB PO SCH (08:45)
[2016-09-17] MEDS: DOCUSATE SODIUM 100 MG CAP PO SCH (08:45)
[2016-09-17] MEDS: CLOBETASOL PROPIONATE EMOLLIENT 0.05% CR 60 GM TOP SCH (08:45)
--- NOTE | 2016-09-17 15:39 | IPN ---
DATE: 09/16/2016 Mr. Shaw is doing well. He denies any new complaints. He is at baseline. He has no chest pain, shortness of breath, abdominal pain, nausea, vomiting or diarrhea. He has been on linezolid for the past 9 days and has been previously on IV vancomycin. Wound over the scalp is healing well. Della are in place. There is no redness, no purulence, no discharge. He has been afebrile for 2 weeks. Temperature is 96. LABORATORY DATA: White count is 8.5, hemoglobin 14.1, hematocrit 42.8, platelets 155. Sodium 137 , potassium 4.1, chloride 102, bicarbonate 28, BUN 17, creatinine 1, glucose 109, calcium 9.4, CRP 2.07. Wound culture was positive for MRSA on 09/01/2016. Urine culture 09/07/2016, was negative. IMPRESSION: MRSA superficial skin soft tissue infection status post 4 days of IV vancomycin and 9 days of linezolid. PLAN The patient will discontinue antibiotics at this point. There is no evidence of infection. Discontinue Zyvox. Infectious disease consultation is signing off. MTDD
--- NOTE | 2016-09-18 11:38 | DSES ---
DATE OF ADMISSION: 08/22/2016 DATE OF DISCHARGE: 09/17/2016 Addendum to previous discharge summary that was dictated on 09/08/2016 by Jes Andrews. Mr. Shaw will be discharged today. He will be going over to [facility] to continue some rehabilitation efforts. He did have a wound infection; and for this wound infection, he has been on Zyvox and completed his course really today. DISCHARGE DIAGNOSES: Are unchanged. Of particular note was subdural hematoma with multiple surgical interventions required to provide stabilization, positive wound culture, methicillin-resistant Staphylococcus aureus from superficial wound on his scalp associated with incision. No evidence of deep involvement. Hypertension, chronic alcohol abuse, phantom limb syndrome status post right below-knee amputation (BKA), and he has psoriasis. He will be discharged to [facility] for continued care and until he can reach sufficient functional improvement to return home.
== END 2016-09-17 10:50 | DRG 25 ==
LOC: M ED 11:15 → M ED INP 13:11 → M ICU 15:13 → M MS5PR 08-24 16:40 → M ICU 08-29 09:45 → M MS5PR 08-30 15:10 → M ICU 09-02 00:23 → M MSPAV 09-06 10:21
PROVIDERS: ADMIT Internal Medicine Pulmonary Disease; ATTEND Family Medicine
PROC: 009200Z Drainage of Dura Mater with Drainage Device, Open Approach (ICD-10-PCS; principal; 2016-08-23 10:16)
PROC: 00B20ZZ Excision of Dura Mater, Open Approach (ICD-10-PCS; 2016-08-29)
PROC: 009400Z Drainage of Intracranial Subdural Space with Drainage Device, Open Approach (ICD-10-PCS; 2016-09-01)
DX: S06.5X0A Traumatic subdural hemorrhage without loss of consciousness, initial encounter (principal); G93.5 Compression of brain; G93.6 Cerebral edema; E87.1 Hypo-osmolality and hyponatremia; K56.7 Ileus, unspecified; R47.01 Aphasia; T81.30XA Disruption of wound, unspecified, initial encounter; F10.20 Alcohol dependence, uncomplicated; E11.51 Type 2 diabetes mellitus with diabetic peripheral angiopathy without gangrene; I12.9 Hypertensive chronic kidney disease with stage 1 through stage 4 chronic kidney disease, or unspecified chronic kidney disease; Z66 Do not resuscitate; J44.9 Chronic obstructive pulmonary disease, unspecified; N18.3 Chronic kidney disease, stage 3 (moderate); G54.6 Phantom limb syndrome with pain; I25.10 Atherosclerotic heart disease of native coronary artery without angina pectoris; R27.0 Ataxia, unspecified; D63.1 Anemia in chronic kidney disease; L40.9 Psoriasis, unspecified; E83.42 Hypomagnesemia; R29.810 Facial weakness; R33.9 Retention of urine, unspecified; G47.33 Obstructive sleep apnea (adult) (pediatric); L98.9 Disorder of the skin and subcutaneous tissue, unspecified; Y83.8 Other surgical procedures as the cause of abnormal reaction of the patient, or of later complication, without mention of misadventure at the time of the procedure; B95.62 Methicillin resistant Staphylococcus aureus infection as the cause of diseases classified elsewhere; W05.2XXA Fall from non-moving motorized mobility scooter, initial encounter; Z79.4 Long term (current) use of insulin; Z87.891 Personal history of nicotine dependence; Z89.511 Acquired absence of right leg below knee; Z91.030 Bee allergy status; Z98.62 Peripheral vascular angioplasty status; Z79.899 Other long term (current) drug therapy; Z88.5 Allergy status to narcotic agent; Z79.82 Long term (current) use of aspirin; Z88.8 Allergy status to other drugs, medicaments and biological substances; Y92.9 Unspecified place or not applicable

== ENCOUNTER 2016-10-09 04:01 | Emergency (ER) | payer MEDICARE, MEDICAID ==
[2016-10-09] MEDS ORDERED: HALOPERIDOL 5 MG/ML VIAL (J1630) IM STA (04:28)
[2016-10-09] MEDS ORDERED: diphenhydrAMINE INJ 50MG/ML VIAL (J1200) IM STA (04:28)
[2016-10-09 05:15] VITALS: BP 176/95
== END 2016-10-09 05:24 | disposition home or self-care (01) ==
LOC: M ED 04:01 → EDBD 04:01 → M ED 05:24
DX: F91.8 Other conduct disorders (principal); E11.9 Type 2 diabetes mellitus without complications; J44.9 Chronic obstructive pulmonary disease, unspecified
CPT/HCPCS: 96372; 99283; J1200; J1630

== ENCOUNTER → 2016-10-09 | Outpatient (REF) ==
[~2016-10-09] MED LIST changes: +AMLO25TA PO; +ASPI1TAB PO; +ATEN50TA2 PO; +CALC0.009 TOP; +CLOB0.0548 TOP; +COLA100C5 PO; +INSULADS SQ; +IPRASOL4 NEB; +LINE60TAB PO; +MAG400TA PO; +MECL-86 PO; +NYST10OI TOP; +PAME75CA PO; +POTA1TAB14 PO; +PRAV40TA PO
[2016-10-09 13:33] LABS: BASO % 0.2 % (0.0-1.0); EOS # 0.6 K/mm3 (0.0-0.50); EOS % 5.6 % (0.0-3.0); LARGE UNSTAINED CELL # 0.2 K/mm3 (0.0-0.4); LARGE UNSTAINED CELL % 2.4 % (0.0-4.0); LYMPH # 1.3 K/mm3 (1.5-4.5); LYMPH % 13.3 % (24.0-44.0); MEAN CORPUSCULAR HEMOGLOBIN 30.2 pg (27.0-33.0); MEAN CORPUSCULAR HGB CONC 32.7 g/dl (32.0-36.5); MEAN CORPUSCULAR VOLUME 92.5 fl (80.0-96.0); MONO # 0.5 K/mm3 (0.0-0.8); MONO % 5.5 % (0.0-5.0); NEUTROPHILS # 7.1 K/mm3 (1.8-7.7); PLATELET COUNT, AUTOMATED 165 k/mm3 (150-450); RED CELL DISTRIBUTION WIDTH 14.8 % (11.5-14.5); WHITE BLOOD COUNT 9.8 K/mm3 (4.0-10.0)
[2016-10-09 14:02] LABS: ALBUMIN 3.5 GM/DL (3.2-5.2); ALBUMIN/GLOBULIN RATIO 0.92 (1.00-1.93); ALKALINE PHOSPHATASE 187 U/L (45-117); ALT/SGPT 26 U/L (12-78); ANION GAP 8 MEQ/L (8-16); AST/SGOT 21 U/L (15-37); BILIRUBIN,TOTAL 0.3 MG/DL (0.2-1.0); BLOOD UREA NITROGEN 15 MG/DL (7-18); CALCIUM LEVEL 9.2 MG/DL (8.8-10.2); CARBON DIOXIDE LEVEL 29 MEQ/L (21-32); CHLORIDE LEVEL 103 MEQ/L (98-107); CREATININE FOR GFR 1.14 MG/DL (0.70-1.30); GLOMERULAR FILTRATION RATE > 60.0 (>49); GLUCOSE, FASTING 169 MG/DL (80-110); POTASSIUM SERUM 4.6 MEQ/L (3.5-5.1); SODIUM LEVEL 140 MEQ/L (136-145); TOTAL PROTEIN 7.3 GM/DL (6.4-8.2)
== END ==
LOC: SKLAB2 12:37
PROVIDERS: ATTEND Family Medicine
DX: F05 Delirium due to known physiological condition (principal)

== ENCOUNTER → 2017-02-06 | Outpatient (REF) | payer MEDICARE, MEDICAID ==
[2017-02-06 16:26] LABS: ALBUMIN 3.9 GM/DL (3.2-5.2); ALBUMIN/GLOBULIN RATIO 1.05 (1.00-1.93); ALKALINE PHOSPHATASE 125 U/L (45-117); ALT/SGPT 23 U/L (12-78); ANION GAP 6 MEQ/L (8-16); AST/SGOT 15 U/L (7-37); BILIRUBIN,TOTAL 0.2 MG/DL (0.2-1.0); BLOOD UREA NITROGEN 18 MG/DL (7-18); CALCIUM LEVEL 9.4 MG/DL (8.8-10.2); CARBON DIOXIDE LEVEL 30 MEQ/L (21-32); CHLORIDE LEVEL 102 MEQ/L (98-107); FREE T4 0.94 NG/DL (0.76-1.46); GLOMERULAR FILTRATION RATE 58.4 (>49); GLUCOSE, FASTING 68 MG/DL (80-110); MAGNESIUM LEVEL 2.1 MG/DL (1.8-2.4); POTASSIUM SERUM 4.3 MEQ/L (3.5-5.1); SODIUM LEVEL 138 MEQ/L (136-145); TOTAL PROTEIN 7.6 GM/DL (6.4-8.2)
== END ==
LOC: M SFHCPLAZ 13:58
PROVIDERS: ATTEND Family Medicine
DX: I10 Essential (primary) hypertension (principal); E78.2 Mixed hyperlipidemia; N40.1 Benign prostatic hyperplasia with lower urinary tract symptoms; D51.9 Vitamin B12 deficiency anemia, unspecified

== ENCOUNTER → 2017-03-06 | Outpatient (CLI) | payer MEDICARE, MEDICAID | LOC: M PT 08:39 | DX: R27.0 Ataxia, unspecified (principal) | CPT/HCPCS: 97162 ==

== ENCOUNTER → 2017-03-25 | Outpatient (CLI) | payer MEDICARE, MEDICAID | LOC: M RAD 06:52 | DX: Z12.2 Encounter for screening for malignant neoplasm of respiratory organs (principal); K70.9 Alcoholic liver disease, unspecified; I10 Essential (primary) hypertension; D47.2 Monoclonal gammopathy; N31.9 Neuromuscular dysfunction of bladder, unspecified; E55.9 Vitamin D deficiency, unspecified; F17.210 Nicotine dependence, cigarettes, uncomplicated; Z79.899 Other long term (current) drug therapy | CPT/HCPCS: 76705 ==

== ENCOUNTER → 2017-03-25 | Outpatient (CLI) | payer MEDICARE, MEDICAID ==
[2017-03-25 07:27] LABS: BASO % 0.2 % (0.0-1.0); EOS # 0.5 10^3/uL (0.0-0.50); HEMATOCRIT 50.8 % (42.0-52.0); HEMOGLOBIN 16.9 g/dl (14.0-18.0); IMMATURE GRANULOCYTE # 0.1 10^3/uL (0-0); IMMATURE GRANULOCYTE % 0.4 % (0-0); LYMPH # 2.1 10^3/uL (1.5-4.5); LYMPH % 17.2 % (24.0-44.0); MEAN CORPUSCULAR HGB CONC 33.3 g/dl (32.0-36.5); MEAN CORPUSCULAR VOLUME 93.2 fl (80.0-96.0); MONO # 0.8 10^3/uL (0.0-0.8); MONO % 6.5 % (0.0-5.0); NEUTROPHILS # 8.7 10^3/uL (1.8-7.7); NEUTROPHILS % 71.7 % (36.0-66.0); PLATELET COUNT, AUTOMATED 164 10^3/uL (150-450); RED BLOOD COUNT 5.45 10^6/uL (4.30-6.10); RED CELL DISTRIBUTION WIDTH 13.3 % (11.5-14.5); RETIC HEMOGLOBIN EQUIVALENT 35.9 pg (24-36); RETICULOCYTE # 58.3 10^9/L (17-77); RETICULOCYTE % 1.1 % (0.5-1.5); WHITE BLOOD COUNT 12.2 10^3/uL (4.0-10.0)
[2017-03-25 07:34] LABS: APPEARANCE, URINE CLEAR (CLEAR); BACTERIA, URINE AUTO NEGATIVE (NEGATIVE); BILIRUBIN, URINE AUTO NEGATIVE (NEGATIVE); BLOOD, URINE BLOOD NEGATIVE (NEGATIVE); COLOR, URINE STRAW (YELLOW); GLUCOSE, URINE (UA) AUTO NEGATIVE (NEGATIVE); KETONE, URINE AUTO NEGATIVE (NEGATIVE); LEUKOCYTE ESTERASE, URINE AUTO NEGATIVE (NEGATIVE); MUCUS, URINE SMALL (NEGATIVE); NITRITE, URINE AUTO NEGATIVE (NEGATIVE); PROTEIN, URINE AUTO NEGATIVE (NEGATIVE); RBC, URINE AUTO 0 /HPF (0-3); SQUAMOUS EPITHELIAL CELL UR AU 1 /HPF (0-6); UROBILINOGEN, URINE AUTO 0.2 mg/dL (0.0-2.0); WBC, URINE AUTO 3 /HPF (0-3)
[2017-03-25 08:05] LABS: ALBUMIN 3.8 GM/DL (3.2-5.2); ALBUMIN/GLOBULIN RATIO 1.12 (1.00-1.93); ALKALINE PHOSPHATASE 115 U/L (45-117); ALT/SGPT 18 U/L (12-78); ANION GAP 7 MEQ/L (8-16); AST/SGOT 14 U/L (7-37); BILIRUBIN,TOTAL 0.5 MG/DL (0.2-1.0); BLOOD UREA NITROGEN 13 MG/DL (7-18); CALCIUM LEVEL 9.3 MG/DL (8.8-10.2); CARBON DIOXIDE LEVEL 29 MEQ/L (21-32); CHLORIDE LEVEL 107 MEQ/L (98-107); CREATININE FOR GFR 1.08 MG/DL (0.70-1.30); GLOMERULAR FILTRATION RATE > 60.0 (>49); GLUCOSE, FASTING 134 MG/DL (70-100); POTASSIUM SERUM 3.7 MEQ/L (3.5-5.1); SODIUM LEVEL 143 MEQ/L (136-145); TOTAL PROTEIN 7.2 GM/DL (6.4-8.2)
[2017-03-25 09:23] LABS: TOTAL 25(OH) VITAMIN D 21.4 NG/ML (30.0-100.0)
[2017-03-25 09:24] LABS: PTH INTACT 78.2 PG/ML (14.0-72.0)
[2017-03-26 11:28] LABS: ALBUMIN 4.19 GM/DL (3.29-5.55); ALBUMIN % 58.2 % (55.8-66.1); ALPHA-1-GLOBULIN % 4.9 % (2.9-4.9); ALPHA-1-GLOBULINS 0.35 GM/DL (0.17-0.41); ALPHA-2-GLOBULINS 0.81 GM/DL (0.42-0.99); ALPHA-2-GLOBULINS % 11.2 % (7.1-11.8); BETA-1-GLOBULINS 0.45 GM/DL (0.28-0.60); BETA-1-GLOBULINS % 6.3 % (4.7-7.2); BETA-2-GLOBULINS 0.35 GM/DL (0.19-0.55); BETA-2-GLOBULINS % 4.9 % (3.2-6.5); GAMMA GLOBULIN % 14.5 % (11.1-18.8); GAMMA GLOBULINS 1.04 GM/DL (0.65-1.58)
[2017-03-27 00:06] LABS: FREE KAPPA LIGHT CHAINS SERUM 28.9 mg/L (3.3-19.4); FREE LAMBDA LIGHT CHAINS SERUM 29.1 mg/L (5.7-26.3); KAPPA/LAMBDA RATIO SERUM 0.99 (0.26-1.65)
== END ==
LOC: M LAB 06:26
DX: I10 Essential (primary) hypertension (principal); D47.2 Monoclonal gammopathy; N31.9 Neuromuscular dysfunction of bladder, unspecified

== ENCOUNTER 2017-04-12 09:40 | Emergency (ER) | payer MEDICARE, MEDICAID ==
[2017-04-12 10:53] LABS: BEDSIDE GLUCOSE 122 MG/DL (80-115)
[2017-04-12] MEDS: oxyCODONE 5MG TAB PO (10:57)
[2017-04-12] MEDS: amLODIPine 5 MG TAB PO (10:57)
[2017-04-12] MEDS: ATENOLOL 50 MG TAB PO (10:57)
[2017-04-12] MEDS: GABAPENTIN 400 MG CAP PO (12:23)
== END 2017-04-12 13:06 | disposition home or self-care (01) ==
LOC: M ED 09:40
DX: E11.40 Type 2 diabetes mellitus with diabetic neuropathy, unspecified (principal); G89.29 Other chronic pain; I12.9 Hypertensive chronic kidney disease with stage 1 through stage 4 chronic kidney disease, or unspecified chronic kidney disease; N18.9 Chronic kidney disease, unspecified; I73.9 Peripheral vascular disease, unspecified; J45.909 Unspecified asthma, uncomplicated; E78.5 Hyperlipidemia, unspecified; K70.30 Alcoholic cirrhosis of liver without ascites; K21.9 Gastro-esophageal reflux disease without esophagitis; N40.0 Benign prostatic hyperplasia without lower urinary tract symptoms; D51.0 Vitamin B12 deficiency anemia due to intrinsic factor deficiency; F10.10 Alcohol abuse, uncomplicated; F19.10 Other psychoactive substance abuse, uncomplicated; F17.210 Nicotine dependence, cigarettes, uncomplicated; F12.90 Cannabis use, unspecified, uncomplicated; R42 Dizziness and giddiness; Z79.899 Other long term (current) drug therapy; Z88.5 Allergy status to narcotic agent; Z91.030 Bee allergy status; Z86.73 Personal history of transient ischemic attack (TIA), and cerebral infarction without residual deficits; Z88.8 Allergy status to other drugs, medicaments and biological substances; Z98.890 Other specified postprocedural states; Z87.820 Personal history of traumatic brain injury; Z87.19 Personal history of other diseases of the digestive system
CPT/HCPCS: 99284

== ENCOUNTER → 2017-04-13 | Outpatient (CLI) | payer MEDICARE, MEDICAID | LOC: M PLARAD 07:38 | DX: G62.9 Polyneuropathy, unspecified (principal) | CPT/HCPCS: 72148 ==

== ENCOUNTER → 2017-06-26 | Outpatient (CLI) | payer MEDICARE, MEDICAID ==
[2017-06-26 14:27] LABS: BASO # 0.1 10^3/uL (0.0-0.2); BASO % 0.6 % (0.0-1.0); EOS # 0.4 10^3/uL (0.0-0.50); EOS % 4.2 % (0.0-3.0); HEMATOCRIT 48.9 % (42.0-52.0); HEMOGLOBIN 16.6 g/dl (13.5-17.5); IMMATURE GRANULOCYTE % 0.3 % (0-3.0); LYMPH # 2.4 10^3/uL (1.5-4.5); LYMPH % 26.9 % (24.0-44.0); MEAN CORPUSCULAR HEMOGLOBIN 31.6 pg (27.0-33.0); MEAN CORPUSCULAR HGB CONC 33.9 g/dl (32.0-36.5); MEAN CORPUSCULAR VOLUME 93.1 fl (80.0-96.0); MONO # 0.6 10^3/uL (0.0-0.8); MONO % 6.8 % (0.0-5.0); NEUTROPHILS # 5.5 10^3/uL (1.8-7.7); NEUTROPHILS % 61.2 % (36.0-66.0); PLATELET COUNT, AUTOMATED 170 10^3/uL (150-450); RED BLOOD COUNT 5.25 10^6/uL (4.30-6.10); RED CELL DISTRIBUTION WIDTH 13.9 % (11.5-14.5)
[2017-06-26 14:35] LABS: INR 1.02; PROTHROMBIN TIME 13.5 SECONDS (12.4-14.5)
[2017-06-26 14:54] LABS: ANION GAP 7 MEQ/L (8-16); BLOOD UREA NITROGEN 13 MG/DL (7-18); CALCIUM LEVEL 9.6 MG/DL (8.8-10.2); CARBON DIOXIDE LEVEL 30 MEQ/L (21-32); CHLORIDE LEVEL 104 MEQ/L (98-107); CREATININE FOR GFR 1.08 MG/DL (0.70-1.30); GLOMERULAR FILTRATION RATE > 60.0 (>49); GLUCOSE, FASTING 178 MG/DL (70-100); POTASSIUM SERUM 3.7 MEQ/L (3.5-5.1); SODIUM LEVEL 141 MEQ/L (136-145)
== END ==
LOC: M LAB 13:39
DX: D69.8 Other specified hemorrhagic conditions (principal)
CPT/HCPCS: 80048

== ENCOUNTER → 2017-07-28 | Outpatient (CLI) | payer MEDICARE, MEDICAID ==
[2017-07-28 10:20] LABS: BASO % 0.3 % (0.0-1.0); EOS # 0.5 10^3/uL (0.0-0.50); EOS % 4.6 % (0.0-3.0); HEMATOCRIT 49.5 % (42.0-52.0); HEMOGLOBIN 16.7 g/dl (13.5-17.5); IMMATURE GRANULOCYTE % 0.5 % (0-3.0); LYMPH % 25.4 % (24.0-44.0); MEAN CORPUSCULAR HEMOGLOBIN 31.6 pg (27.0-33.0); MEAN CORPUSCULAR HGB CONC 33.7 g/dl (32.0-36.5); MEAN CORPUSCULAR VOLUME 93.8 fl (80.0-96.0); MONO % 8.4 % (0.0-5.0); NEUTROPHILS # 7.1 10^3/uL (1.8-7.7); NEUTROPHILS % 60.8 % (36.0-66.0); PLATELET COUNT, AUTOMATED 144 10^3/uL (150-450); RED BLOOD COUNT 5.28 10^6/uL (4.30-6.10); RED CELL DISTRIBUTION WIDTH 13.6 % (11.5-14.5); RETIC HEMOGLOBIN EQUIVALENT 36.7 pg (24-36); RETICULOCYTE # 80.3 10^9/L (17-77); RETICULOCYTE % 1.5 % (0.5-1.5); WHITE BLOOD COUNT 11.7 10^3/uL (4.0-10.0)
[2017-07-28 10:55] LABS: ALKALINE PHOSPHATASE 126 U/L (45-117); ALT/SGPT 19 U/L (12-78); ANION GAP 7 MEQ/L (8-16); AST/SGOT 14 U/L (7-37); BILIRUBIN,TOTAL 0.2 MG/DL (0.2-1.0); BLOOD UREA NITROGEN 22 MG/DL (7-18); CALCIUM LEVEL 9.4 MG/DL (8.8-10.2); CARBON DIOXIDE LEVEL 29 MEQ/L (21-32); CHLORIDE LEVEL 102 MEQ/L (98-107); CPK CREATINE PHOSPHOKINASE 85 U/L (39-308); CREATININE FOR GFR 1.36 MG/DL (0.70-1.30); GLOMERULAR FILTRATION RATE 55.5 (>49); GLUCOSE, FASTING 134 MG/DL (70-100); POTASSIUM SERUM 3.4 MEQ/L (3.5-5.1); SODIUM LEVEL 138 MEQ/L (136-145); TRIGLYCERIDES LEVEL 276 MG/DL (<150)
[2017-07-28 10:56] LABS: ALBUMIN 3.9 GM/DL (3.2-5.2); ALBUMIN/GLOBULIN RATIO 1.08 (1.00-1.93); C REACTIVE PROTEIN QUANTITATIV 1.05 MG/DL (0.00-0.30); CHOLESTEROL LEVEL 151 MG/DL (<200); CHOLESTEROL RISK RATIO 5.392 (<5); HDL CHOLESTEROL 28 MG/DL (>40); LDL CHOLESTEROL 67.8 MG/DL (<100); NON-HDL-C 123 MG/DL; TOTAL PROTEIN 7.5 GM/DL (6.4-8.2)
[2017-07-28 11:26] LABS: ESTIMATED AVERAGE GLUCOSE 154 MG/DL (60-110)
== END ==
LOC: M LAB 09:35
DX: E11.8 Type 2 diabetes mellitus with unspecified complications (principal)
CPT/HCPCS: 82550

== ENCOUNTER → 2017-07-30 | Outpatient (REF) | payer MEDICARE, MEDICAID | LOC: M SFHCLERA 11:33 | DX: C44.629 Squamous cell carcinoma of skin of left upper limb, including shoulder (principal) | CPT/HCPCS: 88305 ==

== ENCOUNTER 2017-09-14 18:36 | Observation (INO) | payer MEDICARE, MEDICAID ==
[2017-09-14] MEDS ORDERED: IPRATROPIUM 0.5MG/ALBUTEROL 2.5MG INH SOL UD 3ML (DUONEB)(J7620) NEB ×2 (21:30)
[2017-09-14 23:28] LABS: BEDSIDE GLUCOSE 146 MG/DL (80-115)
[2017-09-15] MEDS: GABAPENTIN 400 MG CAP PO ×4 (01:01→08:00)
[2017-09-15] MEDS: MORPHINE 4 MG/ML 1ML VIAL/SYRINGE (J2270) IV ×2 (01:02)
[2017-09-15] MEDS: oxyCODONE 5MG TAB PO ×2 (01:50)
[2017-09-15] MEDS ORDERED: DEXTROSE 50% 50 ML SYRINGE IV ×2 (03:15)
[2017-09-15] MEDS ORDERED: GLUCOSE 4 GM CHEW TABLET PO ×2 (03:15)
[2017-09-15] MEDS ORDERED: GLUCAGON FOR INJ 1 MG VIAL (J1610) SC ×2 (03:15)
[2017-09-15 06:22] LABS: BEDSIDE GLUCOSE 113 MG/DL (80-115)
[2017-09-15] MEDS: NORTRIPTYLINE 25 MG CAP PO ×2 (08:00)
[2017-09-15] MEDS: HumaLOG INSULIN (NovoLOG) PER UNIT SC ×2 (08:01)
[2017-09-15] MEDS ORDERED: HumaLOG INSULIN (NovoLOG) PER UNIT SC ×2 (21:00)
== END 2017-09-15 10:03 | disposition home or self-care (01) ==
LOC: M ED 18:36 → M ED INP 21:21 → M MSPAV 23:11
DX: K70.30 Alcoholic cirrhosis of liver without ascites (principal); I73.9 Peripheral vascular disease, unspecified; E11.59 Type 2 diabetes mellitus with other circulatory complications; Z91.19 Patient's noncompliance with other medical treatment and regimen; F91.9 Conduct disorder, unspecified; F10.20 Alcohol dependence, uncomplicated; I10 Essential (primary) hypertension; E78.5 Hyperlipidemia, unspecified; Z79.899 Other long term (current) drug therapy; J44.9 Chronic obstructive pulmonary disease, unspecified; F17.210 Nicotine dependence, cigarettes, uncomplicated; Z99.3 Dependence on wheelchair; F12.90 Cannabis use, unspecified, uncomplicated; Z89.511 Acquired absence of right leg below knee; Z79.84 Long term (current) use of oral hypoglycemic drugs
CPT/HCPCS: J2270

== ENCOUNTER → 2017-12-24 | Outpatient (REF) | payer MEDICARE, MEDICAID ==
[2017-12-24 12:22] LABS: INR 1.02; PROTHROMBIN TIME 13.5 SECONDS (12.1-14.4)
[2017-12-24 12:23] LABS: PARTIAL THROMBOPLASTIN TIME 43.4 SECONDS (25.4-37.6)
[2017-12-24 12:30] LABS: ALBUMIN 3.5 GM/DL (3.2-5.2); ALBUMIN/GLOBULIN RATIO 0.97 (1.00-1.93); ALKALINE PHOSPHATASE 115 U/L (45-117); ALT/SGPT 15 U/L (12-78); ANION GAP 9 MEQ/L (8-16); AST/SGOT 21 U/L (7-37); BILIRUBIN,TOTAL 0.4 MG/DL (0.2-1.0); BLOOD UREA NITROGEN 12 MG/DL (7-18); CALCIUM LEVEL 9.4 MG/DL (8.8-10.2); CARBON DIOXIDE LEVEL 31 MEQ/L (21-32); CHLORIDE LEVEL 100 MEQ/L (98-107); CREATININE FOR GFR 1.43 MG/DL (0.70-1.30); GLOMERULAR FILTRATION RATE 52.4 (>49); GLUCOSE, FASTING 79 MG/DL (70-100); POTASSIUM SERUM 4.1 MEQ/L (3.5-5.1); SODIUM LEVEL 140 MEQ/L (136-145); TOTAL PROTEIN 7.1 GM/DL (6.4-8.2)
[2017-12-24 12:49] LABS: ESTIMATED AVERAGE GLUCOSE 148 MG/DL (60-110); HEMOGLOBIN A1c 6.8 %
== END ==
LOC: M SFHCPLAZ 09:05
DX: K70.9 Alcoholic liver disease, unspecified (principal); Z79.4 Long term (current) use of insulin
CPT/HCPCS: 80053

== ENCOUNTER 2017-12-29 18:21 | Inpatient (IN) | payer MEDICARE, MEDICAID ==
[2017-12-29 19:15] LABS: BASO % 0.1 % (0.0-1.0); EOS % 0.1 % (0.0-3.0); HEMATOCRIT 45.8 % (42.0-52.0); HEMOGLOBIN 15.1 g/dl (13.5-17.5); IMMATURE GRANULOCYTE % 0.6 % (0-3.0); LYMPH % 5.4 % (24.0-44.0); MEAN CORPUSCULAR HEMOGLOBIN 29.6 pg (27.0-33.0); MEAN CORPUSCULAR VOLUME 89.8 fl (80.0-96.0); MONO # 1.5 10^3/uL (0.0-0.8); MONO % 8.1 % (0.0-5.0); NEUTROPHILS % 85.7 % (36.0-66.0); PLATELET COUNT, AUTOMATED 108 10^3/uL (150-450); RED CELL DISTRIBUTION WIDTH 13.2 % (11.5-14.5); WHITE BLOOD COUNT 18.7 10^3/uL (4.0-10.0)
[2017-12-29] MEDS ORDERED: ACETAMINOPHEN TAB 650MG DOSE (2X325MG) As Ordered (19:34)
[2017-12-29] MEDS: ACETAMINOPHEN TAB 650MG DOSE (2X325MG) PO (19:38)
[2017-12-29 19:42] LABS: LACTIC ACID SEPSIS PROTOCOL 1.9 MMOL/L (0.4-2.0)
[2017-12-29 19:46] LABS: ALBUMIN 3.4 GM/DL (3.2-5.2); ALBUMIN/GLOBULIN RATIO 1.03 (1.00-1.93); ALKALINE PHOSPHATASE 104 U/L (45-117); ALT/SGPT 19 U/L (12-78); ANION GAP 11 MEQ/L (8-16); AST/SGOT 56 U/L (7-37); BILIRUBIN,DIRECT 0.3 MG/DL (0.0-0.2); BILIRUBIN,TOTAL 0.8 MG/DL (0.2-1.0); BLOOD UREA NITROGEN 21 MG/DL (7-18); CALCIUM LEVEL 9.2 MG/DL (8.8-10.2); CARBON DIOXIDE LEVEL 26 MEQ/L (21-32); CHLORIDE LEVEL 99 MEQ/L (98-107); CPK CREATINE PHOSPHOKINASE 1611 U/L (39-308); CREATININE FOR GFR 1.65 MG/DL (0.70-1.30); ETHYL ALCOHOL (ETHANOL) < 0.003 % (0.000-0.010); GLOMERULAR FILTRATION RATE 44.4 (>49); GLUCOSE, FASTING 151 MG/DL (70-100); MB/CK RELATIVE INDEX 0.56 (< OR =4); POTASSIUM SERUM 4.1 MEQ/L (3.5-5.1); SODIUM LEVEL 136 MEQ/L (136-145); TOTAL PROTEIN 6.7 GM/DL (6.4-8.2); TROPONIN I 0.03 NG/ML (< 0.10)
[2017-12-29 19:52] LABS: AMMONIA 26 uMOL/L (<32)
[2017-12-29] MEDS: NS 1,000 ML IV ×2 (20:15→22:45)
[2017-12-29 20:16] LABS: AMORPHOUS SEDIMENT RFX MODERATE (NEGATIVE); KETONE, URINE AUTO RFX NEGATIVE (NEGATIVE); NITRITE, URINE AUTO RFX NEGATIVE (NEGATIVE); RBC, URINE AUTO RFX 36 /HPF (0-3); SPECIFIC GRAVITY UR AUTO RFX 1.015 (1.002-1.035); SQUAM EPITHELIAL CELL UR AURFX 0 /HPF (0-6)
[2017-12-29 20:17] LABS: LEUKOCYTE ESTERASE UR AUTO RFX 3+ (NEGATIVE); WBC, URINE AUTO RFX TNTC /HPF (0-3)
[2017-12-29 20:36] LABS: VENOUS BASE EXCESS -1.2 (-2.0-2.0); VENOUS HCO3 23.5 MEQ/L (23.0-27.0); VENOUS O2 SATURATION 80.2 % (60.0-80.0); VENOUS PARTIAL PRESSURE CO2 39.2 mmHg (38.0-50.0); VENOUS PARTIAL PRESSURE O2 44.5 mmHg (30.0-50.0); VENOUS PH 7.395 UNITS (7.330-7.430); VENOUS STANDARD HCO3 23.1 MEQ/L; VENOUS TOTAL CO2 24.7 MEQ/L (24.0-28.0)
[2017-12-29] MEDS: cefTRIAXone SOD 1 GM in D5W MINI-BAG PLUS 50 ML IV (20:49)
[2017-12-29 21:17] LABS: MYOGLOBIN SCREEN, URINE POSITIVE (NEGATIVE)
[2017-12-29 21:38] LABS: INFLUENZA A AMPLIFICATION NEGATIVE (NEGATIVE); INFLUENZA B AMPLIFICATION NEGATIVE (NEGATIVE); RSV AMPLIFICATION NEGATIVE (NEGATIVE)
[2017-12-30] MEDS: NS 1,000 ML IV ×3 (01:27→17:45)
[2017-12-30] MEDS: SENOKOT S TAB PO ×3 (01:39→20:58)
[2017-12-30] MEDS: GABAPENTIN 400 MG CAP PO ×4 (02:58→20:58)
[2017-12-30] MEDS: NORTRIPTYLINE 25 MG CAP PO ×4 (03:00→20:58)
[2017-12-30] MEDS: HEPARIN SOD (PORCINE) 5000 UNITS/ML VIAL SC ×3 (06:00→20:59)
[2017-12-30 07:06] LABS: AMMONIA 26 uMOL/L (<32)
[2017-12-30 07:23] LABS: ANION GAP 8 MEQ/L (8-16); BLOOD UREA NITROGEN 20 MG/DL (7-18); CALCIUM LEVEL 8.2 MG/DL (8.8-10.2); CARBON DIOXIDE LEVEL 25 MEQ/L (21-32); CHLORIDE LEVEL 108 MEQ/L (98-107); CPK CREATINE PHOSPHOKINASE 830 U/L (39-308); GLOMERULAR FILTRATION RATE 58.4 (>49); GLUCOSE, FASTING 104 MG/DL (70-100); POTASSIUM SERUM 3.8 MEQ/L (3.5-5.1); SODIUM LEVEL 141 MEQ/L (136-145)
[2017-12-30] MEDS: OMEPRAZOLE 20 MG CAP PO (10:42)
[2017-12-30] MEDS ORDERED: GLUCOSE 4 GM CHEW TABLET PO (11:00)
[2017-12-30] MEDS ORDERED: GLUCAGON FOR INJ 1 MG VIAL (J1610) SC (11:00)
[2017-12-30] MEDS ORDERED: DEXTROSE 50% 50 ML SYRINGE IV (11:00)
[2017-12-30 11:40] LABS: BEDSIDE GLUCOSE 171 MG/DL (80-115)
[2017-12-30] MEDS: levETIRAcetam 250MG TABLET (KEPPRA) PO ×2 (11:47→20:58)
[2017-12-30] MEDS: oxyCODONE 5MG TAB PO (11:49)
[2017-12-30] MEDS: HumaLOG INSULIN (NovoLOG) PER UNIT SC ×3 (11:50→20:57)
[2017-12-30 17:29] LABS: BEDSIDE GLUCOSE 137 MG/DL (80-115)
[2017-12-30 20:32] LABS: BEDSIDE GLUCOSE 222 MG/DL (80-115)
[2017-12-30] MEDS: cefTRIAXone SOD 1 GM in D5W MINI-BAG PLUS 50 ML IV (20:59)
[2017-12-31] MEDS: HEPARIN SOD (PORCINE) 5000 UNITS/ML VIAL SC ×3 (05:18→21:05)
[2017-12-31 05:26] LABS: BEDSIDE GLUCOSE 144 MG/DL (80-115)
[2017-12-31 06:25] LABS: BASO % 0.2 % (0.0-1.0); EOS # 0.1 10^3/uL (0.0-0.50); EOS % 1.4 % (0.0-3.0); HEMOGLOBIN 13.3 g/dl (13.5-17.5); IMMATURE GRANULOCYTE % 0.4 % (0-3.0); LYMPH # 1.2 10^3/uL (1.5-4.5); LYMPH % 13.8 % (24.0-44.0); MEAN CORPUSCULAR HEMOGLOBIN 29.8 pg (27.0-33.0); MEAN CORPUSCULAR HGB CONC 32.4 g/dl (32.0-36.5); MEAN CORPUSCULAR VOLUME 91.7 fl (80.0-96.0); MONO # 0.8 10^3/uL (0.0-0.8); MONO % 8.8 % (0.0-5.0); NEUTROPHILS # 6.8 10^3/uL (1.8-7.7); NEUTROPHILS % 75.4 % (36.0-66.0); RED BLOOD COUNT 4.47 10^6/uL (4.30-6.10); RED CELL DISTRIBUTION WIDTH 13.3 % (11.5-14.5)
[2017-12-31 06:45] LABS: ANION GAP 6 MEQ/L (8-16); BLOOD UREA NITROGEN 15 MG/DL (7-18); CALCIUM LEVEL 8.6 MG/DL (8.8-10.2); CARBON DIOXIDE LEVEL 26 MEQ/L (21-32); CHLORIDE LEVEL 106 MEQ/L (98-107); CPK CREATINE PHOSPHOKINASE 332 U/L (39-308); CREATININE FOR GFR 1.25 MG/DL (0.70-1.30); GLOMERULAR FILTRATION RATE > 60.0 (>49); GLUCOSE, FASTING 121 MG/DL (70-100); POTASSIUM SERUM 3.6 MEQ/L (3.5-5.1); SODIUM LEVEL 138 MEQ/L (136-145)
[2017-12-31 06:53] LABS: PLATELET COUNT, AUTOMATED 88 10^3/uL (150-450)
[2017-12-31 06:54] LABS: IMMATURE PLATELET FRACTION % 9.3 % (0.0-10.9)
[2017-12-31] MEDS: NORTRIPTYLINE 25 MG CAP PO ×3 (08:32→20:22)
[2017-12-31] MEDS: GABAPENTIN 400 MG CAP PO ×2 (08:33→17:53)
[2017-12-31] MEDS: SENOKOT S TAB PO ×2 (08:33→20:22)
[2017-12-31] MEDS: OMEPRAZOLE 20 MG CAP PO (08:33)
[2017-12-31] MEDS: levETIRAcetam 250MG TABLET (KEPPRA) PO (08:33)
[2017-12-31] MEDS: HumaLOG INSULIN (NovoLOG) PER UNIT SC ×4 (08:34→20:32)
[2017-12-31 11:57] LABS: BEDSIDE GLUCOSE 173 MG/DL (80-115)
[2017-12-31] MEDS: ASPIRIN 81 MG ENTERIC TAB PO (14:35)
[2017-12-31 17:23] LABS: BEDSIDE GLUCOSE 158 MG/DL (80-115)
[2017-12-31 20:12] LABS: BEDSIDE GLUCOSE 134 MG/DL (80-115)
[2017-12-31] MEDS: GABAPENTIN 300 MG CAP PO (20:22)
[2017-12-31] MEDS: ATORVASTATIN 20 MG TAB PO (20:22)
[2017-12-31] MEDS: TAMSULOSIN 0.4 MG CAP PO (20:22)
[2017-12-31] MEDS: cefTRIAXone SOD 1 GM in D5W MINI-BAG PLUS 50 ML IV (20:23)
[2018-01-01] MEDS: HEPARIN SOD (PORCINE) 5000 UNITS/ML VIAL SC ×3 (05:45→21:29)
[2018-01-01 06:08] LABS: BASO % 0.2 % (0.0-1.0); EOS # 0.2 10^3/uL (0.0-0.50); HEMATOCRIT 43.6 % (42.0-52.0); IMMATURE GRANULOCYTE % 0.3 % (0-3.0); LYMPH # 1.4 10^3/uL (1.5-4.5); MEAN CORPUSCULAR HEMOGLOBIN 29.5 pg (27.0-33.0); MEAN CORPUSCULAR HGB CONC 32.1 g/dl (32.0-36.5); MONO # 0.7 10^3/uL (0.0-0.8); MONO % 8.4 % (0.0-5.0); NEUTROPHILS # 6.5 10^3/uL (1.8-7.7); NEUTROPHILS % 73.1 % (36.0-66.0); PLATELET COUNT, AUTOMATED 117 10^3/uL (150-450); RED BLOOD COUNT 4.74 10^6/uL (4.30-6.10); RED CELL DISTRIBUTION WIDTH 13.5 % (11.5-14.5); WHITE BLOOD COUNT 8.8 10^3/uL (4.0-10.0)
[2018-01-01 06:27] LABS: ANION GAP 6 MEQ/L (8-16); BLOOD UREA NITROGEN 10 MG/DL (7-18); CALCIUM LEVEL 9.5 MG/DL (8.8-10.2); CARBON DIOXIDE LEVEL 29 MEQ/L (21-32); CHLORIDE LEVEL 106 MEQ/L (98-107); CREATININE FOR GFR 1.06 MG/DL (0.70-1.30); GLOMERULAR FILTRATION RATE > 60.0 (>49); GLUCOSE, FASTING 102 MG/DL (70-100); POTASSIUM SERUM 3.6 MEQ/L (3.5-5.1); SODIUM LEVEL 141 MEQ/L (136-145)
[2018-01-01] MEDS: HumaLOG INSULIN (NovoLOG) PER UNIT SC ×4 (08:31→21:00)
[2018-01-01] MEDS: ASPIRIN 81 MG ENTERIC TAB PO (08:31)
[2018-01-01] MEDS: OMEPRAZOLE 20 MG CAP PO (08:31)
[2018-01-01] MEDS: GABAPENTIN 300 MG CAP PO ×3 (08:31→20:57)
[2018-01-01] MEDS: SENOKOT S TAB PO ×2 (08:32→20:57)
[2018-01-01] MEDS: NORTRIPTYLINE 25 MG CAP PO ×3 (08:32→20:57)
[2018-01-01 11:58] LABS: BEDSIDE GLUCOSE 177 MG/DL (80-115)
[2018-01-01 16:50] LABS: BEDSIDE GLUCOSE 195 MG/DL (80-115)
[2018-01-01 20:09] LABS: BEDSIDE GLUCOSE 182 MG/DL (80-115)
[2018-01-01] MEDS: BUPRENORPHINE/NALOXONE 2-0.5MG SUBLINGUAL TABLET(SUBOXONE) SL (20:57)
[2018-01-01] MEDS: ATORVASTATIN 20 MG TAB PO (20:57)
[2018-01-01] MEDS: TAMSULOSIN 0.4 MG CAP PO (20:57)
[2018-01-01] MEDS: cefTRIAXone SOD 1 GM in D5W MINI-BAG PLUS 50 ML IV (20:58)
[2018-01-02] MEDS: HEPARIN SOD (PORCINE) 5000 UNITS/ML VIAL SC ×3 (06:06→22:52)
[2018-01-02 06:21] LABS: BASO % 0.4 % (0.0-1.0); EOS # 0.2 10^3/uL (0.0-0.50); EOS % 2.5 % (0.0-3.0); HEMATOCRIT 39.3 % (42.0-52.0); HEMOGLOBIN 12.9 g/dl (13.5-17.5); IMMATURE GRANULOCYTE % 0.5 % (0-3.0); LYMPH # 1.3 10^3/uL (1.5-4.5); LYMPH % 16.5 % (24.0-44.0); MEAN CORPUSCULAR HEMOGLOBIN 29.9 pg (27.0-33.0); MEAN CORPUSCULAR HGB CONC 32.8 g/dl (32.0-36.5); MONO # 0.8 10^3/uL (0.0-0.8); MONO % 10.4 % (0.0-5.0); NEUTROPHILS # 5.7 10^3/uL (1.8-7.7); NEUTROPHILS % 69.7 % (36.0-66.0); PLATELET COUNT, AUTOMATED 132 10^3/uL (150-450); RED BLOOD COUNT 4.32 10^6/uL (4.30-6.10); RED CELL DISTRIBUTION WIDTH 13.3 % (11.5-14.5); WHITE BLOOD COUNT 8.1 10^3/uL (4.0-10.0)
[2018-01-02 06:40] LABS: ANION GAP 6 MEQ/L (8-16); BLOOD UREA NITROGEN 14 MG/DL (7-18); CALCIUM LEVEL 8.6 MG/DL (8.8-10.2); CARBON DIOXIDE LEVEL 27 MEQ/L (21-32); CHLORIDE LEVEL 106 MEQ/L (98-107); CREATININE FOR GFR 1.12 MG/DL (0.70-1.30); GLOMERULAR FILTRATION RATE > 60.0 (>49); GLUCOSE, FASTING 207 MG/DL (70-100); POTASSIUM SERUM 3.5 MEQ/L (3.5-5.1); SODIUM LEVEL 139 MEQ/L (136-145)
[2018-01-02] MEDS: BUPRENORPHINE/NALOXONE 2-0.5MG SUBLINGUAL TABLET(SUBOXONE) SL ×2 (10:10→20:13)
[2018-01-02] MEDS: FINASTERIDE 5 MG TAB PO (10:10)
[2018-01-02] MEDS: HumaLOG INSULIN (NovoLOG) PER UNIT SC ×4 (10:10→21:00)
[2018-01-02] MEDS: NORTRIPTYLINE 25 MG CAP PO ×3 (10:10→20:13)
[2018-01-02] MEDS: ASPIRIN 81 MG ENTERIC TAB PO (10:10)
[2018-01-02] MEDS: OMEPRAZOLE 20 MG CAP PO (10:10)
[2018-01-02] MEDS: SENOKOT S TAB PO ×2 (10:11→20:13)
[2018-01-02] MEDS: GABAPENTIN 300 MG CAP PO ×3 (10:11→20:13)
[2018-01-02 11:47] LABS: BEDSIDE GLUCOSE 145 MG/DL (80-115)
[2018-01-02 16:38] LABS: BEDSIDE GLUCOSE 101 MG/DL (80-115)
[2018-01-02 19:52] LABS: BEDSIDE GLUCOSE 95 MG/DL (80-115)
[2018-01-02] MEDS: cefTRIAXone SOD 1 GM in D5W MINI-BAG PLUS 50 ML IV (20:12)
[2018-01-02] MEDS: ATORVASTATIN 20 MG TAB PO (20:13)
[2018-01-02] MEDS: TAMSULOSIN 0.4 MG CAP PO (20:13)
[2018-01-02] MEDS ORDERED: IRBESARTAN 150 MG TAB PO (21:00)
[2018-01-02] MEDS: BISOPROLOL FUM 2.5 MG PER 1/2TAB PO (22:53)
[2018-01-03] MEDS: HEPARIN SOD (PORCINE) 5000 UNITS/ML VIAL SC ×3 (06:00→23:15)
[2018-01-03 06:21] LABS: BASO % 0.3 % (0.0-1.0); EOS # 0.3 10^3/uL (0.0-0.50); EOS % 3.2 % (0.0-3.0); HEMATOCRIT 41.6 % (42.0-52.0); HEMOGLOBIN 13.5 g/dl (13.5-17.5); IMMATURE GRANULOCYTE % 0.6 % (0-3.0); LYMPH # 1.3 10^3/uL (1.5-4.5); MEAN CORPUSCULAR HEMOGLOBIN 29.7 pg (27.0-33.0); MEAN CORPUSCULAR HGB CONC 32.5 g/dl (32.0-36.5); MEAN CORPUSCULAR VOLUME 91.4 fl (80.0-96.0); MONO # 0.8 10^3/uL (0.0-0.8); MONO % 8.8 % (0.0-5.0); NEUTROPHILS # 6.4 10^3/uL (1.8-7.7); NEUTROPHILS % 72.1 % (36.0-66.0); PLATELET COUNT, AUTOMATED 151 10^3/uL (150-450); RED BLOOD COUNT 4.55 10^6/uL (4.30-6.10); RED CELL DISTRIBUTION WIDTH 13.2 % (11.5-14.5); WHITE BLOOD COUNT 8.9 10^3/uL (4.0-10.0)
[2018-01-03 06:46] LABS: ANION GAP 8 MEQ/L (8-16); BLOOD UREA NITROGEN 13 MG/DL (7-18); CALCIUM LEVEL 9.5 MG/DL (8.8-10.2); CARBON DIOXIDE LEVEL 26 MEQ/L (21-32); CHLORIDE LEVEL 103 MEQ/L (98-107); CREATININE FOR GFR 0.93 MG/DL (0.70-1.30); GLOMERULAR FILTRATION RATE > 60.0 (>49); GLUCOSE, FASTING 111 MG/DL (70-100); POTASSIUM SERUM 3.7 MEQ/L (3.5-5.1); SODIUM LEVEL 137 MEQ/L (136-145)
[2018-01-03] MEDS: HumaLOG INSULIN (NovoLOG) PER UNIT SC ×4 (07:30→21:00)
[2018-01-03] MEDS: GABAPENTIN 300 MG CAP PO ×3 (10:44→20:52)
[2018-01-03] MEDS: SENOKOT S TAB PO ×2 (10:45→20:53)
[2018-01-03] MEDS: BISOPROLOL FUM 2.5 MG PER 1/2TAB PO (10:45)
[2018-01-03] MEDS: FINASTERIDE 5 MG TAB PO (10:45)
[2018-01-03] MEDS: OMEPRAZOLE 20 MG CAP PO (10:45)
[2018-01-03] MEDS: NORTRIPTYLINE 25 MG CAP PO ×3 (10:45→20:53)
[2018-01-03] MEDS: BUPRENORPHINE/NALOXONE 2-0.5MG SUBLINGUAL TABLET(SUBOXONE) SL (10:45)
[2018-01-03] MEDS: ASPIRIN 81 MG ENTERIC TAB PO (10:45)
[2018-01-03 11:52] LABS: BEDSIDE GLUCOSE 153 MG/DL (80-115)
[2018-01-03] MEDS: LORazepam 1 MG TAB PO (15:45)
[2018-01-03 17:36] LABS: BEDSIDE GLUCOSE 166 MG/DL (80-115)
[2018-01-03 20:17] LABS: BEDSIDE GLUCOSE 90 MG/DL (80-115)
[2018-01-03] MEDS ORDERED: LORazepam 2 MG/ML VIAL (J2060) IV (20:30)
[2018-01-03] MEDS: cefTRIAXone SOD 1 GM in D5W MINI-BAG PLUS 50 ML IV (20:52)
[2018-01-03] MEDS: TAMSULOSIN 0.4 MG CAP PO (20:53)
[2018-01-03] MEDS: ATORVASTATIN 20 MG TAB PO (20:53)
[2018-01-03] MEDS: BISOPROLOL FUMARATE 5 MG TAB PO (20:54)
[2018-01-03] MEDS: LORazepam 2 MG/ML VIAL (J2060) IV (20:54)
[2018-01-04] MEDS: HEPARIN SOD (PORCINE) 5000 UNITS/ML VIAL SC ×3 (05:34→21:31)
[2018-01-04 06:10] LABS: BASO % 0.3 % (0.0-1.0); EOS # 0.3 10^3/uL (0.0-0.50); EOS % 3.1 % (0.0-3.0); HEMATOCRIT 45.6 % (42.0-52.0); HEMOGLOBIN 14.6 g/dl (13.5-17.5); IMMATURE GRANULOCYTE % 0.9 % (0-3.0); LYMPH # 1.5 10^3/uL (1.5-4.5); MEAN CORPUSCULAR HEMOGLOBIN 29.3 pg (27.0-33.0); MEAN CORPUSCULAR VOLUME 91.4 fl (80.0-96.0); MONO # 0.7 10^3/uL (0.0-0.8); MONO % 8.1 % (0.0-5.0); NEUTROPHILS # 6.6 10^3/uL (1.8-7.7); NEUTROPHILS % 71.6 % (36.0-66.0); PLATELET COUNT, AUTOMATED 154 10^3/uL (150-450); RED BLOOD COUNT 4.99 10^6/uL (4.30-6.10); RED CELL DISTRIBUTION WIDTH 13.2 % (11.5-14.5); WHITE BLOOD COUNT 9.2 10^3/uL (4.0-10.0)
[2018-01-04 06:34] LABS: ALBUMIN 2.7 GM/DL (3.2-5.2); ALBUMIN/GLOBULIN RATIO 0.63 (1.00-1.93); ALKALINE PHOSPHATASE 172 U/L (45-117); ALT/SGPT 23 U/L (12-78); ANION GAP 5 MEQ/L (8-16); AST/SGOT 24 U/L (7-37); BILIRUBIN,TOTAL 0.4 MG/DL (0.2-1.0); BLOOD UREA NITROGEN 15 MG/DL (7-18); CALCIUM LEVEL 9.5 MG/DL (8.8-10.2); CARBON DIOXIDE LEVEL 29 MEQ/L (21-32); CHLORIDE LEVEL 102 MEQ/L (98-107); CREATININE FOR GFR 1.14 MG/DL (0.70-1.30); GLOMERULAR FILTRATION RATE > 60.0 (>49); GLUCOSE, FASTING 117 MG/DL (70-100); POTASSIUM SERUM 4.1 MEQ/L (3.5-5.1); SODIUM LEVEL 136 MEQ/L (136-145)
[2018-01-04] MEDS: HumaLOG INSULIN (NovoLOG) PER UNIT SC ×4 (08:45→20:08)
[2018-01-04] MEDS: ASPIRIN 81 MG ENTERIC TAB PO (08:45)
[2018-01-04] MEDS: GABAPENTIN 300 MG CAP PO ×3 (08:45→20:15)
[2018-01-04] MEDS: NORTRIPTYLINE 25 MG CAP PO ×3 (08:46→20:15)
[2018-01-04] MEDS: OMEPRAZOLE 20 MG CAP PO (08:47)
[2018-01-04] MEDS: BISOPROLOL FUMARATE 5 MG TAB PO ×2 (08:47→20:15)
[2018-01-04] MEDS: FINASTERIDE 5 MG TAB PO (08:47)
[2018-01-04] MEDS: SENOKOT S TAB PO ×2 (08:47→20:15)
[2018-01-04 11:35] LABS: BEDSIDE GLUCOSE 218 MG/DL (80-115)
[2018-01-04 16:47] LABS: BEDSIDE GLUCOSE 139 MG/DL (80-115)
[2018-01-04] MEDS: ATORVASTATIN 20 MG TAB PO (20:15)
[2018-01-04] MEDS: TAMSULOSIN 0.4 MG CAP PO (20:15)
[2018-01-04] MEDS: cefTRIAXone SOD 1 GM in D5W MINI-BAG PLUS 50 ML IV (20:16)
[2018-01-04 21:15] LABS: BEDSIDE GLUCOSE 126 MG/DL (80-115)
[2018-01-04] MEDS: ACETAMINOPHEN 500 MG TAB PO (22:02)
[2018-01-05] MEDS: HEPARIN SOD (PORCINE) 5000 UNITS/ML VIAL SC ×3 (05:23→20:58)
[2018-01-05 06:36] LABS: BASO # 0.1 10^3/uL (0.0-0.2); BASO % 0.5 % (0.0-1.0); EOS # 0.5 10^3/uL (0.0-0.50); EOS % 4.3 % (0.0-3.0); HEMATOCRIT 41.3 % (42.0-52.0); HEMOGLOBIN 13.4 g/dl (13.5-17.5); IMMATURE GRANULOCYTE % 0.9 % (0-3.0); LYMPH # 2.2 10^3/uL (1.5-4.5); LYMPH % 20.2 % (24.0-44.0); MEAN CORPUSCULAR HEMOGLOBIN 29.2 pg (27.0-33.0); MEAN CORPUSCULAR HGB CONC 32.4 g/dl (32.0-36.5); MONO % 8.9 % (0.0-5.0); NEUTROPHILS # 7.2 10^3/uL (1.8-7.7); NEUTROPHILS % 65.2 % (36.0-66.0); PLATELET COUNT, AUTOMATED 209 10^3/uL (150-450); RED BLOOD COUNT 4.59 10^6/uL (4.30-6.10); RED CELL DISTRIBUTION WIDTH 13.3 % (11.5-14.5); WHITE BLOOD COUNT 11.1 10^3/uL (4.0-10.0)
[2018-01-05 06:57] LABS: ALBUMIN 2.6 GM/DL (3.2-5.2); ANION GAP 6 MEQ/L (8-16); BLOOD UREA NITROGEN 21 MG/DL (7-18); CALCIUM LEVEL 9.3 MG/DL (8.8-10.2); CARBON DIOXIDE LEVEL 28 MEQ/L (21-32); CHLORIDE LEVEL 102 MEQ/L (98-107); CREATININE FOR GFR 1.31 MG/DL (0.70-1.30); GLOMERULAR FILTRATION RATE 57.9 (>49); GLUCOSE, FASTING 120 MG/DL (70-100); PHOSPHORUS LEVEL 3.1 MG/DL (2.5-4.9); POTASSIUM SERUM 4.2 MEQ/L (3.5-5.1); SODIUM LEVEL 136 MEQ/L (136-145)
[2018-01-05] MEDS: HumaLOG INSULIN (NovoLOG) PER UNIT SC ×4 (07:30→20:36)
[2018-01-05] MEDS: NORTRIPTYLINE 25 MG CAP PO ×3 (07:59→20:57)
[2018-01-05] MEDS: GABAPENTIN 300 MG CAP PO ×3 (07:59→20:57)
[2018-01-05] MEDS: SENOKOT S TAB PO ×2 (08:00→20:58)
[2018-01-05] MEDS: BISOPROLOL FUMARATE 5 MG TAB PO ×2 (08:00→20:58)
[2018-01-05] MEDS: FINASTERIDE 5 MG TAB PO (08:00)
[2018-01-05] MEDS: OMEPRAZOLE 20 MG CAP PO (08:00)
[2018-01-05] MEDS: ASPIRIN 81 MG ENTERIC TAB PO (08:00)
[2018-01-05] MEDS: BACITRACIN OINT 30GM TOP (09:00)
[2018-01-05 11:58] LABS: BEDSIDE GLUCOSE 137 MG/DL (80-115)
[2018-01-05] MEDS: LACTULOSE 20 GM/30 ML SYRUP UD PO ×2 (12:26→20:56)
[2018-01-05 17:08] LABS: BEDSIDE GLUCOSE 171 MG/DL (80-115)
[2018-01-05 20:29] LABS: BEDSIDE GLUCOSE 128 MG/DL (80-115)
[2018-01-05] MEDS: ACETAMINOPHEN 500 MG TAB PO (20:57)
[2018-01-05] MEDS: ATORVASTATIN 20 MG TAB PO (20:57)
[2018-01-05] MEDS: TAMSULOSIN 0.4 MG CAP PO (20:57)
[2018-01-06] MEDS: HALOPERIDOL 0.5 MG TAB PO (00:22)
[2018-01-06] MEDS: ACETAMINOPHEN 500 MG TAB PO ×2 (03:15→11:47)
[2018-01-06] MEDS: HEPARIN SOD (PORCINE) 5000 UNITS/ML VIAL SC ×3 (05:33→22:40)
[2018-01-06 06:28] LABS: BASO % 0.4 % (0.0-1.0); EOS # 0.3 10^3/uL (0.0-0.50); EOS % 3.3 % (0.0-3.0); HEMATOCRIT 42.3 % (42.0-52.0); HEMOGLOBIN 13.6 g/dl (13.5-17.5); IMMATURE GRANULOCYTE % 1.1 % (0-3.0); LYMPH # 2.1 10^3/uL (1.5-4.5); LYMPH % 20.8 % (24.0-44.0); MEAN CORPUSCULAR HEMOGLOBIN 29.6 pg (27.0-33.0); MEAN CORPUSCULAR HGB CONC 32.2 g/dl (32.0-36.5); MEAN CORPUSCULAR VOLUME 92.2 fl (80.0-96.0); MONO # 0.9 10^3/uL (0.0-0.8); MONO % 8.8 % (0.0-5.0); NEUTROPHILS # 6.8 10^3/uL (1.8-7.7); NEUTROPHILS % 65.6 % (36.0-66.0); PLATELET COUNT, AUTOMATED 216 10^3/uL (150-450); RED BLOOD COUNT 4.59 10^6/uL (4.30-6.10); RED CELL DISTRIBUTION WIDTH 13.2 % (11.5-14.5); WHITE BLOOD COUNT 10.3 10^3/uL (4.0-10.0)
[2018-01-06 06:49] LABS: ANION GAP 5 MEQ/L (8-16); BLOOD UREA NITROGEN 24 MG/DL (7-18); CALCIUM LEVEL 9.3 MG/DL (8.8-10.2); CARBON DIOXIDE LEVEL 29 MEQ/L (21-32); CHLORIDE LEVEL 103 MEQ/L (98-107); CREATININE FOR GFR 1.43 MG/DL (0.70-1.30); GLOMERULAR FILTRATION RATE 52.4 (>49); GLUCOSE, FASTING 113 MG/DL (70-100); POTASSIUM SERUM 4.5 MEQ/L (3.5-5.1); SODIUM LEVEL 137 MEQ/L (136-145)
[2018-01-06] MEDS: NORTRIPTYLINE 25 MG CAP PO ×3 (08:05→20:18)
[2018-01-06] MEDS: FINASTERIDE 5 MG TAB PO (08:05)
[2018-01-06] MEDS: BISOPROLOL FUMARATE 5 MG TAB PO ×2 (08:06→20:20)
[2018-01-06] MEDS: OMEPRAZOLE 20 MG CAP PO (08:06)
[2018-01-06] MEDS: GABAPENTIN 300 MG CAP PO ×3 (08:06→20:18)
[2018-01-06] MEDS: ASPIRIN 81 MG ENTERIC TAB PO (08:06)
[2018-01-06] MEDS: BACITRACIN OINT 30GM TOP (08:06)
[2018-01-06] MEDS: SENOKOT S TAB PO ×2 (08:06→20:18)
[2018-01-06] MEDS: HumaLOG INSULIN (NovoLOG) PER UNIT SC ×4 (08:07→21:00)
[2018-01-06] MEDS: LACTULOSE 20 GM/30 ML SYRUP UD PO ×2 (08:07→21:00)
[2018-01-06 11:57] LABS: BEDSIDE GLUCOSE 115 MG/DL (80-115)
[2018-01-06] MEDS: LIDOCAINE 5% OINT 30 GM TOP (13:17)
[2018-01-06 16:40] LABS: BEDSIDE GLUCOSE 104 MG/DL (80-115)
[2018-01-06 20:12] LABS: BEDSIDE GLUCOSE 112 MG/DL (80-115)
[2018-01-06] MEDS: ATORVASTATIN 20 MG TAB PO (20:17)
[2018-01-06] MEDS: TAMSULOSIN 0.4 MG CAP PO (20:18)
[2018-01-06] MEDS: traMADol 50 MG TAB PO (20:19)
[2018-01-06] MEDS: DICLOFENAC EPOLAMINE 1.3 % PATCH TOP (22:40)
[2018-01-07 05:51] LABS: HEMATOCRIT 41.5 % (42.0-52.0); HEMOGLOBIN 13.5 g/dl (13.5-17.5); MEAN CORPUSCULAR HEMOGLOBIN 29.6 pg (27.0-33.0); MEAN CORPUSCULAR HGB CONC 32.5 g/dl (32.0-36.5); PLATELET COUNT, AUTOMATED 231 10^3/uL (150-450); RED BLOOD COUNT 4.56 10^6/uL (4.30-6.10); RED CELL DISTRIBUTION WIDTH 13.2 % (11.5-14.5); WHITE BLOOD COUNT 10.3 10^3/uL (4.0-10.0)
[2018-01-07] MEDS: HEPARIN SOD (PORCINE) 5000 UNITS/ML VIAL SC (06:12)
[2018-01-07 06:15] LABS: ANION GAP 6 MEQ/L (8-16); BLOOD UREA NITROGEN 21 MG/DL (7-18); CALCIUM LEVEL 9.2 MG/DL (8.8-10.2); CARBON DIOXIDE LEVEL 29 MEQ/L (21-32); CHLORIDE LEVEL 103 MEQ/L (98-107); CREATININE FOR GFR 1.39 MG/DL (0.70-1.30); GLOMERULAR FILTRATION RATE 54.1 (>49); GLUCOSE, FASTING 143 MG/DL (70-100); SODIUM LEVEL 138 MEQ/L (136-145)
[2018-01-07] MEDS: GABAPENTIN 300 MG CAP PO (08:26)
[2018-01-07] MEDS: HumaLOG INSULIN (NovoLOG) PER UNIT SC (08:26)
[2018-01-07] MEDS: NORTRIPTYLINE 25 MG CAP PO (08:27)
[2018-01-07] MEDS: BISOPROLOL FUMARATE 5 MG TAB PO (08:27)
[2018-01-07] MEDS: OMEPRAZOLE 20 MG CAP PO (08:27)
[2018-01-07] MEDS: LACTULOSE 20 GM/30 ML SYRUP UD PO (08:28)
[2018-01-07] MEDS: SENOKOT S TAB PO (08:28)
[2018-01-07] MEDS: ASPIRIN 81 MG ENTERIC TAB PO (08:28)
[2018-01-07] MEDS: FINASTERIDE 5 MG TAB PO (08:28)
[2018-01-07] MEDS: BACITRACIN OINT 30GM TOP (08:29)
[2018-01-07] MEDS: LIDOCAINE 5% OINT 30 GM TOP (08:29)
== END 2018-01-07 10:09 | DRG 64 ==
LOC: M ED INP 12-30 01:27 → M MSPAV 12-30 08:03 → M ED 18:21
DX: I63.81 Other cerebral infarction due to occlusion or stenosis of small artery (principal); I62.03 Nontraumatic chronic subdural hemorrhage; G93.41 Metabolic encephalopathy; J18.9 Pneumonia, unspecified organism; N17.9 Acute kidney failure, unspecified; N39.0 Urinary tract infection, site not specified; M62.82 Rhabdomyolysis; Z66 Do not resuscitate; E11.51 Type 2 diabetes mellitus with diabetic peripheral angiopathy without gangrene; F10.20 Alcohol dependence, uncomplicated; E11.22 Type 2 diabetes mellitus with diabetic chronic kidney disease; J44.9 Chronic obstructive pulmonary disease, unspecified; I12.9 Hypertensive chronic kidney disease with stage 1 through stage 4 chronic kidney disease, or unspecified chronic kidney disease; E11.40 Type 2 diabetes mellitus with diabetic neuropathy, unspecified; K74.60 Unspecified cirrhosis of liver; K21.9 Gastro-esophageal reflux disease without esophagitis; N18.3 Chronic kidney disease, stage 3 (moderate); G47.33 Obstructive sleep apnea (adult) (pediatric); Z79.4 Long term (current) use of insulin; Z79.899 Other long term (current) drug therapy; Z88.5 Allergy status to narcotic agent; Z88.8 Allergy status to other drugs, medicaments and biological substances; Z91.030 Bee allergy status; Z89.512 Acquired absence of left leg below knee

== ENCOUNTER → 2018-02-09 | Outpatient (REF) | payer MEDICARE, MEDICAID ==
[2018-02-09 13:54] LABS: APPEARANCE, URINE CLOUDY (CLEAR); BACTERIA, URINE AUTO 1+ (NEGATIVE); BILIRUBIN, URINE AUTO NEGATIVE (NEGATIVE); BLOOD, URINE BLOOD 1+ (NEGATIVE); COLOR, URINE YELLOW (YELLOW); GLUCOSE, URINE (UA) AUTO 3+ mg/dL (NEGATIVE); KETONE, URINE AUTO NEGATIVE (NEGATIVE); LEUKOCYTE ESTERASE, URINE AUTO 3+ (NEGATIVE); NITRITE, URINE AUTO NEGATIVE (NEGATIVE); PROTEIN, URINE AUTO 2+ mg/dL (NEGATIVE); RBC, URINE AUTO 29 /HPF (0-3); SPECIFIC GRAVITY URINE AUTO 1.016 (1.002-1.035); SQUAMOUS EPITHELIAL CELL UR AU 0 /HPF (0-6); UROBILINOGEN, URINE AUTO 0.2 mg/dL (0.0-2.0); WBC, URINE AUTO TNTC /HPF (0-3)
== END ==
LOC: M SMT 13:15
DX: R33.9 Retention of urine, unspecified (principal)
CPT/HCPCS: 81001

== ENCOUNTER 2018-02-12 13:22 | Inpatient (IN) | payer MEDICARE, MEDICAID ==
[~2018-02-12] VITALS: Ht 182.9 cm; Wt 84.1 kg
[~2018-02-12 13:22] MED LIST changes: +ACET-683 PO; +ASPI81TAEC PO; +ATOR1TAB21 PO; +BACI50OI TOP; +BISO5TAB5 PO; +DICL13PA TOP; +Docusate Sod/Senna PO; +FINA5TAB2 PO; +FLOM0.4C39 PO; -FLOM5CAP PO; +FOLI1TAB11 PO; -FOLI1TAB4 PO; -GABA-282 PO; -GABA-283 PO; +GABA-843 PO; +GABA-845 PO; -GABA800T PO; +GABA800T4 PO; +HUMA100I3 SC; +HUMI40KI SC; +IPRA0.00 NEB; -IPRASOL4 NEB; +KLOR20TA42 PO; +LACT10SO3 PO; +LASI40TA9 PO; +LORA-243 PO; +OMEP20CA3 PO; +OXYC15TA76 PO; -PANT40TA2 PO; +PANT40TA3 PO; -POTA20TA PO
[2018-02-12] MEDS ORDERED: BACT800T5 PO (13:46)
[2018-02-12] MEDS ORDERED: NORT75CA2 PO (13:46)
[2018-02-12] MEDS ORDERED: DITR5TAB PO (13:46)
[2018-02-12] MEDS ORDERED: GLIP5TAB8 PO (13:46)
[2018-02-12] MEDS ORDERED: FLUC150T PO (13:46)
[2018-02-12] MEDS ORDERED: LEXA1TAB PO (13:46)
[2018-02-12] MEDS ORDERED: ATOR40TA75 PO (13:46)
[2018-02-12] MEDS ORDERED: NYST1POW9 TOP (13:46)
[2018-02-12] MEDS ORDERED: GABA-845 PO (13:46)
[2018-02-12] MEDS ORDERED: BISO5TAB5 PO (13:46)
[2018-02-12] MEDS ORDERED: SENN1TAB2 PO (13:46)
[2018-02-12] MEDS ORDERED: OXYC15TA76 PO (13:46)
[2018-02-12] MEDS ORDERED: NS 1,000 ML IV SCH (15:00)
--- NOTE | 2018-02-12 15:30 | REP ---
Clinical: Acute cerebrovascular accident . Comparison: 01/05/2018 . Findings: The mediastinum and cardiac silhouette are stable and within normal limits for portable technique. The lung carballo demonstrate scattered chronic changes primarily involving the left base without acute consolidation, effusion, or pneumothorax. Skeletal structures are intact. Chronic heterotopic ossification and calcification noted to the left shoulder. Impression: No acute cardiopulmonary process appreciated. Electronically Signed by Michele Bourgeois MD 02/12/2018 03:21 P
--- NOTE | 2018-02-12 15:32 | REP ---
CT Head without contrast HISTORY: Infarction COMPARISON: 01/03/2018 The patient is status post right frontal craniotomy. Areas of decreased attenuation are present in the basal ganglia , thalami and left internal capsule. These represent old lacunar infarctions. Areas of decreased attenuation are present in the periventricular white matter. This represents small-vessel ischemic disease. There is no intraparenchymal hemorrhage, acute infarct, mass or midline shift. The ventricular system and cortical sulci as well as subarachnoid space in the posterior fossa are dilated consistent with minimal volume loss. A small 4 mm isodense subdural hematoma is present over the right cerebral hemisphere. This is decreased in size compared to the previous study. There is no fracture. Those will thickening is present in the ethmoid and sphenoid sinuses. IMPRESSION: 1. 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 2. Small vessel ischemic disease. 3. Minimal volume loss. 4. There is a small 4 mm isodense subdural hematoma over the right cerebral hemisphere decreased in size compared to the previous study. Electronically Signed by Rodríguez Gupta MD 02/12/2018 03:23 P
[2018-02-12 15:35] LABS: BASO % 0.2 % (0.0-1.0); EOS # 0.4 10^3/uL (0.0-0.50); EOS % 3.3 % (0.0-3.0); HEMATOCRIT 35.6 % (42.0-52.0); HEMOGLOBIN 11.8 g/dl (13.5-17.5); LYMPH % 16.3 % (24.0-44.0); MEAN CORPUSCULAR HEMOGLOBIN 29.8 pg (27.0-33.0); MEAN CORPUSCULAR HGB CONC 33.1 g/dl (32.0-36.5); MEAN CORPUSCULAR VOLUME 89.9 fl (80.0-96.0); MONO # 0.8 10^3/uL (0.0-0.8); MONO % 6.3 % (0.0-5.0); NEUTROPHILS % 73.6 % (36.0-66.0); PLATELET COUNT, AUTOMATED 111 10^3/uL (150-450); RED BLOOD COUNT 3.96 10^6/uL (4.30-6.10); WHITE BLOOD COUNT 12.3 10^3/uL (4.0-10.0)
[2018-02-12 15:45] LABS: INR 0.99; PROTHROMBIN TIME 13.2 SECONDS (12.1-14.4)
[2018-02-12 15:46] LABS: PARTIAL THROMBOPLASTIN TIME 39.8 SECONDS (25.4-37.6)
[2018-02-12 15:59] LABS: ALBUMIN 2.9 GM/DL (3.2-5.2); ALT/SGPT 16 U/L (12-78); BILIRUBIN,DIRECT < 0.1 MG/DL (0.0-0.2); BILIRUBIN,TOTAL 0.2 MG/DL (0.2-1.0); BLOOD UREA NITROGEN 18 MG/DL (7-18); CALCIUM LEVEL 8.6 MG/DL (8.8-10.2); CARBON DIOXIDE LEVEL 25 MEQ/L (21-32); CHLORIDE LEVEL 103 MEQ/L (98-107); CPK CREATINE PHOSPHOKINASE 516 U/L (39-308); CREATININE FOR GFR 1.56 MG/DL (0.70-1.30); GLOMERULAR FILTRATION RATE 47.2 (>49); GLUCOSE, FASTING 158 MG/DL (70-100); SODIUM LEVEL 136 MEQ/L (136-145); TOTAL PROTEIN 6.9 GM/DL (6.4-8.2); TROPONIN I < 0.02 NG/ML (< 0.10)
[2018-02-12] MEDS ORDERED: cefTRIAXone SOD 1 GM in D5W MINI-BAG PLUS 50 ML IV ONE (16:45)
[2018-02-12] MEDS ORDERED: ASPIRIN 325 MG TAB PO ONE (16:45)
[2018-02-12] MEDS ORDERED: LevoFLOXacin IV 250 MG in APPROPRIATE DILUENT 1 EA IV SCH (18:00)
[2018-02-12] MEDS ORDERED: BISACODYL 5 MG TAB PO PRN (18:15)
[2018-02-12] MEDS ORDERED: OMEP20CA3 PO (18:29)
[2018-02-12] MEDS ORDERED: FLUC100T PO (18:29)
[2018-02-12] MEDS ORDERED: OXYB5TAB10 PO (18:29)
[2018-02-12] MEDS ORDERED: FLOM0.4C39 PO (18:29)
[2018-02-12] MEDS ORDERED: HUMI40KI SC (18:29)
[2018-02-12] MEDS ORDERED: GABA800T4 PO (18:29)
[2018-02-12] MEDS ORDERED: FINA5TAB2 PO (18:30)
[2018-02-12] MEDS: ACETAMINOPHEN TAB 650MG DOSE (2X325MG) PO PRN (18:32)
--- NOTE | 2018-02-12 20:58 | HPEPDOC ---
[facility] Medical History & Physical Date of Admission Feb 12, 2018 Attending Physician: VJ ROMO MD History and Physical CHIEF COMPLAINT: Altered mental state 1 day HISTORY OF PRESENT ILLNESS: Patient is 68-year-old man. He has history significant for alcoholic liver disease, hypertension, hyperlipidemia, type 2 di abetes, COPD, status post hernia repair per vascular disease, post femoral popliteal bypass and is also status post right ocgpr-lol-ircn amputation. Patient was brought in by family members on account of altered mental state. No nausea, vomiting, no chest pain or palpitations. No cough or shortness of breath. Patient also denied fever or chills at time of interview, patient was lucid and able to make and sustained communication. He denies any change in bowel or urinary habits. Patient was worked up in the emergency room with negative CT head, but lab was significant for UA consistent with UTI. Hospitalist was called in for further evaluation and possibility of admission. PAST MEDICAL HISTORY: Per HPI PAST SURGICAL HISTORY: 1. Status post post right below the knee. 2. Status post femoropopliteal bypass. SOCIAL HISTORY: Lives with his son indulges occasionally in marijuana use. Denies illicit drugs. Occasional indulgence in alcohol. He states smoking cigars since teenage. Other relevant social factors: FAMILY HISTORY: Denies any ischemic heart disease in the family. Denies diabetes the family. ALLERGIES: Please see below. REVIEW OF SYSTEMS: 13 point review of systems negative other than that described in the body of HPI. HOME MEDICATIONS: Please see below. PHYSICAL EXAMINATION: VITAL SIGNS: Please see below GENERAL APPEARANCE: Elderly man, lying calmly in bed, not in any apparent distress. He is not pale, anicteric and afebrile HEENT: Atraumatic. Neck: Supple. LUNGS: Clear to auscultation bilaterally. CARDIOVASCULAR: S1 and 2 heard, no murmurs, rubs or gallops. ABDOMEN: Obese, soft, not tender, not distended. Bowel sounds normoactive. MUSCULOSKELETAL: Apparently within normal limits EXTREMITIES: No pedal edema, 2+ bilateral pedal pulses noted. NEUROLOGICAL: Awake, alert, oriented 3. PSYCHIATRIC: Normal affect LABORATORY DATA: See below. IMAGING: CT head: 1. 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 2. Small vessel ischemic disease. 3. Minimal volume loss. 4. There is a small 4 mm isodense subdural hematoma over the right cerebral hemisphere decreased in size compared to the previous study. MICROBIOLOGY: Please see below. ASSESSMENT: 68-year-old man with above-mentioned comorbid history was brought in on account of altered mental status. Patient slowly improved while in the emergency room. Imaging done was negative for any acute event in the brain. Labs was consistent with UTI. DIAGNOSES: 1. Altered mental state. 2. Urinary tract infection. 3. Rule out TIA/stroke . PLAN: 1. We will admit patient to the medical floors under care of Dr. Watts 2. Altered mental state improved dyspnea have been secondary to UTI. Patient received a dose of Rocephin. The emergency room. I will continue patient on Levaquin IV. 3. Rule out TIA, stroke. Dr. Peterson will follow patient in the morning. Recommen dation is to have an MRI done. Patient will also have an echocardiogram done. If there is none recent. In the system. 4. Diabetes: Insulin sliding scale before meals and at bedtime diabetic diet. 5. Hypertension: Resume by mouth medication. 6. COPD, stable. 7. Hyperlipidemia. Will resume by mouth medication. 8. DVT prophylaxis, TEDs. 9. GI prophylaxis not indicated at this time. 10. Further management will be per patient's clinical course. Vital Signs Vital Signs Date Time Temp Pulse Resp B/P (MAP) Pulse Ox O2 Delivery O2 Flow Rate FiO2 02/12/18 18:38 97.0 02/12/18 18:01 150/71 (97) 02/12/18 17:52 85 18 89 Room Air Laboratory Data Labs 24H Laboratory Tests 2 02/12/18 15:27: Immature Granulocyte % (Auto) 0.3, White Blood Count 12.3H, Red Blood Count 3.96L, Hemoglobin 11.8L, Hematocrit 35.6L, Mean Corpuscular Volume 89.9, Mean Corpuscular Hemoglobin 29.8, Mean Corpuscular Hemoglobin Concent 33.1, Red Cell Distribution Width 14.8H, Platelet Count 111L, Neutrophils (%) (Auto) 73.6H, Lymphocytes (%) (Auto) 16.3L, Monocytes (%) (Auto) 6.3H, Eosinophils (%) (Auto) 3.3H, Basophils (%) (Auto) 0.2, Neutrophils # (Auto) 9.0H, Lymphocytes # (Auto) 2.0, Monocytes # (Auto) 0.8, Eosinophils # (Auto) 0.4, Basophils # (Auto) 0.0, Nucleated Red Blood Cells % (auto) 0.0, Prothrombin Time 13.2, Prothromb Time International Ratio 0.99, Activated Partial Thromboplast Time 39.8H, Bedside Glucose (Misc Panel) 174H, Anion Gap 8, Glomerular Filtration Rate 47.2L, Calcium Level 8.6L, Aspartate Amino Transf (AST/SGOT) 19, Alanine Aminotransferase (ALT/SGPT) 16, Alkaline Phosphatase 115, Total Bilirubin 0.2, Direct Bilirubin < 0.1, Ammonia 22, Total Creatine Kinase 516H, Creatine Kinase MB 9.0H, Creatine Kinase MB Relative Index 1.80, Troponin I < 0.02, Total Protein 6.9, Albumin 2.9L, Albumin/Globulin Ratio 0.73L 02/12/18 15:41: Urine Color YELLOW, Urine Appearance CLEAR, Urine pH 6.0, Urine Specific [place] 1.010, Urine Protein 1+H, Urine Glucose (UA) NEGATIVE, Urine Ketones NEGATIVE, Urine Blood 1+H, Urine Nitrite NEGATIVE, Urine Bilirubin NEGATIVE, Urine Urobilinogen 0.2, Urine Leukocyte Esterase 3+H, Urine WBC (Auto) 34H, Urine RBC (Auto) 10H, Urine Hyaline Casts (Auto) 0, Urine Bacteria (Auto) 1+H, Urine Squamous Epithelial Cells 0, Urine Sperm (Auto) CBC/BMP Laboratory Tests 02/12/18 15:27 Red Blood Count 3.96 L, Mean Corpuscular Volume 89.9, Mean Corpuscular Hemoglobin 29.8, Mean Corpuscular Hemoglobin Concent 33.1, Red Cell Distribution Width 14.8 H, Neutrophils (%) (Auto) 73.6 H, Lymphocytes (%) (Auto) 16.3 L, Monocytes (%) (Auto) 6.3 H, Eosinophils (%) (Auto) 3.3 H, Basophils (%) (Auto) 0.2, Neutrophils # (Auto) 9.0 H, Lymphocytes # (Auto) 2.0, Monocytes # (Auto) 0.8, Eosinophils # (Auto) 0.4, Basophils # (Auto) 0.0 Microbiology Microbiology 02/12/18 Urine Culture, Received Pending Home Medications Scheduled (Senna Plus 8.6-50 mg) 1 Tab Tab, 1 TAB PO DAILY (Humira) 40 Mg/0.8 Ml Kit, 40 MG SC Q2WK Atorvastatin Calcium (Atorvastatin Calcium) 40 Mg Tab, 40 MG PO QHS Bisoprolol Fumarate (Bisoprolol Fumarate) 5 Mg Tab, 7.5 MG PO DAILY Escitalopram Oxalate (Lexapro) 10 Mg Tab, 10 MG PO DAILY Finasteride (Finasteride) 5 Mg Tab, 5 MG PO DAILY Fluconazole (Fluconazole) 100 Mg Tab, 100 MG PO DAILY FILLED 02/09 FOR 10 DAYS Gabapentin (Gabapentin) 800 Mg Tab, 800 MG PO TID Glipizide (Glipizide) 5 Mg Tab, 2.5 MG PO DAILY Nortriptyline HCl (Nortriptyline HCl) 75 Mg Cap, 75 MG PO TID Omeprazole (Omeprazole) 20 Mg Cap, 20 MG PO DAILY Oxybutynin Chloride (Oxybutynin Chloride) 5 Mg Tab, 5 MG PO TID Tamsulosin Hydrochloride (Flomax) 0.4 Mg Cap, 0.4 MG PO DAILY Trimethoprim/Sulfamethoxazole (Bactrim Ds 800-160 mg) 1 Tab Tab, 1 TAB PO BID FILLED 02/11 FOR 10 DAYS Scheduled PRN Nystatin (Nystatin Powder) 100,000 Unit/Gm Pow, 1 APLCT TOP BID PRN for RASH APPLY TO AFFECTED AREAS Oxycodone Hcl (Oxycodone HCl) 15 Mg Tab, 15 MG PO QID PRN for pain Allergies Coded Allergies: CASI Inhibitors (Verified Allergy, Unknown, 06/22/16) Bee Venom (Verified Allergy, Unknown, 06/22/16) Hydrocodone (Verified Adverse Reaction, Mild, INTOLERANCE, 06/22/16) Varenicline (Verified Adverse Reaction, Mild, NIGHTMARES, 06/22/16) VJ ROMO MD Feb 12, 2018 20:58
[2018-02-12 21:00] VITALS: BP 130/79
[2018-02-12] MEDS ORDERED: GLUCAGON FOR INJ 1 MG VIAL (J1610) SC PRN (21:00)
[2018-02-12] MEDS ORDERED: GLUCOSE 4 GM CHEW TABLET PO PRN (21:00)
[2018-02-12] MEDS ORDERED: DEXTROSE 50% 50 ML SYRINGE IV PRN (21:00)
[2018-02-12] MEDS: TAMSULOSIN 0.4 MG CAP PO SCH (21:00)
[2018-02-12] MEDS: HumaLOG INSULIN (NovoLOG) PER UNIT SC SCH (21:00)
--- NOTE | 2018-02-12 22:05 | REPVR ---
EXAM: MR Head Without Contrast EXAM DATE/TIME: 02/12/2018 8:29 PM CLINICAL HISTORY: 68 years old, male; Signs and symptoms; Altered mental status/memory loss and speech disturbance; Confusion or disorientation; Slurred speech; Prior surgery; Surgery date: 6+ months; Surgery type: Caniotomy x3; Patient HX: Altered mental status, slurred speech; HX of aneurysm; Additional info: CVA TECHNIQUE: MR of the head without contrast. COMPARISON: MRI-Brain without Contrast 12/30/2017 1:51 PM FINDINGS: Brain: There is increased signal in the periventricular white matter. There are several additional hyperintense foci scattered throughout the white matter. There are small old basal ganglia, white matter and thalamic lacunar infarcts. There is a small old left cerebellar lacunar infarct. There is an old right pontine lacunar infarct. DWI images demonstrate no evidence of acute infarct. There is a small, 4 mm, right convexity subacute to chronic subdural hematoma unchanged from prior scan. There is no acute hemorrhage. There is no mass. Ventricles: Normal. No ventriculomegaly. Bones/joints: Unremarkable. Soft tissues: Normal. Sinuses: There is persistent mucosal thickening throughout the sinuses with more extensive opacification of the right frontal sinus. Mastoid air cells: There is fluid present in the right mastoid air cells also present on prior scan. Orbits: Unremarkable. Other vasculature: There are no abnormal flow voids. IMPRESSION: 1. Chronic microvascular disease with multiple old lacunar infarcts. No acute infarct. 2. Subacute to chronic right convexity small subdural hematoma unchanged from prior scan. No acute hemorrhage. Electronically signed by: Roberto Ann On 02/12/2018 22:05:17 PM
[2018-02-12] MEDS: NS 1,000 ML IV SCH (22:11)
--- NOTE | 2018-02-12 22:12 | REPVR ---
EXAM: MR Angiogram Head Without Contrast, Arteries EXAM DATE/TIME: 02/12/2018 8:29 PM CLINICAL HISTORY: 68 years old, male; Signs and symptoms; Drowsiness or somnolence and speech disturbance; Slurred speech; Prior surgery; Surgery date: 6+ months; Surgery type: Caniotomy x3; Patient HX: HX of aneurysm altered mental status, slurred speech; Additional info: CVA TECHNIQUE: MR angiogram head without contrast. Exam focused on the arteries. MIP reconstructed images were created and reviewed. COMPARISON: MRA BRAIN W/O CONTRAST 12/31/2017 11:27 AM FINDINGS: Right internal carotid artery: Unremarkable. Intracranial segment is patent with no significant stenosis. No aneurysm. Right anterior cerebral artery: There is a markedly hypoplastic A1 segment of the right anterior cerebral artery. Right middle cerebral artery: Unremarkable. No occlusion or significant stenosis. No aneurysm. Right posterior cerebral artery: There is a origin of the right posterior cerebral artery. No stenosis or occlusion. No aneurysm. Right vertebral artery: Unremarkable. No occlusion or significant stenosis. No aneurysm. Left internal carotid artery: Unremarkable. Intracranial segment is patent with no significant stenosis. No aneurysm. Left anterior cerebral artery: There is a dominant A1 segment of the left anterior cerebral artery. No stenosis or occlusion. No aneurysm. Left middle cerebral artery: Unremarkable. No occlusion or significant stenosis. No aneurysm. Left posterior cerebral artery: Unremarkable. No occlusion or significant stenosis. No aneurysm. Left vertebral artery: There is moderate stenosis of the intracranial left vertebral artery. This signal loss may be partly due to tortuosity as this segment of the left vertebral artery is horizontal which may result in in-plane flow artifact. No occlusion. No aneurysm. Basilar artery: Unremarkable. No occlusion or significant stenosis. No aneurysm. Bones/joints: There is a right frontal craniotomy. IMPRESSION: Moderate intracranial left vertebral artery stenosis. This cannot be compared to the prior scan as the previous scan did not include the vertebral arteries. Findings are otherwise stable with no evidence of large vessel occlusion. Electronically signed by: Roberto Ann On 02/12/2018 22:11:51 PM
[2018-02-13 06:00] VITALS: BP 135/84
[2018-02-13 06:16] LABS: BASO % 0.4 % (0.0-1.0); EOS # 0.4 10^3/uL (0.0-0.50); EOS % 5.4 % (0.0-3.0); HEMATOCRIT 37.7 % (42.0-52.0); HEMOGLOBIN 11.9 g/dl (13.5-17.5); LYMPH # 1.5 10^3/uL (1.5-4.5); LYMPH % 20.1 % (24.0-44.0); MEAN CORPUSCULAR HEMOGLOBIN 29.1 pg (27.0-33.0); MEAN CORPUSCULAR HGB CONC 31.6 g/dl (32.0-36.5); MEAN CORPUSCULAR VOLUME 92.2 fl (80.0-96.0); MONO # 0.6 10^3/uL (0.0-0.8); MONO % 7.7 % (0.0-5.0); NEUTROPHILS # 4.8 10^3/uL (1.8-7.7); NEUTROPHILS % 66.1 % (36.0-66.0); PLATELET COUNT, AUTOMATED 103 10^3/uL (150-450); RED BLOOD COUNT 4.09 10^6/uL (4.30-6.10); WHITE BLOOD COUNT 7.3 10^3/uL (4.0-10.0)
[2018-02-13 06:39] LABS: CALCIUM LEVEL 8.4 MG/DL (8.8-10.2); CREATININE FOR GFR 1.39 MG/DL (0.70-1.30); GLOMERULAR FILTRATION RATE 53.9 (>49); POTASSIUM SERUM 4.1 MEQ/L (3.5-5.1)
[2018-02-13] MEDS: ASPIRIN 81 MG CHEW TABLET PO SCH (07:57)
[2018-02-13] MEDS: PANTOPRAZOLE 40MG TAB (PROTONIX) PO SCH (07:57)
[2018-02-13] MEDS: HumaLOG INSULIN (NovoLOG) PER UNIT SC SCH ×4 (08:32→21:00)
[2018-02-13] MEDS: ACETAMINOPHEN TAB 650MG DOSE (2X325MG) PO PRN (09:47)
[2018-02-13] MEDS: GABAPENTIN 400 MG CAP PO SCH ×3 (10:41→21:24)
[2018-02-13] MEDS: EUCERIN 120GM CREAM TOP SCH ×2 (11:28→21:00)
[2018-02-13] MEDS: NYSTATIN 100,000 UNITS/GM TOPICAL PWD 15 GM TOP SCH ×3 (11:28→21:00)
[2018-02-13 14:00] VITALS: BP 167/78
--- NOTE | 2018-02-13 14:49 | ECHO ---
DATE OF PROCEDURE: 02/13/2018 REFERRING PHYSICIAN: Declan Burrows MD INDICATION: TIA. HEIGHT: 183 cm WEIGHT: 84 kg DIMENSIONS: IVS: 1.0 LV: 5.0 LVPW: 1.1 LA: 2.9 IVC: 2.0 Mitral E wave velocity 86, A wave 103 E prime septal 4.2, E prime lateral 7.2 FINDINGS The study is of rather limited technical quality. Left ventricle is of normal size and grossly has normal systolic function even though especially parasternal views were rather poor. Computer-calculated left ventricle ejection fraction is 56%. I would estimate ejection fraction (EF) in the 60-65% range. Right ventricle appears normal. Both atria appear grossly normal. Aortic valve is mildly sclerotic, but the visualization was limited and I cannot comment on its structure. There are also mild degenerative abnormalities of mitral valve, but mobility of leaflets is preserved. Tricuspid valve appears normal. Pulmonic valve was poorly seen. No pericardial effusion is noted. Inferior vena cava is dilated, but has some collapse with respiration indicative of likely normal or mildly elevated central venous pressure. Aortic root appears grossly normal. Aortic arch and abdominal aorta were poorly seen. Doppler interrogation of aortic valve reveals no significant stenosis and mild insufficiency. There is trace mitral insufficiency and no significant tricuspid insufficiency. Consequently pulmonary artery pressure was not adequately estimated. Mitral inflow pattern and tissue Doppler imaging of mitral annulus reveal grade 1 diastolic dysfunction. CONCLUSION 1. Study is of fair technical quality. 2. Normal LV size with normal LV systolic function and grade 1 diastolic dysfunction. 3. Minimal aortic sclerosis with no significant stenosis and mild insufficiency. 4. No significant mitral and tricuspid valvular disease. 5. Likely elevated central venous pressure. 6. Unable to estimate pulmonary artery pressure. COMMENT: Subacute bacterial endocarditis (SBE) prophylaxis is not recommended. [facility]
--- NOTE | 2018-02-13 15:26 | IPNPDOC ---
Subjective Date Seen The patient was seen on 02/13/18. Subjective Chief Complaint/HPI Mr. Shaw reports that he is feeling pretty good and he really wants to go home. His daughter reports that his mentation is basically back to baseline. He was having some stump pain, but a heating pad seemed to really help this. General: Reports: Normal Appetite Constitutional: Denies: Chills, Fever Cardiovascular: Denies: Chest Pain, Palpitations Gastrointestinal: Denies: Nausea, Vomiting, Abdominal Pain Genitourinary: Reports: Hematuria Psych: Reports: Mood Normal Objective Physical Examination General Exam: Positive: Alert, Cooperative (Laying in bed talking to his daughter when I entered the room), No Acute Distress Eye Exam: Positive: Conjunctiva & lids normal; Negative: Sclera icteric ENT Exam: Positive: Mucous membr. 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 I am familiar with the patient's baseline and he appears to be at it. (2) Urinary tract infection Status: Acute Response to Treatment: Improving Discussed With: Patient, Family with Pt Consent Problem Specific Plan: Monitor Clinically Problem Text: He received a dose of Rocephin in the ER, then was started on Levaquin by the [facility] admitter. In our facility E. coli is 93% sensitive to Rocephin and less responsive to Levaquin. As his UCx shows no growth we are stuck with emperic treatment. I will change him back to Rocephin today. Regardless he seems to be making good clinical recovery. (3) BIB (acute kidney injury) Status: Acute Response to Treatment: Improving Discussed With: Patient, Family with Pt Consent Problem Specific Plan: Repeat Labs Problem Text: His renal fx is improving while here. Will continue with gentle hydration. (4) DM2 (diabetes mellitus, type 2) Status: Chronic Discussed With: Patient, Family with Pt Consent Problem Specific Plan: Monitor Clinically, Repeat Labs Problem Text: On AC and HS finger sticks and ISS for now. Will look at resuming his glyburide on discharge. (5) Hypertension Status: Chronic Discussed With: Patient, Family with Pt Consent Problem Specific Plan: Monitor Clinically Problem Text: His pressures are running a little high today. Will monitor for now, but if the go much higher I may need to adjust his medication. (6) COPD (chronic obstructive pulmonary disease) Status: Chronic Response to Treatment: Stable Discussed With: Patient Problem Specific Plan: Monitor Clinically Problem Text: Continue current regimen, monitor. Plan/VTE VTE Prophylaxis Ordered?: Yes (TOYA on his L leg) Plan Advance Directives: DNR Disposition He would like to go home tomorrow and this looks like it may be a possibility. VS, I&O, 24H, Fishbone Vital Signs/I&O Vital Signs Date Time Temp Pulse Resp B/P (MAP) Pulse Ox O2 Delivery O2 Flow Rate FiO2 02/13/18 14:00 97.3 65 20 167/78 (107) 95 Room Air I&O- Last 24 Hours up to 6 AM 02/13/18 06:00 Intake Total 200 ml Output Total 1950 ml Balance -1750 ml Laboratory Data 24H LABS Laboratory Tests 2 02/12/18 15:27: Immature Granulocyte % (Auto) 0.3, White Blood Count 12.3H, Red Blood Count 3.96L, Hemoglobin 11.8L, Hematocrit 35.6L, Mean Corpuscular Volume 89.9, Mean Corpuscular Hemoglobin 29.8, Mean Corpuscular Hemoglobin Concent 33.1, Red Cell Distribution Width 14.8H, Platelet Count 111L, Neutrophils (%) (Auto) 73.6H, Lymphocytes (%) (Auto) 16.3L, Monocytes (%) (Auto) 6.3H, Eosinophils (%) (Auto) 3.3H, Basophils (%) (Auto) 0.2, Neutrophils # (Auto) 9.0H, Lymphocytes # (Auto) 2.0, Monocytes # (Auto) 0.8, Eosinophils # (Auto) 0.4, Basophils # (Auto) 0.0, Nucleated Red Blood Cells % (auto) 0.0, Prothrombin Time 13.2, Prothromb Time International Ratio 0.99, Activated Partial Thromboplast Time 39.8H, Bedside Glucose (Misc Panel) 174H, Anion Gap 8, Glomerular Filtration Rate 47.2L, Calcium Level 8.6L, Aspartate Amino Transf (AST/SGOT) 19, Alanine Aminotransferase (ALT/SGPT) 16, Alkaline Phosphatase 115, Total Bilirubin 0.2, Direct Bilirubin < 0.1, Ammonia 22, Total Creatine Kinase 516H, Creatine Kinase MB 9.0H, Creatine Kinase MB Relative Index 1.80, Troponin I < 0.02, Total Protein 6.9, Albumin 2.9L, Albumin/Globulin Ratio 0.73L 02/12/18 15:41: Urine Color YELLOW, Urine Appearance CLEAR, Urine pH 6.0, Urine Specific Cassel 1.010, Urine Protein 1+H, Urine Glucose (UA) NEGATIVE, Urine Ketones NEGATIVE, Urine Blood 1+H, Urine Nitrite NEGATIVE, Urine Bilirubin NEGATIVE, Urine Urobilinogen 0.2, Urine Leukocyte Esterase 3+H, Urine WBC (Auto) 34H, Urine RBC (Auto) 10H, Urine Hyaline Casts (Auto) 0, Urine Bacteria (Auto) 1+H, Urine Squamous Epithelial Cells 0, Urine Sperm (Auto) 02/12/18 22:06: Bedside Glucose (Misc Panel) 138H 02/13/18 05:44: Immature Granulocyte % (Auto) 0.3, White Blood Count 7.3, Red Blood Count 4.09L, Hemoglobin 11.9L, Hematocrit 37.7L, Mean Corpuscular Volume 92.2, Mean Corpuscular Hemoglobin 29.1, Mean Corpuscular Hemoglobin Concent 31.6L, Red Cell Distribution Width 15.2H, Platelet Count 103L, Neutrophils (%) (Auto) 66.1H, Lymphocytes (%) (Auto) 20.1L, Monocytes (%) (Auto) 7.7H, Eosinophils (%) (Auto) 5.4H, Basophils (%) (Auto) 0.4, Neutrophils # (Auto) 4.8, Lymphocytes # (Auto) 1.5, Monocytes # (Auto) 0.6, Eosinophils # (Auto) 0.4, Basophils # (Auto) 0.0, Nucleated Red Blood Cells % (auto) 0.0, Anion Gap 7L, Glomerular Filtration Rate 53.9, Calcium Level 8.4L, Blood Urea Nitrogen 15, Creatinine 1.39H, Sodium Level 141, Potassium Level 4.1, Chloride Level 108H, Carbon Dioxide Level 26 02/13/18 12:46: Bedside Glucose (Misc Panel) 178H CBC/BMP Laboratory Tests 02/12/18 15:27 Red Blood Count 3.96 L, Mean Corpuscular Volume 89.9, Mean Corpuscular Hemoglobin 29.8, Mean Corpuscular Hemoglobin Concent 33.1, Red Cell Distribution Width 14.8 H, Neutrophils (%) (Auto) 73.6 H, Lymphocytes (%) (Auto) 16.3 L, Monocytes (%) (Auto) 6.3 H, Eosinophils (%) (Auto) 3.3 H, Basophils (%) (Auto) 0.2, Neutrophils # (Auto) 9.0 H, Lymphocytes # (Auto) 2.0, Monocytes # (Auto) 0.8, Eosinophils # (Auto) 0.4, Basophils # (Auto) 0.0 02/13/18 05:44 Red Blood Count 4.09 L, Mean Corpuscular Volume 92.2, Mean Corpuscular Hemoglobin 29.1, Mean Corpuscular Hemoglobin Concent 31.6 L, Red Cell Distribution Width 15.2 H, Neutrophils (%) (Auto) 66.1 H, Lymphocytes (%) (Auto) 20.1 L, Monocytes (%) (Auto) 7.7 H, Eosinophils (%) (Auto) 5.4 H, Basophils (%) (Auto) 0.4, Neutrophils # (Auto) 4.8, Lymphocytes # (Auto) 1.5, Monocytes # (Auto) 0.6, Eosinophils # (Auto) 0.4, Basophils # (Auto) 0.0, Calcium Level 8.4 L Microbiology Microbiology 02/12/18 Urine Culture - Final, Complete Willie Goldman MD Feb 13, 2018 3:26 pm
[2018-02-13] MEDS: cefTRIAXone SOD 1 GM in D5W MINI-BAG PLUS 50 ML IV SCH (17:26)
[2018-02-13] MEDS: NORTRIPTYLINE 25 MG CAP PO SCH ×2 (17:28→21:24)
[2018-02-13] MEDS: NS 1,000 ML IV SCH (17:34)
--- NOTE | 2018-02-13 19:54 | ECGEPIP ---
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
[2018-02-13] MEDS: TAMSULOSIN 0.4 MG CAP PO SCH (21:24)
[2018-02-13 22:00] VITALS: BP 166/80
[2018-02-13] MEDS: ATORVASTATIN 20 MG TAB PO SCH ×2 (22:10→22:29)
[2018-02-13] MEDS ORDERED: PILL CRUSHER/CUTTER 1 EACH XX PRN (22:15)
[2018-02-14 06:00] VITALS: BP 188/96
[2018-02-14 06:18] LABS: ALBUMIN 2.9 GM/DL (3.2-5.2); BILIRUBIN,TOTAL 0.2 MG/DL (0.2-1.0); CREATININE FOR GFR 1.32 MG/DL (0.70-1.30); GLOMERULAR FILTRATION RATE 57.3 (>49); POTASSIUM SERUM 4.1 MEQ/L (3.5-5.1)
[2018-02-14 06:19] LABS: BASO % 0.4 % (0.0-1.0); EOS # 0.5 10^3/uL (0.0-0.50); EOS % 6.6 % (0.0-3.0); HEMATOCRIT 39.2 % (42.0-52.0); HEMOGLOBIN 12.5 g/dl (13.5-17.5); LYMPH # 1.7 10^3/uL (1.5-4.5); LYMPH % 23.6 % (24.0-44.0); MEAN CORPUSCULAR HEMOGLOBIN 29.1 pg (27.0-33.0); MEAN CORPUSCULAR HGB CONC 31.9 g/dl (32.0-36.5); MEAN CORPUSCULAR VOLUME 91.2 fl (80.0-96.0); MONO # 0.5 10^3/uL (0.0-0.8); MONO % 6.7 % (0.0-5.0); NEUTROPHILS # 4.3 10^3/uL (1.8-7.7); NEUTROPHILS % 62.1 % (36.0-66.0); PLATELET COUNT, AUTOMATED 105 10^3/uL (150-450)
[2018-02-14] MEDS: ASPIRIN 81 MG CHEW TABLET PO SCH (08:53)
[2018-02-14] MEDS: NORTRIPTYLINE 25 MG CAP PO SCH (08:53)
[2018-02-14] MEDS: PANTOPRAZOLE 40MG TAB (PROTONIX) PO SCH (08:53)
[2018-02-14] MEDS: GABAPENTIN 400 MG CAP PO SCH (08:53)
[2018-02-14] MEDS: HumaLOG INSULIN (NovoLOG) PER UNIT SC SCH ×2 (08:54→13:09)
[2018-02-14] MEDS: ACETAMINOPHEN TAB 650MG DOSE (2X325MG) PO PRN (08:57)
[2018-02-14] MEDS: EUCERIN 120GM CREAM TOP SCH (08:57)
[2018-02-14 09:00] VITALS: BP 160/86
[2018-02-14] MEDS: NYSTATIN 100,000 UNITS/GM TOPICAL PWD 15 GM TOP SCH ×2 (09:00→13:09)
[2018-02-14] MEDS ORDERED: BISOPROLOL FUMARATE 5 MG TAB PO SCH (09:00)
[2018-02-14] MEDS ORDERED: OMEPRAZOLE 20 MG CAP PO SCH (09:00)
[2018-02-14] MEDS ORDERED: FINASTERIDE 5 MG TAB PO SCH (09:00)
[2018-02-14] MEDS ORDERED: FLUCONAZOLE 100 MG TAB PO SCH (09:00)
[2018-02-14] MEDS ORDERED: ESCITALOPRAM OXALATE 10 MG TAB (LEXAPRO) PO SCH (09:00)
[2018-02-14] MEDS: NS 1,000 ML IV SCH (10:01)
[2018-02-14] MEDS ORDERED: DOXY100T PO (13:10)
[2018-02-14] MEDS ORDERED: FLUC100T PO (13:10)
--- NOTE | 2018-02-14 13:13 | DS.PDOC ---
Discharge Summary General Date of Admission Feb 12, 2018 at 18:01 Date of Discharge 02/14/18 Primary Care Physician: Efrain Red M.D. Attending Physician: Willie Goldman MD Specialist/Consultants Involve: VENESSA GALARZA MD Discharge Summary ADMITTING DIAGNOSES: 1. Altered mental status. 2. Urinary tract infection. 3. Possible transient ischemic attack or stroke. DISCHARGE DIAGNOSES: 1. Toxic metabolic encephalopathy, likely related to an acute infection. 2. Urinary tract infection. 3. Acute kidney injury. 4. Type 2 diabetes. 5. Hypertension. 6. COPD. PROCEDURES PERFORMED DURING STAY: None. ADMISSION HISTORY: Patient is 68-year-old man who was brought in by family members on account of altered mental state. Please see the admission history and physical for the remaining details. HOSPITAL COURSE: Mr. Shaw was brought to the emergency department by his family when they noticed his mental status was altered. He has a number of medical comorbidities which could have led to this. When he was admitted he was found to have an urinary tract infection. On treatment of this infection his sensorium cleared, therefore, it seems likely that the acute infection was in fact the cause of his altered mental status. DISCHARGE CONDITION: Stable. FOLLOW-UP: Prior to discharge an appointment was scheduled with Ms. Madden on 02/19/18 at 11:45am. DIET: Consistent carbohydrates. ACTIVITY: As tolerated. DISCHARGE MEDICATIONS: Please see below. ALLERGIES: Please see below. LABORATORY DATA: Please see below. IMAGING: Head CT without contrast, chest x-ray, MRI and MRA of the brain. Vital Signs/I&Os Vital Signs Date Time Temp Pulse Resp B/P (MAP) Pulse Ox O2 Delivery O2 Flow Rate FiO2 02/14/18 09:00 93 160/86 02/14/18 06:00 97.0 18 96 Room Air I&O- Last 24 Hours up to 6 AM 02/14/18 06:00 Intake Total 1670 ml Output Total 6350 ml Balance -4680 ml Laboratory Data Labs 24H Laboratory Tests 2 02/13/18 16:58: Bedside Glucose (Misc Panel) 160H 02/13/18 21:31: Bedside Glucose (Misc Panel) 170H 02/14/18 05:27: Immature Granulocyte % (Auto) 0.6, White Blood Count 7.0, Red Blood Count 4.30, Hemoglobin 12.5L, Hematocrit 39.2L, Mean Corpuscular Volume 91.2, Mean Corpuscular Hemoglobin 29.1, Mean Corpuscular Hemoglobin Concent 31.9L, Red Cell Distribution Width 15.1H, Platelet Count 105L, Neutrophils (%) (Auto) 62.1, Lymphocytes (%) (Auto) 23.6L, Monocytes (%) (Auto) 6.7H, Eosinophils (%) (Auto) 6.6H, Basophils (%) (Auto) 0.4, Neutrophils # (Auto) 4.3, Lymphocytes # (Auto) 1.7, Monocytes # (Auto) 0.5, Eosinophils # (Auto) 0.5, Basophils # (Auto) 0.0, Nucleated Red Blood Cells % (auto) 0.0, Anion Gap 4L, Glomerular Filtration Rate 57.3, Blood Urea Nitrogen 17, Creatinine 1.32H, Sodium Level 141, Potassium Level 4.1, Chloride Level 107, Carbon Dioxide Level 30, Calcium Level 9.0, Aspar murphy Amino Transf (AST/SGOT) 22, Alanine Aminotransferase (ALT/SGPT) 19, Alkaline Phosphatase 117, Total Bilirubin 0.2, Total Protein 7.0, Albumin 2.9L, Albumin/Globulin Ratio 0.71L 02/14/18 12:39: Bedside Glucose (Misc Panel) 164H CBC/BMP Laboratory Tests 02/14/18 05:27 Red Blood Count 4.30, Mean Corpuscular Volume 91.2, Mean Corpuscular Hemoglobin 29.1, Mean Corpuscular Hemoglobin Concent 31.9 L, Red Cell Distribution Width 15.1 H, Neutrophils (%) (Auto) 62.1, Lymphocytes (%) (Auto) 23.6 L, Monocytes (%) (Auto) 6.7 H, Eosinophils (%) (Auto) 6.6 H, Basophils (%) (Auto) 0.4, Neutrophils # (Auto) 4.3, Lymphocytes # (Auto) 1.7, Monocytes # (Auto) 0.5, Eosinophils # (Auto) 0.5, Basophils # (Auto) 0.0, Calcium Level 9.0, Aspartate Amino Transf (AST/SGOT) 22, Alanine Aminotransferase (ALT/SGPT) 19, Alkaline Phosphatase 117, Total Bilirubin 0.2, Total Protein 7.0, Albumin 2.9 L FSBS Laboratory Tests Test 02/13/18 16:58 02/13/18 21:31 02/14/18 12:39 Range/Units Bedside Glucose (Misc Panel) 160 170 164 80-115 MG/DL Microbiology Microbiology 02/12/18 Urine Culture - Final, Complete Discharge Medications Scheduled (Senna Plus 8.6-50 mg) 1 Tab Tab, 1 TAB PO DAILY, (Reported) (Humira) 40 Mg/0.8 Ml Kit, 40 MG SC Q2WK, (Reported) Atorvastatin Calcium (Atorvastatin Calcium) 40 Mg Tab, 40 MG PO QHS, (Reported) Bisoprolol Fumarate (Bisoprolol Fumarate) 5 Mg Tab, 7.5 MG PO DAILY, (Reported) Escitalopram Oxalate (Lexapro) 10 Mg Tab, 10 MG PO DAILY, (Reported) Finasteride (Finasteride) 5 Mg Tab, 5 MG PO DAILY, (Reported) Gabapentin (Gabapentin) 800 Mg Tab, 800 MG PO TID, (Reported) Glipizide (Glipizide) 5 Mg Tab, 2.5 MG PO DAILY, (Reported) Nortriptyline HCl (Nortriptyline HCl) 75 Mg Cap, 75 MG PO TID, (Reported) Omeprazole (Omeprazole) 20 Mg Cap, 20 MG PO DAILY, (Reported) Oxybutynin Chloride (Oxybutynin Chloride) 5 Mg Tab, 5 MG PO TID, (Reported) Tamsulosin Hydrochloride (Flomax) 0.4 Mg Cap, 0.4 MG PO DAILY, (Reported) Scheduled PRN Nystatin (Nystatin Powder) 100,000 Unit/Gm Pow, 1 APLCT TOP BID PRN for RASH, (Reported) APPLY TO AFFECTED AREAS Oxycodone Hcl (Oxycodone HCl) 15 Mg Tab, 15 MG PO QID PRN for pain, (Reported) Allergies Coded Allergies: CASI Inhibitors (Verified Allergy, Unknown, 06/22/16) Bee Venom (Verified Allergy, Unknown, 06/22/16) Hydrocodone (Verified Adverse Reaction, Mild, INTOLERANCE, 06/22/16) Varenicline (Verified Adverse Reaction, Mild, NIGHTMARES, 06/22/16) Willie Goldman MD Feb 14, 2018 13:13
[2018-02-14] MEDS ORDERED: DOXYCYCLINE HYCLATE 100 MG TAB PO SCH (13:15)
[2018-02-14] MEDS: cefTRIAXone SOD 1 GM in D5W MINI-BAG PLUS 50 ML IV SCH (13:20)
[2018-02-14 14:00] VITALS: BP 146/81
--- NOTE | 2018-02-14 18:36 | CR ---
DATE OF CONSULTATION: 02/14/2018 HISTORY OF PRESENT ILLNESS: Jamar Shaw is a 68-year-old male with past medical history significant for alcoholic liver disease, hypertension, hyperlipidemia, type 2 diabetes, chronic obstructive pulmonary disease (COPD), status post hernia repair, vascular disease, post femoral popliteal bypass, status post right elizd-iev-pumr amputation. The patient was noted to have altered mental status and was brought to [facility]. He was worked up for transient ischemic attack (TIA). He was found to have a urinary tract infection which is being treated with antibiotics. Since the treatment with antibiotics the patient's mentation is completely back to baseline. MRI of the brain was completed and he did not have any evidence of acute stroke. Chronic small vessel ischemic disease, old lacunar infarctions were noted. The patient had a subacute chronic right subdural hematoma which is unchanged compared to 12/30/2017. The patient at present time has no acute complaints. REVIEW OF SYSTEMS: 14-point review of systems obtained and is negative except as per history of present illness (HP). PAST MEDICAL HISTORY: As per HPI. PAST SURGICAL HISTORY: Right tkkuq-[id number]-zuez amputation status post femoral popliteal bypass. SOCIAL HISTORY: The patient uses marijuana. Denies recreational drug use otherwise. Denies any cigarette smoking at the present time. Uses alcohol on occasion. FAMILY HISTORY: Noncontributory. ALLERGIES: ANGIOTENSIN-CONVERTING ENZYME (CASI) INHIBITORS, bee venon, HYDROCODONE, VARENICLINE. MEDICATIONS: - oxycodone - statin - Bactrim DS - Senna - atorvastatin - bisoprolol - escitalopram - finasteride - fluconazole - gabapentin - glipizide - nortriptyline - omeprazole - oxybutynin - tamsulosin PHYSICAL EXAMINATION: Blood pressure is 167/78, pulse 65, respiratory rate is 20, temperature is 97.3 degrees Fahrenheit, oxygenation 95% on room air. Current height 6 feet 0 inches, current weight is 84 kg. The patient is awake, alert, oriented to person, place and time. Speech, language comprehension and repetition are intact. Pupils are 2.5 mm, round, reactive to light. Extraocular movements are intact in all directions. Sensation V1, V2, V3 is intact to light touch. No facial asymmetry to activation. Palate elevates symmetrically. Tongue is midline. No weakness of sternocleidomastoids bilaterally. Hearing is subjectively equal to finger rub. The patient's strength is 5/5 including all four extremities. The patient does have a hafzt-tpk-kvsu amputation of the right lower extremity. Sensory is intact to light touch in all four extremities. Deep tendon reflexes are reduced in the lower extremities, present in the upper extremities. Coordination did not reveal any gross ataxia or dysmetria. ASSESSMENT: 1. Altered mental status secondary to urinary tract infection (UTI). PLAN: 1. Continue supportive care with antibiotics. No MRI evidence of acute stroke. Physical therapy/occupational therapy (PT/OT) recommended.
== END 2018-02-14 14:40 | disposition home or self-care (01) | DRG 689 ==
LOC: M ED 13:22 → EDBD 13:22 → M ED INP 18:01 → M MSPAV 21:00
PROVIDERS: ADMIT Hospitalist; ATTEND Family Medicine
DX: N39.0 Urinary tract infection, site not specified (principal); G92 Toxic encephalopathy; N17.9 Acute kidney failure, unspecified; R33.9 Retention of urine, unspecified; E11.9 Type 2 diabetes mellitus without complications; R41.82 Altered mental status, unspecified; J44.9 Chronic obstructive pulmonary disease, unspecified; I10 Essential (primary) hypertension; E78.5 Hyperlipidemia, unspecified; Z89.511 Acquired absence of right leg below knee; Z88.5 Allergy status to narcotic agent; Z88.8 Allergy status to other drugs, medicaments and biological substances

== ENCOUNTER 2018-03-28 17:09 | Inpatient (IN) | payer MEDICARE, MEDICAID ==
[~2018-03-28] VITALS: Ht 182.9 cm; Wt 87.0 kg
[~2018-03-28 17:09] MED LIST changes: +ATOR40TA75 PO; +DITR5TAB PO; +DOXY100T PO; +FLUC100T PO; +FLUC150T PO; +GLIP5TAB8 PO; +LEXA1TAB PO; +NYST1POW9 TOP; +OXYB5TAB10 PO; +SENN1TAB2 PO
[2018-03-28] MEDS ORDERED: NS 1,000 ML IV ONE (17:30)
[2018-03-28 17:38] LABS: BASO # 0.1 10^3/uL (0.0-0.2); BASO % 0.2 % (0.0-1.0); HEMATOCRIT 41.1 % (42.0-52.0); HEMOGLOBIN 13.2 g/dl (13.5-17.5); LYMPH # 1.4 10^3/uL (1.5-4.5); LYMPH % 5.3 % (24.0-44.0); MEAN CORPUSCULAR HEMOGLOBIN 29.9 pg (27.0-33.0); MEAN CORPUSCULAR HGB CONC 32.1 g/dl (32.0-36.5); MEAN CORPUSCULAR VOLUME 93.2 fl (80.0-96.0); MONO # 1.6 10^3/uL (0.0-0.8); MONO % 5.9 % (0.0-5.0); NEUTROPHILS # 23.3 10^3/uL (1.8-7.7); NEUTROPHILS % 87.8 % (36.0-66.0); PLATELET COUNT, AUTOMATED 130 10^3/uL (150-450); RED BLOOD COUNT 4.41 10^6/uL (4.30-6.10); WHITE BLOOD COUNT 26.6 10^3/uL (4.0-10.0)
[2018-03-28] MEDS ORDERED: ASPI81TA85 PO (17:39)
[2018-03-28 17:45] LABS: BILIRUBIN, URINE MANUAL NEGATIVE (NEGATIVE); GLUCOSE, URINE (UA) MANUAL TRACE(50 MG/DL) mg/dL (NEGATIVE); KETONE, URINE MANUAL NEGATIVE (NEGATIVE); UROBILINOGEN, URINE MANUAL NORMAL (NORMAL)
[2018-03-28 17:50] LABS: RBC, URINE 0-1 /hpf (0-3)
[2018-03-28 17:52] LABS: BACTERIA, URINE LARGE AMOUNT; HYALINE CAST, URINE NONE SEEN /lpf (0-1); SQUAMOUS EPITHELIAL CELL URINE SMALL AMOUNT /hpf (SMALL AMT)
[2018-03-28 18:00] LABS: INR 1.15; PROTHROMBIN TIME 14.9 SECONDS (12.1-14.4)
[2018-03-28 18:01] LABS: PARTIAL THROMBOPLASTIN TIME 38.4 SECONDS (25.4-37.6)
--- NOTE | 2018-03-28 18:37 | REP ---
Clinical: Fever. Comparison: 02/24/2018. Findings: Mediastinum and cardiac silhouette are normal / stable. Lung carballo demonstrate diffuse chronic interstitial changes. Superimposed right middle lobe/right lower lobe infiltrate noted. No obvious effusion or pneumothorax. Skeletal structures stable. Impression: Right basilar infiltrate. Electronically Signed by Michele Bourgeois MD 03/28/2018 06:29 P
[2018-03-28 18:40] LABS: ALBUMIN 3.4 GM/DL (3.2-5.2); ALT/SGPT 17 U/L (12-78); BILIRUBIN,DIRECT 0.2 MG/DL (0.0-0.2); BILIRUBIN,TOTAL 0.6 MG/DL (0.2-1.0); BLOOD UREA NITROGEN 26 MG/DL (7-18); CALCIUM LEVEL 8.5 MG/DL (8.8-10.2); CARBON DIOXIDE LEVEL 24 MEQ/L (21-32); CHLORIDE LEVEL 100 MEQ/L (98-107); CPK CREATINE PHOSPHOKINASE 150 U/L (39-308); CREATININE FOR GFR 1.79 MG/DL (0.70-1.30); GLOMERULAR FILTRATION RATE 40.3 (>49); GLUCOSE, FASTING 239 MG/DL (70-100); LIPASE 64 U/L (73-393); MB/CK RELATIVE INDEX 1.47 (< OR =4); POTASSIUM SERUM 4.7 MEQ/L (3.5-5.1); SODIUM LEVEL 134 MEQ/L (136-145); TOTAL PROTEIN 7.1 GM/DL (6.4-8.2); TROPONIN I < 0.02 NG/ML (< 0.10)
[2018-03-28] MEDS ORDERED: cefTRIAXone SOD 1 GM in D5W MINI-BAG PLUS 50 ML IV ONE (19:15)
[2018-03-28] MEDS ORDERED: AZITHROMYCIN INJ 500 MG, VIAL MATE ADAPTER 1 EACH in D5W 250 ML IV ONE (19:15)
--- NOTE | 2018-03-28 19:16 | REPVR ---
EXAM: CT Head Without Contrast EXAM DATE/TIME: 03/28/2018 6:21 PM CLINICAL HISTORY: 68 years old, male; Injury or trauma; Fall; Initial encounter; Blunt trauma (contusions or hematomas); Consciousness not specified; Prior surgery; Surgery date: 6+ months TECHNIQUE: Axial computed tomography images of the head/brain without contrast. All CT scans at this facility use at least one of these dose optimization techniques: automated exposure control; mA and/or kV adjustment per patient size (includes targeted exams where dose is matched to clinical indication); or iterative reconstruction. COMPARISON: CT Head without contrast 02/24/2018 4:52 PM FINDINGS: Brain: The brain demonstrates diffuse volume loss. There is white matter hypodensity most consistent with chronic small vessel ischemic change. No visible evolving territorial infarct. No hemorrhage. A focal, chronic appearing lacunar infarct in the right jacklyn. The right subdural hematoma has resolved. Ventricles: The ventricles appear mildly enlarged, most likely reflecting volume loss. No ventriculomegaly. Bones/joints: This prior right frontal craniotomy. No acute calvarial fracture seen. Sinuses: Mild to moderate sinus mucosal thickening, in particular right maxillary sinus. No air-fluid levels. Mastoid air cells: The right mastoids are chronically underpneumatized. Small right mastoid effusion. Soft tissues: Unremarkable. IMPRESSION: No acute intracranial abnormality seen. Electronically signed by: Shelly Jaffe On 03/28/2018 19:16:14 PM
--- NOTE | 2018-03-28 19:21 | REPVR ---
EXAM: CT Cervical Spine Without Contrast EXAM DATE/TIME: 03/28/2018 6:21 PM CLINICAL HISTORY: 68 years old, male; Injury or trauma; Fall; Initial encounter; Blunt trauma TECHNIQUE: Axial computed tomography images of the cervical spine without intravenous contrast. All CT scans at this facility use at least one of these dose optimization techniques: automated exposure control; mA and/or kV adjustment per patient size (includes targeted exams where dose is matched to clinical indication); or iterative reconstruction. Coronal and sagittal reformatted images were created and reviewed. COMPARISON: No relevant prior studies available. FINDINGS: Vertebrae: Slight degenerative retrolisthesis of C4 on C5. Mild dextroconvex scoliosis. No acute fracture seen. Moderate degenerative changes at C1-2. Severe left cervical facet arthropathy. Disc height loss and spondylosis is severe at C6-7 and C7-T1, moderate at C4-5, relatively mild elsewhere. Discs/Spinal canal/Neural foramina: No acute findings. See above. Central spinal canal stenosis is probably mild to moderate in degree at the C6-7 level. Uncovertebral and facet arthropathy causing multilevel neural foraminal stenoses. Soft tissues: Unremarkable. Lungs: Lung apices are normal. IMPRESSION: No cervical spine fracture seen. Electronically signed by: Shelly Jaffe On 03/28/2018 19:21:28 PM
--- NOTE | 2018-03-28 19:34 | REPVR ---
EXAM: CT Abdomen and Pelvis Without Contrast EXAM DATE/TIME: 03/28/2018 7:01 PM CLINICAL HISTORY: 68 years old, male; Abnormal findings; Abnormal lab test; Elevated wbc; Additional info: Leukocytosis TECHNIQUE: Axial computed tomography images of the abdomen and pelvis without contrast. All CT scans at this facility use at least one of these dose optimization techniques: automated exposure control; mA and/or kV adjustment per patient size (includes targeted exams where dose is matched to clinical indication); or iterative reconstruction. Coronal and sagittal reformatted images were created and reviewed. COMPARISON: CT ABD PELVIS WITH CONTRAST 07/03/2016 12:08 PM FINDINGS: Lower thorax: The lung bases are described separately on a dedicated exam. ABDOMEN: Liver: The liver contour is nodular consistent with cirrhosis, as before. Gallbladder and bile ducts: A focal calcification is again seen in the region of the ampulla, could potentially be a common bile duct stone. No new biliary ductal dilatation. Pancreas: Normal. No ductal dilation. Spleen: The spleen is enlarged measuring approximately 15 cm in length, unchanged compared to the prior study. Adrenals: Stable benign left adrenal adenoma measuring 1.8 cm. Kidneys and ureters: Nonspecific perinephric fat stranding, similar to prior. No hydronephrosis. Renal calcifications are likely vascular. No hydronephrosis. Stomach and bowel: Colonic diverticulosis without evidence of diverticulitis. There is suture along the sigmoid colon. No obstruction. No mucosal thickening. Appendix: A normal appendix is seen. PELVIS: Bladder: The bladder is mostly decompressed around a Jules catheter. Small focus of air in the bladder may be procedure related. Reproductive: There are calcifications in the prostate gland. ABDOMEN and PELVIS: Intraperitoneal space: No free air. No significant fluid collection. Bones/joints: There are old left rib fractures. No acute fracture seen. Soft tissues: There are right groin surgical clips. Small fat containing ventral wall hernia, as before. Right flank lipoma, as before. Vasculature: The aorta demonstrates atherosclerosis. There is a right external iliac stent. There is a stent in the right renal artery. Lymph nodes: No pathologically enlarged lymph nodes. IMPRESSION: 1. Images are mildly motion degraded. 2. No acute findings identified. 3. Nodular liver contour consistent with cirrhosis. There is splenomegaly. 4. Possible choledocholithiasis. COMMENT: Consistent with the [employer]'s Incidental Findings Committee Report (J Am Lee Radiol 2010): Unless the patient's specific circumstances suggest otherwise, any liver lesion 0.5 cm or less, any cystic kidney lesion less than 1.0 cm, and/or any adrenal lesion 1.0 cm or less not otherwise characterized in this report as possessing suspicious or indeterminate imaging features is/are highly likely to be benign and do not require follow-up imaging or biopsy. Electronically signed by: Shelly Jaffe On 03/28/2018 19:33:52 PM
--- NOTE | 2018-03-28 19:47 | REPVR ---
EXAM: CT Chest Without Contrast EXAM DATE/TIME: 03/28/2018 7:01 PM CLINICAL HISTORY: 68 years old, male; Abnormal findings; Abnormal diagnostic tests; Abnormal ekg; Additional info: Leukocytosis TECHNIQUE: Axial computed tomography images of the chest without intravenous contrast. All CT scans at this facility use at least one of these dose optimization techniques: automated exposure control; mA and/or kV adjustment per patient size (includes targeted exams where dose is matched to clinical indication); or iterative reconstruction. Coronal and sagittal reformatted images were created and reviewed. COMPARISON: CT Chest with contrast 07/02/2016 3:23 PM FINDINGS: Lungs: Right lower lobe consolidation consistent with pneumonia. There are scattered subpleural cystic changes. Pleural space: No pneumothorax. No pleural effusion. Heart: There are coronary artery calcifications. Calcifications at the mitral valve annulus. Aorta: Normal. No aortic aneurysm. Lymph nodes: Scattered mediastinal lymph nodes are noted, for example a right paratracheal lymph node measuring 11 mm in short axis, mildly larger compared to the prior study. In the setting of pneumonia, this could be reactive. Bones/joints: No acute fracture seen. Old bilateral rib fractures. Mild thoracic degenerative disc disease scoliosis. Soft tissues: Unremarkable. IMPRESSION: There are mild motion artifacts. Right lower lobe consolidation consistent with pneumonia. Electronically signed by: Shelly Jaffe On 03/28/2018 19:47:11 PM
[2018-03-28] MEDS ORDERED: ONDANSETRON 4MG/2ML VIAL (J2405) IV PRN (20:30)
[2018-03-28] MEDS ORDERED: NICOTINE 21MG/24HR 1 EA TRANSDERMAL TD PRN (20:45)
[2018-03-28] MEDS ORDERED: LORazepam 2 MG TAB PO PRN (20:45)
[2018-03-28] MEDS ORDERED: SENNA 8.6 MG TAB (SENOKOT) PO PRN (20:45)
[2018-03-28] MEDS ORDERED: oxyCODONE 5MG TAB PO PRN (20:45)
[2018-03-28] MEDS ORDERED: NS 1,000 ML IV SCH (20:45)
[2018-03-28] MEDS ORDERED: GLUCAGON FOR INJ 1 MG VIAL (J1610) SC PRN (20:45)
[2018-03-28] MEDS ORDERED: GLUCOSE 4 GM CHEW TABLET PO PRN (20:45)
[2018-03-28] MEDS ORDERED: DEXTROSE 50% 50 ML SYRINGE IV PRN (20:45)
[2018-03-28] MEDS: IPRATROPIUM 0.5MG/ALBUTEROL 2.5MG INH SOL UD 3ML (DUONEB)(J7620) NEB SCH (23:10)
[2018-03-28 23:15] VITALS: BP 169/89
[2018-03-28 23:33] VITALS: BP 169/89
[2018-03-29] MEDS: ATORVASTATIN 20 MG TAB PO SCH ×2 (01:21→20:28)
[2018-03-29] MEDS: THIAMINE 100 MG TAB PO SCH ×3 (01:21→20:28)
[2018-03-29] MEDS: oxyBUTYnin 5 MG TAB PO SCH ×4 (01:21→20:28)
[2018-03-29] MEDS: BISOPROLOL FUMARATE 5 MG TAB PO SCH ×3 (01:22→20:31)
[2018-03-29] MEDS: GABAPENTIN 400 MG CAP PO SCH ×3 (01:22→20:28)
[2018-03-29] MEDS: NORTRIPTYLINE 25 MG CAP PO SCH ×4 (01:22→20:28)
[2018-03-29] MEDS: IPRATROPIUM 0.5MG/ALBUTEROL 2.5MG INH SOL UD 3ML (DUONEB)(J7620) NEB SCH ×4 (02:01→19:24)
[2018-03-29 06:00] VITALS: BP 152/75
[2018-03-29 07:32] LABS: HEMATOCRIT 39.8 % (42.0-52.0); HEMOGLOBIN 12.8 g/dl (13.5-17.5); MEAN CORPUSCULAR HEMOGLOBIN 29.6 pg (27.0-33.0); MEAN CORPUSCULAR HGB CONC 32.2 g/dl (32.0-36.5); MEAN CORPUSCULAR VOLUME 91.9 fl (80.0-96.0); RED BLOOD COUNT 4.33 10^6/uL (4.30-6.10)
[2018-03-29 07:43] LABS: CALCIUM LEVEL 8.6 MG/DL (8.8-10.2); CREATININE FOR GFR 1.4 MG/DL (0.70-1.30); GLOMERULAR FILTRATION RATE 53.5 (>49); POTASSIUM SERUM 4.2 MEQ/L (3.5-5.1)
[2018-03-29 08:23] LABS: PLATELET COUNT, AUTOMATED 90 10^3/uL (150-450)
--- NOTE | 2018-03-29 08:43 | ECGEPIP ---
Stationary ECG Study [facility] - ED Test Date: 2018-03-28 Pat Name: PAGE BADILLO Department: Room: [place] [address] Gender: M Crew Foreman: : 1950 Requested By: JOSIE Becerra Order Number: [id number] Reading MD: Stan Valdovinos Measurements Intervals [place] Rate: 88 P: 48 VT: 195 QRS: -9 QRSD: 154 T: 52 QT: 402 QTc: 488 Interpretive Statements SINUS RHYTHM RIGHT BUNDLE BRANCH BLOCK TYPE 3 BRUGADA PATTERN (NON-DIAGNOSTIC) 02/24/18 RATE INCREASED CLINICAL CORRELATION ADVISED Electronically Signed On 03-29-2018 8:42:58 EST by Stan Valdovinos
[2018-03-29] MEDS: HumaLOG INSULIN (NovoLOG) PER UNIT SC SCH ×3 (09:02→18:04)
[2018-03-29] MEDS: FINASTERIDE 5 MG TAB PO SCH (09:03)
[2018-03-29] MEDS: FOLIC ACID 1 MG TAB PO SCH (09:05)
[2018-03-29] MEDS: OMEPRAZOLE 20 MG CAP PO SCH (09:05)
[2018-03-29] MEDS: MULTIVITAMINS/MINERALS THERAP 1 TAB PO SCH (09:05)
[2018-03-29] MEDS: TAMSULOSIN 0.4 MG CAP PO SCH (09:05)
[2018-03-29] MEDS: ESCITALOPRAM OXALATE 10 MG TAB (LEXAPRO) PO SCH (09:06)
[2018-03-29] MEDS: ASPIRIN 81 MG ENTERIC TAB PO SCH (09:06)
--- NOTE | 2018-03-29 10:09 | HPE ---
DATE OF ADMISSION: 03/28/2018 CHIEF COMPLAINT: Patient actually came in complaining of worsening back and limb pain. HISTORY OF PRESENT ILLNESS: The patient is a 68-year-old male. He has significant past medical history of alcohol abuse which is still ongoing. He says he drinks about 2-3 wine coolers on a daily basis, hypertension, hyperlipidemia, diabetes with neuropathy, chronic obstructive pulmonary disease (COPD), obstructive sleep apnea not compliant with CPAP, peripheral vascular disease status post femoral popliteal bypass as well as right below knee amputation with phantom limb pain, diastolic congestive heart failure, benign prostatic hypertrophy with chronic urinary retention and an indwelling Jules catheter. Most of history obtained from daughter at bedside because the patient does also have underlying baseline dementia. He also has a history of psoriasis for which he gets every two weekly Humira shots. He was sent to the emergency department. He resides with his girlfriend and the daughter states that the girlfriend called her and said that she could not take care of him anymore and so she would be sending him to the emergency department, and his phantom limb pain was worsening. The patient presented to the emergency department with worsened phantom limb pain. He denied any other acute complaints. He does have a baseline dementia so his history is very poor, but in the emergency room, he appears non-toxic. He denies cough, chest pain, shortness of breath, fevers, chills, urinary symptoms, abdominal pain, constipation or diarrhea. He states he does not know why he is here and would like to return home. On labs in the emergency department, he was noted to have a white count of 26.6 with a left shift, lactate of 2.4. He was also noted to have a UA with 10-15 WBCs and a large amount of bacteria. He is probably colonized. He has grown Bactrim sensitive Methicillin-resistant staphylococcus aureus (MRSA) in the urine on a past admission. PAST MEDICAL HISTORY: See history of present illness. PAST SURGICAL HISTORY: He has also had hernia repair. He has had right below knee amputation, femoral popliteal artery bypass. He has had craniotomy patch 3 secondary to hemorrhagic stroke. ALLERGIES: ACR INHIBITORS, BEE VENOM, HYDROCODONE and VARENICLINE. HOME MEDICATIONS: Include: - aspirin - Lipitor - bisoprolol - Lexapro - finasteride - gabapentin - nortriptyline - Prilosec - oxybutynin - oxycodone - senna - tamsulosin - glipizide - Humira SOCIAL HISTORY: Alcohol abuse. He drinks 2-3 wine coolers every day. Smokes a pack per day and also admitted to marijuana use recreationally. ALLERGIES: As listed above. FAMILY HISTORY: Noncontributory. REVIEW OF SYSTEMS: 12 point review of systems was completed all of which were negative except those listed in history of present illness. However, again, the patient is a very poor historian. VITALS ON ADMISSION: Temperature 100.4, pulse 92, respiratory rate 17, blood pressure 176/76, sating at 93% on room air. PHYSICAL EXAMINATION: General: He is an elderly gentleman, he does not appear in any distress. Somewhat confused. Head is normocephalic, atraumatic. He does have craniotomy scars which are apparent. Neck is supple. No jugular venous pulse. Lungs: He is unable to sit up but I was unable to discern any wheezing, possibly right basilar crackles. No use of accessory muscles. Cardiovascular: Regular rate and rhythm. Normal S1, S2. No murmurs, gallops or rubs. The abdomen is soft, nontender, nondistended. Positive bowel sounds. No rebound. No guarding. Extremities: Right below knee amputation. No edema on the left. No calf tenderness. Skin: He has a healed PVD ulcer on the great toe. Neurological: He is alert and oriented to person and place. He is somewhat slow to respond. The daughter says he does have underlying dementia and it is difficult to tell what is his baseline. He goes in and out. There are moment where he more lucent than others. LABS AND IMAGING COMPLETED IN THE EMERGENCY ROOM: White count of 26 with a left shift, hemoglobin and hematocrit of 13/41, platelet count of 130. Coags: PT 14, INR 1.5, PTT of 38. Chemistry shows a BUN and creatinine of 26/1.79, baseline creatinine of 1.3, lactate of 2.4, LFTs within normal limits. Troponin is negative. Sodium of 134. Chloride of 100. UA shows positive blood, positive leukocyte esterase, 10-15 WBCs, large amounts of bacteria. IMAGING COMPLETED IN THE EMERGENCY ROOM: CT of the abdomen and pelvis shows no acute findings. Nodular liver contour consistent with cirrhosis. Otherwise unremarkable. CT of the chest shows right lower lobe consolidation consistent with pneumonia. CT of the cervical spine shows no cervical fracture or dislocation. CT of the head shows no acute intracranial abnormality. X-ray of the chest shows right basilar infiltrate. ASSESSMENT AND PLAN: Sepsis secondary with what appears to be community acquired pneumonia. Will start the patient on Rocephin and Zithromax. Will send sputum culture. Oxygen if needed. Tylenol as needed. DuoNebs as needed. For questionable urinary tract infection (UTI), patient is probably colonized. He has a history of Bactrim sensitive Methicillin-resistant staphylococcus aureus (MRSA) in the urine. Will cover with Rocephin for now, antibiotics as per urine cultures which have been sent. Blood cultures time two also have been sent. Will fluid hydrate and trend lactate until it normalized. For acute renal failure on chronic kidney disease (CKD), likely secondary to sepsis prerenal azotemia, will fluid hydrate and will trend renal function. For alcoholic hepatitis, patient platelet count is low which is likely the first sign of impending cirrhosis. Will place the patient on CWOL protocol. He is a chronic drinker. He has been counseled for tobacco abuse. Will place him on nicotine replacement therapy. Hypertension, diastolic congestive heart failure. Will continue his bisoprolol, aspirin. Hyperlipidemia, will continue Lipitor. Diabetes neuropathy, continue his nortriptyline as well as gabapentin. Hold glipizide, place him in insulin sliding scale. Peripheral vascular disease status post femoral popliteal bypass below knee amputation with phantom limb pain. Continue oxycodone, nortriptyline and gabapentin. Benign prostatic hypertrophy (BPH) with chronic urinary retention. Jules in place. Continue with tamsulosin and finasteride. Depression mood disorder, continue Lexapro. History of chronic obstructive pulmonary disease (COPD), DuoNebs as needed. Oxygen as needed. Obstructive sleep apnea, no longer on CPAP. He is noncompliant. History of psoriasis, gets Humira injection every 2 weeks. Will continue as outpatient when the patient is discharged. History of stroke hemorrhagic as well as ischemic stroke. Patient to continue on aspirin and Lipitor. Deep venous thrombosis (DVT) prophylaxis, Sequential compression devices (SCD). Gastrointestinal (GI) prophylaxis. The patient is already on Prilosec. Diet. Cardiac, diabetic, fluid restriction diet. Patient may need a social work service consult at this point as his daughter at bedside states his girlfriend is no longer able to take care of the patient.
[2018-03-29 15:17] VITALS: BP 127/61
[2018-03-29] MEDS: amLODIPine 5 MG TAB PO SCH (18:06)
--- NOTE | 2018-03-29 18:39 | IPNPDOC ---
Subjective Date Seen The patient was seen on 03/29/18. Subjective Chief Complaint/HPI Worsening back and limp pain Events since last encounter Patient states he feels alright. Did not feel that bad prior to admission. Is depressed that signifcant other left him there. He took care of her when she needed it. Denies any cough, shortness of breath. Denies fevers, abdominal pain. Constitutional: Denies: Chills, Fever ENT: Denies: Head Aches Skin: Denies: Rash Pulmonary: Denies: Dyspnea, Cough Objective Physical Examination General Exam: Positive: Alert, Cooperative; Negative: No Acute Distress Eye Exam: Positive: PERRLA ENT Exam: Positive: Atraumatic Neck Exam: Positive: Supple Chest Exam: Positive: Clear to auscultation Heart Exam: Positive: Rate Normal Abdomen Exam: Positive: Normal bowel sounds Extremity Exam: Positive: Other (Right lower extremity below knee amputation); Negative: Edema, Swelling Neuro Exam: Positive: Normal Speech Psych Exam: Positive: Anxiety, Oriented x 3, Other (depressed, some confusion noted. ) Assessment /Plan Assessment 1. Pneumonia Continue Azithromycin and Ceftriaxone for pneumonia. 2. History of UTI/ Urinary retention History of MRSA in urine. Urine culture sent. Chronic curtis for urinary retention. Continue curtis for now. 3. Phantom limb pain Continue Nortriptyline at this time. Since decreased renal function, decreasing current dose of Gabapentin. Can increase once patient's renal function improves. 4. BIB Creatinine improving. Repeat lab tomorrow. Suspect secondary to dehydration. 5. HTN Continue bisoprolol. Adding norvasc 5 mg daily for HTN uncontrolled today. Can increase medication as needed. 6. Alcohol abuse Patient notes have 3 drinks per day. Was improved and not drinking when lived at correction. CIWA protocol. Ativan as needed, none used at this time. 7. Liver cirrhosis/ thrombocytopenia Patient has history of cirrhosis. Platelet count was low on admission. Repeat CBC tomorrow. 8. Dementia Family reports some history of dementia. 9. Peripheral vascular disease Right lower extremity amputated due to PVD. 10. BPH Consider holding medication while patient has curtis catheter. Continue for now. 11. COPD Continue with nebulizers like home. 12. TITA Noncompliant at home. 13. Depression Continue lexapro at this time. 14. Diabetes insulin with sliding scale. hypoglycemic protocol. Lab in AM. Plan/VTE VTE Prophylaxis Ordered?: Yes Plan Discussed with daughter today. Patient's significant other dropped patient off because she no longer wants to care for patient and would like him placed into a correction. Patient lived at [facility] in past, not good experience. He also was at place in [place], [place] but would rather be somewhere closer. Is interested in [facility] if possible. Is upset because he has been with significant other for years and took care of her when she needed it. VS, I&O, 24H, Fishbone Vital Signs/I&O Vital Signs Date Time Temp Pulse Resp B/P (MAP) Pulse Ox O2 Delivery O2 Flow Rate FiO2 03/29/18 18:06 80 127/61 03/29/18 15:17 97.3 18 96 2.0 03/28/18 19:12 Room Air I&O- Last 24 Hours up to 6 AM 03/29/18 06:00 Intake Total 530 ml Output Total 500 ml Balance 30 ml Laboratory Data 24H LABS Laboratory Tests 2 03/28/18 22:59: Lactic Acid Followup at 4 Hours 1.5 03/29/18 07:10: Nucleated Red Blood Cells % (auto) 0.0, Immature Platelet Fraction 5.9, Anion Gap 6L, Glomerular Filtration Rate 53.5, Blood Urea Nitrogen 21H, Creatinine 1.40H, Sodium Level 136, Potassium Level 4.2, Chloride Level 102, Carbon Dioxide Level 28, Calcium Level 8.6L 03/29/18 11:21: Ammonia 25 03/29/18 12:12: Bedside Glucose (Misc Panel) 146H 03/29/18 17:22: Bedside Glucose (Misc Panel) 184H CBC/BMP Laboratory Tests 03/29/18 07:10 Red Blood Count 4.33, Mean Corpuscular Volume 91.9, Mean Corpuscular Hemoglobin 29.6, Mean Corpuscular Hemoglobin Concent 32.2, Red Cell Distribution Width 15.4 H, Calcium Level 8.6 L Microbiology Microbiology 03/28/18 Blood Culture, Received Pending 03/28/18 Blood Culture - Preliminary, Resulted No growth after 24 hours . All specim... 03/28/18 Respiratory Virus Panel (PCR) ([facility]) - Final, Complete 03/28/18 Urine Culture, Received Pending GME ATTESTATION GME ATTESTATION My faculty preceptor for this patient encounter was physically present during the encounter and was fully available. All aspects of the patient interview, examination, medical decision making process, and medical care plan development were reviewed and approved by the faculty preceptor. The faculty preceptor is aware and concurs with the plan as stated in the body of this note and will attest to such by his/her cosignature. SERVANDO GONZALEZ DO Mar 29, 2018 18:39
[2018-03-29 20:00] VITALS: BP 122/60
[2018-03-29] MEDS ORDERED: AZITHROMYCIN INJ 500 MG, VIAL MATE ADAPTER 1 EACH in D5W 250 ML IV SCH (20:00)
[2018-03-29 22:00] VITALS: BP 122/60
[2018-03-29] MEDS ORDERED: cefTRIAXone SOD 1 GM in D5W MINI-BAG PLUS 50 ML IV SCH (23:00)
[2018-03-30] MEDS: IPRATROPIUM 0.5MG/ALBUTEROL 2.5MG INH SOL UD 3ML (DUONEB)(J7620) NEB SCH ×4 (00:47→20:44)
[2018-03-30 05:56] LABS: HEMATOCRIT 37.4 % (42.0-52.0); HEMOGLOBIN 12.1 g/dl (13.5-17.5); MEAN CORPUSCULAR HEMOGLOBIN 29.6 pg (27.0-33.0); MEAN CORPUSCULAR HGB CONC 32.4 g/dl (32.0-36.5); MEAN CORPUSCULAR VOLUME 91.4 fl (80.0-96.0); RED BLOOD COUNT 4.09 10^6/uL (4.30-6.10)
[2018-03-30 05:57] LABS: PLATELET COUNT, AUTOMATED 95 10^3/uL (150-450)
[2018-03-30 06:00] VITALS: BP 139/86
[2018-03-30 06:24] LABS: CALCIUM LEVEL 8.7 MG/DL (8.8-10.2); CREATININE FOR GFR 1.32 MG/DL (0.70-1.30); GLOMERULAR FILTRATION RATE 57.3 (>49); POTASSIUM SERUM 4.3 MEQ/L (3.5-5.1)
[2018-03-30] MEDS: FINASTERIDE 5 MG TAB PO SCH (09:20)
[2018-03-30] MEDS: amLODIPine 5 MG TAB PO SCH (09:20)
[2018-03-30] MEDS: HumaLOG INSULIN (NovoLOG) PER UNIT SC SCH ×3 (09:20→17:23)
[2018-03-30] MEDS: ASPIRIN 81 MG ENTERIC TAB PO SCH (09:20)
[2018-03-30] MEDS: BISOPROLOL FUMARATE 5 MG TAB PO SCH ×2 (09:20→20:22)
[2018-03-30] MEDS: THIAMINE 100 MG TAB PO SCH ×2 (09:20→20:18)
[2018-03-30] MEDS: NORTRIPTYLINE 25 MG CAP PO SCH ×3 (09:20→20:17)
[2018-03-30] MEDS: TAMSULOSIN 0.4 MG CAP PO SCH (09:21)
[2018-03-30] MEDS: FOLIC ACID 1 MG TAB PO SCH (09:21)
[2018-03-30] MEDS: MULTIVITAMINS/MINERALS THERAP 1 TAB PO SCH (09:21)
[2018-03-30] MEDS: OMEPRAZOLE 20 MG CAP PO SCH (09:21)
[2018-03-30] MEDS: ESCITALOPRAM OXALATE 10 MG TAB (LEXAPRO) PO SCH (09:21)
[2018-03-30] MEDS: oxyBUTYnin 5 MG TAB PO SCH ×3 (09:21→20:18)
[2018-03-30] MEDS: GABAPENTIN 400 MG CAP PO SCH ×2 (09:21→20:18)
[2018-03-30] MEDS: NYSTATIN 100,000 UNITS/GM TOPICAL PWD 15 GM TOP SCH ×2 (09:21→20:22)
--- NOTE | 2018-03-30 11:04 | IPNPDOC ---
Subjective Date Seen The patient was seen on 03/30/18. Subjective Chief Complaint/HPI Feels well. No further cough or SOB. No new issues Constitutional: Denies: Chills, Fever Pulmonary: Denies: Dyspnea, Cough Gastrointestinal: Reports: Constipation; Denies: Nausea, Vomiting, Abdominal Pain, Diarrhea Genitourinary: Reports: Other Symptoms (curtis cath) Objective Physical Examination General Exam: Positive: Alert, No Acute Distress Chest Exam: Positive: Clear to auscultation; Negative: Rales, Rhonchi, Wheezing Heart Exam: Positive: Rate Normal, Regular Rhythm, Irregular Rhythm Abdomen Exam: Positive: Normal bowel sounds, Soft; Negative: Tenderness Extremity Exam: Positive: Other (Right lower extremity below knee amputation); Negative: Edema Neuro Exam: Positive: Normal Speech Psych Exam: Positive: Mental status NL Assessment /Plan Problems (1) Right lower lobe pneumonia Status: Acute Response to Treatment: Improving Problem Text: 03/30 - Clinically improving with Rocephin/Zithromax - switch to po abx today (Augmentin/Zithromax) (2) Urinary tract infection Status: Acute Problem Text: Enterococcus Faecalis in U/C - Swith abx for better coverage - change to Augmentin as above Has chronic curtis cath (3) Lipoma of abdominal wall Status: Chronic Response to Treatment: Stable Problem Text: stable per CT abd/pelvis (4) CKD (chronic kidney disease), stage III Status: Chronic Response to Treatment: Stable Problem Text: 03/30 - Renal function improved with IVF and decreased dose of Gabapentin - D/C IVF today - monitor trend (5) Cirrhosis of liver Status: Chronic Response to Treatment: Stable (6) Chronic alcohol abuse Status: Chronic Response to Treatment: Stable (7) DM2 (diabetes mellitus, type 2) Status: Chronic Response to Treatment: Stable Problem Text: Blood sugars controlled on SSI coverage (8) COPD (chronic obstructive pulmonary disease) Status: Chronic (9) Hypertension Status: Chronic (10) Phantom limb syndrome with pain Status: Chronic Response to Treatment: Stable Problem Text: As above Gabapentin dose decreased due to BIB Plan/VTE VTE Prophylaxis Ordered?: Yes Disposition Daughter unable to care for patient at home - will need to be SNF once stable - likely tomorrow VS, I&O, 24H, Fishbone Vital Signs/I&O Vital Signs Date Time Temp Pulse Resp B/P (MAP) Pulse Ox O2 Delivery O2 Flow Rate FiO2 03/30/18 09:20 81 139/86 03/30/18 06:00 98.7 16 94 03/30/18 05:39 2.0 03/30/18 00:40 Nasal Cannula I&O- Last 24 Hours up to 6 AM 03/30/18 06:00 Intake Total 340 ml Output Total 1375 ml Balance -1035 ml Laboratory Data 24H LABS Laboratory Tests 2 03/29/18 11:21: Ammonia 25 03/29/18 12:12: Bedside Glucose (Misc Panel) 146H 03/29/18 17:22: Bedside Glucose (Misc Panel) 184H 03/29/18 23:03: Bedside Glucose (Misc Panel) 167H 03/30/18 05:43: Nucleated Red Blood Cells % (auto) 0.0, Anion Gap 6L, Glomerular Filtration Rate 57.3, Blood Urea Nitrogen 20H, Creatinine 1.32H, Sodium Level 135L, Potassium Level 4.3, Chloride Level 102, Carbon Dioxide Level 27, Calcium Level 8.7L CBC/BMP Laboratory Tests 03/30/18 05:43 Red Blood Count 4.09 L, Mean Corpuscular Volume 91.4, Mean Corpuscular Hemoglobin 29.6, Mean Corpuscular Hemoglobin Concent 32.4, Red Cell Distribution Width 15.4 H, Calcium Level 8.7 L Microbiology Microbiology 03/28/18 Blood Culture - Preliminary, Resulted No growth after 24 hours . All specim... 03/28/18 Blood Culture - Preliminary, Resulted No growth after 24 hours . All specim... 03/28/18 Respiratory Virus Panel (PCR) ([facility]) - Final, Complete 03/28/18 Urine Culture - Preliminary, Resulted Enterococcus Faecalis ELAINE JIMÉNEZ PA-C Mar 30, 2018 11:04 John Beyer MD Mar 30, 2018 16:26
[2018-03-30] MEDS: AZITHROMYCIN 250 MG TAB PO SCH (12:55)
[2018-03-30] MEDS: AUGMENTIN 500 MG TAB PO SCH ×2 (12:55→20:18)
[2018-03-30 14:00] VITALS: BP 176/77
[2018-03-30 15:18] VITALS: BP 146/80
[2018-03-30 20:00] VITALS: BP 136/63
[2018-03-30] MEDS: ATORVASTATIN 20 MG TAB PO SCH (20:18)
[2018-03-31] MEDS: IPRATROPIUM 0.5MG/ALBUTEROL 2.5MG INH SOL UD 3ML (DUONEB)(J7620) NEB SCH ×4 (00:13→19:44)
[2018-03-31 06:03] LABS: HEMATOCRIT 37.3 % (42.0-52.0); HEMOGLOBIN 12.1 g/dl (13.5-17.5); MEAN CORPUSCULAR HEMOGLOBIN 29.5 pg (27.0-33.0); MEAN CORPUSCULAR HGB CONC 32.4 g/dl (32.0-36.5); PLATELET COUNT, AUTOMATED 106 10^3/uL (150-450); WHITE BLOOD COUNT 8.4 10^3/uL (4.0-10.0)
[2018-03-31 06:27] LABS: CALCIUM LEVEL 9.1 MG/DL (8.8-10.2); CREATININE FOR GFR 1.29 MG/DL (0.70-1.30); GLOMERULAR FILTRATION RATE 58.8 (>49); POTASSIUM SERUM 4.1 MEQ/L (3.5-5.1)
[2018-03-31] MEDS: AUGMENTIN 500 MG TAB PO SCH ×2 (08:32→21:14)
[2018-03-31] MEDS: NYSTATIN 100,000 UNITS/GM TOPICAL PWD 15 GM TOP SCH ×2 (08:32→21:15)
[2018-03-31] MEDS: THIAMINE 100 MG TAB PO SCH (08:32)
[2018-03-31] MEDS: HumaLOG INSULIN (NovoLOG) PER UNIT SC SCH ×3 (08:32→17:57)
[2018-03-31] MEDS: BISOPROLOL FUMARATE 5 MG TAB PO SCH ×2 (08:33→21:15)
[2018-03-31] MEDS: AZITHROMYCIN 250 MG TAB PO SCH (08:33)
[2018-03-31] MEDS: ASPIRIN 81 MG ENTERIC TAB PO SCH (08:33)
[2018-03-31] MEDS: TAMSULOSIN 0.4 MG CAP PO SCH (08:33)
[2018-03-31] MEDS: oxyBUTYnin 5 MG TAB PO SCH ×3 (08:33→21:13)
[2018-03-31] MEDS: OMEPRAZOLE 20 MG CAP PO SCH (08:33)
[2018-03-31] MEDS: GABAPENTIN 400 MG CAP PO SCH ×2 (08:33→21:14)
[2018-03-31] MEDS: FOLIC ACID 1 MG TAB PO SCH (08:33)
[2018-03-31] MEDS: MULTIVITAMINS/MINERALS THERAP 1 TAB PO SCH (08:34)
[2018-03-31] MEDS: NORTRIPTYLINE 25 MG CAP PO SCH ×3 (08:34→21:13)
[2018-03-31] MEDS: ACETAMINOPHEN 500 MG TAB PO PRN ×2 (08:34→21:15)
[2018-03-31] MEDS: FINASTERIDE 5 MG TAB PO SCH (08:34)
[2018-03-31] MEDS: amLODIPine 5 MG TAB PO SCH (08:35)
[2018-03-31] MEDS: ESCITALOPRAM OXALATE 10 MG TAB (LEXAPRO) PO SCH (08:35)
[2018-03-31] MEDS: glipiZIDE *2.5MG* 1/2 TABLET PO SCH (09:15)
[2018-03-31 16:00] VITALS: BP 149/79
[2018-03-31] MEDS: ATORVASTATIN 20 MG TAB PO SCH (21:13)
--- NOTE | 2018-03-31 22:00 | DSES ---
DATE OF ADMISSION: 03/28/2018 DATE OF DISCHARGE: Discharged to halfway facility. BRIEF HISTORY AND PHYSICAL: Patient is a 68-year-old who presented complaining of back and limb pain. Most of the history was obtained by the daughter because the patient has some underlying baseline dementia. She stated she could not care for him anymore. His phantom limb pain has been worsening; however, in the emergency room (ER), his white count was 26 with a left shift and a lactate of 2.4. He has a chronic Jules catheter with a urine that showed a large amount of bacteria. Past medical history Is significant for chronic obstructive pulmonary disease (COPD) noncompliant with C-PAP, peripheral vascular disease as well as a known right [id number] amputation with phantom limb pain, diastolic congestive heart failure, benign prostatic hypertrophy with chronic urinary retention and indwelling Jules catheter, has grown Bactrim sensitive methicillin-resistant Staphylococcus aureus in his urine on past admissions, has a history of ongoing alcohol abuse and dementia. PERTINENT LABORATORIES ON ADMISSION: CT of the abdomen and pelvis showed no acute findings. Nodular liver contour consistent with cirrhosis and a stable large lipoma on his right abdomen wall. CT of the chest shows a right lower lobe consolidation consistent with pneumonia. CT of the cervical spine showed no cervical fracture or dislocation. CT of the head showed no acute intracranial abnormalities. X-ray of the chest showed right basilar infiltrate. HOSPITAL COURSE: 1. Patient was admitted for sepsis secondary to community-acquired pneumonia and a urinary tract infection (UTI), as well as acute on chronic renal failure. Patient was treated with Rocephin and Zithromax for right lower lobe pneumonia. He had really no significant symptoms of this, although he did have some hypoxemia, with his oxygen levels dipping down to 88% early on. He denied really significant shortness of breath or cough. His oxygen saturations are maintained on 2 liters nasal cannula. His blood cultures were negative. His respiratory virus panel was negative and his white count has normalized. His antibiotics have been switched to Augmentin and Zithromax, for which he will complete the five day course of Zithromax. Augmentin will cover the Enterococcus faecalis that he grew in his urine. 2. Urinary tract infection. He grew Enterococcus faecalis and Staphylococcus epidermidis. We are treating the Enterococcus with Augmentin. Staphylococcus is probably a contaminant. Clinically, he is responding to antibiotic therapy. He has a chronic indwelling Jules catheter. 3. Acute on chronic kidney disease. His renal function improved with intravenous (IV) fluids and a decreased dose of gabapentin. IV fluids were discontinued on 03/30/2018. His renal function continues to improve. Creatinine was 1.29 on the day of SNF. 4. Phantom limb pain. He is on gabapentin. His dose was decreased due to acute kidney injury. He did get some OxyIR last night, but became very confused and hallucinating with this. Therefore, this will be discontinued and he will be given Tylenol as needed. 5. Liver cirrhosis. He has an elevated PT, PTT. His platelet count is slightly low, but fairly stable. He is mildly anemic, remains on thiamine. He has not shown any signs of alcohol withdrawal. His lorazepam will be discontinued. 6. Hypertension. Blood pressure is stable on his current regimen. 7. Diabetes mellitus type 2. He is on sliding scale. At home, he was on glipizide. I will restart his glipizide and his previous home dose, as his sugars are running around 200 here and he would tolerate that. Monitor his sugars and eventually discontinue his sliding scale and fingersticks. 8. Chronic obstructive pulmonary disease (COPD). Stable as above. 9. Lipoma of the abdominal wall. Stable per CT of the abdomen and pelvis. DISPOSITION: He is stable for SNF status today. Medications will be dictated at the time of his transfer to the correction. DISCHARGE DIAGNOSES: 1. Sepsis, resolved. 2. Right lower lobe pneumonia. 3. Urinary tract infection. 4. Chronic indwelling Jules catheter. 5. Acute on chronic kidney disease. 6. Phantom limb pain. 7. Hypertension. 8. Cirrhosis of the liver. 9. Chronic alcohol abuse. 10. Diabetes mellitus type 2. 11. Chronic obstructive pulmonary disease (COPD). 12. Hypertension. 13. Lipoma of the abdominal wall. 14. Dementia.
[2018-04-01] MEDS: IPRATROPIUM 0.5MG/ALBUTEROL 2.5MG INH SOL UD 3ML (DUONEB)(J7620) NEB SCH ×3 (01:30→13:15)
[2018-04-01 06:00] VITALS: BP 142/74
[2018-04-01] MEDS: HumaLOG INSULIN (NovoLOG) PER UNIT SC SCH ×2 (08:03→11:59)
[2018-04-01] MEDS: NYSTATIN 100,000 UNITS/GM TOPICAL PWD 15 GM TOP SCH (08:03)
[2018-04-01] MEDS: GABAPENTIN 400 MG CAP PO SCH (08:03)
[2018-04-01 08:04] VITALS: BP 142/74
[2018-04-01] MEDS: ESCITALOPRAM OXALATE 10 MG TAB (LEXAPRO) PO SCH (08:04)
[2018-04-01] MEDS: AUGMENTIN 500 MG TAB PO SCH (08:04)
[2018-04-01] MEDS: ASPIRIN 81 MG ENTERIC TAB PO SCH (08:04)
[2018-04-01] MEDS: AZITHROMYCIN 250 MG TAB PO SCH (08:04)
[2018-04-01] MEDS: amLODIPine 5 MG TAB PO SCH (08:04)
[2018-04-01] MEDS: TAMSULOSIN 0.4 MG CAP PO SCH (08:04)
[2018-04-01] MEDS: OMEPRAZOLE 20 MG CAP PO SCH (08:04)
[2018-04-01] MEDS: glipiZIDE *2.5MG* 1/2 TABLET PO SCH (08:04)
[2018-04-01] MEDS: NORTRIPTYLINE 25 MG CAP PO SCH (08:04)
[2018-04-01] MEDS: FINASTERIDE 5 MG TAB PO SCH (08:04)
[2018-04-01] MEDS: MULTIVITAMINS/MINERALS THERAP 1 TAB PO SCH (08:05)
[2018-04-01] MEDS: BISOPROLOL FUMARATE 5 MG TAB PO SCH (08:05)
[2018-04-01] MEDS: oxyBUTYnin 5 MG TAB PO SCH (08:05)
[2018-04-01] MEDS: FOLIC ACID 1 MG TAB PO SCH (08:05)
[2018-04-01] MEDS ORDERED: FOLI1TAB11 PO (09:34)
[2018-04-01] MEDS ORDERED: NICO21PAT TD (09:34)
[2018-04-01] MEDS ORDERED: NYAM10003 TOP (09:34)
[2018-04-01] MEDS ORDERED: ACET-683 PO (09:34)
[2018-04-01] MEDS ORDERED: VITMTA PO (09:34)
[2018-04-01] MEDS ORDERED: AMOX500T2 PO (09:34)
[2018-04-01] MEDS ORDERED: GABA-845 PO (09:34)
[2018-04-01] MEDS ORDERED: AMLO5TAB6 PO (09:34)
[2018-04-01 14:00] VITALS: BP 145/76
[2018-04-01 14:29] VITALS: BP 134/80
--- NOTE | 2018-04-01 16:19 | DSES ---
DATE OF ADMISSION: 03/28/2018 DATE OF DISCHARGE: 04/01/2018 This is an addendum to an group home facility (SNF) summary I dictated on 03/31/2018. The patient is being discharged to [facility]. His status has not changed since the date he was made SNF. His medications have not been adjusted. He will be discharged on the following medications - acetaminophen 1000 mg every 6 hours as needed for pain, amlodipine 5 mg daily, Augmentin 500/125 twice a day for seven more days, folic acid 1 mg daily, gabapentin 800 mg twice a day, multivitamin daily, Nicoderm patch 21 mg per 24 hours daily, Nystatin topically twice a day, aspirin 81 mg daily, atorvastatin 40 mg at bedtime, bisoprolol 5 mg twice a day, Lexapro 10 mg daily, finasteride 5 mg daily, glipizide 2.5 mg daily, nortriptyline 75 mg three times a day, omeprazole 20 mg daily, oxybutynin 5 mg three times a day, Senna Plus one tablet daily, Flomax 0.4 mg daily. Of note, his gabapentin dose is lower than his previous home dose as stated in the previous SNF summary. He was previously on Humira; that is being held currently while he is undergoing treatment for infection, and he was on oxycodone but this has also been held. He became quite confused when we gave him oxycodone here in the hospital. We are using Tylenol for pain. Discharge diagnoses are unchanged from those previously dictated.
== END 2018-04-01 14:55 | disposition home or self-care (01) | DRG 871 ==
LOC: EDBD 17:09 → M ED 17:09 → M ED INP 20:17 → M MS5PR 23:15
PROVIDERS: ADMIT Internal Medicine; ATTEND Family Medicine
DX: A41.9 Sepsis, unspecified organism (principal); J18.9 Pneumonia, unspecified organism; I50.32 Chronic diastolic (congestive) heart failure; N39.0 Urinary tract infection, site not specified; N17.9 Acute kidney failure, unspecified; I13.0 Hypertensive heart and chronic kidney disease with heart failure and stage 1 through stage 4 chronic kidney disease, or unspecified chronic kidney disease; J44.0 Chronic obstructive pulmonary disease with (acute) lower respiratory infection; F10.10 Alcohol abuse, uncomplicated; E78.5 Hyperlipidemia, unspecified; Z66 Do not resuscitate; E11.40 Type 2 diabetes mellitus with diabetic neuropathy, unspecified; F17.200 Nicotine dependence, unspecified, uncomplicated; G47.33 Obstructive sleep apnea (adult) (pediatric); N18.3 Chronic kidney disease, stage 3 (moderate); L40.9 Psoriasis, unspecified; F32.9 Major depressive disorder, single episode, unspecified; B95.2 Enterococcus as the cause of diseases classified elsewhere; E11.51 Type 2 diabetes mellitus with diabetic peripheral angiopathy without gangrene; K70.10 Alcoholic hepatitis without ascites; K70.30 Alcoholic cirrhosis of liver without ascites; F03.90 Unspecified dementia, unspecified severity, without behavioral disturbance, psychotic disturbance, mood disturbance, and anxiety; N40.1 Benign prostatic hyperplasia with lower urinary tract symptoms; G54.6 Phantom limb syndrome with pain; R33.9 Retention of urine, unspecified; Z79.82 Long term (current) use of aspirin; Z89.511 Acquired absence of right leg below knee; Z79.899 Other long term (current) drug therapy; Z88.5 Allergy status to narcotic agent; Z88.8 Allergy status to other drugs, medicaments and biological substances; Z91.030 Bee allergy status; Z86.73 Personal history of transient ischemic attack (TIA), and cerebral infarction without residual deficits; Z98.62 Peripheral vascular angioplasty status; Z91.19 Patient's noncompliance with other medical treatment and regimen